=== PATIENT | female | born 1965 | race Caucasian/White ===

== ENCOUNTER 2023-03-20 15:45 | Outpatient (OUT) | payer OTHER, SELFPAY ==
[2023-03-20 16:21] LABS: Basophils Absolute Auto 0.1 10^3/uL (0.0-0.1); Basophils Percent Auto 0.7 % (0.2-2.0); Eosinophils Absolute Auto 0.4 10^3/uL (0.0-0.7); Eosinophils Percent Auto 5.3 % (0.9-7.0); Hematocrit 43.5 % (36.0-48.0); Hemoglobin 14.1 g/dL (12.0-16.0); Immature Granulocytes Abs Auto 0.01 10^3/uL (0.00-0.03); Immature Granulocytes Pct Auto 0.1 % (0.0-0.5); Lymphocytes Absolute Auto 1.9 10^3/uL (1.2-3.8); Lymphocytes Percent Auto 25.5 % (20.5-60.0); Mean Corpuscular HGB Conc 32.4 g/dL (29.9-35.2); Mean Corpuscular Hemoglobin 30.1 pg (26.7-34.0); Mean Corpuscular Volume 92.9 fL (81.0-99.0); Monocytes Absolute Auto 0.8 10^3/uL (0.3-0.8); Monocytes Percent Auto 10.6 % (1.7-12.0); Neutrophils Absolute Auto 4.4 10^3/uL (1.4-6.5); Neutrophils Percent Auto 57.8 % (43.0-75.0); Platelet Count 207 10^3/uL (150-450); Red Blood Count 4.68 10^6/uL (4.20-5.40); Red Cell Distribution Width 13.3 % (11.0-15.0); White Blood Count 7.5 10^3/uL (4.0-11.0)
[2023-03-20 16:36] LABS: Bilirubin Urine NEGATIVE (NEGATIVE); Blood Urine NEGATIVE (NEGATIVE); Clarity Urine CLEAR (CLEAR); Color Urine LT. YELLOW (YELLOW); Glucose Urine UA NEGATIVE (NEGATIVE); Ketones Urine NEGATIVE (NEGATIVE); Leukocyte Esterase Urine SMALL (NEGATIVE); Nitrite Urine NEGATIVE (NEGATIVE); Protein Urine NEGATIVE (NEG/TRACE); Specific Gravity Urine >=1.030 (1.005-1.025); Urobilinogen Urine 0.2 EU/dL (0.2-1.0); pH Urine 5.5 (5.0-9.0)
[2023-03-20 16:42] LABS: Bacteria Urine SMALL #/HPF (NONE SEEN); Mucus Urine NONE SEEN (NONE SEEN); RBC Urine NONE SEEN #/HPF (0-2)
[2023-03-20 16:43] LABS: Cast Seen? NONE SEEN #/LPF (NONE SEEN); Crystals Seen? None Seen #/HPF (None Seen); Squamous Epithelial Cell Urine FEW #/LPF (NONE/RARE)
[2023-03-20 16:51] LABS: Free T4 0.93 ng/dL (0.76-1.46)
[2023-03-20 16:52] LABS: Alanine Aminotransferase 28 U/L (14-59); Albumin Globulin Ratio 0.9; Albumin Level 3.7 g/dL (3.4-5.0); Alkaline Phosphatase 86 U/L (46-116); Anion Gap 13.3; Aspartate Amino Transferase 19 U/L (15-37); BUN Creatinine Ratio 24.5; Bilirubin Total 0.3 mg/dL (0.2-1.0); Calcium 9.1 mg/dL (8.5-10.1); Carbon Dioxide 24.5 mmol/L (21.0-32.0); Chloride 106 mmol/L (98-107); Chol HDL Ratio 2.4; Cholesterol 138 mg/dL (<=200); Estimated GFR (African America >60 (>=60); Estimated GFR (Non-African Ame 58 (>=60); Glucose 111 mg/dL (74-106); HDL Cholesterol 57 mg/dL (40-60); LDL Cholesterol Calculated 58.4 mg/dL; Potassium 3.8 mmol/L (3.5-5.1); Sodium 140 mmol/L (136-145); Thyroid Stimulating Hormone 2.571 uIU/mL (0.358-3.740); Total Protein 7.7 g/dL (6.4-8.2); Triglycerides 113 mg/dL (<=150); VLDL CHOLESTEROL 22.6 mg/dL
== END 2023-03-20 15:46 | disposition home or self-care (01) ==
LOC: LAB 15:48
PROVIDERS: PCP Nurse Practitioner; Visit Provider Nurse Practitioner
DX: R94.6 Abnormal results of thyroid function studies (principal); E78.5 Hyperlipidemia, unspecified; I10 Essential (primary) hypertension; Z72.0 Tobacco use
CPT/HCPCS: 36415; 80053; 80061; 81001; 84439; 84443; 85025

== ENCOUNTER 2023-05-16 07:52 | Outpatient (OUT) | payer OTHER, SELFPAY ==
--- NOTE | 2023-05-16 08:25 | MM_ITS ---
Patient: DIANE NGUYEN Exam Date: 05/16/2023 : 1965 Gender:F Ordering : EDUIN Nica Krishnamurthy [employer] Admission #: [id number] Family : Order #: [id number] CLICK HERE TO VIEW EXAM RADIOLOGY REPORT PROCEDURE: MM TOMOSYNTHESIS SCREENING BI COMPARISON: MG MAMM SCREEN 3D PARISA CAD, 05/28/2021. MG MAMM RT DIAG FU, 03/24/2020. MG MAMM SCREEN PARISA W CAD, 03/17/2020. MG MAMM PARISA SCRN W CAD DIG, 07/11/2013. INDICATIONS: Screening Calculator Name NCI Breast Cancer Risk Assessment Tool 5 Year Breast Cancer Risk 0.90% Lifetime Breast Cancer Risk 5.70% Personal Breast Cancer No Personal Ovarian Cancer No Treatments None Family Cancers Grandmother-maternal with stomach cancer at age ~78. LOCATION: [facility] BREAST COMPOSITION: Scattered areas fibroglandular density. FINDINGS: DIAGNOSTIC CATEGORY 1--NEGATIVE. RIGHT BREAST: No significant suspicious finding. No significant change has occurred. LEFT BREAST: No significant suspicious finding. No significant change has occurred. RECOMMENDATIONS: ROUTINE MAMMOGRAM AND CLINICAL EVALUATION IN 12 MONTHS. PLEASE NOTE: A NORMAL MAMMOGRAM DOES NOT EXCLUDE THE POSSIBILITY OF BREAST CANCER. A CLINICALLY SUSPICIOUS PALPABLE LUMP SHOULD BE BIOPSIED. Dictated by: Sukumar Crespo M.D. on 05/17/2023 at 13:31 Approved by: Sukumar Crespo M.D. on 05/17/2023 at 13:36
== END 2023-05-16 07:53 | disposition home or self-care (01) ==
LOC: MAMMO 07:52
PROVIDERS: PCP Nurse Practitioner; Visit Provider Nurse Practitioner
DX: Z12.31 Encounter for screening mammogram for malignant neoplasm of breast (principal); Z80.0 Family history of malignant neoplasm of digestive organs
CPT/HCPCS: 77063; 77067

== ENCOUNTER 2024-07-29 06:08 | Emergency (ER) | payer OTHER, SELFPAY ==
[2024-07-29] VITALS (10 sets, daily range): BP systolic 142–172; BP diastolic 58–101; PULSE 76; TEMP 37.5; O2SAT 92–95; BMI 27.4
--- NOTE | 2024-07-29 06:28 | ED_ITS ---
HPI HPI - General Adult General Chief complaint: Nausea/Vomiting/Diarrhea Stated complaint: VOMITING Time Seen by Provider: 07/29/24 06:25 History of Present Illness HPI narrative: 59-year-old female presents for nausea and vomiting and bodyaches. She has been sick for 4 days and started with a headache. No family member has been ill. She does not complain of diarrhea or abdominal pain or fever. Related Data Home Medications ?Medication ?Instructions ?Recorded ?Confirmed atorvastatin 40 mg tablet mg 07/29/24 lisinopril 20 mg tablet mg 07/29/24 montelukast 10 mg tablet mg 07/29/24 Allergies Allergy/AdvReac Type Severity Reaction Status Date / Time No Known Drug Allergies Allergy Verified 07/29/24 06:13 Opioid HPI Opioid Management Most Recent Opioid Data: No Data to Display Review of Systems ROS Narrative A ten point review of systems is negative except as noted above. PFSH PFSH Social History Little interest or pleasure in doing things: not at all Feeling down, depressed, or hopeless: not at all Exam Narrative Exam Narrative: Nurses note and vital signs reviewed and patient is not hypoxic. General: The patient appears well and in no apparent distress. Patient is resting comfortably on cart. Skin: Warm, dry, no pallor noted. There is no rash noted. Head: Normocephalic, atraumatic Eye: Normal conjunctiva, no drainage Ears, Nose, Mouth, and Throat: oral mucosa is moist. Nares patent. Cardiovascular: Regular Rate and Rhythm Respiratory: Patient is in no distress, no accessory muscle use, lungs are clear to auscultation, no wheezing, rales or rhonchi Back: non-tender GI: Soft and nontender Musculoskeletal: The patient has no evidence of calf tenderness, no pitting edema, symmetrical pulses noted bilaterally Neurological: A&O, normal speech Psychiatric: Cooperative Constitutional Vital Signs, click to edit/add: Last Vital Signs Temp 99.5 F 07/29/24 06:15 Pulse 76 07/29/24 06:15 Resp 18 07/29/24 06:15 BP 154/90 H 07/29/24 06:15 Pulse Ox 95 07/29/24 06:15 Course Vital Signs Vital signs: Vital Signs Temperature 99.5 F 07/29/24 06:15 Pulse Rate 76 07/29/24 06:15 Respiratory Rate 18 07/29/24 06:15 Blood Pressure 154/90 H 07/29/24 06:15 Pulse Oximetry 95 07/29/24 06:15 Temperature 99.5 F 07/29/24 06:15 Pulse Rate 76 07/29/24 06:15 Respiratory Rate 18 07/29/24 06:15 Blood Pressure 154/90 H 07/29/24 06:15 Pulse Oximetry 95 07/29/24 06:15 Medical Decision Making MDM Narrative Medical decision making narrative: The patient was ordered IV fluids and IV Zofran. Tests are pending and the patient is signed out to Dr. Green at change of shift. Differential Diagnosis Differential Diagnosis: Gastroenteritis, COVID, influenza, viral illness Discharge Plan Discharge Chief Complaint: Nausea/Vomiting/Diarrhea Clinical Impression: Nausea & vomiting Patient Disposition: Still a Patient Prescriptions / Home Meds: No Action atorvastatin 40 mg tablet lisinopril 20 mg tablet montelukast 10 mg tablet Print Language: Citizen [place] Referrals: Nica Krishnamurthy NP [Primary Care Provider] - 1 week
[2024-07-29 06:34] LABS: Basophils Percent Auto 0.2 % (0.2-2.0); Eosinophils Percent Auto 0.6 % (0.9-7.0); Hematocrit 43.2 % (36.0-48.0); Hemoglobin 14.5 g/dL (12.0-16.0); Immature Granulocytes Abs Auto 0.02 10^3/uL (0.00-0.03); Immature Granulocytes Pct Auto 0.4 % (0.0-0.5); Lymphocytes Absolute Auto 0.8 10^3/uL (1.2-3.8); Lymphocytes Percent Auto 16.2 % (20.5-60.0); Mean Corpuscular HGB Conc 33.6 g/dL (29.9-35.2); Mean Corpuscular Hemoglobin 31.6 pg (26.7-34.0); Mean Corpuscular Volume 94.1 fL (81.0-99.0); Mean Platelet Volume 11.9 fL (9.5-13.5); Monocytes Absolute Auto 0.6 10^3/uL (0.3-0.8); Monocytes Percent Auto 12.3 % (1.7-12.0); Neutrophils Absolute Auto 3.4 10^3/uL (1.4-6.5); Neutrophils Percent Auto 70.3 % (43.0-75.0); Platelet Count 131 10^3/uL (150-450); Red Blood Count 4.59 10^6/uL (4.20-5.40); Red Cell Distribution Width 11.6 % (11.0-15.0); White Blood Count 4.9 10^3/uL (4.0-11.0)
[2024-07-29 06:46] LABS: Influenza Virus A Antigen Negative; Influenza Virus B Antigen Negative; Internal Control Within Normal Limits; SARS-CoV-2 Ag NEGATIVE (NEGATIVE)
[2024-07-29] MEDS: 0.9 % SODIUM CHLORIDE 1,000 ML 1000 ML IV (06:46)
[2024-07-29] MEDS: ONDANSETRON PF 4 MG/2 ML VIAL IV (06:46)
[2024-07-29 06:47] LABS: Anion Gap 16.7; BUN Creatinine Ratio 15.9; Calcium 8.6 mg/dL (8.5-10.1); Carbon Dioxide 24.6 mmol/L (21.0-32.0); Chloride 103 mmol/L (98-107); Estimated GFR (African America >60 (>=60 mL/min/1.73m^2); Estimated GFR (Non-African Ame >60 (>=60 mL/min/1.73m^2); Glucose 102 mg/dL (74-106); Potassium 3.3 mmol/L (3.5-5.1); Sodium 141 mmol/L (136-145)
[2024-07-29] MEDS: POTASSIUM BICARBONATE/CIT 25 MEQ TABLET EFF 50 MEQ PO (07:43)
== END 2024-07-29 08:00 | disposition home or self-care (01) ==
PROVIDERS: Emergency Provider Emergency Medicine; PCP Nurse Practitioner
DX: E87.6 Hypokalemia (principal); R11.2 Nausea with vomiting, unspecified; D69.6 Thrombocytopenia, unspecified
CPT/HCPCS: 36415; 80048; 85025; 87804; 87811; 96361; 96374; 99284; J2405

== ENCOUNTER 2024-09-18 11:34 | Emergency (ER) | payer OTHER, SELFPAY ==
[2024-09-18 11:46] VITALS: BP 162/98; PULSE 68; TEMP 36.6; O2SAT 97; BMI 29.0
--- OUTSIDE RECORDS SUMMARY | 2024-09-18 12:04 | XMS_ITS | CCD ---
Author Organization [facility] Care Team Providers Care Validation Intern Name Role Phone SHAIKH KELLY Referring Unavailable MICK MONTERO Surgeon Unavailable PAULINA, ALAN Admitting Unavailable AICHHOLZ, NICA Primary Care Unavailable ME Procedure Practitioner Unavailab ASHLEY Yancey Attending Unavailable AICHHOLZ, HAND SPLITTER NICA Primary Care Unavailable AICHHOLZ, HAND SPLITTER NICA Consulting Unavailable AICHHOLZ, HAND SPLITTER NICA Attending Unavailable AICHHOLZ, HAND SPLITTER NICA Admitting Unavailable AICHHOLZ, HAND SPLITTER NICA Primary Care Unavailable AICHHOLZ, HAND SPLITTER NICA Consulting Unavailable AICHHOLZ, HAND SPLITTER NICA Attending Unavailable AICHHOLZ, HAND SPLITTER NICA Admitting Unavailable DR AGUSTÍN CRESPO Consulting Unavailable AICHHOLZ, HAND SPLITTER NICA Primary Care Unavailable AICHHOLZ, HAND SPLITTER NICA Attending Unavailable AICHHOLZ, HAND SPLITTER NICA Admitting Unavailable AICHHOLZ, HAND SPLITTER NICA Consulting Unavailable ASHLIE GARCIA Consulting Unavailable AICHHOLZ, HAND SPLITTER NICA Primary Care Unavailable AICHHOLZ, HAND SPLITTER NICA Attending Unavailable AICHHOLZ, HAND SPLITTER NICA Admitting Unavailable AICHHOLZ, HAND SPLITTER NICA Primary Care Unavailable VANESSA BARGER Attending Unavailable CHARBEL, VANESSA Admitting Unavailable CHARBEL, VANESSA Consulting Unavailable AICHHOLZ, HAND SPLITTER NICA Primary Care Unavailable BOY [place] Attending Unavailable RANULFO, BOY Admitting Unavailable RANULFO, BOY Consulting Unavailable CHARBEL, VANESSA Attending Unavailable CHARBEL, VANESSA Admitting Unavailable CHARBEL, VANESSA Consulting Unavailable AICHHOLZ, HAND SPLITTER NICA Primary Care Unavailable AICHHOLZ, HAND SPLITTER NICA Primary Care Unavailable PAY, DR BARNES Admitting Unavailable PAY, DR BARNES Attending Unavailable KRISTIE SKY Consulting Unavailable SYEDA ELKINS Consulting Unavailable AICHHOLZ, HAND SPLITTER NICA Primary Care Unavailable SHAIKH Juaquin KELLY Attending Unavailable SHAIKH Juaquin KELLY Admitting Unavailable DR BOB PRICE Consulting Unavailable VANESSA BARGER Consulting Unavailable ARSENIO HOWARD Consulting Unavailable SHAIKH Juaquin KELLY Consulting Unavailable Yessy ENVIRONMENTAL LEAD, Nica Unavailable Ja Pabon MD Primary Care Provider Unallocated , Noms Provider Primary Care Provi bertha Ja Pabon MD Primary Care Provider Yessy ENVIRONMENTAL LEAD, Nica Unavailable NICA KRISHNAMURTHY Attending Unavailable NICA KRISHNAMURTHY Attending Unavailable NICA KRISHNAMURTHY Attending Unavailable Medications Current Medications Medication Drug Class(es) Dates Sig (Normalized) Sig (Original) atorvastatin 40 mg oral tablet (7 sources) HMG-CoA Reductase Inhibitor Start: 02-22-2024 End: 08-25-2024 take 1 tablet by mouth in the evening atorvastatin (Lipitor) 40 MG tablet Indications: Mixed hyperlipidemia (CMS/HCC) Take 1 tablet (40 mg) by mouth in the evening 90 tablet 05/27/2024 Active lisinopril 20 mg oral tablet (7 sources) Angiotensin Converting Enzyme Inhibitor Start: 02-22-2024 End: 08-25-2024 take 1 tablet by mouth once daily lisinopril 20 MG tablet Indications: Primary hypertension (CMS/HCC) Take 1 tablet (20 mg) by mouth Daily 90 tablet 05/27/2024 Active ofloxacin 3 mg/ml otic solution (2 sources) Quinolone Antimicrobial Start: 05-27-2024 End: 06-03-2024 ofloxacin (Floxin) 0.3 % otic solution Indications: Acute otitis externa of right ear, unspecified type Administer 10 drops into affected ear(s) Daily for [address] 10 drops daily in right ear 5 mL 05/27/2024 06/03/2024 Active tiZANidine 4 mg oral tablet (7 sources) Central alpha-2 Adrenergic Agonist Start: 02-22-2024 End: 08-25-2024 tiZANidine (Zanaflex) 4 MG tablet Indications: Muscle spasms of neck Take 1 tablet (4 mg) by mouth as needed at bedtime for muscle spasms 90 tablet 05/27/2024 Active topiramate 25 mg oral tablet (7 sources) Start: 02-22-2024 End: 08-25-2024 take 2 tablets by mouth at bedtime topiramate (Topamax) 25 MG tablet Indications: Other migraine without status migrainosus, not intractable (CMS/HCC) Take 2 tablets (50 mg) by mouth at bedtime 180 tablet 05/27/2024 Active traZODone hydrochloride 50 mg oral tablet (7 sources) Serotonin Reuptake Inhibitor Start: 02-22-2024 End: 08-25-2024 take 2 tablets by mouth at bedtime traZODone (Desyrel) 50 MG tablet Indications: Anxiety and depression (CMS/HCC) Take 2 tablets (100 mg) by mouth at bedtime 180 tablet 05/27/2024 Active 24 hr venlafaxine 75 mg extended release oral capsule (7 sources) Serotonin and Norepinephrine Reuptake Inhibitor Start: 02-22-2024 End: 08-25-2024 take 1 capsule by mouth once daily venlafaxine XR (Effexor XR) 75 MG 24 hr capsule Indications: Anxiety Take 1 capsule (75 mg) by mouth Daily 90 capsule 05/27/2024 Active Completed/Discontinued Medications Medication Drug Class(es) Dates Sig (Normalized) Sig (Original) montelukast 10 mg oral tablet (8 sources) Leukotriene Receptor Antagonist Start: 02-22-2024 End: 11-23-2024 take 1 tablet by mouth at bedtime montelukast (Singulair) 10 MG tablet Indications: Environmental and seasonal allergies Take 1 tablet (10 mg) by mouth at bedtime 90 tablet 05/27/2024 08/25/2024 Discontinued Problems Active Problems Problem Classification Problem Date Documented Da te Episodic/Chronic Acute myocardial infarction (3 sources) Non-ST elevation (NSTEMI) myocardial infarction; Translations: [NON-ST ELEVATION MYOCARDIAL INFARCT] Onset: 1 Chronic Anxiety disorders (17 sources) Anxiety disorder, unspecified; Translations: [Mixed anxiety and depressive disorder] Onset: 2 Resolved: 4 10-04-2023 Chronic Cardiac dysrhythmias (10 sources) Bradycardia; Translations: [Bradycardia, unspecified] Onset: 4 05-27-2024 Episodic Chronic obstructive pulmonary disease and bronchiectasis (9 sources) Chronic obstructive lung disease; Translations: [Chronic obstructive pulmonary disease, unspecified] Onset: 4 05-27-2024 Chronic Coronary atherosclerosis and other heart disease (7 sources) History of myocardial infarction; Translations: [Old myocardial infarction] Onset: 4 11-29-2023 Chronic Disorders of lipid metabolism (10 sources) Hyperlipidemia, unspecified; Translations: [Hyperlipidemia] Onset: 1 10-04-2023 Chronic Esophageal disorders (9 sources) Gastroesophageal reflux disease; Translations: [Gastro-esophageal reflux disease without esophagitis] Onset: 4 10-04-2023 Chronic Essential hypertension (12 sources) Essential (primary) hypertension; Translations: [Hypertensive disorder] Onset: 2 10-04-2023 Chronic Fluid and electrolyte disorders (1 source) Hypokalemia; Translations: [HYPOKALEMIA] Onset: 2 Episodic Genitourinary symptoms and ill-defined conditions (7 sources) Female stress incontinence; Translations: [Stress incontinence (female) (male)] Onset: 4 10-04-2023 Chronic Headache; including migraine (7 sources) Migraine; Translations: [Migraine, unspecified, not intractable, without status migrainosus] Onset: 4 09-26-2023 Chronic Miscellaneous mental health disorders (2 sources) Primary insomnia; Translations: [Primary insomnia] 05-27-2024 Chronic Mood disorders (1 source) Major depressive disorder, single episode, unspecified; Translations: [EVELIO DEPRESS D/O SINGLE EPIS UNS] Onset: 1 Chronic Noninfectious gastroenteritis (1 source) Noninfective gastroenteritis and colitis, unspecified; Translations: [NONINFECTIVE GE AND COLITIS UNS] Onset: 2 Episodic Other aftercare (1 source) Other retirement (current) drug therapy; 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] Onset: 2 Episodic Other connective tissue disease (4 sources) Myalgia, unspecified site; Translations: [MYALGIA UNSPECIFIED SITE] Onset: 2 Episodic Other ear and sense organ disorders (7 sources) Mixed conductive and sensorineural hearing loss of right ear; Translations: [Mixed conductive and sensorineural hearing loss, unilateral, right ear, with unrestricted hearing on the contralateral side] Onset: 4 10-04-2023 Chronic Other ear and sense organ disorders (8 sources) Acute otitis externa of right ear; Translations: [Unspecified acute noninfective otitis externa, right ear] Onset: 4 05-27-2024 Episodic Other gastrointestinal disorders (3 sources) Diarrhea, unspecified; Translations: [DIARRHEA UNSPECIFIED] Onset: 2 Episodic Other nutritional; endocrine; and metabolic disorders (11 sources) Obesity caused by energy imbalance; Translations: [Morbid (severe) obesity due to excess calories] Onset: 4 05-27-2024 Chronic Other nutritional; endocrine; and metabolic disorders (11 sources) Body mass index 30+ - obesity; Translations: [Body mass index (BMI) 35.0-35.9, adult] Onset: 4 05-27-2024 Chronic Other screening for suspected conditions (not mental disorders or infectious disease) (20 sources) Encounter for screening mammogram for malignant neoplasm of breast; Translations: [Mammography abnormal] Onset: 1 Resolved: 4 Episodic Other upper respiratory disease (1 source) Allergic disposition; Translations: [Other allergic rhinitis] 08-25-2024 Chronic Other upper respiratory infections (1 source) Acute upper respiratory infection, unspecified; Translations: [ACUTE UP RESPIRATORY INFECTION UNS] Onset: 2 Episodic Prolapse of female genital organs (7 sources) Incomplete uterovaginal prolapse; Translations: [Incomplete uterovaginal prolapse] Onset: 4 10-04-2023 Chronic Residual codes; unclassified (11 sources) Obstructive sleep apnea of adult; Translations: [Obstructive sleep apnea (adult) (pediatric)] Onset: 4 10-04-2023 Chronic Residual codes; unclassified (1 source) Acquired absence of both cervix and uterus; Translations: [ACQUIRED ABSENCE BOTH CERVIX AND UTERUS] Onset: 2 Episodic Residual codes; unclassified (1 source) Acquired absence of other specified parts of digestive tract; Translations: [ACQ ABSENCE OTH PART DIGESTV TRACT] Onset: 2 Episodic Spondylosis; intervertebral disc disorders; other back problems (14 sources) Degeneration of lumbar intervertebral disc; Translations: [DDD (degenerative disc disease), lumbar] Onset: 10-04-2023 Chronic Substance-related disorders (1 source) Nicotine dependence, cigarettes, uncomplicated; Translations: [NICOTINE DEPEND CIGARETTES UNCOMP] Onset: 2 Chronic Unclassified (1 source) CONTACT W/AND (SUSP) EXPOS COVID-19; Translations: [CONTACT W/AND (SUSP) EXPOS COVID-19] Onset: 2 Viral infection (1 source) COVID-19; Translations: [COVID-19] Onset: 2 Past or Other Problems Problem Classification Problem Date Documented Date Episodic/Chronic E Codes: Natural/environment (1 source) Other and unspecified overexertion or strenuous movements or postures, initial encounter; Translations: [OTH AND UNS OVREXRT/STRN MVMT/POS INT] Onset: 12-22-2021 Episodic Nonspecific chest pain (1 source) Chest pain, unspecified; Translations: [CHEST PAIN UNSPECIFIED] Onset: 2021 Episodic Other connective tissue disease (3 sources) Pain in right leg; Translations: [PAIN IN RIGHT LEG] Onset: 12-10-2021 Episodic Other connective tissue disease (7 sources) Muscle spasm of cervical muscle of neck; Translations: [Other muscle spasm] Onset: 09-26-2023 09-26-2023 Episodic Other connective tissue disease (7 sources) Muscle pain; Translations: [Myalgia, unspecified site] Onset: 10-04-2023 10-04-2023 Episodic Other ear and sense organ disorders (7 sources) Cholesteatoma of attic; Translations: [Cholesteatoma of attic, right ear] Onset: 10-04-2023 10-04-2023 Episodic Other lower respiratory disease (7 sources) Snoring; Translations: [Snoring] Onset: 10-04-2023 10-04-2023 Episodic Other lower respiratory disease (7 sources) Chronic cough; Translations: [Chronic cough] Onset: 10-04-2023 10-04-2023 Episodic Other nervous system disorders (7 sources) Paresthesia; Translations: [Paresthesia of skin] Onset: 10-04-2023 Resolved: 10-04-2023 10-04-2023 Episodic Other non-traumatic joint disorders (3 sources) Pain in right hip; Translations: [PAIN IN RIGHT HIP] Onset: 12-20-2021 Episodic Other nutritional; endocrine; and metabolic disorders (4 sources) Abnormal weight loss; Translations: [ABNORMAL WEIGHT LOSS] Onset: 01-07-2022 Episodic Other nutritional; endocrine; and metabolic disorders (7 sources) Weight loss; Translations: [Abnormal weight loss] Onset: 10-04-2023 Resolved: 10-04-2023 10-04-2023 Episodic Otitis media and related conditions (14 sources) Dysfunction of right eustachian tube; Translations: [Unspecified Eustachian tube disorder, right ear] Onset: 10-04-2023 Resolved: 10-04-2023 10-04-2023 Episodic Pneumonia (except that caused by tuberculosis or sexually transmitted disease) (7 sources) Pneumonia; Translations: [Pneumonia, unspecified organism] Onset: 10-04-2023 Resolved: 10-04-2023 10-04-2023 Episodic Residual codes; unclassified (7 sources) Parasomnia; Translations: [Parasomnia, unspecified] Onset: 10-04-2023 Resolved: 10-04-2023 10-04-2023 Chronic Residual codes; unclassified (1 source) Family history of malignant neoplasm of digestive organs; Translations: [FAM HX MALIG NEOPLASM DIGESTIV ORGN] Onset: 06-04-2021 Episodic Residual codes; unclassified (7 sources) Insomnia; Translations: [Insomnia, unspecified] Onset: 10-04-2023 10-04-2023 Episodic Residual codes; unclassified (11 sources) Tobacco user; Translations: [Tobacco use] Onset: 10-04-2023 10-04-2023 Episodic Spondylosis; intervertebral disc disorders; other back problems (5 sources) Radiculopathy, lumbar region; Translations: [Sciatica, right side] Onset: 12-22-2021 Episodic Sprains and strains (2 sources) Strain of other specified muscles, fascia and tendons at thigh level, right thigh, initial encounter; Translations: [STRAIN OTH MUSC FASC THIGH RT INIT] Onset: 12-13-2021 Episodic Syncope (11 sources) Syncope and collapse; Translations: [Near syncope] Onset: 05-12-2021 Resolved: 10-04-2023 Episodic Viral infection (7 sources) Disease caused by 2019-nCoV; Translations: [COVID-19] Onset: 10-04-2023 Resolved: 10-04-2023 10-04-2023 Episodic Results Test Name Value Interpretation Reference Range Facility Covid-19 PCR (CVD[facility])on 04-08 SARS-CoV-2 (COVID-19) RNA VISH+probe Ql (Unsp spec) Not detected Normal NOT DETECTED [facility] Comment on above: Result Comment: When diagnostic testing is negative, the possibility of a false negative should be considered in the context of a patient's recent exposures and the presence of clinical signs and symptoms consistent with SARS-CoV-2. This test is not yet approved or cleared by the [place] FDA. When there are no FDA-approved or cleared tests available, and other criteria are met, FDA can make tests available under an emergency access mechanism called an Emergency Use Authorization (EUA). The EUA for this test is supported by the [place] of Health and Human Service's declaration that circumstances exist to justify the emergency use of in vitro diagnostics for the detection and/or diagnosis of the virus that causes COVID-19. This EUA will remain in effect for the duration of the COVID-19 declaration justifying emergency of IVDs, unless it is terminated or revoked by the FDA (after which the test may no longer be used). Performed By: #### C VDTB #### [facility] [address] [place] [address] Dr. Stacey Melendez CBC AUTO DIFFon 03-26-2022 BASO # 0.0 103/ul Normal 0.0-0.1 [facility] Comment on above: Performed By: #### C BC #### [facility] [address] [address] [address] Stacey Melendez Basophils/100 WBC (Bld) 0.3 % Normal 0.2-2.0 [facility] Comment on above: Performed By: #### C BC #### [facility] [address] [address] [address] Stacey Melendez EO # 0.0 103/ul Normal 0.0-0.7 [facility] Comment on above: Performed By: #### C BC #### [facility] [address] [place] [address] Dr. Stacey Melendez Eosinophils/100 WBC (Bld) 0.0 % Critically low 0.9-7.0 [facility] Comment on above: Performed By: #### C BC #### [facility] [address] [place] [address] Dr. Stacey Melendez Erythrocyte distribution width (RBC) [Ratio] 12.4 % Normal 11.0-15.0 [facility] Comment on above: Performed By: #### C BC #### [facility] [address] [place] [address] Dr. Stacey Melendez Hematocrit (Bld) [Volume fraction] 43.4 % Normal 36.0-48.0 [facility] Comment on above: Performed By: #### C BC #### [facility] [address] [place] [address] Dr. Stacey Melendez Hemoglobin (Bld) [Mass/Vol] 14.3 g/dL Normal 12.0-16.0 [facility] Comment on above: Performed By: #### C BC #### [facility] [address] [place] [address] Dr. Stacey Melendez IG # 0.04 10e3/ul Critically high 0.00-0.03 [facility] Comment on above: Performed By: #### C BC #### [facility] [address] [place] [address] Dr. Stacey Melendez IG % 0.4 % Normal 0.0-0.5 [facility] Comment on above: Performed By: #### C BC #### [facility] [address] [place] [address] Dr. Stacey Melendez LYMPH # 1.2 103/ul Normal 1.2-3.8 [facility] Comment on above: Performed By: #### C BC #### [facility] [address] [place] [address] Dr. Stacey Melendez Lymphocytes/100 WBC (Bld) 12.6 % Critically low 20.5-60.0 [facility] Comment on above: Performed By: #### C BC #### [facility] [address] [place] [address] Dr. Stacey Melendez MANUAL DIFF REQ NO Normal [facility] Comment on above: Performed By: #### C BC #### [facility] [address] [place] [address] Dr. Stacey Melendez MCH (RBC) [Entitic mass] 31.3 pg Normal 26.7-34.0 [facility] Comment on above: Performed By: #### C BC #### [facility] [address] [place] [address] Dr. Stacey Melendez MCHC (RBC) [Mass/Vol] 32.9 g/dL Normal 29.9-35.2 [facility] Comment on above: Performed By: #### C BC #### [facility] [address] [place] [address] Dr. Stacey Melendez MCV (RBC) [Entitic vol] 95.0 fL Normal 81.0-99.0 [facility] Comment on above: Performed By: #### C BC #### [facility] [address] [place] [address] Dr. Stacey Melendez MONO # 1.0 103/ul Critically high 0.3-0.8 [facility] Comment on above: Performed By: #### C BC #### [facility] [address] [place] [address] Dr. Stacey Melendez Monocytes/100 WBC (Bld) 10.8 % Normal 1.7-12.0 [facility] Comment on above: Performed By: #### C BC #### [facility] [address] [place] [address] Dr. Stacey Melendez NEUT # 7.3 103/ul Critically high 1.4-6.5 [facility] Comment on above: Performed By: #### C BC #### [facility] [address] [place] [address] Dr. Stacey Melendez Neutrophils/100 WBC (Bld) 75.9 % Critically high 43.0-75.0 [facility] Comment on above: Performed By: #### C BC #### [facility] [address] [address] [address] Stacey Melendez Platelet mean volume (Bld) [Entitic vol] 12.2 fL Normal 9.5-13.5 [facility] Comment on above: Performed By: #### C BC #### [facility] [address] [address] [address] Stacey Melendez PLT 153 103/ul Normal 150-450 [facility] Comment on above: Performed By: #### C BC #### [facility] [address] [place] [address] Dr. Stacey Melendez RBC 4.57 106/ul Normal 4.20-5.40 [facility] Comment on above: Performed By: #### C BC #### [facility] [address] [place] [address] Dr. Stacey Melendez WBC 9.6 103/ul Normal 4.0-11.0 [facility] Comment on above: Performed By: #### C BC #### [facility] [address] [place] [address] Dr. Stacey Melendez [facility] SARS-CoV-2 (COVID-19) RNA VISH+probe Ql (Unsp spec) Detected Critically abnormal NOT DETECTED [facility] Comment on above: Result Comment: This test is not yet approved or cleared by the [place] FDA. When there are no FDA-approved or cleared tests available, and other criteria are met, FDA can make tests available under an emergency access mechanism called an Emergency Use Authorization (EUA). The EUA for this test is supported by the [place] of Health and Human Service's declaration that circumstances exist to justify the emergency use of in vitro diagnostics for the detection and/or diagnosis of the virus that causes COVID-19. This EUA will remain in effect for the duration of the COVID-19 declaration justifying emergency of IVDs, unless it is terminated or revoked by the FDA (after which the test may no longer be used). Performed By: #### P TT, PT #### [facility] [address] [place] [address] Dr. Stacey Melendez INFLUENZA A AND B AGon 03-26 INFLUENZA A AG Negative Normal NEGATIVE SEE COMMENT [facility] Comment on above: Performed By: #### C VDTBH #### [facility] [address] [place] [address] Dr. Stacey Melendez INFLUENZA B AG Negative Normal NEGATIVE SEE COMMENT [facility] Comment on above: Performed By: #### C VDTBH #### [facility] [address] [place] [address] Dr. Stacey Melendez INTERNAL CONTROLS Within Normal Limits Normal Wi thin Normal Limits [facility] Comment on above: Performed By: #### C VDTBH #### [facility] [address] [place] [address] Dr. Stacey Melendez LACTATE/LACTIC ACIDon 2021 Lactate [Moles/Vol] 1.0 mmol/L Normal 0.4-1.9 [facility] Comment on above: Performed By: #### P TT, PT #### [facility] [address] [place] [address] Dr. Stacey Melendez PROF CHEM 8 (BAS METB)on Anion gap [Moles/Vol] 14.6 mmol/L Normal [facility] Comment on above: Performed By: #### C BC #### [facility] [address] [place] [address] Dr. Stacey Melendez Calcium [Mass/Vol] 8.7 mg/dL Normal 8.5-10.1 [facility] Comment on above: Performed By: #### C BC #### [facility] [address] [place] [address] Dr. Stacey Melendez Chloride [Moles/Vol] 104 mmol/L Normal 98-107 [facility] Comment on above: Performed By: #### C BC #### [facility] [address] [place] [address] Dr. Stacey Melendez CO2 [Moles/Vol] 21.0 mmol/L Normal 21.0-32.0 [facility] Comment on above: Performed By: #### C BC #### [facility] [address] [address] [address] Stacey Melendez Creatinine [Mass/Vol] 1.39 mg/dL Critically high 0.55-1.02 [facility] Comment on above: Performed By: #### C BC #### [facility] [address] [address] [address] Stacey Melendez EGFR-AF KITT[place]IAN 48 mL/min/1.73m2 Critically low >=60 [facility] Comment on above: Performed By: #### C BC #### [facility] [address] [address] [address] Stacey Melendez EGFR-NON AF [place]IAN 39 mL/min/1.73m2 Critically low >=60 [facility] Comment on above: Performed By: #### C BC #### [facility] [address] [address] [address] Stacey Melendez Glucose [Mass/Vol] 126 mg/dL Critically high 74-106 T [facility] Comment on above: Performed By: #### C BC #### [facility] [address] [address] [address] Stacey Melendez Potassium [Moles/Vol] 2.6 mmol/L Critically low 3.5-5.1 [facility] Comment on above: Performed By: #### C BC #### [facility] [address] [address] [address] Stacey Melendez Sodium [Moles/Vol] 137 mmol/L Normal 136-145 [facility] Comment on above: Performed By: #### C BC #### [facility] [address] [address] [address] Stacey Melendez Urea nitrogen [Mass/Vol] 18.0 mg/dL Normal 7.0-18.0 [facility] Comment on above: Performed By: #### C BC #### [facility] [address] [address] [address] Stacey Melendez Urea nitrogen/Creatinine [Mass ratio] 12.9 mg/mg Normal [facility] Comment on above: Performed By: #### C BC #### [facility] [address] [address] [address] Stacey Melendez Ambulatory Visit Summaryon 0 02-01-2022 Ambulatory Visit Summary DIANE NGUYEN :1965 Visit Date:02/01/2022 Ambulatory Visit Instructions Your Care Team Attending Physician - MARCO GREENOWOD, Matti Hernandez Primary Care Physician - NICA KRISHNAMURTHY CNP This Is Your Medications List albuterol (albuterol HFA 90 mcg/inh MDI) atorvastatin (atorvastatin 40 mg Tab) lisinopril (lisinopril 20 mg Tab) montelukast (Singulair 10 mg Tab) omeprazole (omeprazole 20 mg Cap-DR) topiramate (topiramate 25 mg Tab) trazodone (traZODONE 50 mg Tab) venlafaxine (Effexor XR 150 mg Cap-ER) Procedures Performed Cardiac catheterization (06/2021), Colonoscopy (12/20/2017), Cholecystectomy, Cystoscopy, Grafting to skin, History of ureteral stent placement, Removal of ureteral stent, Vaginal hysterectomy. Discharge Vitals Heart Rate (Peripheral) 78 Respiratory Rate 16 Blood Pressure 148/88 Height 170.18 cm Height 170.2 cm Weight 83 kg Weight 83.0 kg BMI 28.66 Medications What How Much When Instructions Unchanged albuterol (albuterol HFA 90 mcg/ inh MDI) 2 Puffs Inhalation Every 6 hours as needed for Shortness of breath or wheezing Unchanged atorvastatin (atorvastatin 40 mg Tab) 1 Tablets By Mouth Every day Unchanged lisinopril (lisinopril 20 mg Tab) 1 Tablets By Mouth Every day Unchanged montelukast (Singulair 10 mg Tab) 1 Tablets By Mouth Once a day (in the evening) Unchanged omeprazole (omeprazole 20 mg Cap-DR) 1 Capsules By Mouth Every day Unchanged topiramate (topiramate 25 mg Tab) 2 Capsules By Mouth At bedtime Unchanged trazodone (traZODONE 50 mg Tab) 2 Tablets By Mouth Once a day (at bedtime) Unchanged venlafaxine (Effexor XR 150 mg Cap-ER) 1 Capsules By Mouth Every day Allergies No Known Allergies No Known Medication Allergies Problems Ongoing - Any problem that you are currently receiving treatment for. Anxiety and depression BMI 28.0-28.9,adult Chronic obstructive pulmonary disease DDD (degenerative disc disease), cervical DDD (degenerative disc disease), lumbar GERD (gastroesophageal reflux disease) History of AL (myocardial infarction) HTN (hypertension) Hypercholesteremia Hyperlipidemia Insomnia Obesity MISAEL (obstructive sleep apnea) Parasomnia Stress incontinence Tobacco user Weight loss Normal [facility] Physician Referralon 022 Physician Referral [phone] [id number] [facility] CBC AUTO DIFFon 01-07-2022 BASO # 0.0 103/ul Normal 0.0-0.1 [facility] Comment on above: Performed By: #### C VDTBH #### [facility] [address] [place] [address] Dr. Stacey Melendez Basophils/100 WBC (Bld) 0.1 % Critically low 0.2-2.0 [facility] Comment on above: Performed By: #### C VDTBH #### [facility] [address] [place] [address] Dr. Stacey Melendez EO # 0.1 103/ul Normal 0.0-0.7 [facility] Comment on above: Performed By: #### C VDTBH #### [facility] [address] [place] [address] Dr. Stacey Melendez Eosinophils/100 WBC (Bld) 1.0 % Normal 0.9-7.0 [facility] Comment on above: Performed By: #### C VDTBH #### [facility] [address] [place] [address] Dr. Stacey Melendez Erythrocyte distribution width (RBC) [Ratio] 12.6 % Normal 11.0-15.0 [facility] Comment on above: Performed By: #### C VDTBH #### [facility] [address] [place] [address] Dr. Stacey Melendez Hematocrit (Bld) [Volume fraction] 41.6 % Normal 36.0-48.0 [facility] Comment on above: Performed By: #### C VDTBH #### [facility] [address] [place] [address] Dr. Stacey Melendez Hemoglobin (Bld) [Mass/Vol] 13.6 g/dL Normal 12.0-16.0 [facility] Comment on above: Performed By: #### C VDTBH #### [facility] [address] [place] [address] Dr. Stacey Melendez IG # 0.02 10e3/ul Normal 0.00-0.03 [facility] Comment on above: Performed By: #### C VDTBH #### [facility] [address] [place] [address] Dr. Stacey Melendez IG % 0.3 % Normal 0.0-0.5 [facility] Comment on above: Performed By: #### C VDTBH #### [facility] [address] [place] [address] Dr. Stacey Melendez LYMPH # 1.9 103/ul Normal 1.2-3.8 [facility] Comment on above: Performed By: #### C VDTBH #### [facility] [address] [place] [address] Dr. Stacey Melendez Lymphocytes/100 WBC (Bld) 24.4 % Normal 20.5-60.0 [facility] Comment on above: Performed By: #### C VDTBH #### [facility] [address] [place] [address] Dr. Stacey Melendez MANUAL DIFF REQ NO Normal [facility] Comment on above: Performed By: #### C VDTBH #### [facility] [address] [place] [address] Dr. Stacey Melendez MCH (RBC) [Entitic mass] 31.3 pg Normal 26.7-34.0 [facility] Comment on above: Performed By: #### C VDTBH #### [facility] [address] [place] [address] Dr. Stacey Melendez MCHC (RBC) [Mass/Vol] 32.7 g/dL Normal 29.9-35.2 [facility] Comment on above: Performed By: #### C VDTBH #### [facility] [address] [place] [address] Dr. Stacey Melendez MCV (RBC) [Entitic vol] 95.9 fL Normal 81.0-99.0 [facility] Comment on above: Performed By: #### C VDTBH #### [facility] [address] [place] [address] Dr. Stacey Melendez MONO # 0.5 103/ul Normal 0.3-0.8 [facility] Comment on above: Performed By: #### C VDTBH #### [facility] [address] [place] [address] Dr. Stacey Melendez Monocytes/100 WBC (Bld) 6.6 % Normal 1.7-12.0 [facility] Comment on above: Performed By: #### C VDTBH #### [facility] [address] [place] [address] Dr. Stacey Melendez NEUT # 5.2 103/ul Normal 1.4-6.5 [facility] Comment on above: Performed By: #### C VDTB #### [facility] [address] [place] [address] Dr. Stacey Melendez Neutrophils/100 WBC (Bld) 67.6 % Normal 43.0-75.0 [facility] Comment on above: Performed By: #### C VDTB #### [facility] [address] [place] [address] Dr. Stacey Melendez Platelet mean volume (Bld) [Entitic vol] 11.7 fL Normal 9.5-13.5 [facility] Comment on above: Performed By: #### C VDTBH #### [facility] [address] [place] [address] Dr. Stacey Melendez PLT 178 103/ul Normal 150-450 [facility] Comment on above: Performed By: #### C VDTBH #### [facility] [address] [place] [address] Dr. Stacey Melendez RBC 4.34 106/ul Normal 4.20-5.40 [facility] Comment on above: Performed By: #### C VDTBH #### [facility] [address] [place] [address] Dr. Stacey Melendez WBC 7.6 103/ul Normal 4.0-11.0 [facility] Comment on above: Performed By: #### C VDTBH #### [facility] [address] [place] [address] Dr. Stacey Melendez CRPon 01-07-2022 CRP [Mass/Vol] mg/L Normal <=1.0 [facility] Comment on above: Performed By: #### P TT, PT #### [facility] [address] [place] [address] Dr. Stacey Melendez FREE T3on 01-07-2022 FREE T3 2.39 pg/mlL Normal 2.18-3.98 [facility] Comment on above: Performed By: #### P TT, PT #### [facility] [address] [place] [address] Dr. Stacey Melendez FREE T4on 01-07-2022 Free T4 [Mass/Vol] 1.04 ng/dL Normal 0.76-1.46 [facility] Comment on above: Performed By: #### P TT, PT #### [facility] [address] [place] [address] Dr. Stacey Melendez PROF 14(COMP METB)on 022 Albumin [Mass/Vol] 3.7 g/dL Normal 3.4-5.0 [facility] Comment on above: Performed By: #### C VDTBH #### [facility] [address] [place] [address] Dr. Stacey Melendez Albumin/Globulin [Mass ratio] 1.0 {ratio} Normal [facility] Comment on above: Performed By: #### C VDTBH #### [facility] [address] [place] [address] Dr. Stacey Melendez ALP [Catalytic activity/Vol] 57 U/L Normal 46-116 [facility] Comment on above: Performed By: #### C VDTBH #### [facility] [address] [place] [address] Dr. Stacey Melendez ALT [Catalytic activity/Vol] 25 U/L Normal 14-59 [facility] Comment on above: Performed By: #### C VDTBH #### [facility] [address] [address] [address] Stacey Melendez Anion gap [Moles/Vol] 14.4 mmol/L Normal [facility] Comment on above: Performed By: #### C VDTBH #### [facility] [address] [address] [address] Stacey Melendez AST [Catalytic activity/Vol] 11 U/L Critically low 15-37 [facility] Comment on above: Performed By: #### C VDTBH #### [facility] [address] [address] [address] Stacey Melendez Bilirubin [Mass/Vol] 0.3 mg/dL Normal 0.2-1.0 [facility] Comment on above: Performed By: #### C VDTBH #### [facility] [address] [address] [address] Stacey Melendez Calcium [Mass/Vol] 9.1 mg/dL Normal 8.5-10.1 [facility] Comment on above: Performed By: #### C VDTBH #### [facility] [address] [address] [address] Stacey Melendez Chloride [Moles/Vol] 108 mmol/L Critically high 98-107 [facility] Comment on above: Performed By: #### C VDTBH #### [facility] [address] [address] [address] Stacey Melendez CO2 [Moles/Vol] 23.2 mmol/L Normal 21.0-32.0 [facility] Comment on above: Performed By: #### C VDTBH #### [facility] [address] [address] [address] Stacey Melendez Creatinine [Mass/Vol] 0.83 mg/dL Normal 0.55-1.02 [facility] Comment on above: Performed By: #### C VDTBH #### [facility] [address] [address] [address] Stacey Melendez EGFR-AF KITTITIAN >60 Normal >=60 [facility] Comment on above: Performed By: #### C VDTBH #### [facility] [address] [address] [address] Stacey Melendez EGFR-NON AF KITTITIAN >60 Normal >=60 [facility] Comment on above: Performed By: #### C VDTBH #### [facility] [address] [address] [address] Stacey Melendez Globulin (S) [Mass/Vol] 3.6 g/dL Normal [facility] Comment on above: Performed By: #### C VDTBH #### [facility] [address] [address] [address] Stacey Melendez Glucose [Mass/Vol] 112 mg/dL Critically high 74-106 [facility] Comment on above: Performed By: #### C VDTBH #### [facility] [address] [place] [address] Dr. Stacey Melendez Potassium [Moles/Vol] 3.6 mmol/L Normal 3.5-5.1 [facility] Comment on above: Performed By: #### C VDTBH #### [facility] [address] [place] [address] Dr. Stacey Melendez Protein [Mass/Vol] 7.3 g/dL Normal 6.4-8.2 [facility] Comment on above: Performed By: #### C VDTBH #### [facility] [address] [place] [address] Dr. Stacey Melendez Sodium [Moles/Vol] 142 mmol/L Normal 136-145 [facility] Comment on above: Performed By: #### C VDTBH #### [facility] [address] [place] [address] Dr. Stacey Melendez Urea nitrogen [Mass/Vol] 22.0 mg/dL Critically high 7.0-18.0 [facility] Comment on above: Performed By: #### C VDTBH #### [facility] [address] [place] [address] Dr. Stacey Melendez Urea nitrogen/Creatinine [Mass ratio] 26.5 mg/mg Normal [facility] Comment on above: Performed By: #### C VDTBH #### [facility] [address] [address] [address] Stacey Melendez SED RATE WESTERGRENon 2021 SED RATE 7 mm/hr Normal <=30 [facility] Comment on above: Performed By: #### C VDTBH #### [facility] [address] [address] [address] Stacey Melendez TSHon 01-07-2022 TSH 1.464 uIU/mL Normal 0.358-3.740 [facility] Comment on above: Performed By: #### C VDTBH #### [facility] [address] [address] [address] Stacey Melendez TSH RANGE SEE BELOW Normal [facility] Comment on above: Result Comment: <0.3 4 UIU/ml HYPERTHYROID 0.34-5.60 UIU/ml EUTHYROID >5.60 UIU/ml HYPOTHYROID Performed By: #### C VDTBH #### [facility] [address] [place] [address] Dr. Stacey Melendez XR CHEST 2 Von 01-07-2022 XR CHEST 2 V EXAM: XR CHEST 2 V HISTORY: Abnormal weight loss EXAM: XR CHEST 2 V INDICATION: 56 years old Female Abnormal weight loss COMPARISON: June 13, 2021 FINDINGS: The cardiac silhouette is normal. There is no pulmonary edema. The lungs are clear. There is no pneumonia. There is no pneumothorax. There is no abnormal foreign body. IMPRESSION: There is no acute abnormality. Electronically authenticated by: ASHLIE GARCIA Date: 2022-01-07 14:24 Normal [facility] XR FEMUR RTon 12-20-2021 XR FEMUR RT EXAM: XR FEMUR RT HISTORY: Pain in right leg COMPARISON: None. TECHNIQUE: 4 views FINDINGS: No fracture, dislocation, subluxation or osseous lesions. The right hip joint is normal. Age-related changes of the right sacroiliac joint. Small enthesophytes off the tendinous insertions. No gross irregularity of the knee. IMPRESSION: Normal x-rays Electronically authenticated by: SYEDA ELKINS Date: 2021-12-20 19:11 Normal [facility] CREATININE BLOODon Creatinine [Mass/Vol] 0.76 mg/dL Normal 0.60-1.20 [facility] Comment on above: Order Comment: No: D o not add to previous draw Performed By: #### 2 5656 #### [facility] [address] [place] [address], [facility] GFR/1.73 sq M.predicted among blacks MDRD (S/P/Bld) [Vol rate/Area] mL/min/{1.73_m2} Normal >60 [facility] Comment on above: Order Comment: No: D o not add to previous draw Performed By: #### 2 5656 #### [facility] [address] [place] [address], [facility] GFR/1.73 sq M.predicted among non-blacks MDRD (S/P/Bld) [Vol rate/Area] mL/min/{1.73_m2} Normal >60 [facility] Comment on above: Order Comment: No: D o not add to previous draw Performed By: #### 2 5656 #### [facility] [address] Cardiovascular Lab Reporton 06-19-[address] [facility] MR #: [id number] Department of Physician: Flaco Leigh M.D. Division of Service Date: 06/18/2021 Cardiology Birthdate: 1965 Adult Cardiovascular Room #: [id number] Services [facility] [address] [place] [place] [address] Cardiovascular Laboratory Report CLINICAL PRESENTATION: The patient is a 55-year-old female with past medical history significant for hypertension, active smoking, family history of CAD, and COPD. She is admitted with chest pain. She initially presented to [facility] with chest pain and diaphoresis. Her high sensitivity troponin was positive at 55. She was transferred to [facility] for further evaluation. At [facility], she had a cardiac stress test, which was abnormal. She is now referred for coronary angiogram. FINAL IMPRESSION: Coronary angiogram shows mild CAD. The LAD has 20% stenosis in its proximal to mid segment. The remainder of coronary arteries are patent. PLAN: 1. Medical therapy for coronary artery disease including aspirin and statin as tolerated. 2. Smoking cessation therapy is mandatory and I explained to the patient that her risk of future AL is high if she continues to smoke. 3. Outpatient followup with primary care for monitoring of medication adherence to smoking cessation. LDL goal less than 70 mg/dL. PROCEDURES: Coronary angiogram, conscious sedation 20 minutes. INDICATION: Chest pain, unstable angina, abnormal cardiac stress test. PROCEDURE DESCRIPTION: The patient was brought to the cardiac catheterization lab in a fasting state. Informed written consent was obtained. She was prepped and draped in the usual sterile fashion over the right wrist. Time-out was performed. She was given Versed and fentanyl for sedation. A 1% lidocaine was infiltrated in the right radial artery. Using ultrasound guidance, a 6-Rwandan sheath was placed in the right radial artery. Radial antivasospasm cocktail of nitroglycerin 100 mcg and verapamil 1.25 mg was administered through the sheath. All catheter exchanges were made over the Magic Torque guidewire. A 5-Rwandan JL5 was used to engage the right coronary artery. A 5-Rwandan JL3.5 was used to engage left main artery. Coronary angiogram was performed in multiple orthogonal views using hand injection of contrast. At this time, the procedure was completed. All catheters and wires removed from the body. The right radial sheath was removed and TR band was applied to obtain hemostasis. There were no apparent complications. TOTAL CONTRAST: 30 mL. TOTAL CONSCIOUS SEDATION TIME: 20 minutes. TOTAL FLUOROSCOPY TIME: 2 minutes and 46 seconds, 0.5 Gy. CORONARY ANGIOGRAM: Left main coronary artery: Patent. The left main is short and bifurcates into the LAD and left circumflex coronary arteries. Left anterior descending coronary artery: The LAD is a large vessel. The proximal to mid LAD has diffuse 20% stenosis. The first diagonal branch is small, but has ostial 30% stenosis. The remainder of the LAD is widely patent. Left circumflex coronary artery: The circumflex is a large artery and gives rise to 2 major obtuse marginal branches. The circumflex obtuse marginal branches are patent. Right coronary artery: The RCA is a large vessel and is dominant. The RCA is patent. The PDA and JEREMY are both patent. Electronically Signed by: Mick Montero M.D. 06/28/2021 11:14 A Mick Montero M.D. Date Dict: 06/18/2021/01:47 P/Mick Montero M.D. Date Trans: 06/19/2021 06:33 A/mmo [id number] cc: Nica Krishnamurthy N.P. Occupational [facility], [address] [place] [address] Normal [facility] UFH HEPARIN ASSAYon 06-19-20 21 UNFRACTIONATED HEPARIN <0.10 Critically low 0.30-0.70 [facility] Comment on above: Result Comment: RESU LTS CHECKED AND CALLED. ACCURATELY READ BACK BY EDER OLSON RN @ 2736 Rivaroxaban and Apixaban will interfere with the anti Xa assay used to monitor UFH and LMWH. Performed By: #### 3 5200, 04550, 04092, 89395, 31198 #### [facility] [address] BASIC METABOLIC PANELon 11- Calcium [Mass/Vol] 9.2 mg/dL Normal 8.6-10.3 [facility] Comment on above: Order Comment: No: D o not add to previous draw Performed By: #### 3 5200, 08686, 59345, 06415, 22884 #### [facility] [address] [place] [address], [facility] Chloride [Moles/Vol] 103 mmol/L Normal 98-107 [facility] Comment on above: Order Comment: No: D o not add to previous draw Performed By: #### 3 5200, 06375, 14750, 38353, 45081 #### [facility] [address] [place] [address], [facility] CO2 [Moles/Vol] 24 mmol/L Normal 21-31 [facility] Comment on above: Order Comment: No: D o not add to previous draw Performed By: #### 3 5200, 52734, 94983, 39098, 75078 #### [facility] [address] [place] [address], [place] Creatinine [Mass/Vol] 0.78 mg/dL Normal 0.60-1.20 [facility] Comment on above: Order Comment: No: D o not add to previous draw Performed By: #### 3 5200, 48193, 56501, 00546, 58273 #### [facility] [address] [place] [address], [facility] GFR/1.73 sq M.predicted among blacks MDRD (S/P/Bld) [Vol rate/Area] mL/min/{1.73_m2} Normal >60 [facility] Comment on above: Order Comment: No: D o not add to previous draw Performed By: #### 3 5200, 05523, 06471, 28598, 14581 #### [facility] [address] [place] [address], [facility] GFR/1.73 sq M.predicted among non-blacks MDRD (S/P/Bld) [Vol rate/Area] mL/min/{1.73_m2} Normal >60 [facility] Comment on above: Order Comment: No: D o not add to previous draw Performed By: #### 3 5200, 61609, 11161, 91335, 18551 #### [facility] [address] [place] [address], [place] Glucose [Mass/Vol] 105 mg/dL High 70-100 [facility] Comment on above: Order Comment: No: D o not add to previous draw Performed By: #### 3 5200, 08391, 02386, 70845, 59351 #### [facility] [address] [place] [address], [facility] Potassium [Moles/Vol] 3.7 mmol/L Normal 3.5-5.1 [facility] Comment on above: Order Comment: No: D o not add to previous draw Performed By: #### 3 5200, 94693, 75444, 96358, 38301 #### [facility] [address] [place] [address], [place] Sodium [Moles/Vol] 136 mmol/L Normal 136-145 [facility] Comment on above: Order Comment: No: D o not add to previous draw Performed By: #### 3 5200, 39723, 21783, 39825, 55974 #### [facility] [address] [place] [address], [facility] Urea nitrogen [Mass/Vol] 23 mg/dL Normal 7-25 [facility] Comment on above: Order Comment: No: D o not add to previous draw Performed By: #### 3 5200, 38637, 72031, 41795, 92741 #### [facility] [address] [place] [address], [facility] CBC COMPLETE BLOOD COUNTon 08-18-2020 Erythrocyte distribution width (RBC) [Ratio] 12.9 % Normal 11.5-15.0 [facility] Comment on above: Order Comment: No: D o not add to previous draw Performed By: #### 3 5200, 82891, 18106, 81637, 25153 #### [facility] [address] [place] [address], [place] Hematocrit (Bld) [Volume fraction] 40.4 % Normal 36.0-45.0 [facility] Comment on above: Order Comment: No: D o not add to previous draw Performed By: #### 3 5200, 89745, 24196, 89935, 95830 #### [facility] [address] [place] [address], [place] Hemoglobin (Bld) [Mass/Vol] 13.4 g/dL Normal 12.0-15.0 [facility] Comment on above: Order Comment: No: D o not add to previous draw Performed By: #### 3 5200, 00154, 02545, 15021, 34756 #### [facility] [address] [place] [id number], [facility] MCH (RBC) [Entitic mass] 32.0 pg Normal 27.0-33.0 [facility] Comment on above: Order Comment: No: D o not add to previous draw Performed By: #### 3 5200, 42174, 05011, 33980, 00567 #### [facility] [address] [place] [address], [facility] MCHC (RBC) [Mass/Vol] 33.2 g/dL Normal 32.0-35.0 [facility] Comment on above: Order Comment: No: D o not add to previous draw Performed By: #### 3 5200, 86782, 46500, 13692, 47167 #### [facility] [address] [place] [address], [facility] MCV (RBC) [Entitic vol] 96.4 fL Normal 82.0-98.0 [facility] Comment on above: Order Comment: No: D o not add to previous draw Performed By: #### 3 5200, 42304, 19821, 55152, 67821 #### [facility] [address] [facility] [place] [address], [facility] Nucleated RBC/100 WBC (Bld) [Ratio] 0 % Normal 0-0 [facility] Comment on above: Order Comment: No: D o not add to previous draw Performed By: #### 3 5200, 18092, 82785, 55489, 95766 #### [facility] [address] [place] [id number], [facility] PLAT CNT 169 10*3/uL Normal 150-400 [facility] Comment on above: Order Comment: No: D o not add to previous draw Performed By: #### 3 5200, 57317, 61506, 61220, 68455 #### [facility] [address] [place] [address], [facility] RBC (Bld) [#/Vol] 4.19 10*6/uL Normal 3.80-5.00 [facility] Comment on above: Order Comment: No: D o not add to previous draw Performed By: #### 3 5200, 00806, 86555, 11047, 90872 #### [facility] [address] [place] [address], [facility] WBC (Bld) [#/Vol] 5.67 10*3/uL Normal 4.00-10.60 [facility] Comment on above: Order Comment: No: D o not add to previous draw Performed By: #### 3 5200, 61770, 72508, 27693, 54656 #### [facility] [address] [facility]. [address] UFH HEPARIN ASSAYon 06-18-20 21 UNFRACTIONATED HEPARIN 0.48 IU/mL Normal 0.30-0.70 [facility] Comment on above: Result Comment: [place] roxaban and Apixaban will interfere with the anti Xa assay used to monitor UFH and LMWH. Performed By: #### 3 5200, 66002, 66756, 64372, 65309 #### [facility] [address] [facility]. [address] BASIC METABOLIC PANELon 06-07 Calcium [Mass/Vol] 9.2 mg/dL Normal 8.6-10.3 [facility] Comment on above: Order Comment: No: D o not add to previous draw Performed By: #### 0 0071 #### [facility] Chloride [Moles/Vol] 106 mmol/L Normal 98-107 [facility] Comment on above: Order Comment: No: D o not add to previous draw Performed By: #### 0 0071 #### [facility] [address] [place] [address], [place] CO2 [Moles/Vol] 24 mmol/L Normal 21-31 [facility] Comment on above: Order Comment: No: D o not add to previous draw Performed By: #### 0 0071 #### [facility] [address] [place] [address], [place] Creatinine [Mass/Vol] 0.81 mg/dL Normal 0.60-1.20 [facility] Comment on above: Order Comment: No: D o not add to previous draw Performed By: #### 0 0071 #### [facility] [address] [place] [address], [place] GFR/1.73 sq M.predicted among blacks MDRD (S/P/Bld) [Vol rate/Area] mL/min/{1.73_m2} Normal >60 [facility] Comment on above: Order Comment: No: D o not add to previous draw Performed By: #### 0 0071 #### [facility] [address] [place] [address], [place] GFR/1.73 sq M.predicted among non-blacks MDRD (S/P/Bld) [Vol rate/Area] mL/min/{1.73_m2} Normal >60 [facility] Comment on above: Order Comment: No: D o not add to previous draw Performed By: #### 0 0071 #### [facility] [address] [place] [address], [place] Glucose [Mass/Vol] 97 mg/dL Normal 70-100 [facility] Comment on above: Order Comment: No: D o not add to previous draw Performed By: #### 0 0071 #### [facility] [address] [place] [address], [place] Potassium [Moles/Vol] 3.7 mmol/L Normal 3.5-5.1 [facility] Comment on above: Order Comment: No: D o not add to previous draw Performed By: #### 0 0071 #### [facility] [address] Sodium [Moles/Vol] 137 mmol/L Normal 136-145 [facility] Comment on above: Order Comment: No: D o not add to previous draw Performed By: #### 0 0071 #### [facility] [address] [facility]. [address] Urea nitrogen [Mass/Vol] 14 mg/dL Normal 7-25 [facility] Comment on above: Order Comment: No: D o not add to previous draw Performed By: #### 0 0071 #### [facility] [address] CBC W/DIFFon 06-17-2021 ABS IMM GRANS 0.0 10*3/uL Normal 0.0-0.2 [facility] Comment on above: Order Comment: No: D o not add to previous draw Performed By: #### 3 5200, 14315, 83960, 02634, 65915 #### [facility] [address] ABS NEUTROPHILS 3.2 10*3/uL Normal 1.6-7.6 [facility] Comment on above: Order Comment: No: D o not add to previous draw Performed By: #### 3 5200, 06957, 46667, 06083, 09691 #### [facility] [address] [facility] [place] [address], [facility] Basophils (Bld) [#/Vol] 0.0 10*3/uL Normal 0.0-0.2 [facility] Comment on above: Order Comment: No: D o not add to previous draw Performed By: #### 3 5200, 01178, 28364, 45881, 51413 #### [facility] [address] Basophils/100 WBC (Bld) 0.4 % Normal 0.0-1.0 [facility] Comment on above: Order Comment: No: D o not add to previous draw Performed By: #### 3 5200, 56795, 59559, 65641, 95474 #### [facility] [address] [place] [address], [facility] Eosinophils (Bld) [#/Vol] 0.2 10*3/uL Normal 0.0-0.5 [facility] Comment on above: Order Comment: No: D o not add to previous draw Performed By: #### 3 5200, 50077, 62282, 10354, 69897 #### [facility] [address] [place] [address], [facility] Eosinophils/100 WBC (Bld) 3.5 % Normal 0.0-6.0 [facility] Comment on above: Order Comment: No: D o not add to previous draw Performed By: #### 3 5200, 18033, 41704, 21746, 04767 #### [facility] [address] [place] [address], [facility] Erythrocyte distribution width (RBC) [Ratio] 13.0 % Normal 11.5-15.0 [facility] Comment on above: Order Comment: No: D o not add to previous draw Performed By: #### 3 5200, 52112, 57616, 17168, 18766 #### [facility] [address] [place] [address], [place] Hematocrit (Bld) [Volume fraction] 40.5 % Normal 36.0-45.0 [facility] Comment on above: Order Comment: No: D o not add to previous draw Performed By: #### 3 5200, 33200, 43022, 05959, 96254 #### [facility] [address] [place] [address], [facility] Hemoglobin (Bld) [Mass/Vol] 13.0 g/dL Normal 12.0-15.0 [facility] Comment on above: Order Comment: No: D o not add to previous draw Performed By: #### 3 5200, 21972, 62422, 72470, 42510 #### [facility] [address] [place] [address], [facility] IMMATURE GRANS 0.2 % Normal 0.0-1.0 [facility] Comment on above: Order Comment: No: D o not add to previous draw Performed By: #### 3 5200, 84048, 58029, 86829, 43862 #### [facility] [address] [place] [address], [facility] Lymphocytes (Bld) [#/Vol] 1.4 10*3/uL Normal 1.2-4.0 [facility] Comment on above: Order Comment: No: D o not add to previous draw Performed By: #### 3 5200, 43804, 26024, 40411, 19394 #### [facility] [address] [place] [address], [facility] Lymphocytes/100 WBC (Bld) 25.0 % Normal 20.0-45.0 [facility] Comment on above: Order Comment: No: D o not add to previous draw Performed By: #### 3 5200, 16325, 94474, 78648, 41574 #### [facility] [address] [place] [address], [facility] MCH (RBC) [Entitic mass] 31.5 pg Normal 27.0-33.0 [facility] Comment on above: Order Comment: No: D o not add to previous draw Performed By: #### 3 5200, 31365, 90476, 11894, 82653 #### [facility] [address] [place] [address], [facility] MCHC (RBC) [Mass/Vol] 32.1 g/dL Normal 32.0-35.0 [facility] Comment on above: Order Comment: No: D o not add to previous draw Performed By: #### 3 5200, 65071, 96789, 52960, 09572 #### [facility] [address] [place] [address], [facility] MCV (RBC) [Entitic vol] 98.1 fL High 82.0-98.0 [facility] Comment on above: Order Comment: No: D o not add to previous draw Performed By: #### 3 5200, 08566, 27895, 16346, 16622 #### [facility] [address] [place] [address], [facility] Monocytes (Bld) [#/Vol] 0.7 10*3/uL Normal 0.1-1.0 [facility] Comment on above: Order Comment: No: D o not add to previous draw Performed By: #### 3 5200, 21720, 75481, 76079, 90495 #### [facility] [address] MONOS 12.0 % Normal 5.0-12.0 [facility] Comment on above: Order Comment: No: D o not add to previous draw Performed By: #### 3 5200, 25481, 94856, 71879, 37429 #### [facility] [address] [place] [address], [facility] Neutrophils/100 WBC (Bld) 58.9 % Normal 40.0-72.0 [facility] Comment on above: Order Comment: No: D o not add to previous draw Performed By: #### 3 5200, 17164, 38467, 90247, 49199 #### [facility] [address] [place] [address], [facility] Nucleated RBC/100 WBC (Bld) [Ratio] 0 % Normal 0-0 [facility] Comment on above: Order Comment: No: D o not add to previous draw Performed By: #### 3 5200, 92888, 67335, 64851, 45122 #### [facility] [address] [facility] [place] [address], [facility] PLAT CNT 167 10*3/uL Normal 150-400 [facility] Comment on above: Order Comment: No: D o not add to previous draw Performed By: #### 3 5200, 49666, 59700, 34180, 48971 #### [facility] [address] [facility] [place] [address], [facility] RBC (Bld) [#/Vol] 4.13 10*6/uL Normal 3.80-5.00 [facility] Comment on above: Order Comment: No: D o not add to previous draw Performed By: #### 3 5200, 56306, 72820, 73712, 17982 #### [facility] [address] [facility] [address] WBC (Bld) [#/Vol] 5.43 10*3/uL Normal 4.00-10.60 [facility] Comment on above: Order Comment: No: D o not add to previous draw Performed By: #### 3 5200, 12148, 84169, 53656, 86769 #### [facility] [address] [facility]. [address] TROPONIN-Ion 06-17-2021 Troponin I.cardiac [Mass/Vol] 0.00 ng/mL Normal 0.00-0.04 [facility] Comment on above: Order Comment: Unkno wn Result Comment: REFE RENCE RANGES: 0.00 - 0.04 ng/ml NORMAL 0.05 - 0.50 ng/ml INDETERMINATE > 0.50 ng/ml CONSISTENT WITH AN M.I. Performed By: #### 3 5200 #### [facility] [address] UFH HEPARIN ASSAYon 06-17-20 21 UNFRACTIONATED HEPARIN 0.45 IU/mL Normal 0.30-0.70 [facility] Comment on above: Result Comment: [place] roxaban and Apixaban will interfere with the anti Xa assay used to monitor UFH and LMWH. Performed By: #### 3 5200, 02548, 02658, 11037, 65050 #### [facility] [address] [place] [address], [facility] UNFRACTIONATED HEPARIN 0.33 IU/mL Normal 0.30-0.70 [facility] Comment on above: Result Comment: [place] roxaban and Apixaban will interfere with the anti Xa assay used to monitor UFH and LMWH. Performed By: #### 3 5200, 75490, 38629, 72736, 30700 #### [facility] [address] [place] [address], [facility] BASIC METABOLIC PANELon 11-1 0-2020 Calcium [Mass/Vol] 9.1 mg/dL Normal 8.6-10.3 [facility] Comment on above: Order Comment: No: D o not add to previous draw Performed By: #### 3 5200, 45175, 68997, 30527, 90223 #### [facility] [address] [place] [address], [facility] Chloride [Moles/Vol] 106 mmol/L Normal 98-107 [facility] Comment on above: Order Comment: No: D o not add to previous draw Performed By: #### 3 5200, 54938, 04549, 79979, 75117 #### [facility] [address] [place] [address], [facility] CO2 [Moles/Vol] 24 mmol/L Normal 21-31 [facility] Comment on above: Order Comment: No: D o not add to previous draw Performed By: #### 3 5200, 93063, 40249, 90310, 04743 #### [facility] [address] [place] [address], [place] Creatinine [Mass/Vol] 0.55 mg/dL Low 0.60-1.20 [facility] Comment on above: Order Comment: No: D o not add to previous draw Performed By: #### 3 5200, 43855, 74444, 51167, 43025 #### [facility] [address] [place] [address], [place] GFR/1.73 sq M.predicted among blacks MDRD (S/P/Bld) [Vol rate/Area] mL/min/{1.73_m2} Normal >60 [facility] Comment on above: Order Comment: No: D o not add to previous draw Performed By: #### 3 5200, 37953, 35004, 20492, 46389 #### [facility] [address] [place] [address], [place] GFR/1.73 sq M.predicted among non-blacks MDRD (S/P/Bld) [Vol rate/Area] mL/min/{1.73_m2} Normal >60 [facility] Comment on above: Order Comment: No: D o not add to previous draw Performed By: #### 3 5200, 89760, 86386, 07584, 10977 #### [facility] [address] [place] [address], [place] Glucose [Mass/Vol] 98 mg/dL Normal 70-100 [facility] Comment on above: Order Comment: No: D o not add to previous draw Performed By: #### 3 5200, 11713, 36375, 23049, 13219 #### [facility] [address] [place] [address], [place] Potassium [Moles/Vol] 3.9 mmol/L Normal 3.5-5.1 [facility] Comment on above: Order Comment: No: D o not add to previous draw Performed By: #### 3 5200, 04501, 25672, 05300, 54229 #### [facility] [address] [place] [address], [place] Sodium [Moles/Vol] 138 mmol/L Normal 136-145 [facility] Comment on above: Order Comment: No: D o not add to previous draw Performed By: #### 3 5200, 88775, 40061, 51176, 09323 #### [facility] [address] Urea nitrogen [Mass/Vol] 17 mg/dL Normal 7-25 [facility] Comment on above: Order Comment: No: D o not add to previous draw Performed By: #### 3 5200, 71948, 03380, 78971, 24880 #### [facility] [address] [place], [place] [address] CBC COMPLETE BLOOD COUNTon 08-16-2020 Erythrocyte distribution width (RBC) [Ratio] 12.9 % Normal 11.5-15.0 [facility] Comment on above: Order Comment: No: D o not add to previous draw Performed By: #### 3 5200, 69451, 16113, 69408, 90517 #### [facility] [address] [facility] [place], [place] [id number] [place] [address] Hematocrit (Bld) [Volume fraction] 40.4 % Normal 36.0-45.0 [facility] Comment on above: Order Comment: No: D o not add to previous draw Performed By: #### 3 5200, 86511, 68361, 35284, 55467 #### [facility] [address] [facility] [place] [address], [facility] Hemoglobin (Bld) [Mass/Vol] 13.0 g/dL Normal 12.0-15.0 [facility] Comment on above: Order Comment: No: D o not add to previous draw Performed By: #### 3 5200, 60891, 75875, 92246, 87600 #### [facility] [address] [place] [address], [facility] MCH (RBC) [Entitic mass] 31.6 pg Normal 27.0-33.0 [facility] Comment on above: Order Comment: No: D o not add to previous draw Performed By: #### 3 5200, 78182, 39534, 69934, 81330 #### [facility] [address] [place] [address], [facility] MCHC (RBC) [Mass/Vol] 32.2 g/dL Normal 32.0-35.0 [facility] Comment on above: Order Comment: No: D o not add to previous draw Performed By: #### 3 5200, 66101, 50274, 46800, 14895 #### [facility] [address] [place] [address], [facility] MCV (RBC) [Entitic vol] 98.1 fL High 82.0-98.0 [facility] Comment on above: Order Comment: No: D o not add to previous draw Performed By: #### 3 5200, 41644, 97501, 81409, 46987 #### [facility] [address] [facility] [place] [address], [facility] Nucleated RBC/100 WBC (Bld) [Ratio] 0 % Normal 0-0 [facility] Comment on above: Order Comment: No: D o not add to previous draw Performed By: #### 3 5200, 19810, 48515, 81748, 29281 #### [facility] [address] [facility] [place] [address], [facility] PLAT CNT 185 10*3/uL Normal 150-400 [facility] Comment on above: Order Comment: No: D o not add to previous draw Performed By: #### 3 5200, 55953, 63132, 52840, 19753 #### [facility] [address] [facility] [place] [address], [facility] RBC (Bld) [#/Vol] 4.12 10*6/uL Normal 3.80-5.00 [facility] Comment on above: Order Comment: No: D o not add to previous draw Performed By: #### 3 5200, 30275, 77552, 21917, 07669 #### [facility] [address] [place] [address], [facility] WBC (Bld) [#/Vol] 5.74 10*3/uL Normal 4.00-10.60 [facility] Comment on above: Order Comment: No: D o not add to previous draw Performed By: #### 3 5200, 11933, 77958, 76607, 14632 #### [facility] [address] [place] [address], [facility] LIPID PROFILEon 06-16-2021 Cholesterol [Mass/Vol] 139 mg/dL Normal 120-200 [facility] Comment on above: Order Comment: No: D o not add to previous draw Result Comment: CHOL ESTEROL REFERENCE RANGE: 20 YEARS AND OLDER CARDIOVASCULAR RISK Less than 200 mg/dl Low Risk 200 to 239 mg/dl Borderline Risk 240 mg/dl and greater High Risk Performed By: #### 3 5200, 43566, 64134, 67519, 95915 #### [facility] [address] [place] [address], [facility] Cholesterol in HDL [Mass/Vol] 49 mg/dL Normal 23-92 [facility] Comment on above: Order Comment: No: D o not add to previous draw Result Comment: Slig ht variation in normal range could be due to gender and/or age. HDL CHOLESTEROL REFERENCE RANGE: 20 years and older Cardiovascular Risk > or =60 mg/dL Desirable 40 TO 59 mg/dL Low Risk <40 mg/dL High Risk Performed By: #### 3 5200, 49221, 70141, 20391, 00227 #### [facility] [address] [place] [address], [facility] Cholesterol in LDL [Mass/Vol] 48 mg/dL Normal 0-130 [facility] Comment on above: Order Comment: No: D o not add to previous draw Result Comment: LDL IS A CALCULATION LDL IS ONLY VALID IF THE TRIG IS LESS THAN 400. Performed By: #### 3 5200, 57586, 37980, 10460, 67559 #### [facility] [address] [place] [address], [facility] Cholesterol.total/Ch olesterol in HDL [Mass ratio] 2.8 {ratio} Normal .0-4.5 [facility] Comment on above: Order Comment: No: D o not add to previous draw Performed By: #### 3 5200, 01369, 70469, 96457, 23981 #### [facility] [address] [place] [address], [facility] NON-HDL CHOLESTEROL 90 mg/dL Normal [facility] Comment on above: Order Comment: No: D o not add to previous draw Performed By: #### 3 5200, 45648, 72180, 09493, 07452 #### [facility] [address] [place] [address], [facility] Triglyceride [Mass/Vol] 209 mg/dL High 40-149 [facility] Comment on above: Order Comment: No: D o not add to previous draw Result Comment: TRIG LYCERIDE REFERENCE RANGE: 20 YEARS AND OLDER CARDIOVASCULAR RISK LESS THAN 150 mg/dl LOW RISK 150 TO 199 mg/dl BORDERLINE RISK 200 mg/dl AND GREATER HIGH RISK Performed By: #### 3 5200, 23524, 23839, 19790, 55886 #### [facility] [address] [facility] [place] [address], [facility] VLDL CHOL 42 mg/dL High 0-40 [facility] Comment on above: Order Comment: No: D o not add to previous draw Performed By: #### 3 5200, 29695, 50696, 11871, 78722 #### [facility] [address] [place] [address], [facility] MAGNESIUM BLOODon 06-16-2021 Magnesium [Mass/Vol] 1.8 mg/dL Low 1.9-2.7 [facility] Comment on above: Order Comment: No: D o not add to previous draw Performed By: #### 3 5200, 63721, 47349, 37866, 26312 #### [facility] [address] [place] [address], [facility] PHOSPHORUS BLOODon Phosphate [Mass/Vol] 4.0 mg/dL Normal 2.5-5.0 [facility] Comment on above: Order Comment: No: D o not add to previous draw Performed By: #### 3 5200, 07119, 51147, 75280, 90666 #### [address] PORTABLE CHEST 1 VIEWon 06-07 PORTABLE CHEST 1 VIEW [facility] Department of Radiology [address] [place] [id number] Patient Name: DIANE NGUYEN : 1965 Sex: F Age: Race: White Pt. Location: [id number] Patient Status: I Ordered Date: 06/15/2021 9:50:00 PM Completed Date: 06/15/2021 10:20 PM Requesting Provider: CHRISTIANO BAÑUELOS Attending Provider: ALAN GALLARDO Report Copy To: Signs & Symptoms: Chest Pain History: See Comments Comments: evaluate for Atelectasis Exam: PORTABLE CHEST 1 VIEW PORTABLE CHEST 1 VIEW 06/15/2021 10:20 PM CLINICAL INDICATIONS: Chest Pain TECHNOLOGIST COMMENTS: chest pain QUESTION FOR THE RADIOLOGIST: evaluate for Atelectasis PROTOCOL: AP(PA) view was obtained. COMPARISON: None FINDINGS: Normal cardiomediastinal silhouette. No focal or lobar consolidation, pleural effusion, or pneumothorax. No asymmetric or focal air trapping. IMPRESSION: No acute pulmonary abnormality Approved by:Omaira Montana06/16/2021 12:02 AM. I, Alexis Kurtz,have reviewed the image(s) and agree with the findings in this report. Electronically signed: Alexis Kurtz. Transcribed by: [email or web address], User Resident: OMAIRA MANE Electronically Signed by: ALEXIS KURTZ @ 06/16/2021 12:44 AM I personally read this/these film(s) with this resident Normal [facility] Comment on above: Order Comment: No: D o not add to previous draw PROTHROMBIN TIMEon INR Coag (PPP) [Relative time] 0.91 {INR} Normal 0.91-1.16 [facility] Comment on above: Result Comment: ACCC P RECOMMENDED INR FOR WARFARIN THERAPY ------- ------- CONDITION INR PROPHYLAXIS OF VENOUS THROMBOSIS 2-3 (HIGH-RISK SURGERY) TREATMENT OF VENOUS THROMBOSIS 2-3 TREATMENT OF PULMONARY EMBOLISM 2-3 PREVENTION OF SYSTEMIC EMBOLISM: 2-3 ACUTE MYOCARDIAL INFARCTION TISSUE HEART VALVES VALVULAR HEART DISEASE ATRIAL FIBRILLATION RECURRENT SYSTEMIC EMBOLISM MECHANICAL HEART VALVE 2.5-3.5 FROM: ORAL ANTICOAGULANTS. MECHANISM OF ACTION, CLINICAL EFFECTIVENESS, AND OPTIMAL THERAPEUTIC RANGE. CHEST 1995;108:231S-246S. Performed By: #### 3 4610, 11472, 86876, 43311, 97822 #### [facility] [address] PT Coag (PPP) [Time] 12.3 s Normal 12.3-14.8 [facility] Comment on above: Result Comment: ALL RESULTS MUST BE INTERPRETED WITH RESPECT TO BLOOD DRAWING ARTIFACT OR DILUTION ERROR OF ANTICOAGULANT AT THE TIME OF SAMPLING. Performed By: #### 3 5200, 50939, 73195, 88789, 10425 #### [facility] [address] [facility]. [address] TROPONIN-Ion 06-16-2021 Troponin I.cardiac [Mass/Vol] 0.00 ng/mL Normal 0.00-0.04 [facility] Comment on above: Order Comment: No: D o not add to previous draw Result Comment: REFE RENCE RANGES: 0.00 - 0.04 ng/ml NORMAL 0.05 - 0.50 ng/ml INDETERMINATE > 0.50 ng/ml CONSISTENT WITH AN M.I. Performed By: #### 3 5200, 87873, 88222, 24968, 95025 #### [facility] [address] Troponin I.cardiac [Mass/Vol] 0.00 ng/mL Normal 0.00-0.04 [facility] Comment on above: Order Comment: No: D o not add to previous draw Result Comment: REFE RENCE RANGES: 0.00 - 0.04 ng/ml NORMAL 0.05 - 0.50 ng/ml INDETERMINATE > 0.50 ng/ml CONSISTENT WITH AN M.I. Performed By: #### 3 5200, 05777, 33238, 30247, 71568 #### [facility] [address] [place] [address], [facility] Troponin I.cardiac [Mass/Vol] 0.00 ng/mL Normal 0.00-0.04 [facility] Comment on above: Result Comment: REFE RENCE RANGES: 0.00 - 0.04 ng/ml NORMAL 0.05 - 0.50 ng/ml INDETERMINATE > 0.50 ng/ml CONSISTENT WITH AN M.I. Performed By: #### 3 5200, 36911, 30714, 35814, 04691 #### [facility] [address] [facility]. [address] UFH HEPARIN ASSAYon 11-10-20 21 UNFRACTIONATED HEPARIN 0.15 IU/mL Critically low 0.30-0.70 [facility] Comment on above: Order Comment: Off t he floor for testing Patient still off the floor Result Comment: Resu lt checked and called. Accurately read back by Olga Robertson RN at 0429 Rivaroxaban and Apixaban will interfere with the anti Xa assay used to monitor UFH and LMWH. Performed By: #### 3 0477 #### [facility] [address] UNFRACTIONATED HEPARIN 0.11 IU/mL Critically low 0.30-0.70 [facility] Comment on above: Result Comment: Resu lt checked and called. Accurately read back by Juan Nunez RN at 0645 Rivaroxaban and Apixaban will interfere with the anti Xa assay used to monitor UFH and LMWH. Performed By: #### 3 3370, 18647, 78417, 50175, 40603 #### [facility] [address] APTTon 06-15-2021 aPTT Coag (Bld) [Time] 38.7 s High 25.0-35.0 [facility] Comment on above: Order Comment: No: D o not add to previous draw Result Comment: ALL RESULTS MUST BE INTERPRETED WITH RESPECT TO BLOOD DRAWING ARTIFACT OR DILUTION ERROR OF ANTICOAGULANT AT THE TIME OF SAMPLING. THE APTT SHOULD NOT BE USED TO MONITOR UNFRACTIONATED HEPARIN THERAPY, THIS LABORATORY NO LONGER HAS AN ESTABLISHED THERAPEUTIC RANGE BASED ON THE APTT. IT IS RECOMMENDED THAT THE UFH - HEPARIN ASSAY (ANTI-XA ACTIVITY) BE USED FOR THIS PURPOSE. Performed By: #### 3 5200, 91034, 53531, 96305, 15738 #### [facility] [address] [facility] [address] BASIC METABOLIC PANELon 11- Calcium [Mass/Vol] 9.0 mg/dL Normal 8.6-10.3 [facility] Comment on above: Order Comment: No: D o not add to previous draw Performed By: #### 3 2220, 57292, 99759, 07521, 92552 #### [facility] [address] [place] [address], [place] Chloride [Moles/Vol] 107 mmol/L Normal 98-107 [facility] Comment on above: Order Comment: No: D o not add to previous draw Performed By: #### 3 5200, 61203, 29735, 14958, 63209 #### [facility] [address] [place] [address], [place] CO2 [Moles/Vol] 23 mmol/L Normal 21-31 [facility] Comment on above: Order Comment: No: D o not add to previous draw Performed By: #### 3 5200, 91783, 97838, 34960, 71966 #### [facility] [address] [place] [address], [place] Creatinine [Mass/Vol] 0.71 mg/dL Normal 0.60-1.20 [facility] Comment on above: Order Comment: No: D o not add to previous draw Performed By: #### 3 5200, 36308, 81270, 33398, 47985 #### [facility] [address] [place] [address], [place] GFR/1.73 sq M.predicted among blacks MDRD (S/P/Bld) [Vol rate/Area] mL/min/{1.73_m2} Normal >60 [facility] Comment on above: Order Comment: No: D o not add to previous draw Performed By: #### 3 5200, 79255, 12936, 88757, 01041 #### [facility] [address] [place] [address], [place] GFR/1.73 sq M.predicted among non-blacks MDRD (S/P/Bld) [Vol rate/Area] mL/min/{1.73_m2} Normal >60 [facility] Comment on above: Order Comment: No: D o not add to previous draw Performed By: #### 3 5200, 97740, 14215, 84292, 53533 #### [facility] [address] [place] [address], [facility] Glucose [Mass/Vol] 108 mg/dL High 70-100 [facility] Comment on above: Order Comment: No: D o not add to previous draw Performed By: #### 3 5200, 49766, 97376, 16933, 80424 #### [facility] [address] [place] [address], [facility] Potassium [Moles/Vol] 3.8 mmol/L Normal 3.5-5.1 [facility] Comment on above: Order Comment: No: D o not add to previous draw Performed By: #### 3 5200, 27640, 20014, 50241, 06378 #### [facility] [address] [place] [address], [facility] Sodium [Moles/Vol] 138 mmol/L Normal 136-145 [facility] Comment on above: Order Comment: No: D o not add to previous draw Performed By: #### 3 5200, 17255, 70306, 78226, 44082 #### [facility] [address] [place] [address], [facility] Urea nitrogen [Mass/Vol] 18 mg/dL Normal 7-25 [facility] Comment on above: Order Comment: No: D o not add to previous draw Performed By: #### 3 5200, 89245, 51578, 96910, 11546 #### [facility] [address] [place] [address], [place] BNP (B-TYPE NATRIURETIC PEPT FLOYD)on 06-15-2021 Natriuretic peptide B (Bld) [Mass/Vol] 36 pg/mL Normal 0-100 [facility] Comment on above: Order Comment: No: D o not add to previous draw Result Comment: Give n the appropriate clinical setting a BNP result of >100 pg/mL indicates congestive heart failure. Performed By: #### 8 5123 #### [facility] [address] [place] [address], [facility] CBC AUTO DIFFon 06-15-2021 BASO # 0.0 103/ul Normal 0.0-0.1 [facility] Comment on above: Performed By: #### C VDTBH #### [facility] [address] [place] [address] Dr. Stacey Melendez Basophils/100 WBC (Bld) 0.4 % Normal 0.2-2.0 [facility] Comment on above: Performed By: #### C VDTBH #### [facility] [address] [place] [address] Dr. Stacey Melendez EO # 0.3 103/ul Normal 0.0-0.7 [facility] Comment on above: Performed By: #### C VDTBH #### [facility] [address] [place] [address] Dr. Stacey Melendez Eosinophils/100 WBC (Bld) 4.5 % Normal 0.9-7.0 [facility] Comment on above: Performed By: #### C VDTBH #### [facility] [address] [place] [address] Dr. Stacey Melendez Erythrocyte distribution width (RBC) [Ratio] 12.8 % Normal 11.0-15.0 [facility] Comment on above: Performed By: #### C VDTBH #### [facility] [address] [place] [address] Dr. Stacey Melendez Hematocrit (Bld) [Volume fraction] 39.1 % Normal 36.0-48.0 [facility] Comment on above: Performed By: #### C VDTBH #### [facility] [address] [place] [address] Dr. Stacey Melendez Hemoglobin (Bld) [Mass/Vol] 12.4 g/dL Normal 12.0-16.0 [facility] Comment on above: Performed By: #### C VDTBH #### [facility] [address] [place] [address] Dr. Stacey Melendez IG # 0.02 10e3/ul Normal 0.00-0.03 [facility] Comment on above: Performed By: #### C VDTBH #### [facility] [address] [place] [address] Dr. Stacey Melendez IG % 0.3 % Normal 0.0-0.5 [facility] Comment on above: Performed By: #### C VDTBH #### [facility] [address] [place] [address] Dr. Stacey Melendez LYMPH # 2.0 103/ul Normal 1.2-3.8 [facility] Comment on above: Performed By: #### C VDTBH #### [facility] [address] [place] [address] Dr. Stacey Melendez Lymphocytes/100 WBC (Bld) 27.2 % Normal 20.5-60.0 [facility] Comment on above: Performed By: #### C VDTBH #### [facility] [address] [place] [address] Dr. Stacey Melendez MANUAL DIFF REQ NO Normal [facility] Comment on above: Performed By: #### C VDTBH #### [facility] [address] [place] [address] Dr. Stacey Melendez MCH (RBC) [Entitic mass] 31.1 pg Normal 26.7-34.0 [facility] Comment on above: Performed By: #### C VDTBH #### [facility] [address] [place] [address] Dr. Stacey Melendez MCHC (RBC) [Mass/Vol] 31.7 g/dL Normal 29.9-35.2 [facility] Comment on above: Performed By: #### C VDTBH #### [facility] [address] [place] [address] Dr. Stacey Melendez MCV (RBC) [Entitic vol] 98.0 fL Normal 81.0-99.0 [facility] Comment on above: Performed By: #### C VDTBH #### [facility] [address] [place] [address] Dr. Stacey Melendez MONO # 0.7 103/ul Normal 0.3-0.8 [facility] Comment on above: Performed By: #### C VDTBH #### [facility] [address] [place] [address] Dr. Stacey Melendez Monocytes/100 WBC (Bld) 9.0 % Normal 1.7-12.0 [facility] Comment on above: Performed By: #### C VDTBH #### [facility] [address] [place] [address] Dr. Stacey Melendez NEUT # 4.3 103/ul Normal 1.4-6.5 [facility] Comment on above: Performed By: #### C VDTBH #### [facility] [address] [place] [address] Dr. Stacey Melendez Neutrophils/100 WBC (Bld) 58.6 % Normal 43.0-75.0 [facility] Comment on above: Performed By: #### C VDTBH #### [facility] [address] [place] [address] Dr. Stacey Melendez Platelet mean volume (Bld) [Entitic vol] 12.2 fL Normal 9.5-13.5 [facility] Comment on above: Performed By: #### C VDTBH #### [facility] [address] [place] [address] Dr. Stacey Melendez PLT 171 103/ul Normal 150-450 [facility] Comment on above: Performed By: #### C VDTBH #### [facility] [address] [place] [address] Dr. Stacey Melendez RBC 3.99 106/ul Critically low 4.20-5.40 [facility] Comment on above: Performed By: #### C VDTBH #### [facility] [address] [place] [address] Dr. Stacey Melendez WBC 7.4 103/ul Normal 4.0-11.0 [facility] Comment on above: Performed By: #### C VDTBH #### [facility] [address] [place] [address] Dr. Stacey Melendez CBC W/DIFFon 06-15-2021 ABS IMM GRANS 0.0 10*3/uL Normal 0.0-0.2 [facility] Comment on above: Performed By: #### 3 5200, 23111, 64513, 05903, 71149 #### [facility] [address] [facility] [place] [address], [facility] ABS NEUTROPHILS 3.5 10*3/uL Normal 1.6-7.6 [facility] Comment on above: Performed By: #### 3 5200, 87383, 10995, 41624, 82838 #### [facility] [address] [facility] [place] [address], [facility] Basophils (Bld) [#/Vol] 0.0 10*3/uL Normal 0.0-0.2 [facility] Comment on above: Performed By: #### 3 5200, 28277, 23330, 21320, 69652 #### [facility] [address] [facility] [place] [address], [facility] Basophils/100 WBC (Bld) 0.5 % Normal 0.0-1.0 [facility] Comment on above: Performed By: #### 3 5200, 45689, 33954, 63014, 49350 #### [facility] [address] [facility] [place] [address], [facility] Eosinophils (Bld) [#/Vol] 0.3 10*3/uL Normal 0.0-0.5 [facility] Comment on above: Performed By: #### 3 5200, 82518, 84971, 24108, 49803 #### [facility] [address] [facility] [place] [address], [facility] Eosinophils/100 WBC (Bld) 4.5 % Normal 0.0-6.0 [facility] Comment on above: Performed By: #### 3 5200, 70616, 14654, 54436, 83551 #### [facility] [address] [facility] [place] [address], [facility] Erythrocyte distribution width (RBC) [Ratio] 12.9 % Normal 11.5-15.0 [facility] Comment on above: Performed By: #### 3 5200, 60883, 81877, 82008, 23738 #### [facility] [address] Hematocrit (Bld) [Volume fraction] 38.2 % Normal 36.0-45.0 [facility] Comment on above: Performed By: #### 3 5200, 18050, 26852, 03201, 63339 #### [facility] [address] Hemoglobin (Bld) [Mass/Vol] 12.7 g/dL Normal 12.0-15.0 [facility] Comment on above: Performed By: #### 3 5200, 44257, 38399, 32896, 57426 #### [facility] [address] IMMATURE GRANS 0.2 % Normal 0.0-1.0 [facility] Comment on above: Performed By: #### 3 5200, 08681, 53601, 59724, 53332 #### [facility] [address] [place] [address], [facility] Lymphocytes (Bld) [#/Vol] 1.7 10*3/uL Normal 1.2-4.0 [facility] Comment on above: Performed By: #### 3 5200, 35264, 83180, 26451, 43843 #### [facility] [address] [place] [address], [facility] Lymphocytes/100 WBC (Bld) 27.8 % Normal 20.0-45.0 [facility] Comment on above: Performed By: #### 3 5200, 48371, 07288, 68622, 91465 #### [facility] [address] [place] [address], [facility] MCH (RBC) [Entitic mass] 31.7 pg Normal 27.0-33.0 [facility] Comment on above: Performed By: #### 3 5200, 47543, 36315, 07466, 87810 #### [facility] [address] [place] [id number], [facility] MCHC (RBC) [Mass/Vol] 33.2 g/dL Normal 32.0-35.0 [facility] Comment on above: Performed By: #### 3 5200, 37787, 45820, 77315, 27294 #### [facility] [address] [place] [id number], [facility] MCV (RBC) [Entitic vol] 95.3 fL Normal 82.0-98.0 [facility] Comment on above: Performed By: #### 3 5200, 18094, 37356, 84796, 95386 #### [facility] [address] [place] [address], [facility] Monocytes (Bld) [#/Vol] 0.7 10*3/uL Normal 0.1-1.0 [facility] Comment on above: Performed By: #### 3 5200, 20265, 22089, 19529, 11307 #### [facility] [address] [place] [address], [facility] MONOS 10.9 % Normal 5.0-12.0 [facility] Comment on above: Performed By: #### 3 5200, 87312, 31310, 29861, 97079 #### [facility] [address] [place] [address], [facility] Neutrophils/100 WBC (Bld) 56.1 % Normal 40.0-72.0 [facility] Comment on above: Performed By: #### 3 5200, 61195, 04301, 48692, 21347 #### [facility] [address] [place] [id number] Nucleated RBC/100 WBC (Bld) [Ratio] 0 % Normal 0-0 [facility] Comment on above: Performed By: #### 3 5200, 43813, 48645, 36565, 11988 #### [facility] [address] [place] [address], [facility] PLAT CNT 172 10*3/uL Normal 150-400 [facility] Comment on above: Performed By: #### 3 5200, 55662, 33925, 85920, 26113 #### [facility] [address] [facility] [place] [address], [facility] RBC (Bld) [#/Vol] 4.01 10*6/uL Normal 3.80-5.00 [facility] Comment on above: Performed By: #### 3 5200, 43711, 54118, 92296, 94618 #### [facility] [address] [facility] [place] [address], [facility] WBC (Bld) [#/Vol] 6.25 10*3/uL Normal 4.00-10.60 [facility] Comment on above: Performed By: #### 3 5200, 38652, 52979, 73146, 57966 #### [facility] [address] [facility] [place] [address], [facility] MAGNESIUM BLOODon 06-15-2021 Magnesium [Mass/Vol] 1.7 mg/dL Low 1.9-2.7 [facility] Comment on above: Order Comment: No: D o not add to previous draw Performed By: #### 3 5200, 37380, 88890, 16067, 74130 #### [facility] [address] [facility] [place] [address], [facility] PHOSPHORUS BLOODon Phosphate [Mass/Vol] 4.0 mg/dL Normal 2.5-5.0 [facility] Comment on above: Order Comment: No: D o not add to previous draw Performed By: #### 3 5200, 22091, 69828, 98682, 05105 #### [facility] [address] [place] [address], [facility] PROF CHEM 8 (BAS METB)on Anion gap [Moles/Vol] 13.7 mmol/L Normal [facility] Comment on above: Performed By: #### C VDTBH #### [facility] [address] [place] [address] Dr. Stacey Melendez Calcium [Mass/Vol] 8.9 mg/dL Normal 8.4-10.2 [facility] Comment on above: Performed By: #### C VDTBH #### [facility] [address] [place] [address] Dr. Stacey Melendez Chloride [Moles/Vol] 107 mmol/L Normal 98-107 [facility] Comment on above: Performed By: #### C VDTBH #### [facility] [address] [place] [address] Dr. Stacey Melendez CO2 [Moles/Vol] 25.1 mmol/L Normal 22.0-30.0 [facility] Comment on above: Performed By: #### C VDTBH #### [facility] [address] [place] [address] Dr. Stacey Melendez Creatinine [Mass/Vol] 0.74 mg/dL Normal 0.52-1.04 [facility] Comment on above: Performed By: #### C VDTBH #### [facility] [address] [place] [address] Dr. Stacey Melendez EGFR-AF KITTITIAN >60 Normal >=60 [facility] Comment on above: Performed By: #### C VDTBH #### [facility] [address] [place] [address] Dr. Stacey Melendez EGFR-NON AF KITTITIAN >60 Normal >=60 [facility] Comment on above: Performed By: #### C VDTBH #### [facility] [address] [place] [address] Dr. Stacey Melendez Glucose [Mass/Vol] 113 mg/dL Critically high 74-106 [facility] Comment on above: Performed By: #### C VDTBH #### [facility] [address] [address] [address] Stacey Melendez Potassium [Moles/Vol] 3.8 mmol/L Normal 3.4-5.0 [facility] Comment on above: Performed By: #### C VDTBH #### [facility] [address] [place] [address] [address] Stacey Melendez Sodium [Moles/Vol] 142 mmol/L Normal 137-145 [facility] Comment on above: Performed By: #### C VDTBH #### [facility] [address] [place] [address] [address] Stacey Melendez Urea nitrogen [Mass/Vol] 15.0 mg/dL Normal 7.0-17.0 [facility] Comment on above: Performed By: #### C VDTBH #### [facility] [address] [place] [address] [address] Stacey Melendez Urea nitrogen/Creatinine [Mass ratio] 20.3 mg/mg Normal [facility] Comment on above: Performed By: #### C VDTBH #### [facility] [address] [place] [address] [address] Stacey Melendez PROTHROMBIN TIMEon 1 INR Coag (PPP) [Relative time] 0.91 {INR} Normal 0.91-1.16 [facility] Comment on above: Order Comment: No: D o not add to previous draw Result Comment: ACCC P RECOMMENDED INR FOR WARFARIN THERAPY ------- ------- CONDITION INR PROPHYLAXIS OF VENOUS THROMBOSIS 2-3 (HIGH-RISK SURGERY) TREATMENT OF VENOUS THROMBOSIS 2-3 TREATMENT OF PULMONARY EMBOLISM 2-3 PREVENTION OF SYSTEMIC EMBOLISM: 2-3 ACUTE MYOCARDIAL INFARCTION TISSUE HEART VALVES VALVULAR HEART DISEASE ATRIAL FIBRILLATION RECURRENT SYSTEMIC EMBOLISM MECHANICAL HEART VALVE 2.5-3.5 FROM: ORAL ANTICOAGULANTS. MECHANISM OF ACTION, CLINICAL EFFECTIVENESS, AND OPTIMAL THERAPEUTIC RANGE. CHEST 1995;108:231S-246S. Performed By: #### 3 5200, 69405, 28724, 67780, 09753 #### [facility] [address] [facility] [address] PT Coag (PPP) [Time] 12.3 s Normal 12.3-14.8 [facility] Comment on above: Order Comment: No: D o not add to previous draw Result Comment: ALL RESULTS MUST BE INTERPRETED WITH RESPECT TO BLOOD DRAWING ARTIFACT OR DILUTION ERROR OF ANTICOAGULANT AT THE TIME OF SAMPLING. Performed By: #### 3 5200, 57313, 78724, 13506, 32872 #### [facility] [address] PTT HEPARIN MONITORon 2020 aPTT Coag (Bld) [Time] 46.7 s Normal 39.5-54.2 [facility] Comment on above: Performed By: #### C BC #### [facility] [address] [place] [address] Dr. Stacey Melendez aPTT Coag (Bld) [Time] 45.3 s Normal 39.5-54.2 [facility] Comment on above: Performed By: #### C VDTB #### [facility] [address] [place] [address] Dr. Stacey Melendez aPTT Coag (Bld) [Time] 47.5 s Normal 39.5-54.2 [facility] Comment on above: Performed By: #### C BC #### [facility] [address] [place] [address] Dr. Stacey Melendez TROPONIN-Ion 06-15-2021 Troponin I.cardiac [Mass/Vol] 0.01 ng/mL Normal 0.00-0.04 [facility] Comment on above: Order Comment: No: D o not add to previous draw Result Comment: REFE RENCE RANGES: 0.00 - 0.04 ng/ml NORMAL 0.05 - 0.50 ng/ml INDETERMINATE > 0.50 ng/ml CONSISTENT WITH AN M.I. Performed By: #### 3 [id number], [id number], [id number], [id number], [id number] #### [facility] [address] UFH HEPARIN ASSAYon 06-15-20 21 UNFRACTIONATED HEPARIN 0.15 IU/mL Critically low 0.30-0.70 [facility] Comment on above: Result Comment: Resu lt checked and called. Accurately read back by Eli Crawford RN @[id number] 06/15/21 Rivaroxaban and Apixaban will interfere with the anti Xa assay used to monitor UFH and LMWH. Performed By: #### 3 [id number], [id number], [id number], [id number], [id number] #### [facility] [address] CARDIAC DAYANARA 3-6on 1 CK [Catalytic activity/Vol] 102 U/L Normal 30-135 [facility] Comment on above: Performed By: #### P TT, PT #### [facility] [address] [address] [address] Stacey Melendez CK.MB [Mass/Vol] 1.46 ng/mL Normal <=2.37 [facility] Comment on above: Performed By: #### P TT, PT #### [facility] [address] [address] [address] Stacey Melendez HSTROP 50.7 pg/mL Critically high 4.0-35.5 [facility] Comment on above: Result Comment: CUT- OFF POINTS HAVE BEEN ESTABLISHED BASED ON THE FOURTH UNIVERSAL DEFINITIONS OF MYOCARDIAL INFARCTION. THE UPPER REFERENCE LIMIT (URL) OF TROPONIN, DEFINED THE 99TH PERCENTILE OF cTnI DISTRIBUTION IN A REFERENCE POPULATION, HAS BEEN CONFIRMED THE DECISION THRESHOLD FOR AL DIAGNOSIS. Performed By: #### P TT, PT #### [facility] [address] [address] [address] Stacey Melendez CK [Catalytic activity/Vol] 114 U/L Normal 30-135 [facility] Comment on above: Performed By: #### C MREP #### [facility] [address] [place] [address] Dr. Stacey Melendez CK.MB [Mass/Vol] 1.60 ng/mL Normal <=2.37 [facility] Comment on above: Performed By: #### C MREP #### [facility] [address] [place] [address] Dr. Stacey Melendez HSTROP 50.9 pg/mL Critically high 4.0-35.5 [facility] Comment on above: Result Comment: CUT- OFF POINTS HAVE BEEN ESTABLISHED BASED ON THE FOURTH UNIVERSAL DEFINITIONS OF MYOCARDIAL INFARCTION. THE UPPER REFERENCE LIMIT (URL) OF TROPONIN, DEFINED THE 99TH PERCENTILE OF cTnI DISTRIBUTION IN A REFERENCE POPULATION, HAS BEEN CONFIRMED THE DECISION THRESHOLD FOR AL DIAGNOSIS. Performed By: #### C MREP #### [facility] [address] [place] [address] Dr. Stacey Melendez CBC AUTO DIFFon 06-14-2021 BASO # 0.0 103/ul Normal 0.0-0.1 [facility] Comment on above: Performed By: #### C VDTBH #### [facility] [address] [place] [address] Dr. Stacey Melendez Basophils/100 WBC (Bld) 0.4 % Normal 0.2-2.0 [facility] Comment on above: Performed By: #### C VDTBH #### [facility] [address] [place] [address] Dr. Stacey Melendez EO # 0.4 103/ul Normal 0.0-0.7 [facility] Comment on above: Performed By: #### C VDTBH #### [facility] [address] [place] [address] Dr. Stacey Melendez Eosinophils/100 WBC (Bld) 5.7 % Normal 0.9-7.0 [facility] Comment on above: Performed By: #### C VDTBH #### [facility] [address] [place] [address] Dr. Stacey Melendez Erythrocyte distribution width (RBC) [Ratio] 12.9 % Normal 11.0-15.0 [facility] Comment on above: Performed By: #### C VDTBH #### [facility] [address] [place] [address] Dr. Stacey Melendez Hematocrit (Bld) [Volume fraction] 36.4 % Normal 36.0-48.0 [facility] Comment on above: Performed By: #### C VDTBH #### [facility] [address] [place] [address] Dr. Stacey Melendez Hemoglobin (Bld) [Mass/Vol] 11.8 g/dL Critically low 12.0-16.0 [facility] Comment on above: Performed By: #### C VDTBH #### [facility] [address] [place] [address] Dr. Stacey Melendez IG # 0.02 10e3/ul Normal 0.00-0.03 [facility] Comment on above: Performed By: #### C VDTBH #### [facility] [address] [place] [address] Dr. Stacey Melendez IG % 0.3 % Normal 0.0-0.5 [facility] Comment on above: Performed By: #### C VDTBH #### [facility] [address] [place] [address] Dr. Stacey Melendez LYMPH # 3.0 103/ul Normal 1.2-3.8 [facility] Comment on above: Performed By: #### C VDTBH #### [facility] [address] [place] [address] Dr. Stacey Melendez Lymphocytes/100 WBC (Bld) 38.5 % Normal 20.5-60.0 [facility] Comment on above: Performed By: #### C VDTBH #### [facility] [address] [place] [address] Dr. Stacey Melendez MANUAL DIFF REQ NO Normal [facility] Comment on above: Performed By: #### C VDTBH #### [facility] [address] [place] [address] Dr. Stacey Melendez MCH (RBC) [Entitic mass] 31.6 pg Normal 26.7-34.0 [facility] Comment on above: Performed By: #### C VDTBH #### [facility] [address] [place] [address] Dr. Stacey Melendez MCHC (RBC) [Mass/Vol] 32.4 g/dL Normal 29.9-35.2 [facility] Comment on above: Performed By: #### C VDTBH #### [facility] [address] [place] [address] Dr. Stacey Melendez MCV (RBC) [Entitic vol] 97.3 fL Normal 81.0-99.0 [facility] Comment on above: Performed By: #### C VDTBH #### [facility] [address] [place] [address] Dr. Stacey Melendez MONO # 0.6 103/ul Normal 0.3-0.8 [facility] Comment on above: Performed By: #### C VDTBH #### [facility] [address] [place] [address] Dr. Stacey Melendez Monocytes/100 WBC (Bld) 7.6 % Normal 1.7-12.0 [facility] Comment on above: Performed By: #### C VDTBH #### [facility] [address] [place] [address] Dr. Stacey Melendez NEUT # 3.7 103/ul Normal 1.4-6.5 [facility] Comment on above: Performed By: #### C VDTBH #### [facility] [address] [place] [address] Dr. Stacey Melendez Neutrophils/100 WBC (Bld) 47.5 % Normal 43.0-75.0 [facility] Comment on above: Performed By: #### C VDTBH #### [facility] [address] [place] [address] Dr. Stacey Melendez Platelet mean volume (Bld) [Entitic vol] 11.8 fL Normal 9.5-13.5 [facility] Comment on above: Performed By: #### C VDTBH #### [facility] [address] [address] [address] Stacey Melnedez PLT 181 103/ul Normal 150-450 [facility] Comment on above: Performed By: #### C VDTBH #### [facility] [address] [address] [address] Stacey Melendez RBC 3.74 106/ul Critically low 4.20-5.40 [facility] Comment on above: Performed By: #### C VDTBH #### [facility] [address] [address] [address] Stacey Melendez WBC 7.7 103/ul Normal 4.0-11.0 [facility] Comment on above: Performed By: #### C VDTBH #### [facility] [address] [place] [address] Dr. Stacey Melendez Covid-19 PCR ([facility])on SARS-CoV-2 (COVID-19) RNA VISH+probe Ql (Unsp spec) Not detected Normal NOT DETECTED [facility] Comment on above: Result Comment: When diagnostic testing is negative, the possibility of a false negative should be considered in the context of a patient's recent exposures and the presence of clinical signs and symptoms consistent with SARS-CoV-2. Performed By: #### C VDTBH #### [facility] [address] [place] [address] Dr. Stacey Melendez GLYCOHEMOGLOBIN A1Con 2020 ADA RECOMMENDATION ADA THERAPEUTIC TARGET 6.0 - 7.0 ACTION SUGGESTED > 7.0 Normal [facility] Comment on above: Performed By: #### C BC #### [facility] [address] [address] [address] Stacey Melendez Glucose [Mass/Vol] 120 mg/dL Normal [facility] Comment on above: Performed By: #### C BC #### [facility] [address] [place] [address] Dr. Stacey Melendez HbA1c (Bld) [Mass fraction] 5.8 % Normal <=6.0 [facility] Comment on above: Performed By: #### C BC #### [facility] [address] [address] [address] Stacey Melendez LIPID PROFILEon 06-14-2021 CHOL-HDL RATIO NORM SEE BELOW Normal [facility] Comment on above: Result Comment: 3.3 - 4.4 LOW RISK 4.4 - 7.1 AVERAGE RISK 7.1 - 11.0 MODERATE RISK >11.0 HIGH RISK Performed By: #### P TT, PT #### [facility] [address] [address] [address] Stacey Melendez Cholesterol [Mass/Vol] 113 mg/dL Normal <=200 [facility] Comment on above: Performed By: #### P TT, PT #### [facility] [address] [address] [address] Stacey Melendez Cholesterol in HDL [Mass/Vol] 50 mg/dL Normal [facility] Comment on above: Performed By: #### P TT, PT #### [facility] [address] [address] [address] Stacey Melendez Cholesterol in LDL [Mass/Vol] 43.0 mg/dL Normal [facility] Comment on above: Performed By: #### P TT, PT #### [facility] [address] [address] [address] Stacey Melendez Cholesterol.total/Ch olesterol in HDL [Mass ratio] 2.3 {ratio} Normal [facility] Comment on above: Performed By: #### P TT, PT #### [facility] [address] [address] [address] Stacey Melendez HDL NORMAL > or = 60 mg/dl - LO W CARDIOVASCULAR RISK <40 mg/dl - HIGH CARDIOVASCULAR RISK Normal [facility] Comment on above: Performed By: #### P TT, PT #### [facility] [address] [address] [address] Stacey Melendez LDL CALC NORMAL SEE BELOW Normal [facility] Comment on above: Result Comment: <100 mg/dl OPTIMAL 100 - 129 mg/dl NEAR OR ABOVE OPTIMAL 130 - 159 mg/dl BORDERLINE HIGH 160 - 189 mg/dl HIGH >190 mg/dl VERY HIGH Performed By: #### P TT, PT #### [facility] [address] [address] [address] Stacey Melendez Triglyceride [Mass/Vol] 100 mg/dL Normal <=150 [facility] Comment on above: Performed By: #### P TT, PT #### [facility] [address] [address] [address] Stacey Melendez VLDL CALC 20.0 mg/dL Normal [facility] Comment on above: Performed By: #### P TT, PT #### [facility] [address] [address] [address] Stacey Melendez PROF CHEM 8 (BAS METB)on Anion gap [Moles/Vol] 10.9 mmol/L Normal [facility] Comment on above: Performed By: #### P TT, PT #### [facility] [address] [place] [address] Dr. Stacey Melendez Calcium [Mass/Vol] 9.0 mg/dL Normal 8.4-10.2 [facility] Comment on above: Performed By: #### P TT, PT #### [facility] [address] [address] [address] Stacey Melendez Chloride [Moles/Vol] 109 mmol/L Critically high 98-107 [facility] Comment on above: Performed By: #### P TT, PT #### [facility] [address] [place] [address] Dr. Stacey Melendez CO2 [Moles/Vol] 25.8 mmol/L Normal 22.0-30.0 [facility] Comment on above: Performed By: #### P TT, PT #### [facility] [address] [address] [address] Staecy Melendez Creatinine [Mass/Vol] 0.79 mg/dL Normal 0.52-1.04 [facility] Comment on above: Performed By: #### P TT, PT #### [facility] [address] [address] [address] Stacey Melendez EGFR-AF KITTITIAN >60 Normal >=60 [facility] Comment on above: Performed By: #### P TT, PT #### [facility] [address] [place] [address] Dr. Stacey Melendez EGFR-NON AF KITTITIAN >60 Normal >=60 [facility] Comment on above: Performed By: #### P TT, PT #### [facility] [address] [address] [address] Stacey Melendez Glucose [Mass/Vol] 100 mg/dL Normal 74-106 [facility] Comment on above: Performed By: #### P TT, PT #### [facility] [address] [place] [address] Dr. Stacey Melendez Potassium [Moles/Vol] 3.7 mmol/L Normal 3.4-5.0 [facility] Comment on above: Performed By: #### P TT, PT #### [facility] [address] [place] [address] Dr. Stacey Melendez Sodium [Moles/Vol] 142 mmol/L Normal 137-145 [facility] Comment on above: Performed By: #### P TT, PT #### [facility] [address] [place] [address] Dr. Stacey Melendez Urea nitrogen [Mass/Vol] 14.0 mg/dL Normal 7.0-17.0 [facility] Comment on above: Performed By: #### P TT, PT #### [facility] [address] [place] [address] Dr. Stacey Melendez Urea nitrogen/Creatinine [Mass ratio] 17.7 mg/mg Normal [facility] Comment on above: Performed By: #### P TT, PT #### [facility] [address] [place] [address] Dr. Stacey Melendez PTT HEPARIN MONITORon 2020 aPTT Coag (Bld) [Time] 38.3 s Critically low 39.5-54.2 [facility] Comment on above: Result Comment: TEST REPEATED; CRITICAL VALUE VERIFIED Performed By: #### P TT, PT #### [facility] [address] [place] [address] Dr. Stacey Melendez aPTT Coag (Bld) [Time] 57.6 s Critically high 39.5-54.2 [facility] Comment on above: Result Comment: test repeated critical value verified Performed By: #### P TTHEP #### [facility] [address] [address] [address] Stacey Melendez aPTT Coag (Bld) [Time] 29.9 s Critically low 39.5-54.2 [facility] Comment on above: Result Comment: TEST REPEATED CRITICAL VALUE VERIFIED Performed By: #### P TTHEP #### [facility] [address] [address] [address] Stacey Melendez aPTT Coag (Bld) [Time] 37.3 s Critically low 39.5-54.2 [facility] Comment on above: Result Comment: TEST REPEATED; CRITICAL VALUE VERIFIED Performed By: #### P TTHEP #### [facility] [address] [place] [address] Dr. Stacey Melendez TROPONIN, HIGH SENSITIVITYon 06-14-2021 HSTROP 49.8 pg/mL Critically high 4.0-35.5 [facility] Comment on above: Result Comment: CUT- OFF POINTS HAVE BEEN ESTABLISHED BASED ON THE FOURTH UNIVERSAL DEFINITIONS OF MYOCARDIAL INFARCTION. THE UPPER REFERENCE LIMIT (URL) OF TROPONIN, DEFINED THE 99TH PERCENTILE OF cTnI DISTRIBUTION IN A REFERENCE POPULATION, HAS BEEN CONFIRMED THE DECISION THRESHOLD FOR AL DIAGNOSIS. Performed By: #### P TT, PT #### [facility] [address] [place] [address] Dr. Stacey Melendez CARDIAC DAYANARA ADMITon 021 CK [Catalytic activity/Vol] 143 U/L Critically high 30-135 [facility] Comment on above: Performed By: #### C BC #### [facility] [address] [place] [address] Dr. Stacey Melendez CK.MB [Mass/Vol] 2.09 ng/mL Normal <=2.37 [facility] Comment on above: Performed By: #### C BC #### [facility] [address] [place] [address] Dr. Stacey Melendez HSTROP 55.6 pg/mL Critically high 4.0-35.5 [facility] Comment on above: Result Comment: CUT- OFF POINTS HAVE BEEN ESTABLISHED BASED ON THE FOURTH UNIVERSAL DEFINITIONS OF MYOCARDIAL INFARCTION. THE UPPER REFERENCE LIMIT (URL) OF TROPONIN, DEFINED THE 99TH PERCENTILE OF cTnI DISTRIBUTION IN A REFERENCE POPULATION, HAS BEEN CONFIRMED THE DECISION THRESHOLD FOR AL DIAGNOSIS. TEST REPEATED; CRITICAL VALUE VERIFIED Performed By: #### C BC #### [facility] [address] [place] [address] Dr. Stacey Melendez PREET 43.0 ng/mL Normal <=61.5 [facility] Comment on above: Performed By: #### C BC #### [facility] [address] [place] [address] Dr. Stacey Melendez CBC AUTO DIFFon 06-13-2021 BASO # 0.0 103/ul Normal 0.0-0.1 [facility] Comment on above: Performed By: #### C BC #### [facility] [address] [place] [address] Dr. Stacey Melendez Basophils/100 WBC (Bld) 0.5 % Normal 0.2-2.0 [facility] Comment on above: Performed By: #### C BC #### [facility] [address] [place] [address] Dr. Stacye Melendez EO # 0.4 103/ul Normal 0.0-0.7 [facility] Comment on above: Performed By: #### C BC #### [facility] [address] [place] [address] Dr. Stacey Melendez Eosinophils/100 WBC (Bld) 5.1 % Normal 0.9-7.0 [facility] Comment on above: Performed By: #### C BC #### [facility] [address] [place] [address] Dr. Stacey Melendez Erythrocyte distribution width (RBC) [Ratio] 12.8 % Normal 11.0-15.0 [facility] Comment on above: Performed By: #### C BC #### [facility] [address] [place] [address] Dr. Stacey Melendez Hematocrit (Bld) [Volume fraction] 39.4 % Normal 36.0-48.0 [facility] Comment on above: Performed By: #### C BC #### [facility] [address] [place] [address] Dr. Stacey Melendez Hemoglobin (Bld) [Mass/Vol] 12.8 g/dL Normal 12.0-16.0 [facility] Comment on above: Performed By: #### C BC #### [facility] [address] [place] [address] Dr. Stacey Melendez IG # 0.02 10e3/ul Normal 0.00-0.03 [facility] Comment on above: Performed By: #### C BC #### [facility] [address] [place] [address] Dr. Stacey Melendez IG % 0.2 % Normal 0.0-0.5 [facility] Comment on above: Performed By: #### C BC #### [facility] [address] [place] [address] Dr. Stacey Melendez LYMPH # 2.9 103/ul Normal 1.2-3.8 [facility] Comment on above: Performed By: #### C BC #### [facility] [address] [place] [address] Dr. Stacey Melendez Lymphocytes/100 WBC (Bld) 34.9 % Normal 20.5-60.0 [facility] Comment on above: Performed By: #### C BC #### [facility] [address] [place] [address] Dr. Stacey Melendez MANUAL DIFF REQ NO Normal [facility] Comment on above: Performed By: #### C BC #### [facility] [address] [place] [address] Dr. Stacey Melendez MCH (RBC) [Entitic mass] 31.6 pg Normal 26.7-34.0 [facility] Comment on above: Performed By: #### C BC #### [facility] [address] [place] [address] Dr. Stacey Melendez MCHC (RBC) [Mass/Vol] 32.5 g/dL Normal 29.9-35.2 [facility] Comment on above: Performed By: #### C BC #### [facility] [address] [address] [address] Stacey Melendez MCV (RBC) [Entitic vol] 97.3 fL Normal 81.0-99.0 [facility] Comment on above: Performed By: #### C BC #### [facility] [address] [address] [address] Stacey Melendez MONO # 0.6 103/ul Normal 0.3-0.8 [facility] Comment on above: Performed By: #### C BC #### [facility] [address] [address] [address] Stacey Melendez Monocytes/100 WBC (Bld) 7.8 % Normal 1.7-12.0 [facility] Comment on above: Performed By: #### C BC #### [facility] [address] [address] [address] Stacey Melendez NEUT # 4.2 103/ul Normal 1.4-6.5 [facility] Comment on above: Performed By: #### C BC #### [facility] [address] [address] [address] Stacey Melendez Neutrophils/100 WBC (Bld) 51.5 % Normal 43.0-75.0 [facility] Comment on above: Performed By: #### C BC #### [facility] [address] [address] [address] Stacey Melendez Platelet mean volume (Bld) [Entitic vol] 12.1 fL Normal 9.5-13.5 [facility] Comment on above: Performed By: #### C BC #### [facility] [address] [address] [address] Stacey Melendez PLT 214 103/ul Normal 150-450 [facility] Comment on above: Performed By: #### C BC #### [facility] [address] [address] [address] Stacey Melendez RBC 4.05 106/ul Critically low 4.20-5.40 [facility] Comment on above: Performed By: #### C BC #### [facility] [address] [place] [address] Dr. Stacey Melendez WBC 8.2 103/ul Normal 4.0-11.0 [facility] Comment on above: Performed By: #### C BC #### [facility] [address] [place] [address] Dr. Stacey Melendez D-DIMERon 06-13-2021 D-DIMER 0.36 mg/L FEU Normal 0.19-0.50 [facility] Comment on above: Performed By: #### C VDTBH #### [facility] [address] [place] [address] Dr. Stacey Melendez D-DIMER COMMENTS SEE BELOW Normal [facility] Comment on above: Result Comment: Incr eases in D-Dimer concentration observed with thromboembolic events can be variable due to localization, size, and age of the thrombus. Therefore, a thromboembolic event cannot be diagnosed with certainty on the basis of the reference range. D-Dimers may also be elevated for a variety of disorders including: advanced age, , coronary disease, cancer, liver disease, infection, inflammation, hematoma, DIC, trauma, post-surgery, diabetes, thrombolytic or anticoagulant therapy, stress, and generalized hospitalization. Performed By: #### C VDTBH #### [facility] [address] [place] [address] Dr. Stacey Melendez PROF CHEM 8 (BAS METB)on Anion gap [Moles/Vol] 15.9 mmol/L Normal [facility] Comment on above: Performed By: #### C BC #### [facility] [address] [place] [address] Dr. Stacey Melendez Calcium [Mass/Vol] 9.0 mg/dL Normal 8.4-10.2 [facility] Comment on above: Performed By: #### C BC #### [facility] [address] [place] [address] Dr. Stacey Melendez Chloride [Moles/Vol] 107 mmol/L Normal 98-107 [facility] Comment on above: Performed By: #### C BC #### [facility] [address] [address] [address] Stacey Melendez CO2 [Moles/Vol] 25.0 mmol/L Normal 22.0-30.0 [facility] Comment on above: Performed By: #### C BC #### [facility] [address] [place] [address] Dr. Stacey Melendez Creatinine [Mass/Vol] 1.05 mg/dL Critically high 0.52-1.04 [facility] Comment on above: Performed By: #### C BC #### [facility] [address] [place] [address] Dr. Stacey Melendez EGFR-AF KITTITIAN >60 Normal >=60 [facility] Comment on above: Performed By: #### C BC #### [facility] [address] [place] [address] Dr. Stacey Melendez EGFR-NON AF KITTITIAN 54 mL/min/1.73m2 Critically low >=60 [facility] Comment on above: Performed By: #### C BC #### [facility] [address] [place] [address] Dr. Stacey Melendez Glucose [Mass/Vol] 108 mg/dL Critically high 74-106 [facility] Comment on above: Performed By: #### C BC #### [facility] [address] [place] [address] Dr. Stacey Melendez Potassium [Moles/Vol] 3.9 mmol/L Normal 3.4-5.0 [facility] Comment on above: Performed By: #### C BC #### [facility] [address] [address] [address] Stacey Melendez Sodium [Moles/Vol] 144 mmol/L Normal 137-145 [facility] Comment on above: Performed By: #### C BC #### [facility] [address] [place] [address] Dr. Stacey Melendez Urea nitrogen [Mass/Vol] 18.0 mg/dL Critically high 7.0-17.0 [facility] Comment on above: Performed By: #### C BC #### [facility] [address] [place] [address] Dr. Stacey Melendez Urea nitrogen/Creatinine [Mass ratio] 17.1 mg/mg Normal [facility] Comment on above: Performed By: #### C BC #### [facility] [address] [place] [address] Dr. Stacey Melendez PROTIMEon 06-13-2021 INR Coag (PPP) [Relative time] 0.95 {INR} Normal [facility] Comment on above: Performed By: #### P TT, PT #### [facility] [address] [place] [address] Dr. Stacey Melendez INR GUIDELINES SEE BELOW Normal [facility] Comment on above: Result Comment: KIMBERLY RED INR: 2.0 - 3.0 CONDITIONS NOT LISTED BELOW 2.5 - 3.5 FOR PROSTHETIC HEART VALVE REPLACEMENT 2.5 - 3.5 RECURRENT THROMBOSIS Performed By: #### P TT, PT #### [facility] [address] [place] [address] Dr. Stacey Melendez PT Coag (PPP) [Time] 10.3 s Normal 9.0-11.6 [facility] Comment on above: Performed By: #### P TT, PT #### [facility] [address] [place] [address] Dr. Stacey Melendez PTTon 06-13-2021 aPTT Coag (Bld) [Time] 25.4 s Normal 22.3-36.2 [facility] Comment on above: Performed By: #### P TT, PT #### [facility] [address] [place] [address] Dr. Stacey Melendez XR CHEST 1 Von 06-13-2021 XR CHEST 1 V EXAM: XR CHEST 1 V HISTORY: CHEST PAIN, UNSPECIFIED COMPARISON: Chest, 11/30/2017. TECHNIQUE: AP upright portable chest. FINDINGS: The heart, mediastinum and pulmonary vascularity are within normal limits. The lungs and pleural spaces are clear. IMPRESSION: No acute cardiopulmonary disease. Electronically authenticated by: ARSENIO HOWARD Date: 2021-06-13 21:59 Normal [facility] MG MAMM SCREEN 3D PARISA CADon 05-28-2021 MG MAMM SCREEN 3D PARISA CAD Patient: WENDY DIANE L. Exam Date: 05/28/2021 : 1965 Gender:F Ordering : EDUIN KRISHNAMURTHY HAND SPLITTER Admission #: [id number] Family : Order #: [id number] CLICK HERE TO VIEW EXAM RADIOLOGY REPORT PROCEDURE: MAMMOGRAM SCREENING 3D BILATERAL CAD COMPARISON: MG MAMM RT DIAG FU, 03/24/2020. MG MAMM SCREEN PARISA W CAD, 03/17/2020. INDICATIONS: Screening mammography Calculator Name NCI Breast Cancer Risk Assessment Tool 5 Year Breast Cancer Risk 0.80% Lifetime Breast Cancer Risk 6.00% Personal Breast Cancer No Personal Ovarian Cancer No Treatments None Family Cancers Grandmother-maternal with stomach cancer at age 78. LOCATION: [facility] BREAST COMPOSITION: Scattered areas fibroglandular density. FINDINGS: DIAGNOSTIC CATEGORY 1--NEGATIVE ASSESSMENT. RIGHT BREAST: No significant suspicious finding. No significant change has occurred. LEFT BREAST: No significant suspicious finding. No significant change has occurred. RECOMMENDATIONS: ROUTINE MAMMOGRAM AND CLINICAL EVALUATION IN 12 MONTHS. PLEASE NOTE: A NORMAL MAMMOGRAM DOES NOT EXCLUDE THE POSSIBILITY OF BREAST CANCER. A CLINICALLY SUSPICIOUS PALPABLE LUMP SHOULD BE BIOPSIED. Dictated by: Agustín Crespo M.D. on 05/28/2021 at 09:19 Approved by: Agustín Crespo M.D. on 05/28/2021 at 09:23 Normal [facility] CBC AUTO DIFFon 05-12-2021 BASO # 0.0 103/ul Normal 0.0-0.1 [facility] Comment on above: Performed By: #### P TT, PT #### [facility] [address] [address] [address] Stacey Melendez Basophils/100 WBC (Bld) 0.3 % Normal 0.2-2.0 [facility] Comment on above: Performed By: #### P TT, PT #### [facility] [address] [address] [address] Stacey Melendez EO # 0.3 103/ul Normal 0.0-0.7 [facility] Comment on above: Performed By: #### P TT, PT #### [facility] [address] [address] [address] Stacey Melendez Eosinophils/100 WBC (Bld) 3.8 % Normal 0.9-7.0 [facility] Comment on above: Performed By: #### P TT, PT #### [facility] [address] [place] [address] Dr. Stacey Melendez Erythrocyte distribution width (RBC) [Ratio] 12.4 % Normal 11.0-15.0 [facility] Comment on above: Performed By: #### P TT, PT #### [facility] [address] [place] [address] Dr. Stacey Melendez Hematocrit (Bld) [Volume fraction] 39.7 % Normal 36.0-48.0 [facility] Comment on above: Performed By: #### P TT, PT #### [facility] [address] [place] [address] Dr. Stacey Melendez Hemoglobin (Bld) [Mass/Vol] 12.8 g/dL Normal 12.0-16.0 [facility] Comment on above: Performed By: #### P TT, PT #### [facility] [address] [place] [address] Dr. Stacey Melendez IG # 0.03 10e3/ul Normal 0.00-0.03 [facility] Comment on above: Performed By: #### P TT, PT #### [facility] [address] [place] [address] Dr. Stacey Melendez IG % 0.3 % Normal 0.0-0.5 [facility] Comment on above: Performed By: #### P TT, PT #### [facility] [address] [place] [address] Dr. Stacey Melendez LYMPH # 1.9 103/ul Normal 1.2-3.8 [facility] Comment on above: Performed By: #### P TT, PT #### [facility] [address] [place] [address] Dr. tSacey Melendez Lymphocytes/100 WBC (Bld) 21.2 % Normal 20.5-60.0 [facility] Comment on above: Performed By: #### P TT, PT #### [facility] [address] [place] [address] Dr. Stcaey Melendez MANUAL DIFF REQ NO Normal [facility] Comment on above: Performed By: #### P TT, PT #### [facility] [address] [place] [address] Dr. Stacey Melendez MCH (RBC) [Entitic mass] 31.4 pg Normal 26.7-34.0 [facility] Comment on above: Performed By: #### P TT, PT #### [facility] [address] [place] [address] Dr. Stacey Melendez MCHC (RBC) [Mass/Vol] 32.2 g/dL Normal 29.9-35.2 [facility] Comment on above: Performed By: #### P TT, PT #### [facility] [address] [place] [address] Dr. Stacey Melendez MCV (RBC) [Entitic vol] 97.5 fL Normal 81.0-99.0 [facility] Comment on above: Performed By: #### P TT, PT #### [facility] [address] [place] [address] Dr. Stacey Melendez MONO # 0.6 103/ul Normal 0.3-0.8 [facility] Comment on above: Performed By: #### P TT, PT #### [facility] [address] [place] [address] Dr. Stacey Melendez Monocytes/100 WBC (Bld) 6.3 % Normal 1.7-12.0 [facility] Comment on above: Performed By: #### P TT, PT #### [facility] [address] [place] [address] Dr. Stacey Melendez NEUT # 6.1 103/ul Normal 1.4-6.5 [facility] Comment on above: Performed By: #### P TT, PT #### [facility] [address] [place] [address] Dr. Stacey Melendez Neutrophils/100 WBC (Bld) 68.1 % Normal 43.0-75.0 [facility] Comment on above: Performed By: #### P TT, PT #### [facility] [address] [place], [place] [address] Dr. Stacey Melendez Platelet mean volume (Bld) [Entitic vol] 12.5 fL Normal 9.5-13.5 [facility] Comment on above: Performed By: #### P TT, PT #### [facility] [address] [place] [address] Dr. Stacey Melendez PLT 181 103/ul Normal 150-450 [facility] Comment on above: Performed By: #### P TT, PT #### [facility] [address] [address] [address] Stacey Melendez RBC 4.07 106/ul Critically low 4.20-5.40 [facility] Comment on above: Performed By: #### P TT, PT #### [facility] [address] [place] [address] Dr. Stacey Melendez WBC 9.0 103/ul Normal 4.0-11.0 [facility] Comment on above: Performed By: #### P TT, PT #### [facility] [address] [place] [address] Dr. Stacey Melendez FREE T3on 05-12-2021 FREE T3 2.24 pg/mlL Critically low 2.77-5.27 [facility] Comment on above: Performed By: #### P TT, PT #### [facility] [address] [place] [address] Dr. Stacey Melendez FREE T4on 05-12-2021 Free T4 [Mass/Vol] 0.99 ng/dL Normal 0.78-2.19 [facility] Comment on above: Performed By: #### P TT, PT #### [facility] [address] [place] [address] Dr. Stacey Melendez MAGNESIUMon 05-12-2021 Magnesium [Mass/Vol] 1.7 mg/dL Normal 1.6-2.3 [facility] Comment on above: Performed By: #### P TT, PT #### [facility] [address] [place] [address] Dr. Stacey Melendez PROF 14(COMP METB)on 021 Albumin [Mass/Vol] 3.6 g/dL Normal 3.5-5.0 [facility] Comment on above: Performed By: #### P TT, PT #### [facility] [address] [place] [address] Dr. Stacey Melendez Albumin/Globulin [Mass ratio] 1.0 {ratio} Normal [facility] Comment on above: Performed By: #### P TT, PT #### [facility] [address] [address] [address] Stacey Melendez ALP [Catalytic activity/Vol] 77 U/L Normal 38-126 [facility] Comment on above: Performed By: #### P TT, PT #### [facility] [address] [place] [address] Dr. Stacey Melendez ALT [Catalytic activity/Vol] 29 U/L Normal 9-52 [facility] Comment on above: Performed By: #### P TT, PT #### [facility] [address] [place] [address] Dr. Stacey Melendez Anion gap [Moles/Vol] 13.1 mmol/L Normal [facility] Comment on above: Performed By: #### P TT, PT #### [facility] [address] [place] [address] Dr. Stacey Melendez AST [Catalytic activity/Vol] 19 U/L Normal 14-36 [facility] Comment on above: Performed By: #### P TT, PT #### [facility] [address] [place] [address] Dr. Stacey Melendez Bilirubin [Mass/Vol] 0.3 mg/dL Normal 0.2-1.3 [facility] Comment on above: Performed By: #### P TT, PT #### [facility] [address] [place] [address] Dr. Stacey Melendez Calcium [Mass/Vol] 8.9 mg/dL Normal 8.4-10.2 [facility] Comment on above: Performed By: #### P TT, PT #### [facility] [address] [place] [address] Dr. Stacey Melendez Chloride [Moles/Vol] 108 mmol/L Critically high 98-107 [facility] Comment on above: Performed By: #### P TT, PT #### [facility] [address] [address] [address] Stacey Melendez CO2 [Moles/Vol] 24.0 mmol/L Normal 22.0-30.0 [facility] Comment on above: Performed By: #### P TT, PT #### [facility] [address] [address] [address] Stacey Melendez Creatinine [Mass/Vol] 0.91 mg/dL Normal 0.52-1.04 [facility] Comment on above: Performed By: #### P TT, PT #### [facility] [address] [place] [address] Dr. Stacey Melendez EGFR-AF KITTITIAN >60 Normal >=60 [facility] Comment on above: Performed By: #### P TT, PT #### [facility] [address] [place] [address] Dr. Stacey Melendez EGFR-NON AF KITTITIAN >60 Normal >=60 [facility] Comment on above: Performed By: #### P TT, PT #### [facility] [address] [place] [address] Dr. Stacey Melendez Globulin (S) [Mass/Vol] 3.6 g/dL Normal [facility] Comment on above: Performed By: #### P TT, PT #### [facility] [address] [place] [address] Dr. Stacey Melendez Glucose [Mass/Vol] 101 mg/dL Normal 74-106 [facility] Comment on above: Performed By: #### P TT, PT #### [facility] [address] [place] [address] Dr. Stacey Melendez Potassium [Moles/Vol] 4.1 mmol/L Normal 3.4-5.0 [facility] Comment on above: Performed By: #### P TT, PT #### [facility] [address] [place] [address] Dr. Stacey Melendez Protein [Mass/Vol] 7.2 g/dL Normal 6.1-8.2 [facility] Comment on above: Performed By: #### P TT, PT #### [facility] [address] [place] [address] Dr. Stacey Melendez Sodium [Moles/Vol] 141 mmol/L Normal 137-145 [facility] Comment on above: Performed By: #### P TT, PT #### [facility] [address] [place] [address] Dr. Stacey Melendez Urea nitrogen [Mass/Vol] 16.0 mg/dL Normal 7.0-17.0 [facility] Comment on above: Performed By: #### P TT, PT #### [facility] [address] [place] [address] Dr. Stacey Melendez Urea nitrogen/Creatinine [Mass ratio] 17.6 mg/mg Normal [facility] Comment on above: Performed By: #### P TT, PT #### [facility] [address] [place] [address] Dr. Stacey Melendez TSHon 05-12-2021 TSH 1.872 uIU/mL Normal 0.470-4.680 [facility] Comment on above: Performed By: #### P TT, PT #### [facility] [address] [place] [address] Dr. Stacey Melendez TSH RANGE SEE BELOW Normal [facility] Comment on above: Result Comment: <0.3 4 UIU/ml HYPERTHYROID 0.34-5.60 UIU/ml EUTHYROID >5.60 UIU/ml HYPOTHYROID Performed By: #### P TT, PT #### [facility] [address] [place] [address] Dr. Stacey Melendez VITAMIN B12on 05-12-2021 Cobalamin (Vitamin B12) [Mass/Vol] 425.0 pg/mL Normal 239.0-931.0 [facility] Comment on above: Performed By: #### P TT, PT #### [facility] [address] [place] [address] Dr. Stacey Melendez Echocardiogramon 03-02-[address], [address], [place] [address] TRANSTHORACIC ECHOCARDIOGRAM REPORT Patient Name: DIANE NGUYEN Reading Physician: [id number] Arsenio Flores MD Study Date: 03/02/2021 Referring Physician: [id number] FLORES MRN/PID: [id number] PCP: Ja Pabon Accession/Order#: [id number] Department Location: [facility] Alexey Date of : 1965 Fellow: Gender: F Nurse: Admit Date: Dray Driver: Tash Murray RDCS, RVT Height: 170.18 cm CC Report to: Weight: 98.88 kg Study Type: Echocardiogram BSA: 2.10 m2 Blood Pressure: 110 /70 mmHg Diagnosis/ICD: [id number] Indication: HTN, Hyperlipidemia, COPD, Tobacco Abuse, Obesity Procedure/CPT: Echo Complete w Full [id number] Study Detail: The following Echo studies were performed: 2D, M-Mode, Doppler and color flow. PHYSICIAN INTERPRETATION: Left Ventricle: The left ventricular systolic function is normal, with an estimated ejection fraction of 65-70%. There are no regional wall motion abnormalities. The left ventricular cavity size is normal. Spectral Doppler shows a normal pattern of left ventricular diastolic filling. Left Atrium: The left atrium is mildly dilated. Right Ventricle: The right ventricle is normal in size. There is normal right ventricular global systolic function. Right Atrium: The right atrium is normal in size. Aortic Valve: The aortic valve is trileaflet. There is evidence of mildly elevated transaortic gradients consistent with sclerosis of the aortic valve. There is no evidence of aortic valve regurgitation. The peak instantaneous gradient of the aortic valve is 10.8 mmHg. The mean gradient of the aortic valve is 5.0 mmHg. Mitral Valve: The mitral valve is normal in structure. There is trace mitral valve regurgitation. Tricuspid Valve: The tricuspid valve is structurally normal. There is trace tricuspid regurgitation. Pulmonic Valve: The pulmonic valve is not well visualized. There is no indication of pulmonic valve regurgitation. Pericardium: There is no pericardial effusion noted. Aorta: The aortic root is normal. CONCLUSIONS: 1. The left ventricular systolic function is normal with a 65-70% estimated ejection fraction. 2. Aortic valve sclerosis. QUANTITATIVE DATA SUMMARY: 2D MEASUREMENTS: Normal Ranges: Ao Root d: 3.10 cm (2.0-3.7cm) LAs: 3.80 cm (2.7-4.0cm) RVIDd: 2.90 cm (0.9-3.6cm) IVSd: 1.10 cm (0.6-1.1cm) LVPWd: 0.80 cm (0.6-1.1cm) LVIDd: 5.00 cm (3.9-5.9cm) LVIDs: 3.30 cm LV Mass Index: 81.0 g/m2 LV % FS 34.0 % LV SYSTOLIC FUNCTION BY 2D PLANIMETRY (MOD): Normal Ranges: EF-A4C View: 70.0 % (>55%) LV DIASTOLIC FUNCTION: Normal Ranges: MV Peak E: 0.77 m/s (0.7-1.2 m/s) MV Peak A: 0.90 m/s (0.42-0.7 m/s) E/A Ratio: 0.86 (1.0-2.2) MV lateral e' 0.11 m/s MV medial e' 0.08 m/s E/e' Ratio: 7.20 (<8.0) MITRAL VALVE: Normal Ranges: MV Vmax: 0.96 m/s (<1.3m/s) MV peak P.7 mmHg (<5mmHg) MV mean P.0 mmHg (<48mmHg) MITRAL INSUFFICIENCY: Normal Ranges: MR Vmax: 243.00 cm/s AORTIC VALVE: Normal Ranges: AoV Vmax: 1.64 m/s (<1.7m/s) AoV Peak P.8 mmHg (<20mmHg) AoV Mean P.0 mmHg (1.7-11.5mmHg) LVOT Max Jonathan: 0.81 m/s (<1.1m/s) AoV VTI: 37.20 cm (18-25cm) LVOT VTI: 19.00 cm LVOT Diameter: 2.10 cm (1.8-2.4cm) AoV Area, VTI: 1.77 cm2 (2.5-5.5cm2) AoV Area,Vmax: 1.71 cm2 (2.5-4.5cm2) AoV Dimensionless Index: 0.51 TRICUSPID VALVE/RVSP: Normal Ranges: Peak TR Velocity: 2.26 m/s RV Syst Pressure: 23.4 mmHg (< 30mmHg) PULMONIC VALVE: Normal Ranges: PV Max Jonathan: 0.7 m/s (0.6-0.9m/s) PV Max P.0 mmHg [id number] Arsenio Flores MD Electronically signed on 03/07/2021 at 2:58:[address] [facility] Vital Signs Date Time Vital Sign Value Performing Clinician Rajinderi luz marina 07-08-2024 08:44-0500 Diastolic blood pressure 92 mm[Hg] Nica Johnsnav ENVIRONMENTAL LEAD Work Phone: [facility] 07-08-2024 08:44-0500 Systolic blood pressure 152 mm[Hg] Nica Natholz ENVIRONMENTAL LEAD Work Phone: [facility] 07-08-2024 08:36-0500 Body height 170.2 cm Nica Johnscarlos albertoz ENVIRONMENTAL LEAD Work Phone: [facility] 07-08-2024 08:36-0500 Body mass index (BMI) [Ratio] 35.21 kg/m2 Nicasahil Francoz ENVIRONMENTAL LEAD Work Phone: [facility] 07-08-2024 08:36-0500 Body temperature 98.49 [degF] Nica Johnscarlos albertoz ENVIRONMENTAL LEAD Work Phone: [facility] 07-08-2024 08:36-0500 Body weight 101.97 kg Nicasahil Francoz ENVIRONMENTAL LEAD Work Phone: [facility] 07-08-2024 08:36-0500 Heart rate 62 /min Nica Natholz ENVIRONMENTAL LEAD Work Phone: [facility] 07-08-2024 08:36-0500 Respiratory rate 21 /min Nica Arvindhholz ENVIRONMENTAL LEAD Work Phone: [facility] 07-08-2024 08:36-0500 SaO2% (BldA) [Mass fraction] 96 % Nica Natcarlos albertoz ENVIRONMENTAL LEAD Work Phone: [facility] 05-27-2024 08:53-0400 Body height 170.2 cm Nica Krishnamurthy ENVIRONMENTAL LEAD Work Phone: [facility] 05-27-2024 08:53-0400 Body mass index (BMI) [Ratio] 35.99 kg/m2 Nica Krishnamurthy ENVIRONMENTAL LEAD Work Phone: [facility] 05-27-2024 08:53-0400 Body temperature 98.8 [degF] Nica Krishnamurthy ENVIRONMENTAL LEAD Work Phone: [facility] 05-27-2024 08:53-0400 Body weight 104.24 kg Nica Krishnamurthy ENVIRONMENTAL LEAD Work Phone: [facility] 05-27-2024 08:53-0400 Diastolic blood pressure 80 mm[Hg] Nica Francoz ENVIRONMENTAL LEAD Work Phone: [facility] 05-27-2024 08:53-0400 Heart rate 48 /min Nica Francoz ENVIRONMENTAL LEAD Work Phone: [facility] 05-27-2024 08:53-0400 Respiratory rate 20 /min Nicasahil Francoz ENVIRONMENTAL LEAD Work Phone: [facility] 05-27-2024 08:53-0400 SaO2% (BldA) [Mass fraction] 96 % Nica Krishnamurthy ENVIRONMENTAL LEAD Work Phone: [facility] 05-27-2024 08:53-0400 Systolic blood pressure 140 mm[Hg] Nica Krishnamurthy ENVIRONMENTAL LEAD Work Phone: [facility] Healthcare Encounters Encounter Date Encounter Type Care Provider Facility Start: 08-25-2024 End: 08-25-2024 Refill Nica Krishnamurthy ENVIRONMENTAL LEAD Work Phone: [facility] Comment on above: Environmental and se asonal allergies Start: 07-08-2024 End: 07-08-2024 Bamboo flowsheet Nica Yessy ENVIRONMENTAL LEAD Work Phone: [facility] Start: 07-08-2024 End: 07-08-2024 Bamboo flowsheet Nica Krishnamurthy ENVIRONMENTAL LEAD Work Phone: [facility] Start: 07-08-2024 End: 07-08-2024 Office outpatient visit 25 minutes Nica Krishnamurthy ENVIRONMENTAL LEAD Work Phone: [facility] Comment on above: Primary hypertension (CMS/HCC) (Primary Dx); Obstructive sleep apnea, adult; Bradycardia; Morbid (severe) obesity due to excess calories (CMS/HCC); Body mass index (BMI) 35.0-35.9, adult; Tobacco user Start: 07-08-2024 End: 07-08-2024 ambulatory NICA AICHHOLZ Not Available Start: 05-27-2024 End: 05-27-2024 Bamboo flowsheet Nica Krishnamurthy ENVIRONMENTAL LEAD Work Phone: [facility] Start: 05-27-2024 End: 05-27-2024 Bamboo flowsheet Nica Samuelsjuaquinnav ENVIRONMENTAL LEAD Work Phone: [facility] Start: 05-27-2024 End: 05-27-2024 Office outpatient visit 25 minutes Nica Yessy ENVIRONMENTAL LEAD Work Phone: [facility] Comment on above: Primary hypertension (CMS/HCC) (Primary Dx); Morbid (severe) obesity due to excess calories (CMS/HCC); Mixed hyperlipidemia (CMS/HCC); Body mass index (BMI) 35.0-35.9, adult; Chronic obstructive pulmonary disease, unspecified (CMS/HCC); Gastroesophageal reflux disease without esophagitis; Tobacco user; Anxiety and depression (CMS/HCC); Encounter for screening mammogram for malignant neoplasm of breast; Obstructive sleep apnea, adult; Primary insomnia; Acute otitis externa of right ear, unspecified type; Bradycardia Start: 05-27-2024 End: 05-27-2024 ambulatory NICA AICHHOLZ Not Available Start: 11-29-2023 End: 11-29-2023 ambulatory NICA AICHHOLZ Not Available Start: 04-29-2022 End: 04-29-2022 ambulatory HAND SPLITTER NICA AICHHOLZ Facility: Start: 03-26-2022 End: 03-26-2022 ambulatory HAND SPLITTER NICA AICHHOLZ Facility:[facility] Start: 01-18-2022 End: 01-27-2022 ambulatory EDUIN KRISHNAMURTHY Facility:[facility] Start: 01-07-2022 End: 01-08-2022 ambulatory EDUIN KRISHNAMURTHY Facility:[facility] Start: 12-20-2021 End: 12-20-2021 ambulatory EDUIN KRISHNAMURTHY Facility:[facility] Start: 12-10-2021 End: 12-10-2021 ambulatory VANESSA BARGER Facility:[facility] Start: 06-15-2021 End: 06-19-2021 Evaluation and management of inpatient SHAIKH ROBIN Facility:[facility] Start: 06-14-2021 End: 06-15-2021 Evaluation and management of inpatient EDUIN KRISHNAMURTHY Facility:[facility] Start: 05-28-2021 End: 05-29-2021 ambulatory EDUIN KRISHNAMURTHY Facility:[facility] Start: 05-12-2021 End: 05-13-2021 ambulatory EDUIN KRISHNAMURTHY Facility: Procedures Date Procedure Procedure Detail Performing Clinician Start: 05-17-2023 Mammography Nica rooney ENVIRONMENTAL LEAD Work Phone: Start: 06-18-2021 FLUOROSCOPY OF MULTI PLE CORONARY ARTERIES USING OTH CONTRAST MICK MONTERO Start: 12-20-2017 Colonoscopy Nica rooney ENVIRONMENTAL LEAD Work Phone: Plan of Treatment Date Care Activity Detail Author Start: 12-21-2027 Screening for malign ant neoplasm of colon [facility] Start: 10-07-2024 End: 10-07-2024 Patient encounter procedure 10/07/2024 6:00 PM EST Office Visit [facility] [address] [place] [address] Nica Krishnamurthy NP [address] [place] [id number] [facility] Start: 07-22-2024 Influenza vaccination Influenza Vacc ine (#1) [facility] Comment on above: Postponed from 04/07 (Patient Refused) Start: 07-08-2024 End: 07-08-2024 Patient encounter procedure [facility] Comment on above: Obstructive sleep ap mary, adult (Primary Dx); Primary hypertension (CMS/HCC); Bradycardia; Morbid (severe) obesity due to excess calories (CMS/HCC); Body mass index (BMI) 35.0-35.9, adult; Tobacco user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 Mood and Affect: Mood normal. Behavior: Behavior normal. Thought Content: Thought content normal. Judgment: Judgment normal. ASSESSMENT AND PLAN: Follow up in about 6 weeks (around 07/08/2024). Problem List Items Addressed This Visit Obstructive sleep apnea, adult Non compliant with use Insomnia Cont trazodone Chronic obstructive pulmonary disease, unspecified ([facility]) Recommend quitting smoking Relevant Orders CBC and differential Urinalysis with reflex microscopic (clean catch) HTN (hypertension) ([facility]) - Primary Not at goal, did not take her meds this morning Relevant Orders Comprehensive metabolic panel GERD (gastroesophageal reflux disease) Stable Tobacco user The patient has been advised of the risks of continued smoking: stroke, AL, all forms of cancer, lung disease, and . Options for quitting smoking include: cold turkey, hypnosis, acupuncture, nicotine replacement meds (gum, lozenges, and patches), Buproprion, and Varenicline. At this time pt is encouraged to evaluate their goals for wanting to quit smoking, and reach out to provider when ready to start this process Relevant Orders CBC and differential Urinalysis with reflex microscopic (clean catch) HLD (hyperlipidemia) ([facility]) Relevant Orders Comprehensive metabolic panel Lipid panel Anxiety and depression ([facility]) No changes in meds/doses Relevant Orders TSH T4, free Morbid (severe) obesity due to excess calories ([facility]) Body mass index (BMI) 35.0-35.9, adult Encounter for screening mammogram for malignant neoplasm of breast Relevant Orders Bilateral screening mammogram Acute otitis externa of right ear Relevant Medications ofloxacin (Floxin) 0.3 % otic solution Bradycardia No acute symptoms at this time Fu in 6 weeks if continued consider holter documented in this encounter [facility] Clinical Note 02-13-2022 Note Date & Type Note Facility 02-13-2022 Note Chief Complaint consultation for weight loss HPI Staff 56 year old female presents on consultation from Nica Krishnamurthy [employer] for weight loss. PCP reports #40 weight loss over the past one year, patient states it is greater than this. She contributes weight loss to decrease in calories and working more. Denies abdominal or rectal pain. No rectal bleeding or change in bowel habits. Denies nausea or vomiting. Last colonoscopy completed 12/2017. History of Present Illness 56 yo female with h/o htn, COPD, hyperlipidemia, MISAEL referred for 40 lb wt loss over past year; patient reports that this can be explained by a change to healthier diet and increase work hours; denies change in appetite, no abdominal complaints; no N/V or abd pain, no early satiety; no bowel changes or blood in stools; abdominal surgery significant for vaginal hysterectomy and cholecystectomy; denies asa or NSAID use; last colonoscopy 12/2017, wnl; no fmhx of GI malignancy or IBD; smokes daily. Review of Systems PHQ Score Initial Depression Screen Score: 0 ROS - Provider Constitutional: no fever, no sweats, yes weight loss. Eyes: no glasses, no blurred vision, no visual loss. ENMT: no dentures, no hoarseness, no swallowing difficulties, no hearing loss, no ear infection(s), no nose bleeds. Cardiovascular: normal blood pressure, no chest pain, regular heartbeat, no heart murmur. Respiratory: no shortness of breath, no cough, no asthma, no wheezing. Gastrointestinal: no nausea, no vomiting, no diarrhea, no constipation, no blood in stool, no change in bowel habits, no abdominal pain, no hepatitis. Genitourinary: no kidney stones, no urine infection, no dysuria. Musculoskeletal: no pain, no weakness. Skin: no changing moles, no rash, no skin lumps. Neurologic: no seizures, no epilepsy, no headache. Psychiatric: no emotional or psychiatric problem. Heme/Lymph: no bleeding problems, no anemia, no blood clots, no transfusions. Allergy/Immunologic: no swollen lymph nodes/glands, no IV drug abuse. Other: Additional ROS info: Except as noted in the above Review of Systems and in the History of Present Illness, all other systems have been reviewed and are negative or noncontributory. Physical Exam Vitals & Measurements HR: 78(Peripheral) RR: 16 BP: 148/88 HT: 170.18 cm HT: 170.2 cm WT: 83 kg WT: 83.0 kg BMI: 28.66 HEENT: normal conjunctiva, sclera clear, no scleral icterus, EOM intact, PERRLA, oral mucosa moist without lesions. Neck: trachea midline, no mass, symmetric, no thyromegaly or nodules, no adenopathy Respiratory: lungs CTA, respirations non labored. Cardiovascular: regular rate and rhythm, no murmur, no pedal edema or varicosities. Gastrointestinal: obese, soft, non distended, no tenderness, no masses, no palpable hernias, diastasis recti no, no hepatosplenomegaly; normal bs Lymphatic: no cervical adenopathy, Musculoskeletal: normal gait, digits and nails without infection, nodes, cyanosis, clubbing. Skin: no rashes, no lesions, no ulcers, no subcutaneous nodules, induration. Psychiatric/Neuro: oriented to time, place, person, judgement normal, affect appropriate for age, insight intact, no focal deficits. Tests: review of old records completed, Assessment/Plan 1. Weight loss (R63.4: Abnormal weight loss) explained by healthier diet and increased work; no GI complaints; recent colonoscopy; no indication for endoscopy at this time; call with problems/questions. Follow-up No qualifying data available Problem List/Past Medical History Ongoing Anxiety and depression BMI 28.0-28.9,adult Chronic obstructive pulmonary disease DDD (degenerative disc disease), cervical DDD (degenerative disc disease), lumbar GERD (gastroesophageal reflux disease) History of AL (myocardial infarction) HTN (hypertension) Hypercholesteremia Hyperlipidemia Insomnia Obesity MISAEL (obstructive sleep apnea) Parasomnia Stress incontinence Tobacco user Weight loss Historical No qualifying data Procedure/Surgical History Cardiac catheterization (06/2021), Colonoscopy (12/20/2017), Cholecystectomy, Cystoscopy, Grafting to skin, History of ureteral stent placement, Removal of ureteral stent, Vaginal hysterectomy. Medications albuterol HFA 90 mcg/inh MDI, 2 puff(s), Inhalation, q6hr, PRN atorvastatin 40 mg Tab, 40 mg= 1 tab(s), Oral, Daily Effexor XR 150 mg Cap-ER, 150 mg= 1 cap(s), Oral, Daily lisinopril 20 mg Tab, 20 mg= 1 tab(s), Oral, Daily omeprazole 20 mg Cap-DR, 20 mg= 1 cap(s), Oral, Daily Singulair 10 mg Tab, 10 mg= 1 tab(s), Oral, qPM topiramate 25 mg Tab, 50 mg= 2 cap(s), Oral, Bedtime traZODONE 50 mg Tab, 100 mg= 2 tab(s), Oral, Once a day (at bedtime) Allergies No Known Allergies No Known Medication Allergies Social History Alcohol - Denies Alcohol Use, 02/01/2022 Substance Abuse - Denies Substance Abuse, 02/01/2022 Tobacco 5-9 cigarettes (between 1/4 to 1/2 pack)/day in last 30 days Tobacco Use:. Never Smokel (more content not included)... [facility] Comment on above: Result Comment: Elec tronically Signed By: MARCO GREENWOOD, Matti Martínez\Date and Time Signed: 02/13/22 20:16 EDT Discharge summary note 06-20-2021 Note Date & Type Note Facility 06-20-2021 Note MR#: [id number] I [facility] Pt. Name: Diane Nguyen Admitted: 06/15/2021 Discharged: 06/19/2021 Date of : 1965 Physician: Ashley Jimenez MD DISCHARGE SUMMARY FINAL DIAGNOSES: 1. Hjh-GM-evxeaajsi myocardial infarction. 2. Hypertension. 3. Dyslipidemia. 4. Tobacco use. 5. Depression. 6. Gastroesophageal reflux disease. 7. Electrolyte imbalances. HISTORY OF PRESENT ILLNESS AND HOSPITALIZATION COURSE: The patient is a 55-year-old female with past medical history significant for hypertension, COPD, depression, and GERD, who presented to the emergency department due to sudden-onset chest pain that started on the day prior to her visit to [facility]. In [place], she was found to have elevated troponins and she was sent to our facility as a direct admit. The patient was put on heparin drip. Her initial troponins were negative. She had a treadmill cardiac stress test, which was positive for ischemia. She had an angiogram done with our Cardiology team, which showed mild disease involving the LAD. The patient was continued on aspirin and statin. She was advised to start tobacco use and she agrees to that. 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 She was instructed that she will need to return to the emergency department if she does have any recurrence of her symptoms. During the admission, the blood pressure was found to be borderline hypotensive. Apparently, the patient is on lisinopril/captopril/hydrochlorothiaz floyd. The patient was only continued on lisinopril and she was instructed monitor her blood pressure and to refer to her PCP for further evaluation and management of her blood pressure. MEDICATIONS ON DISCHARGE: As per the medication reconciliation list. PHYSICAL EXAMINATION: On day of discharge is as follows: GENERAL: She is middle-aged female, nontoxic appearing. HEENT: Pupils equal, round, reactive to light. Extraocular movements intact. Mucous membranes moist. NECK: Supple. No JVD. No LAD. HEART: Normal S1, S2. Regular rate and rhythm. No murmurs. ABDOMEN: Soft, nontender, nondistended. Positive bowel sounds. TIME OF DISCHARGE: 40 minutes. Electronically Signed by: Ashley Jimenez MD 2021 08:46 P Ashley Jimenez MD Date Dict: 06/19/2021/01:50 P/Ashley Jimenez MD Date Trans: 06/20/2021 04:25 A/mmo [id number] [facility] Evaluation note Note Date & Type Note Facility Evaluation note Diagnosis Primary hypertension (CMS/HCC)- Primary Unspecified essential hypertension Mixed hyperlipidemia (CMS/HCC) Mixed hyperlipidemia Environmental and seasonal allergies Muscle spasms of neck Other migraine without status migrainosus, not intractable (CMS/HCC) Anxiety Anxiety state, unspecified Anxiety and depression (CMS/HCC) Tobacco user Tobacco use disorder Primary hypertension (CMS/HCC)- Primary Unspecified essential hypertension Morbid (severe) obesity due to excess calories (CMS/HCC) Mixed hyperlipidemia (CMS/HCC) Mixed hyperlipidemia Body mass index (BMI) 35.0-35.9, adult Chronic obstructive pulmonary disease, unspecified ([facility]) Gastroesophageal reflux disease without esophagitis Esophageal reflux Tobacco user Tobacco use disorder Anxiety and depression ([facility]) Encounter for screening mammogram for malignant neoplasm of breast Obstructive sleep apnea, adult Primary insomnia Persistent disorder of initiating or maintaining sleep Acute otitis externa of right ear, unspecified type Bradycardia Other specified cardiac dysrhythmias documented in this encounter [facility] Evaluation note Note Date & Type Note Facility Evaluation note Diagnosis Primary hypertension ([facility])- Primary Unspecified essential hypertension Mixed hyperlipidemia ([facility]) Mixed hyperlipidemia Environmental and seasonal allergies Muscle spasms of neck Other migraine without status migrainosus, not intractable ([facility]) Anxiety Anxiety state, unspecified Anxiety and depression ([facility]) Tobacco user Tobacco use disorder Primary hypertension ([facility])- Primary Unspecified essential hypertension Morbid (severe) obesity due to excess calories ([facility]) Mixed hyperlipidemia ([facility]) Mixed hyperlipidemia Body mass index (BMI) 35.0-35.9, adult Chronic obstructive pulmonary disease, unspecified ([facility]) Gastroesophageal reflux disease without esophagitis Esophageal reflux Tobacco user Tobacco use disorder Anxiety and depression ([facility]) Encounter for screening mammogram for malignant neoplasm of breast Obstructive sleep apnea, adult Primary insomnia Persistent disorder of initiating or maintaining sleep Acute otitis externa of right ear, unspecified type Bradycardia Other specified cardiac dysrhythmias Environmental and seasonal allergies Muscle spasms of neck Other migraine without status migrainosus, not intractable ([facility]) Anxiety Anxiety state, unspecified Primary hypertension ([facility])- Primary Unspecified essential hypertension Obstructive sleep apnea, adult Bradycardia Other specified cardiac dysrhythmias Morbid (severe) obesity due to excess calories ([facility]) Body mass index (BMI) 35.0-35.9, adult Tobacco user Tobacco use disorder documented in this encounter [facility] Evaluation note Note Date & Type Note Facility Evaluation note Diagnosis Primary hypertension ([facility])- Primary Unspecified essential hypertension Mixed hyperlipidemia ([facility]) Mixed hyperlipidemia Environmental and seasonal allergies Muscle spasms of neck Other migraine without status migrainosus, not intractable ([facility]) Anxiety Anxiety state, unspecified Anxiety and depression ([facility]) Tobacco user Tobacco use disorder Primary hypertension ([facility])- Primary Unspecified essential hypertension Morbid (severe) obesity due to excess calories ([facility]) Mixed hyperlipidemia ([facility]) Mixed hyperlipidemia Body mass index (BMI) 35.0-35.9, adult Chronic obstructive pulmonary disease, unspecified ([facility]) Gastroesophageal reflux disease without esophagitis Esophageal reflux Tobacco user Tobacco use disorder Anxiety and depression ([facility]) Encounter for screening mammogram for malignant neoplasm of breast Obstructive sleep apnea, adult Primary insomnia Persistent disorder of initiating or maintaining sleep Acute otitis externa of right ear, unspecified type Bradycardia Other specified cardiac dysrhythmias Environmental and seasonal allergies Muscle spasms of neck Other migraine without status migrainosus, not intractable ([facility]) Anxiety Anxiety state, unspecified Primary hypertension ([facility])- Primary Unspecified essential hypertension Obstructive sleep apnea, adult Bradycardia Other specified cardiac dysrhythmias Morbid (severe) obesity due to excess calories ([facility]) Body mass index (BMI) 35.0-35.9, adult Tobacco user Tobacco use disorder Environmental and seasonal allergies documented in this encounter [facility] Summary Purpose Family History No Family History Records FoundNo Family History Records FoundNo Family History Records FoundNo Family History Records FoundNo Family History Records Found Advance Directives No Advanced Directives Records FoundNo Advanced Directives Records FoundNo Advanced Directives Records FoundNo Advanced Directives Records FoundNo Advanced Directives Records Found Additional Source Comments INFORMATION SOURCE (unrecogn ized section and content) DATE CREATED AUTHOR 03/07/2021 [facility] DATE CREATED AUTHOR AUTHOR'S ORGANIZ ATION 06/28/2021 [facility] DATE CREATED AUTHOR AUTHOR'S ORGANIZ ATION 02/13/2022 [facility] DATE CREATED AUTHOR AUTHOR'S ORGANIZ ATION 05/09/2022 [facility] DATE CREATED AUTHOR AUTHOR'S ORGANIZ ATION 07/08/2024 [facility] [employer] Care Teams (unrecognized sec tion and content) Validation Intern Relationship Specialty Start Date End Date Ja Pabon MD [address] [place] [phone] PCP - General Family Medicine 09/29/23 Nica Krishnamurthy NP [address] [place] [phone] Nurse Practitioner Family Medicine 08/07/22 Validation Intern Relationship Specialty Start Date End Date Unallocated, Noms MD Valentina [address] [place] [address] PCP - General [facility] 05/27/24 Nica Krishnamurthy NP [address] [place] [phone] Nurse Practitioner Family Medicine 08/07/22 Validation Intern Relationship Specialty Start Date End Date Ja Pabon MD [address] [place] [phone] PCP - General [facility] 06/06/24 Nica Krishnamurthy NP [address] [place] [phone] PCP - [facility] 05/07/24 Nica Krishnamurthy NP [address] [place] [phone] Nurse Practitioner Family [place] 08/07/22 Validation Intern Relationship Specialty Start Date End Date Ja Pabon MD [address] [place] [phone] PCP - General [facility] 06/06/24 Nica Krishnamurthy NP [address] [place] [phone] PCP [facility] 05/07/24 Nica Krishnamurthy NP [address] [place] [phone] Nurse Practitioner Family Medicine 08/07/22 Validation Intern Relationship Specialty Start Date End Date Ja Pabon MD [address] [place] [phone] PCP - General Family [place] 06/06/24 Nica Krishnamurthy NP [address] [place] [phone] PCP - [facility] 05/07/24 Nica Krishnamurthy NP [address] [place] [phone] Nurse Practitioner Family Medicine 08/07/22 Reason for Visit (unrecogniz ed section and content) Reason Comments Hypertension Reason Comments Med Refill FOR RECORDS PERTAINING TO PATIENTS WHO ARE OR HAVE BEEN ENROLLED IN A CHEMICAL DEPENDENCY/SUBSTANCEABUSE PROGRAM, SOME INFORMATION MAY BE OMITTED. This clinical summary was aggregated from multiple sources. Caution should be exercised in using it in the provision of clinical care. This summary normalizes information from multiple sources, and as a consequence, information in this document may materially change the coding, format and clinical context of patient data. In addition, data may be omitted in some cases. CLINICAL DECISIONS SHOULD BE BASED ON THE PRIMARY CLINICAL RECORDS. [employer] provides no warranty or guarantee of the accuracy or completeness of information in this document.
--- NOTE | 2024-09-18 12:16 | XR_ITS ---
The [address] [address] Patient Name: DIANE NGUYEN MRN: [id number] date: 1965 Sex: F Assigned Patient Location: ER Current Patient Location: ED.MAIN Accession/Order Number: [id number] Exam Date: 09/18/2024 12:10 Report Date: 09/18/2024 12:34 At the request of: ANIRUDH VOGEL Procedure: XR wrist RT min 3V PROCEDURE: XR wrist RT min 3V COMPARISON: None. HISTORY: fall FINDINGS: BONES:No fracture, acute abnormality, or significant arthropathy. SOFT TISSUES:Negative. No visible soft tissue swelling. EFFUSION:None visible. OTHER: Negative. XR/XR wrist RT min 3V IMPRESSION: No acute abnormality Electronically authenticated by: SYEDA VARGAS Date: 09/18/2024 12:34
[2024-09-18] MEDS: IBUPROFEN 600 MG TABLET PO (12:26)
--- NOTE | 2024-09-18 12:29 | PC.NURSE ---
brus to inside right wrist and bruise to outer rigt elbow. ROM in both wnl. strong radial pulse to right wrist
--- NOTE | 2024-09-18 13:07 | ED.FALL1 ---
HPI HPI - Fall General Chief Complaint: Fall Stated Complaint: FALL, BACK AND HEAD PAIN Time Seen by Provider: 09/18/24 11:37 Source: patient Mode of arrival: walk-in History of Present Illness HPI Narrative: Patient presents to ED after a fall. She said she fell yesterday at work. She said she slipped on ice when she was walking out to her car. She said she fell onto the right elbow and did hit her head but it did not hurt too bad. She also tried to catch herself with her right arm and jammed her wrist. She said she had a mild headache yesterday but today there is really no head pain. No loss of consciousness no nausea or vomiting. Patient complains only of right wrist pain. She does have mild hypertension but she said that is normal for her and she denies any chest pain or vision changes. She does also have low back pain but she said that is chronic for her. She said she did not need anything else imaged just her right wrist. Related Data Home Medications ?Medication ?Instructions ?Recorded ?Confirmed atorvastatin 40 mg tablet 40 mg PO DAILY 07/29/24 09/18/24 lisinopril 20 mg tablet 20 mg PO DAILY 07/29/24 09/18/24 montelukast 10 mg tablet 10 mg PO PRN 07/29/24 09/18/24 Allergies Allergy/AdvReac Type Severity Reaction Status Date / Time No Known Drug Allergies Allergy Verified 09/18/24 11:43 Opioid HPI Opioid Management Most Recent Pain and Opioid Data: No Data to Display Review of Systems ROS Status of ROS 10 or more systems reviewed and unremarkable except as noted in history and below PFSH PFSH Social History Little interest or pleasure in doing things: not at all Feeling down, depressed, or hopeless: not at all Exam Narrative Exam Narrative: Time Seen: [] Vital Signs: [Per nurse's notes.] General: [Alert] Skin: [Warm, dry, no rash.] Head: [Normocephalic, atraumatic.] Neck: [Supple, trachea midline.] Eye: [Pupils are equal, round and reactive to light, extraocular movements are intact, normal conjunctiva.] Ears, nose, mouth and throat: oral mucosa moist. Cardiovascular: [Regular rate and rhythm, no murmur.] Respiratory: [Lungs are clear to auscultation, respirations are non-labored, breath sounds are equal.] Chest wall: [No tenderness, no deformity.] Gastrointestinal: [Soft, nontender, non distended, normal bowel sounds.] MSK: 5 out of 5 muscle strength x 4 extremities no calf pain or edema. Patient has tenderness to palpation in the right wrist and tenderness with supination pronation. 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 Lymphatics: [No lymphadenopathy.] Psychiatric: [Cooperative, appropriate mood & affect.] Neurological: [Alert and oriented to person, place, time, and situation, no focal neurological deficit observed.] Constitutional Vital Signs, click to edit/add: Last Vital Signs Temp 98 F 09/18/24 11:46 Pulse 68 09/18/24 11:46 Resp 16 09/18/24 11:46 BP 162/98 H 09/18/24 11:46 Pulse Ox 97 09/18/24 11:46 O2 Del Method Room Air 09/18/24 11:46 Course Vital Signs Vital signs: Vital Signs Temperature 98 F 09/18/24 11:46 Pulse Rate 68 09/18/24 11:46 Respiratory Rate 16 09/18/24 11:46 Blood Pressure 162/98 H 09/18/24 11:46 Pulse Oximetry 97 09/18/24 11:46 Oxygen Delivery Method Room Air 09/18/24 11:46 Temperature 98 F 09/18/24 11:46 Pulse Rate 68 09/18/24 11:46 Respiratory Rate 16 09/18/24 11:46 Blood Pressure 162/98 H 09/18/24 11:46 Pulse Oximetry 97 09/18/24 11:46 Oxygen Delivery Method Room Air 09/18/24 11:46 MDM - Fall MDM Narrative Medical decision making narrative: X-ray negative for any acute findings. No wrist fracture. Velcro wrist splint was given for home. Return to ED if worsening symptoms otherwise follow-up with Ortho. Dr. Bardales information was given for follow-up as needed. Patient is comfortable with care plan for home. Differential Diagnosis Differential diagnosis: Likely fracture of wrist, compression fracture and concussion without loss of consciousness Imaging Data Chest x-ray: Radiologist's impression: ITS Impressions Wrist X-Ray 09/18/24 12:16 IMPRESSION: No acute abnormality Electronically authenticated by: SYEDA VARGAS Date: 09/18/2024 12:34 Discharge Plan Discharge Chief Complaint: Fall Clinical Impression: Fall, Strain of right wrist Patient Disposition: Home, Self-Care Time of Disposition Decision: 12:41 Condition: Good Mode of Transportation: Private Vehicle Prescriptions / Home Meds: No Action atorvastatin 40 mg tablet 40 mg PO DAILY lisinopril 20 mg tablet 20 mg PO DAILY montelukast 10 mg tablet 10 mg PO PRN Print Language: Andorran Instructions: Wrist Injury (ED), Fall Prevention (ED) Referrals: Nica Krishnamurthy NP [Primary Care Provider] - 1 week Sukumar Bardales MD [Physician] - 1 week Discharge Date/Time: 09/18/24 12:55
== END 2024-09-18 12:55 | disposition home or self-care (01) ==
PROVIDERS: Emergency Provider Emergency Medicine; PCP Nurse Practitioner
DX: S66.811A Strain of other specified muscles, fascia and tendons at wrist and hand level, right hand, initial encounter (principal); I10 Essential (primary) hypertension; J44.9 Chronic obstructive pulmonary disease, unspecified; Z72.0 Tobacco use; E78.2 Mixed hyperlipidemia; F41.9 Anxiety disorder, unspecified; F32.A Depression, unspecified; W00.0XXA Fall on same level due to ice and snow, initial encounter
CPT/HCPCS: 36415; 73110; 80053; 80061; 81001; 84439; 84443; 85025; 99283

== ENCOUNTER 2024-09-18 13:06 | Outpatient (OUT) | payer OTHER, SELFPAY ==
[2024-09-18 13:29] LABS: Basophils Absolute Auto 0.1 10^3/uL (0.0-0.1); Basophils Percent Auto 0.6 % (0.2-2.0); Eosinophils Absolute Auto 0.4 10^3/uL (0.0-0.7); Eosinophils Percent Auto 4.4 % (0.9-7.0); Hematocrit 43.2 % (36.0-48.0); Hemoglobin 14.2 g/dL (12.0-16.0); Immature Granulocytes Abs Auto 0.02 10^3/uL (0.00-0.03); Immature Granulocytes Pct Auto 0.2 % (0.0-0.5); Lymphocytes Absolute Auto 1.9 10^3/uL (1.2-3.8); Mean Corpuscular HGB Conc 32.9 g/dL (29.9-35.2); Mean Corpuscular Hemoglobin 31.3 pg (26.7-34.0); Mean Corpuscular Volume 95.4 fL (81.0-99.0); Mean Platelet Volume 11.6 fL (9.5-13.5); Monocytes Absolute Auto 0.8 10^3/uL (0.3-0.8); Monocytes Percent Auto 9.7 % (1.7-12.0); Neutrophils Absolute Auto 5.5 10^3/uL (1.4-6.5); Neutrophils Percent Auto 63.1 % (43.0-75.0); Platelet Count 201 10^3/uL (150-450); Red Blood Count 4.53 10^6/uL (4.20-5.40); White Blood Count 8.7 10^3/uL (4.0-11.0)
[2024-09-18 14:02] LABS: Chloride 106 mmol/L (98-107); Potassium 3.5 mmol/L (3.5-5.1); Sodium 141 mmol/L (136-145)
[2024-09-18 14:03] LABS: Alanine Aminotransferase 26 U/L (14-59); Albumin Globulin Ratio 0.9; Albumin Level 3.6 g/dL (3.4-5.0); Alkaline Phosphatase 86 U/L (46-116); Anion Gap 11.9; Aspartate Amino Transferase 20 U/L (15-37); BUN Creatinine Ratio 19.4; Bilirubin Total 0.4 mg/dL (0.2-1.0); Calcium 8.9 mg/dL (8.5-10.1); Carbon Dioxide 26.6 mmol/L (21.0-32.0); Estimated GFR (African America >60 (>=60 mL/min/1.73m^2); Estimated GFR (Non-African Ame 52 (>=60 mL/min/1.73m^2); Glucose 94 mg/dL (74-106); Total Protein 7.6 g/dL (6.4-8.2)
[2024-09-18 14:04] LABS: Chol HDL Ratio 2.5; Cholesterol 161 mg/dL (<=200); HDL Cholesterol 65 mg/dL (40-60); Thyroid Stimulating Hormone 2.242 uIU/mL (0.358-3.740); Triglycerides 172 mg/dL (<=150); VLDL CHOLESTEROL 34.4 mg/dL
[2024-09-18 14:15] LABS: Bilirubin Urine NEGATIVE (NEGATIVE); Blood Urine TRACE-L (NEGATIVE); Clarity Urine CLEAR (CLEAR); Color Urine LT. YELLOW (YELLOW); Glucose Urine UA NEGATIVE (NEGATIVE); Ketones Urine NEGATIVE (NEGATIVE); Leukocyte Esterase Urine TRACE (NEGATIVE); Nitrite Urine NEGATIVE (NEGATIVE); Protein Urine TRACE mg/dL (NEG/TRACE); Specific Gravity Urine 1.025 (1.005-1.025); pH Urine 6.5 (5.0-9.0)
[2024-09-18 14:40] LABS: Urine Microscopic Indicated YES
[2024-09-18 14:46] LABS: WBC Urine 0-2 #/HPF (NONE SEEN)
[2024-09-18 14:47] LABS: Bacteria Urine SMALL #/HPF (NONE SEEN); Mucus Urine NONE SEEN (NONE SEEN); RBC Urine 0-2 #/HPF (0-2); Squamous Epithelial Cell Urine MANY #/LPF (NONE/RARE)
== END 2024-09-18 13:07 | disposition home or self-care (01) ==
LOC: LAB 13:07
PROVIDERS: PCP Nurse Practitioner; Visit Provider Nurse Practitioner
DX: E78.2 Mixed hyperlipidemia (principal); I10 Essential (primary) hypertension; J44.9 Chronic obstructive pulmonary disease, unspecified; Z72.0 Tobacco use; F41.9 Anxiety disorder, unspecified; F32.A Depression, unspecified
CPT/HCPCS: 36415; 80053; 80061; 81001; 84439; 84443; 85025

== ENCOUNTER 2024-11-20 18:46 | Emergency (ER) | payer OTHER, SELFPAY ==
[2024-11-20 18:50] VITALS: BP 183/107; PULSE 68; TEMP 36.8; O2SAT 97; BMI 28.7
--- OUTSIDE RECORDS SUMMARY | 2024-11-20 19:08 | XMS_ITS | CCD ---
Author Organization [facility] Care Team Providers Care Expert Medical Writer Name Role Phone SHAIKH KELLY Referring Unavailable MICK MONTERO Surgeon Unavailable PAULINA, ALAN Admitting Unavailable AICHHOLZ, NICA Primary Care Unavailable PA Procedure Practitioner Unavailab ASHLEY Yancey Attending Unavailable AICHHOLZ, DIRECTIONAL SURVEY DRAFTER NICA Primary Care Unavailable AICHHOLZ, DIRECTIONAL SURVEY DRAFTER NICA Consulting Unavailable AICHHOLZ, DIRECTIONAL SURVEY DRAFTER NICA Attending Unavailable AICHHOLZ, DIRECTIONAL SURVEY DRAFTER NICA Admitting Unavailable AICHHOLZ, DIRECTIONAL SURVEY DRAFTER NICA Primary Care Unavailable AICHHOLZ, DIRECTIONAL SURVEY DRAFTER NICA Consulting Unavailable AICHHOLZ, DIRECTIONAL SURVEY DRAFTER NICA Attending Unavailable AICHHOLZ, DIRECTIONAL SURVEY DRAFTER NICA Admitting Unavailable DR AGUSTÍN CRESPO Consulting Unavailable AICHHOLZ, DIRECTIONAL SURVEY DRAFTER NICA Primary Care Unavailable AICHHOLZ, DIRECTIONAL SURVEY DRAFTER NICA Attending Unavailable AICHHOLZ, DIRECTIONAL SURVEY DRAFTER NICA Admitting Unavailable AICHHOLZ, DIRECTIONAL SURVEY DRAFTER NICA Consulting Unavailable ASHLIE GARCIA Consulting Unavailable AICHHOLZ, DIRECTIONAL SURVEY DRAFTER NICA Primary Care Unavailable AICHHOLZ, DIRECTIONAL SURVEY DRAFTER NICA Attending Unavailable AICHHOLZ, DIRECTIONAL SURVEY DRAFTER NICA Admitting Unavailable AICHHOLZ, DIRECTIONAL SURVEY DRAFTER NICA Primary Care Unavailable VANESSA BARGER Attending Unavailable CHARBEL, VANESSA Admitting Unavailable CHARBEL, VANESSA Consulting Unavailable AICHHOLZ, DIRECTIONAL SURVEY DRAFTER NICA Primary Care Unavailable BOY WINCHESTER Attending Unavailable RANULFO, BOY Admitting Unavailable RANULFO, BOY Consulting Unavailable CHARBEL, VANESSA Attending Unavailable CHARBEL, VANESSA Admitting Unavailable CHARBEL, VANESSA Consulting Unavailable AICHHOLZ, DIRECTIONAL SURVEY DRAFTER NICA Primary Care Unavailable AICHHOLZ, DIRECTIONAL SURVEY DRAFTER NICA Primary Care Unavailable PAY, DR BARNES Admitting Unavailable PAY, DR BARNES Attending Unavailable KRISTIE SKY Consulting Unavailable SYEDA ELKINS Consulting Unavailable AICHHOLZ, DIRECTIONAL SURVEY DRAFTER NICA Primary Care Unavailable SHAIKH Juaquin KELLY Attending Unavailable SHAIKH Juaquin KELLY Admitting Unavailable DR BOB PRIEC Consulting Unavailable VANESSA BARGER Consulting Unavailable ARSENIO HOWARD Consulting Unavailable SHAIKH Juaquin KELLY Consulting Unavailable Yessy STEAMTABLE WORKER, Nica Unavailable Ja Pabon MD Primary Care Provider Unallocated MD, Noms Provider Primary Care Provi bertha Ja Pabon MD Primary Care Provider Yessy STEAMTABLE WORKER, Nica Unavailable NICA KRISHNAMURTHY Attending Unavailable NICA KRISHNAMURTHY Attending Unavailable NICA KRISHNAMURTHY Attending Unavailable NICA KRISHNAMURTHY Attending Unavailable Medications Current Medications Medication Drug Class(es) Dates Sig (Normalized) Sig (Original) atorvastatin 40 mg oral tablet (13 sources) HMG-CoA Reductase Inhibitor Start: 02-22-2024 End: 12-24-2024 take 1 tablet by mouth in the evening atorvastatin (Lipitor) 40 MG tablet Indications: Mixed hyperlipidemia (CMS/HCC) Take 1 tablet (40 mg) by mouth in the evening 90 tablet 05/27/2024 Active lisinopril 20 mg oral tablet (13 sources) Angiotensin Converting Enzyme Inhibitor Start: 02-22-2024 End: 12-24-2024 take 1 tablet by mouth once daily lisinopril 20 MG tablet Indications: Primary hypertension (CMS/HCC) Take 1 tablet (20 mg) by mouth Daily 90 tablet 05/27/2024 Active montelukast 10 mg oral tablet (14 sources) Leukotriene Receptor Antagonist Start: 02-22-2024 End: 12-24-2024 take 1 tablet by mouth at bedtime montelukast (Singulair) 10 MG tablet Indications: Environmental and seasonal allergies Take 1 tablet (10 mg) by mouth at bedtime 90 tablet 1 08/25/2024 11/23/2024 Active ofloxacin 3 mg/ml otic solution (2 sources) Quinolone Antimicrobial Start: 05-27-2024 End: 06-03-2024 ofloxacin (Floxin) 0.3 % otic solution Indications: Acute otitis externa of right ear, unspecified type Administer 10 drops into affected ear(s) Daily for [address] 10 drops daily in right ear 5 mL 05/27/2024 06/03/2024 Active tiZANidine 4 mg oral tablet (13 sources) Central alpha-2 Adrenergic Agonist Start: 02-22-2024 End: 12-24-2024 tiZANidine (Zanaflex) 4 MG tablet Indications: Muscle spasms of neck Take 1 tablet (4 mg) by mouth as needed at bedtime for muscle spasms 90 tablet 05/27/2024 Active topiramate 25 mg oral tablet (13 sources) Start: 02-22-2024 End: 12-24-2024 take 2 tablets by mouth at bedtime topiramate (Topamax) 25 MG tablet Indications: Other migraine without status migrainosus, not intractable (CMS/HCC) Take 2 tablets (50 mg) by mouth at bedtime 180 tablet 05/27/2024 Active traZODone hydrochloride 50 mg oral tablet (13 sources) Serotonin Reuptake Inhibitor Start: 02-22-2024 End: 12-24-2024 take 2 tablets by mouth at bedtime traZODone (Desyrel) 50 MG tablet Indications: Anxiety and depression (CMS/HCC) Take 2 tablets (100 mg) by mouth at bedtime 180 tablet 05/27/2024 Active 24 hr venlafaxine 150 mg extended release oral capsule (15 sources) Serotonin and Norepinephrine Reuptake Inhibitor Start: 09-25-2024 End: 12-24-2024 take 1 capsule by mouth once daily at mealtime venlafaxine XR (Effexor XR) 150 MG 24 hr capsule Indications: Anxiety and depression (CMS/HCC) , Anxiety Take 1 capsule (150 mg) by mouth Daily Take with food. 90 capsule 09/25/2024 12/24/2024 Active Start: 02-22-2024 End: 09-25-2024 take 1 capsule by mouth once daily venlafaxine XR (Effexor XR) 75 MG 24 hr capsule Indications: Anxiety Take 1 capsule (75 mg) by mouth Daily 90 capsule 05/27/2024 Active Problems Active Problems Problem Classification Problem Date Documented Da te Episodic/Chronic Acute myocardial infarction (3 sources) Non-ST elevation (NSTEMI) myocardial infarction; Translations: [NON-ST ELEVATION MYOCARDIAL INFARCT] Onset: Chronic Anxiety disorders (20 sources) Anxiety disorder, unspecified; Translations: [Mixed anxiety and depressive disorder] Onset: 2 Resolved: 4 10-04-2023 Chronic Chronic obstructive pulmonary disease and bronchiectasis (13 sources) Chronic obstructive lung disease; Translations: [Chronic obstructive pulmonary disease, unspecified] Onset: 4 05-27-2024 Chronic Coronary atherosclerosis and other heart disease (11 sources) History of myocardial infarction; Translations: [Old myocardial infarction] Onset: 4 11-29-2023 Chronic Disorders of lipid metabolism (16 sources) Hyperlipidemia, unspecified; Translations: [Hyperlipidemia] Onset: 1 10-04-2023 Chronic Esophageal disorders (13 sources) Gastroesophageal reflux disease; Translations: [Gastro-esophageal reflux disease without esophagitis] Onset: 4 10-04-2023 Chronic Essential hypertension (20 sources) Essential (primary) hypertension; Translations: [Hypertensive disorder] Onset: 2 10-04-2023 Chronic Fluid and electrolyte disorders (1 source) Hypokalemia; Translations: [HYPOKALEMIA] Onset: 2 Episodic Genitourinary symptoms and ill-defined conditions (11 sources) Female stress incontinence; Translations: [Stress incontinence (female) (male)] Onset: 4 10-04-2023 Chronic Headache; including migraine (13 sources) Migraine; Translations: [Migraine, unspecified, not intractable, [...] 2 Episodic Other aftercare (1 source) Other mcfp (current) drug therapy; Translations: [OTH LONGTERM CURRENT DRUG THERAPY] Onset: 2 Episodic Other connective tissue disease (4 sources) Myalgia, unspecified site; Translations: [MYALGIA UNSPECIFIED SITE] Onset: 2 Episodic Other connective tissue disease (13 sources) Muscle spasm of cervical muscle of neck; Translations: [Other muscle spasm] Onset: 4 09-26-2023 Episodic Other ear and sense organ disorders (11 sources) Mixed conductive and sensorineural hearing loss of right ear; Translations: [Mixed conductive and sensorineural hearing loss, unilateral, right ear, with unrestricted hearing on the contralateral side] Onset: 4 10-04-2023 Chronic Other gastrointestinal disorders (3 sources) Diarrhea, unspecified; Translations: [DIARRHEA UNSPECIFIED] Onset: 2 Episodic Other nutritional; endocrine; and metabolic disorders (17 sources) Obesity caused by energy imbalance; Translations: [Morbid (severe) obesity due to excess calories] Onset: 4 05-27-2024 Chronic Other nutritional; endocrine; and metabolic disorders (17 sources) Body mass index 30+ - obesity; Translations: [Body mass index (BMI) 35.0-35.9, adult] Onset: 4 05-27-2024 Chronic Other upper respiratory disease (3 sources) Allergic disposition; Translations: [Other allergic rhinitis] 08-25-2024 Chronic Other upper respiratory infections (1 source) Acute upper respiratory infection, unspecified; Translations: [ACUTE UP RESPIRATORY INFECTION UNS] Onset: 2 Episodic Prolapse of female genital organs (11 sources) Incomplete uterovaginal prolapse; Translations: [Incomplete uterovaginal prolapse] Onset: 4 10-04-2023 Chronic Residual codes; unclassified (15 sources) Obstructive sleep apnea of adult; Translations: [Obstructive sleep apnea (adult) (pediatric)] Onset: 4 10-04-2023 Chronic Residual codes; unclassified (1 source) Acquired absence of both cervix and uterus; Translations: [ACQUIRED ABSENCE BOTH CERVIX AND UTERUS] Onset: 2 Episodic Residual codes; unclassified (1 source) Acquired absence of other specified parts of digestive tract; Translations: [ACQ ABSENCE OTH PART DIGESTV TRACT] Onset: 2 Episodic Residual codes; unclassified (17 sources) Tobacco user; Translations: [Tobacco use] Onset: 4 10-04-2023 Episodic Spondylosis; intervertebral disc disorders; other back problems (20 sources) Degeneration of lumbar intervertebral disc; Translations: [DDD (degenerative disc disease), lumbar] Onset: 4 10-04-2023 Chronic Sprains and strains (6 sources) Strain of other specified muscles, fascia and tendons at thigh level, right thigh, initial encounter; Translations: [Sprain of right wrist] Onset: 2 09-25-2024 Episodic Substance-related disorders (1 source) Nicotine dependence, cigarettes, uncomplicated; Translations: [NICOTINE DEPEND CIGARETTES UNCOMP] Onset: 2 Chronic Unclassified (1 source) CONTACT W/AND (SUSP) EXPOS COVID-19; Translations: [CONTACT W/AND (SUSP) EXPOS COVID-19] Onset: 2 Viral infection (1 source) COVID-19; Translations: [COVID-19] Onset: 2 Past or Other Problems Problem Classification Problem Date Documented Date Episodic/Chronic Cardiac dysrhythmias (14 sources) Bradycardia; Translations: [Bradycardia, unspecified] Onset: 05-27-2024 05-27-2024 Episodic E Codes: Natural/environment (1 source) Other and unspecified overexertion or strenuous movements or postures, initial encounter; Translations: [OTH AND UNS OVREXRT/STRN MVMT/POS INT] Onset: 12-22-2021 Episodic Nonspecific chest pain (1 source) Chest pain, unspecified; Translations: [CHEST PAIN UNSPECIFIED] Onset: 2021 Episodic Other connective tissue disease (3 sources) Pain in right leg; Translations: [PAIN IN RIGHT LEG] Onset: 12-10-2021 Episodic Other connective tissue disease (11 sources) Muscle pain; Translations: [Myalgia, unspecified site] Onset: 10-04-2023 10-04-2023 Episodic Other ear and sense organ disorders (11 sources) Cholesteatoma of attic; Translations: [Cholesteatoma of attic, right ear] Onset: 10-04-2023 10-04-2023 Episodic Other ear and sense organ disorders (12 sources) Acute otitis externa of right ear; Translations: [Unspecified acute noninfective otitis externa, right ear] Onset: 05-27-2024 05-27-2024 Episodic Other lower respiratory disease (11 sources) Snoring; Translations: [Snoring] Onset: 10-04-2023 10-04-2023 Episodic Other lower respiratory disease (11 sources) Chronic cough; Translations: [Chronic cough] Onset: 10-04-2023 10-04-2023 Episodic Other nervous system disorders (11 sources) Paresthesia; Translations: [Paresthesia of skin] Onset: 10-04-2023 Resolved: 10-04-2023 10-04-2023 Episodic Other non-traumatic joint disorders (3 sources) Pain in right hip; Translations: [PAIN IN RIGHT HIP] Onset: 12-20-2021 Episodic Other nutritional; endocrine; and metabolic disorders (4 sources) Abnormal weight loss; Translations: [ABNORMAL WEIGHT LOSS] Onset: 01-07-2022 Episodic Other nutritional; endocrine; and metabolic disorders (11 sources) Weight loss; Translations: [Abnormal weight loss] Onset: 10-04-2023 Resolved: 10-04-2023 10-04-2023 Episodic Other screening for suspected conditions (not mental disorders or infectious disease) (20 sources) Encounter for screening mammogram for malignant neoplasm of breast; Translations: [Mammography abnormal] Onset: 05-28-2021 Resolved: 10-04-2023 Episodic Otitis media and related conditions (20 sources) Dysfunction of right eustachian tube; Translations: [Unspecified Eustachian tube disorder, right ear] Onset: 10-04-2023 Resolved: 10-04-2023 10-04-2023 Episodic Pneumonia (except that caused by tuberculosis or sexually transmitted disease) (11 sources) Pneumonia; Translations: [Pneumonia, unspecified organism] Onset: 10-04-2023 Resolved: 10-04-2023 10-04-2023 Episodic Residual codes; unclassified (11 sources) Parasomnia; Translations: [Parasomnia, unspecified] Onset: 10-04-2023 Resolved: 10-04-2023 10-04-2023 Chronic Residual codes; unclassified (1 source) Family history of malignant neoplasm of digestive organs; Translations: [FAM HX MALIG NEOPLASM DIGESTIV ORGN] Onset: 06-04-2021 Episodic Residual codes; unclassified (11 sources) Insomnia; Translations: [Insomnia, unspecified] Onset: 10-04-2023 10-04-2023 Episodic Spondylosis; intervertebral disc disorders; other back problems (5 sources) Radiculopathy, lumbar region; Translations: [Sciatica, right side] Onset: 12-22-2021 Episodic Syncope (15 sources) Syncope and collapse; Translations: [Near syncope] Onset: 05-12-2021 Resolved: 10-04-2023 Episodic Viral infection (11 sources) Disease caused by 2019-nCoV; Translations: [COVID-19] Onset: 10-04-2023 Resolved: 10-04-2023 10-04-2023 Episodic Results Test Name Value Interpretation Reference Range Facility ALL CBC WITH AUTO DIFFon BASOPHILS ABSOLUTE AUTO 0.1 [facility] Basophils/100 WBC (Bld) 0.6 % 0.2 - 2.0 % [facility] Eosinophils/100 WBC (Bld) 4.4 % 0.9 - 7.0 % [facility] Erythrocyte distribution width (RBC) [Ratio] 12 % 11.0 - 15.0 % [facility] Hematocrit (Bld) [Volume fraction] 43.2 % 36.0 - 48.0 % [facility] Hemoglobin (Bld) [Mass/Vol] 14.2 g/dL 12.0 - 16.0 g/dL [facility] IMMATURE GRANULOCYTES ABS AUTO 0.02 [facility] Immature granulocytes/100 WBC (Bld) 0.2 % 0.0 - 0.5 % [facility] LYMPHOCYTES ABSOLUTE AUTO 1.9 [facility] Lymphocytes/100 WBC (Bld) 22 % 20.5 - 60.0 % [facility] MCH (RBC) [Entitic mass] 31.3 pg 26.7 - 34.[address] [facility] MCHC (RBC) [Mass/Vol] 32.9 g/dL 29.9 - 35.2 g/dL [facility] MCV (RBC) [Entitic vol] 95.4 fL 81.0 - 99.[address] [facility] MONOCYTES ABSOLUTE AUTO 0.8 [facility] Monocytes/100 WBC (Bld) 9.7 % 1.7 - 12.0 % [facility] NEUTROPHILS ABSOLUTE AUTO 5.5 [facility] Neutrophils/100 WBC (Bld) 63.1 % 43.0 - 75.0 % [facility] Platelet mean volume (Bld) [Entitic vol] 11.6 fL 9.5 - 13.5 fL [facility] EO # 0.4 [facility] PLT 201 [facility] RBC 4.53 [facility] WBC 8.7 [facility] Covid-19 PCR ([facility])on 04-08 SARS-CoV-2 (COVID-19) RNA VISH+probe Ql (Unsp spec) Not detected Normal NOT DETECTED [facility] Comment on above: Result Comment: When [...] for this test is supported by the Vocational Teacher of Health and Human Service's declaration that [...] used). Performed By: #### C VDTB #### [facility] [address] [place] [address] Dr. Stacey Melendez CBC AUTO DIFFon 03-26-2022 BASO # 0.0 103/ul Normal 0.0-0.1 [facility] Comment on above: Performed By: #### C BC #### [facility] [address] [place] [address] Dr. Stacey Melendez Basophils/100 WBC (Bld) 0.3 % Normal 0.2-2.0 [facility] Comment on above: Performed By: #### C BC #### [facility] [address] [place] [address] Dr. Stacey Melendez EO # 0.0 103/ul Normal 0.0-0.7 [facility] Comment on above: Performed By: #### C BC #### [facility] [address] [place] [address] Dr. Stacey Melendez Eosinophils/100 WBC (Bld) 0.0 % Critically low 0.9-7.0 [facility] Comment on above: Performed By: #### C BC #### [facility] [address] [place] [address] Dr. Stacey Melendez Erythrocyte distribution width (RBC) [Ratio] 12.4 % Normal 11.0-15.0 [facility] Comment on above: Performed By: #### C BC #### [facility] [address] [place] [address] Dr. Stacey Melendez Hematocrit (Bld) [Volume fraction] 43.4 % Normal 36.0-48.0 [facility] Comment on above: Performed By: #### C BC #### [facility] [address] [place] [address] Dr. Stacey Melendez Hemoglobin (Bld) [Mass/Vol] 14.3 g/dL Normal 12.0-16.0 [facility] Comment on above: Performed By: #### C BC #### [facility] [address] [place] [address] Dr. Stacey Melendez IG # 0.04 10e3/ul Critically high 0.00-0.03 [facility] Comment on above: Performed By: #### C BC #### [facility] [address] [place] [address] Dr. Stacey Melendez IG % 0.4 % Normal 0.0-0.5 [facility] Comment on above: Performed By: #### C BC #### [facility] [address] [place] [address] Dr. Stacey Melendez LYMPH # 1.2 103/ul Normal 1.2-3.8 [facility] Comment on above: Performed By: #### C BC #### [facility] [address] [place] [address] Dr. Stacey Melendez Lymphocytes/100 WBC (Bld) 12.6 % Critically low 20.5-60.0 [facility] Comment on above: Performed By: #### C BC #### [facility] [address] [place] [address] Dr. Stacey Melendez MANUAL DIFF REQ NO Normal [facility] Comment on above: Performed By: #### C BC #### [facility] [address] [place] [address] Dr. Stacey Melendez MCH (RBC) [Entitic mass] 31.3 pg Normal 26.7-34.0 [facility] Comment on above: Performed By: #### C BC #### [facility] [address] [place] [address] Dr. Stacey Melendez MCHC (RBC) [Mass/Vol] 32.9 g/dL Normal 29.9-35.2 [facility] Comment on above: Performed By: #### C BC #### [facility] [address] [place] [address] Dr. Stacey Melendez MCV (RBC) [Entitic vol] 95.0 fL Normal 81.0-99.0 [facility] Comment on above: Performed By: #### C BC #### [facility] [address] [place] [address] Dr. Stacey Melendez MONO # 1.0 103/ul Critically high 0.3-0.8 [facility] Comment on above: Performed By: #### C BC #### [facility] [address] [place] [address] Dr. Stacey Melendez Monocytes/100 WBC (Bld) 10.8 % Normal 1.7-12.0 [facility] Comment on above: Performed By: #### C BC #### [facility] [address] [place] [address] Dr. Stacey Melendez NEUT # 7.3 103/ul Critically high 1.4-6.5 [facility] Comment on above: Performed By: #### C BC #### [facility] [address] [place] [address] Dr. Stacey Melendez Neutrophils/100 WBC (Bld) 75.9 % Critically high 43.0-75.0 [facility] Comment on above: Performed By: #### C BC #### [facility] [address] [place] [address] Dr. Stacey Melendez Platelet mean volume (Bld) [Entitic vol] 12.2 fL Normal 9.5-13.5 [facility] Comment on above: Performed By: #### C BC #### [facility] [address] [place] [address] Dr. Stacey Melendez PLT 153 103/ul Normal 150-450 [facility] Comment on above: Performed By: #### C BC #### [facility] [address] [place] [address] Dr. Stacey Melendez RBC 4.57 106/ul Normal 4.20-5.40 [facility] Comment on above: Performed By: #### C BC #### [facility] [address] [place] [address] Dr. Stacey Melendez WBC 9.6 103/ul Normal 4.0-11.0 [facility] Comment on above: Performed By: #### C BC #### [facility] [address] [place] [address] Dr. Stacey Melendez Covid-19 PCR ([facility])on 03-08 SARS-CoV-2 (COVID-19) RNA VISH+probe Ql (Unsp spec) Detected Critically abnormal NOT DETECTED [facility] Comment on above: Result Comment: This test is not yet approved or cleared by the [place] FDA. When there are no FDA-approved or cleared tests available, and other criteria are met, FDA can make tests available under an emergency access mechanism called an Emergency Use Authorization (EUA). The EUA for this test is supported by the Vocational Teacher of Health and Human Service's declaration that [...] Performed By: #### P TT, PT #### [facility] [address] [place] [address] Dr. Stacey Melendez INFLUENZA A AND B AGon 03-26 INFLUENZA A AG Negative Normal NEGATIVE SEE COMMENT [facility] Comment on above: Performed By: #### C VDTBH #### [facility] [address] [place] [address] Dr. Stacey Melendez INFLUENZA B AG Negative Normal NEGATIVE SEE COMMENT [facility] Comment on above: Performed By: #### C VDTBH #### [facility] [address] [place] [address] Dr. Stacey Melendez INTERNAL CONTROLS Within Normal Limits Normal Wi thin Normal Limits [facility] Comment on above: Performed By: #### C VDTBH #### [facility] [address] [place] [address] Dr. Stacey Melendez LACTATE/LACTIC ACIDon 2021 Lactate [Moles/Vol] 1.0 mmol/L Normal 0.4-1.9 [facility] Comment on above: Performed By: #### P TT, PT #### [facility] [address] [place] [address] Dr. Stacey Melendez PROF CHEM 8 (BAS METB)on Anion gap [Moles/Vol] 14.6 mmol/L Normal [facility] Comment on above: Performed By: #### C BC #### [facility] [address] [place] [address] Dr. Stacey Melendez Calcium [Mass/Vol] 8.7 mg/dL Normal 8.5-10.1 [facility] Comment on above: Performed By: #### C BC #### [facility] [facility] [address] [place] [address] Dr. Stacey Melendez Chloride [Moles/Vol] 104 mmol/L Normal 98-107 [facility] Comment on above: Performed By: #### C BC #### [facility] [address] [place] [address] Dr. Stacey Melendez CO2 [Moles/Vol] 21.0 mmol/L Normal 21.0-32.0 [facility] [place] Comment on above: Performed By: #### C BC #### [facility] [address] [address] [address] Stacey Melendez Creatinine [Mass/Vol] 1.39 mg/dL Critically high 0.55-1.02 [facility] Comment on above: Performed By: #### C BC #### [facility] [address] [address] [address] Stacey Melendez EGFR-AF NORWEGIAN 48 mL/min/1.73m2 Critically low >=60 [facility] [place] Comment on above: Performed By: #### C BC #### [facility] [address] [address] [address] Stacey Melendez EGFR-NON AF NORWEGIAN 39 mL/min/1.73m2 Critically low >=60 [facility] [place] Comment on above: Performed By: #### C BC #### [facility] [address] [place] [address] Dr. Stacey Melendez Glucose [Mass/Vol] 126 mg/dL Critically high 74-106 [facility] Comment on above: Performed By: #### C BC #### [facility] [address] [place] [address] Dr. Stacey Melendez Potassium [Moles/Vol] 2.6 mmol/L Critically low 3.5-5.1 [facility] Comment on above: Performed By: #### C BC #### [facility] [address] [place] [address] Dr. Stacey Melendez Sodium [Moles/Vol] 137 mmol/L Normal 136-145 [facility] Comment on above: Performed By: #### C BC #### [facility] [address] [place] [address] Dr. Stacey Melendez Urea nitrogen [Mass/Vol] 18.0 mg/dL Normal 7.0-18.0 [facility] Comment on above: Performed By: #### C BC #### [facility] [address] [place] [address] Dr. Stacey Melendez Urea nitrogen/Creatinine [Mass ratio] 12.9 mg/mg Normal [facility] Comment on above: Performed By: #### C BC #### [facility] [address] [address] [address] Stacey Melendez Ambulatory Visit Summaryon 0 02-01-2022 Ambulatory Visit Summary DIANE NGUYEN :1965 Visit Date:02/01/2022 Ambulatory Visit Instructions Your Care Team Attending Physician - MARCO GREENWOOD, Matti Hernandez Primary Care Physician - NICA [...] lumbar GERD (gastroesophageal reflux disease) History of ME (myocardial infarction) HTN (hypertension) Hypercholesteremia Hyperlipidemia Insomnia Obesity MISAEL (obstructive sleep apnea) Parasomnia Stress incontinence Tobacco user Weight loss Normal [facility] Physician Referralon 022 Physician Referral [phone] [id number] Normal [facility] CBC AUTO DIFFon 01-07-2022 BASO # 0.0 103/ul Normal 0.0-0.1 [facility] Comment on above: Performed By: #### C VDTBH #### [facility] [address] [place] [address] Dr. Stacey Melendez Basophils/100 WBC (Bld) 0.1 % Critically low 0.2-2.0 [facility] Comment on above: Performed By: #### C VDTBH #### [facility] [address] [address] [address] Stacey Melendez EO # 0.1 103/ul Normal 0.0-0.7 [facility] [place] Comment on above: Performed By: #### C VDTBH #### [facility] [address] [address] [address] Stacey Melendez Eosinophils/100 WBC (Bld) 1.0 % Normal 0.9-7.0 [facility] Comment on above: Performed By: #### C VDTBH #### [facility] [address] [address] [address] Stacey Melendez Erythrocyte distribution width (RBC) [Ratio] 12.6 % Normal 11.0-15.0 [facility] Comment on above: Performed By: #### C VDTBH #### [facility] [address] [place] [address] Dr. Stacey Melendez Hematocrit (Bld) [Volume fraction] 41.6 % Normal 36.0-48.0 [facility] Comment on above: Performed By: #### C VDTBH #### [facility] [address] [place] [address] Dr. Stacey Melendez Hemoglobin (Bld) [Mass/Vol] 13.6 g/dL Normal 12.0-16.0 [facility] Comment on above: Performed By: #### C VDTBH #### [facility] [address] [place] [address] Dr. Stacey Melendez IG # 0.02 10e3/ul Normal 0.00-0.03 [facility] Comment on above: Performed By: #### C VDTBH #### [facility] [address] [place] [address] Dr. Stacey Melendez IG % 0.3 % Normal 0.0-0.5 [facility] Comment on above: Performed By: #### C VDTBH #### [facility] [address] [place] [address] Dr. Stacey Melendez LYMPH # 1.9 103/ul Normal 1.2-3.8 [facility] Comment on above: Performed By: #### C VDTBH #### [facility] [address] [place] [address] Dr. Stacey Melendez Lymphocytes/100 WBC (Bld) 24.4 % Normal 20.5-60.0 [facility] Comment on above: Performed By: #### C VDTBH #### [facility] [address] [place] [address] Dr. Stacey Melendez MANUAL DIFF REQ NO Normal [facility] Comment on above: Performed By: #### C VDTBH #### [facility] [address] [place] [address] Dr. Stacey Melendez MCH (RBC) [Entitic mass] 31.3 pg Normal 26.7-34.0 [facility] Comment on above: Performed By: #### C VDTBH #### [facility] [address] [place] [address] Dr. Stacey Melendez MCHC (RBC) [Mass/Vol] 32.7 g/dL Normal 29.9-35.2 [facility] Comment on above: Performed By: #### C VDTBH #### [facility] [address] [place] [address] Dr. Stacey Melendez MCV (RBC) [Entitic vol] 95.9 fL Normal 81.0-99.0 [facility] Comment on above: Performed By: #### C VDTBH #### [facility] [address] [place] [address] Dr. Stacey Melendez MONO # 0.5 103/ul Normal 0.3-0.8 [facility] Comment on above: Performed By: #### C VDTBH #### [facility] [address] [place] [address] Dr. Stacey Melendez Monocytes/100 WBC (Bld) 6.6 % Normal 1.7-12.0 [facility] Comment on above: Performed By: #### C VDTBH #### [facility] [address] [place] [address] Dr. Stacey Melendez NEUT # 5.2 103/ul Normal 1.4-6.5 [facility] Comment on above: Performed By: #### C VDTBH #### [facility] [address] [place] [address] Dr. Stacey Melendez Neutrophils/100 WBC (Bld) 67.6 % Normal 43.0-75.0 [facility] Comment on above: Performed By: #### C VDTB #### [facility] [address] [place] [address] Dr. Stacey Melendez Platelet mean volume (Bld) [Entitic vol] 11.7 fL Normal 9.5-13.5 [facility] Comment on above: Performed By: #### C VDTBH #### [facility] [address] [place] [address] Dr. Stacey Melendez PLT 178 103/ul Normal 150-450 [facility] Comment on above: Performed By: #### C VDTBH #### [facility] [address] [place] [address] Dr. Stacey Melendez RBC 4.34 106/ul Normal 4.20-5.40 [facility] Comment on above: Performed By: #### C VDTBH #### [facility] [address] [place] [address] Dr. Stacey Melendez WBC 7.6 103/ul Normal 4.0-11.0 [facility] Comment on above: Performed By: #### C VDTBH #### [facility] [address] [place] [address] Dr. Stacey Melendez CRPon 01-07-2022 CRP [Mass/Vol] mg/L Normal <=1.0 [facility] Comment on above: Performed By: #### P TT, PT #### [facility] [address] [place] [address] Dr. Stacey Melendez FREE T3on 01-07-2022 FREE T3 2.39 pg/mlL Normal 2.18-3.98 [facility] Comment on above: Performed By: #### P TT, PT #### [facility] [address] [place] [address] Dr. Stacey Melendez FREE T4on 01-07-2022 Free T4 [Mass/Vol] 1.04 ng/dL Normal 0.76-1.46 [facility] Comment on above: Performed By: #### P TT, PT #### [facility] [address] [place] [address] Dr. Stacey Melendez PROF 14(COMP METB)on 022 Albumin [Mass/Vol] 3.7 g/dL Normal 3.4-5.0 [facility] Comment on above: Performed By: #### C VDTBH #### [facility] [address] [place] [address] Dr. Stacey Melendez Albumin/Globulin [Mass ratio] 1.0 {ratio} Normal [facility] Comment on above: Performed By: #### C VDTBH #### [facility] [address] [place] [address] Dr. Stacey Melendez ALP [Catalytic activity/Vol] 57 U/L Normal 46-116 [facility] Comment on above: Performed By: #### C VDTBH #### [facility] [address] [place] [address] Dr. Stacey Melendez ALT [Catalytic activity/Vol] 25 U/L Normal 14-59 [facility] Comment on above: Performed By: #### C VDTBH #### [facility] [address] [address] [address] Stacey Melendez Anion gap [Moles/Vol] 14.4 mmol/L Normal [facility] Comment on above: Performed By: #### C VDTBH #### [facility] [address] [address] [address] Stacey Melendez AST [Catalytic activity/Vol] 11 U/L Critically low 15-37 [facility] Comment on above: Performed By: #### C VDTBH #### [facility] [address] [place] [address] Dr. Stacey Melendez Bilirubin [Mass/Vol] 0.3 mg/dL Normal 0.2-1.0 [facility] Comment on above: Performed By: #### C VDTBH #### [facility] [address] [place] [address] Dr. Stacey Melendez Calcium [Mass/Vol] 9.1 mg/dL Normal 8.5-10.1 [facility] Comment on above: Performed By: #### C VDTBH #### [facility] [address] [place] [address] Dr. Stacey Melendez Chloride [Moles/Vol] 108 mmol/L Critically high 98-107 [facility] Comment on above: Performed By: #### C VDTBH #### [facility] [address] [place] [address] Dr. Stacey Melendez CO2 [Moles/Vol] 23.2 mmol/L Normal 21.0-32.0 [facility] Comment on above: Performed By: #### C VDTBH #### [facility] [address] [place] [address] Dr. Stacey Melendez Creatinine [Mass/Vol] 0.83 mg/dL Normal 0.55-1.02 [facility] Comment on above: Performed By: #### C VDTBH #### [facility] [address] [place] [address] Dr. Stacey Melendez EGFR-AF NORWEGIAN >60 Normal >=60 [facility] Comment on above: Performed By: #### C VDTBH #### [facility] [address] [address] [address] Stacey Melendez EGFR-NON AF NORWEGIAN >60 Normal >=60 [facility] Comment on above: Performed By: #### C VDTBH #### [facility] [address] [address] [address] Stacey Melendez Globulin (S) [Mass/Vol] 3.6 g/dL Normal [facility] Comment on above: Performed By: #### C VDTBH #### [facility] [address] [address] [address] Stacey Melendez Glucose [Mass/Vol] 112 mg/dL Critically high 74-106 [facility] Comment on above: Performed By: #### C VDTBH #### [facility] [address] [place] [address] Dr. Stacey Melendez Potassium [Moles/Vol] 3.6 mmol/L Normal 3.5-5.1 [facility] Comment on above: Performed By: #### C VDTBH #### [facility] [address] [place] [address] Dr. Stacey Melendez Protein [Mass/Vol] 7.3 g/dL Normal 6.4-8.2 [facility] Comment on above: Performed By: #### C VDTBH #### [facility] [address] [place] [address] Dr. Stacey Melendez Sodium [Moles/Vol] 142 mmol/L Normal 136-145 [facility] Comment on above: Performed By: #### C VDTBH #### [facility] [address] [address] [address] Stacey Melendez Urea nitrogen [Mass/Vol] 22.0 mg/dL Critically high 7.0-18.0 [facility] Comment on above: Performed By: #### C VDTBH #### [facility] [address] [address] [address] Stacey Melendez Urea nitrogen/Creatinine [Mass ratio] 26.5 mg/mg Normal [facility] Comment on above: Performed By: #### C VDTBH #### [facility] [address] [address] [address] Stacey Melendez SED RATE WESTERGRENon 2021 SED RATE 7 mm/hr Normal <=30 [facility] Comment on above: Performed By: #### C VDTBH #### [facility] [address] [address] [address] Stacey Melendez TSHon 01-07-2022 TSH 1.464 uIU/mL Normal 0.358-3.740 [facility] Comment on above: Performed By: #### C VDTBH #### [facility] [address] [address] [address] Stacey Melendez TSH RANGE SEE BELOW Normal [facility] Comment on above: Result Comment: <0.3 4 UIU/ml HYPERTHYROID 0.34-5.60 UIU/ml EUTHYROID >5.60 UIU/ml HYPOTHYROID Performed By: #### C VDTBH #### [facility] [address] [place] [address] Dr. Stacey Melendez XR CHEST 2 Von [...] by: ASHLIE GARCIA Date: 2022-01-07 14:24 Normal [facility] XR FEMUR RTon 12-20-2021 XR FEMUR RT [...] by: SYEDA ELKINS Date: 2021-12-20 19:11 Normal [facility] CREATININE BLOODon 1 Creatinine [Mass/Vol] 0.76 mg/dL Normal 0.60-1.20 [facility] Comment on above: Order Comment: No: D o not add to previous draw Performed By: #### 2 5656 #### [facility] [address] [place] [address], [facility] GFR/1.73 sq M.predicted among blacks MDRD (S/P/Bld) [Vol rate/Area] mL/min/{1.73_m2} Normal >60 [facility] Comment on above: Order Comment: No: D o not add to previous draw Performed By: #### 2 5656 #### [facility] [address] [place] [address], [facility] GFR/1.73 sq M.predicted among non-blacks MDRD (S/P/Bld) [Vol rate/Area] mL/min/{1.73_m2} Normal >60 [facility] Comment on above: Order Comment: No: D o not add to previous draw Performed By: #### 2 5656 #### [facility] [address] Cardiovascular Lab Reporton 06-19-2021 Cardiovascular Lab Report [facility] MR #: [id number] Department of Physician: Flaco Leigh M.D. Division of Service Date: 06/18/2021 Cardiology Birthdate: 1965 Adult Cardiovascular Room #: [id number] Services [facility] [address] [place] [address] Cardiovascular Laboratory Report CLINICAL PRESENTATION: The patient is a 55-year-old female with past medical history significant for hypertension, active smoking, family history of CAD, and COPD. She is admitted with chest pain. She initially presented to [facility] with chest pain and diaphoresis. Her high sensitivity troponin was positive at 55. She was transferred to [facility] for further evaluation. At [facility], she had a cardiac stress test, [...] the patient that her risk of future ME is high if she continues to smoke. [...] right radial artery. Using ultrasound guidance, a 6-Tunisian sheath was placed in the right radial artery. Radial antivasospasm cocktail of nitroglycerin 100 mcg and verapamil 1.25 mg was administered through the sheath. All catheter exchanges were made over the One Month guidewire. A 5-Tunisian JL5 was used to engage the right coronary artery. A 5-Tunisian JL3.5 was used to engage left main [...] P/Mick Montero M.D. Date Trans: 06/19/2021 06:33 A/amy [id number] cc: Nica Krishnamurthy N.P. [facility], [address] [place] [id number] Normal [facility] UFH HEPARIN ASSAYon 06-19-20 21 UNFRACTIONATED HEPARIN <0.10 Critically low 0.30-0.70 [facility] Comment on above: Result Comment: RESU LTS CHECKED AND CALLED. ACCURATELY READ BACK BY EDER OLSON RN @ 0536 Rivaroxaban and Apixaban will interfere with the anti Xa assay used to monitor UFH and LMWH. Performed By: #### 3 5200, 72685, 67485, 08998, 76279 #### [facility] [address] [place] [address], [facility] BASIC METABOLIC PANELon 06-07 Calcium [Mass/Vol] 9.2 mg/dL Normal 8.6-10.3 [facility] Comment on above: Order Comment: No: D o not add to previous draw Performed By: #### 3 5200, 83333, 23359, 43060, 45705 #### [facility] [address] [place] [address], [place] Chloride [Moles/Vol] 103 mmol/L Normal 98-107 [facility] Comment on above: Order Comment: No: D o not add to previous draw Performed By: #### 3 5200, 05373, 84546, 70264, 52110 #### [facility] [address] [place] [address], [place] CO2 [Moles/Vol] 24 mmol/L Normal 21-31 [facility] Comment on above: Order Comment: No: D o not add to previous draw Performed By: #### 3 5200, 44150, 89721, 31720, 20354 #### [facility] [address] [place] [address], [place] Creatinine [Mass/Vol] 0.78 mg/dL Normal 0.60-1.20 [facility] Comment on above: Order Comment: No: D o not add to previous draw Performed By: #### 3 5200, 45556, 57286, 41754, 64307 #### [facility] [address] [place] [address], [place] GFR/1.73 sq M.predicted among blacks MDRD (S/P/Bld) [Vol rate/Area] mL/min/{1.73_m2} Normal >60 [facility] Comment on above: Order Comment: No: D o not add to previous draw Performed By: #### 3 5200, 45392, 92183, 09293, 09946 #### [facility] [address] [place] [address], [place] GFR/1.73 sq M.predicted among non-blacks MDRD (S/P/Bld) [Vol rate/Area] mL/min/{1.73_m2} Normal >60 [facility] Comment on above: Order Comment: No: D o not add to previous draw Performed By: #### 3 5200, 96879, 57272, 03063, 83665 #### [facility] [address] [place] [address], [place] Glucose [Mass/Vol] 105 mg/dL High 70-100 [facility] Comment on above: Order Comment: No: D o not add to previous draw Performed By: #### 3 5200, 41565, 96149, 79298, 37943 #### [facility] [address] [place] [address], [place] Potassium [Moles/Vol] 3.7 mmol/L Normal 3.5-5.1 [facility] Comment on above: Order Comment: No: D o not add to previous draw Performed By: #### 3 5200, 15407, 23661, 87323, 17867 #### [facility] [address] [place] [address], [place] Sodium [Moles/Vol] 136 mmol/L Normal 136-145 [facility] Comment on above: Order Comment: No: D o not add to previous draw Performed By: #### 3 5200, 43820, 50799, 85987, 01520 #### [facility] [address] [place] [address], [facility] Urea nitrogen [Mass/Vol] 23 mg/dL Normal 7-25 [facility] Comment on above: Order Comment: No: D o not add to previous draw Performed By: #### 3 5200, 46318, 58670, 58031, 66236 #### [facility] [address] [place] [address], [facility] CBC COMPLETE BLOOD COUNTon 08-18-2020 Erythrocyte distribution width (RBC) [Ratio] 12.9 % Normal 11.5-15.0 [facility] Comment on above: Order Comment: No: D o not add to previous draw Performed By: #### 3 5200, 91255, 12206, 66303, 13870 #### [facility] [address] [place] [address], [place] Hematocrit (Bld) [Volume fraction] 40.4 % Normal 36.0-45.0 [facility] Comment on above: Order Comment: No: D o not add to previous draw Performed By: #### 3 5200, 11549, 66257, 84423, 01247 #### [facility] [address] [place] [address], [place] Hemoglobin (Bld) [Mass/Vol] 13.4 g/dL Normal 12.0-15.0 [facility] Comment on above: Order Comment: No: D o not add to previous draw Performed By: #### 3 5200, 50807, 18698, 67062, 71253 #### [facility] [address] [place] [address], [facility] MCH (RBC) [Entitic mass] 32.0 pg Normal 27.0-33.0 [facility] Comment on above: Order Comment: No: D o not add to previous draw Performed By: #### 3 5200, 28116, 20811, 74339, 47132 #### [facility] [address] [facility] [place] [address], [facility] MCHC (RBC) [Mass/Vol] 33.2 g/dL Normal 32.0-35.0 [facility] Comment on above: Order Comment: No: D o not add to previous draw Performed By: #### 3 5200, 77801, 03358, 88247, 14040 #### [facility] [address] [facility] [place] [address], [facility] MCV (RBC) [Entitic vol] 96.4 fL Normal 82.0-98.0 [facility] Comment on above: Order Comment: No: D o not add to previous draw Performed By: #### 3 5200, 90417, 43758, 32965, 19075 #### [facility] [address] [facility] [place] [address], [facility] Nucleated RBC/100 WBC (Bld) [Ratio] 0 % Normal 0-0 [facility] Comment on above: Order Comment: No: D o not add to previous draw Performed By: #### 3 5200, 82206, 76123, 47438, 37506 #### [facility] [address] [place] [address], [facility] PLAT CNT 169 10*3/uL Normal 150-400 [facility] Comment on above: Order Comment: No: D o not add to previous draw Performed By: #### 3 5200, 24329, 33990, 33301, 12107 #### [facility] [address] [place] [address], [facility] RBC (Bld) [#/Vol] 4.19 10*6/uL Normal 3.80-5.00 [facility] Comment on above: Order Comment: No: D o not add to previous draw Performed By: #### 3 5200, 69356, 42660, 21325, 53784 #### [facility] [address] [place] [address], [facility] WBC (Bld) [#/Vol] 5.67 10*3/uL Normal 4.00-10.60 [facility] Comment on above: Order Comment: No: D o not add to previous draw Performed By: #### 3 5200, 39024, 55092, 31858, 43638 #### [facility] [address] [facility] [address] UFH HEPARIN ASSAYon 06-18-20 21 UNFRACTIONATED HEPARIN 0.48 IU/mL Normal 0.30-0.70 [facility] Comment on above: Result Comment: Jeanna roxaban and Apixaban will interfere with the anti Xa assay used to monitor UFH and LMWH. Performed By: #### 3 5200, 69923, 57564, 28986, 55956 #### [facility] [address] [facility] [address] BASIC METABOLIC PANELon 11- Calcium [Mass/Vol] 9.2 mg/dL Normal 8.6-10.3 [facility] Comment on above: Order Comment: No: D o not add to previous draw Performed By: #### 0 0071 #### [facility] [address] [facility] [address] Chloride [Moles/Vol] 106 mmol/L Normal 98-107 [facility] Comment on above: Order Comment: No: D o not add to previous draw Performed By: #### 0 0071 #### [facility] [address] [place] [address], [place] CO2 [Moles/Vol] 24 mmol/L Normal 21-31 [facility] Comment on above: Order Comment: No: D o not add to previous draw Performed By: #### 0 0071 #### [facility] [address] [place] [address], [place] Creatinine [Mass/Vol] 0.81 mg/dL Normal 0.60-1.20 [facility] Comment on above: Order Comment: No: D o not add to previous draw Performed By: #### 0 0071 #### [facility] [address] [place] [address], [place] GFR/1.73 sq M.predicted among blacks MDRD (S/P/Bld) [Vol rate/Area] mL/min/{1.73_m2} Normal >60 [facility] Comment on above: Order Comment: No: D o not add to previous draw Performed By: #### 0 0071 #### [facility] [address] [place] [address], [place] GFR/1.73 sq M.predicted among non-blacks MDRD (S/P/Bld) [Vol rate/Area] mL/min/{1.73_m2} Normal >60 [facility] Comment on above: Order Comment: No: D o not add to previous draw Performed By: #### 0 0071 #### [facility] [address] [place] [address], [place] Glucose [Mass/Vol] 97 mg/dL Normal 70-100 [facility] Comment on above: Order Comment: No: D o not add to previous draw Performed By: #### 0 0071 #### [facility] [address] [place] [address], [place] Potassium [Moles/Vol] 3.7 mmol/L Normal 3.5-5.1 [facility] Comment on above: Order Comment: No: D o not add to previous draw Performed By: #### 0 0071 #### [facility] [address] [facility] [place] [address], [facility] Sodium [Moles/Vol] 137 mmol/L Normal 136-145 [facility] Comment on above: Order Comment: No: D o not add to previous draw Performed By: #### 0 0071 #### [facility] [address] [facility] [place] [address], [facility] Urea nitrogen [Mass/Vol] 14 mg/dL Normal 7-25 [facility] Comment on above: Order Comment: No: D o not add to previous draw Performed By: #### 0 0071 #### [facility] [address] [place] [address], [facility] CBC W/DIFFon 06-17-2021 ABS IMM GRANS 0.0 10*3/uL Normal 0.0-0.2 [facility] Comment on above: Order Comment: No: D o not add to previous draw Performed By: #### 3 5200, 53664, 31943, 01681, 63673 #### [facility] [address] [place] [address], [facility] ABS NEUTROPHILS 3.2 10*3/uL Normal 1.6-7.6 [facility] Comment on above: Order Comment: No: D o not add to previous draw Performed By: #### 3 5200, 44048, 97658, 63413, 94259 #### [facility] [address] [place] [address], [facility] Basophils (Bld) [#/Vol] 0.0 10*3/uL Normal 0.0-0.2 [facility] Comment on above: Order Comment: No: D o not add to previous draw Performed By: #### 3 5200, 41966, 67025, 09394, 40526 #### [facility] [address] [place] [address], [place] Basophils/100 WBC (Bld) 0.4 % Normal 0.0-1.0 [facility] Comment on above: Order Comment: No: D o not add to previous draw Performed By: #### 3 5200, 49234, 14457, 84559, 40675 #### [facility] [address] [place] [address], [facility] Eosinophils (Bld) [#/Vol] 0.2 10*3/uL Normal 0.0-0.5 [facility] Comment on above: Order Comment: No: D o not add to previous draw Performed By: #### 3 5200, 04639, 97022, 22427, 08374 #### [facility] [address] [place] [address], [facility] Eosinophils/100 WBC (Bld) 3.5 % Normal 0.0-6.0 [facility] Comment on above: Order Comment: No: D o not add to previous draw Performed By: #### 3 5200, 01183, 48437, 43359, 66150 #### [facility] [address] [place] [address], [facility] Erythrocyte distribution width (RBC) [Ratio] 13.0 % Normal 11.5-15.0 [facility] Comment on above: Order Comment: No: D o not add to previous draw Performed By: #### 3 5200, 73305, 99422, 09139, 70112 #### [facility] [address] [place] [address], [facility] Hematocrit (Bld) [Volume fraction] 40.5 % Normal 36.0-45.0 [facility] Comment on above: Order Comment: No: D o not add to previous draw Performed By: #### 3 5200, 01922, 69310, 50605, 83628 #### [facility] [address] [place] [address], [facility] Hemoglobin (Bld) [Mass/Vol] 13.0 g/dL Normal 12.0-15.0 [facility] Comment on above: Order Comment: No: D o not add to previous draw Performed By: #### 3 5200, 92843, 52956, 10865, 00574 #### [facility] [address] [facility] [place] [address], [facility] IMMATURE GRANS 0.2 % Normal 0.0-1.0 [facility] Comment on above: Order Comment: No: D o not add to previous draw Performed By: #### 3 5200, 95712, 06832, 74259, 30735 #### [facility] [address] [place] [address], [facility] Lymphocytes (Bld) [#/Vol] 1.4 10*3/uL Normal 1.2-4.0 [facility] Comment on above: Order Comment: No: D o not add to previous draw Performed By: #### 3 5200, 66059, 56907, 57068, 01374 #### [facility] [address] Lymphocytes/100 WBC (Bld) 25.0 % Normal 20.0-45.0 [facility] Comment on above: Order Comment: No: D o not add to previous draw Performed By: #### 3 5200, 66807, 09954, 38451, 56563 #### [facility] [address] [place] [address], [facility] MCH (RBC) [Entitic mass] 31.5 pg Normal 27.0-33.0 [facility] Comment on above: Order Comment: No: D o not add to previous draw Performed By: #### 3 5200, 34251, 29792, 15028, 85008 #### [facility] [address] [place] [address], [facility] MCHC (RBC) [Mass/Vol] 32.1 g/dL Normal 32.0-35.0 [facility] Comment on above: Order Comment: No: D o not add to previous draw Performed By: #### 3 5200, 85877, 60953, 54289, 22333 #### [facility] [address] [place] [address], [facility] MCV (RBC) [Entitic vol] 98.1 fL High 82.0-98.0 [facility] Comment on above: Order Comment: No: D o not add to previous draw Performed By: #### 3 5200, 16948, 20181, 76050, 81809 #### [facility] [address] [place] [address], [facility] Monocytes (Bld) [#/Vol] 0.7 10*3/uL Normal 0.1-1.0 [facility] Comment on above: Order Comment: No: D o not add to previous draw Performed By: #### 3 5200, 47810, 47110, 83314, 43087 #### [facility] [address] [facility] [place] [address], [facility] MONOS 12.0 % Normal 5.0-12.0 [facility] Comment on above: Order Comment: No: D o not add to previous draw Performed By: #### 3 5200, 12354, 50922, 66248, 27678 #### [facility] [address] [place] [address], [facility] Neutrophils/100 WBC (Bld) 58.9 % Normal 40.0-72.0 [facility] Comment on above: Order Comment: No: D o not add to previous draw Performed By: #### 3 5200, 39012, 34837, 22743, 73032 #### [facility] [address] [place] [address], [facility] Nucleated RBC/100 WBC (Bld) [Ratio] 0 % Normal 0-0 [facility] Comment on above: Order Comment: No: D o not add to previous draw Performed By: #### 3 5200, 63471, 33692, 29972, 85687 #### [facility] [address] PLAT CNT 167 10*3/uL Normal 150-400 [facility] Comment on above: Order Comment: No: D o not add to previous draw Performed By: #### 3 5200, 42308, 15235, 16906, 07110 #### [facility] [address] [place] [address], [facility] RBC (Bld) [#/Vol] 4.13 10*6/uL Normal 3.80-5.00 [facility] Comment on above: Order Comment: No: D o not add to previous draw Performed By: #### 3 5200, 21386, 88671, 02975, 00903 #### [facility] [address] WBC (Bld) [#/Vol] 5.43 10*3/uL Normal 4.00-10.60 [facility] Comment on above: Order Comment: No: D o not add to previous draw Performed By: #### 3 5200, 60515, 44022, 75012, 86634 #### [facility] [address] TROPONIN-Ion 06-17-2021 Troponin I.cardiac [Mass/Vol] 0.00 ng/mL Normal 0.00-0.04 [facility] Comment on above: Order Comment: Unkno wn Result Comment: REFE RENCE RANGES: 0.00 - 0.04 ng/ml NORMAL 0.05 - 0.50 ng/ml INDETERMINATE > 0.50 ng/ml CONSISTENT WITH AN M.I. Performed By: #### 3 5200 #### [facility] [address] UFH HEPARIN ASSAYon 06-17-20 21 UNFRACTIONATED HEPARIN 0.45 IU/mL Normal 0.30-0.70 [facility] Comment on above: Result Comment: Jeanna roxaban and Apixaban will interfere with the anti Xa assay used to monitor UFH and LMWH. Performed By: #### 3 5200, 89681, 18129, 90852, 93482 #### [facility] [address] [place] [address], [facility] UNFRACTIONATED HEPARIN 0.33 IU/mL Normal 0.30-0.70 [facility] Comment on above: Result Comment: Union roxaban and Apixaban will interfere with the anti Xa assay used to monitor UFH and LMWH. Performed By: #### 3 5200, 65728, 05546, 37324, 53814 #### [facility] [address] [place] [address], [facility] BASIC METABOLIC PANELon 11-1 0-2020 Calcium [Mass/Vol] 9.1 mg/dL Normal 8.6-10.3 [facility] Comment on above: Order Comment: No: D o not add to previous draw Performed By: #### 3 5200, 31230, 17758, 13094, 98314 #### [facility] [address] [place] [address], [facility] Chloride [Moles/Vol] 106 mmol/L Normal 98-107 [facility] Comment on above: Order Comment: No: D o not add to previous draw Performed By: #### 3 5200, 17093, 82841, 46292, 36459 #### [facility] [address] [place] [address], [place] CO2 [Moles/Vol] 24 mmol/L Normal 21-31 [facility] Comment on above: Order Comment: No: D o not add to previous draw Performed By: #### 3 5200, 71356, 45066, 93042, 27503 #### [facility] [address] [place] [address], [place] Creatinine [Mass/Vol] 0.55 mg/dL Low 0.60-1.20 [facility] Comment on above: Order Comment: No: D o not add to previous draw Performed By: #### 3 5200, 08203, 65139, 63847, 81372 #### [facility] [address] [place] [address], [place] GFR/1.73 sq M.predicted among blacks MDRD (S/P/Bld) [Vol rate/Area] mL/min/{1.73_m2} Normal >60 [facility] Comment on above: Order Comment: No: D o not add to previous draw Performed By: #### 3 5200, 05214, 50547, 70329, 88026 #### [facility] [address] [place] [address], [place] GFR/1.73 sq M.predicted among non-blacks MDRD (S/P/Bld) [Vol rate/Area] mL/min/{1.73_m2} Normal >60 [facility] Comment on above: Order Comment: No: D o not add to previous draw Performed By: #### 3 5200, 06316, 38521, 71749, 24175 #### [facility] [address] [place] [address], [place] Glucose [Mass/Vol] 98 mg/dL Normal 70-100 [facility] Comment on above: Order Comment: No: D o not add to previous draw Performed By: #### 3 5200, 88523, 66181, 66509, 25995 #### [facility] [address] [place] [address], [place] Potassium [Moles/Vol] 3.9 mmol/L Normal 3.5-5.1 [facility] Comment on above: Order Comment: No: D o not add to previous draw Performed By: #### 3 5200, 65642, 43984, 14863, 93837 #### [facility] [address] [place] [address], [place] Sodium [Moles/Vol] 138 mmol/L Normal 136-145 [facility] Comment on above: Order Comment: No: D o not add to previous draw Performed By: #### 3 5200, 40903, 77586, 00487, 69342 #### [facility] [address] [place] [address], [facility] Urea nitrogen [Mass/Vol] 17 mg/dL Normal 7-25 [facility] Comment on above: Order Comment: No: D o not add to previous draw Performed By: #### 3 5200, 69121, 43626, 13742, 08140 #### [facility] [address] [place], [place] [address] CBC COMPLETE BLOOD COUNTon 08-16-2020 Erythrocyte distribution width (RBC) [Ratio] 12.9 % Normal 11.5-15.0 [facility] Comment on above: Order Comment: No: D o not add to previous draw Performed By: #### 3 5200, 97331, 94734, 54419, 40175 #### [facility] [address] [place], [place] [address] Hematocrit (Bld) [Volume fraction] 40.4 % Normal 36.0-45.0 [facility] Comment on above: Order Comment: No: D o not add to previous draw Performed By: #### 3 5200, 48848, 44601, 77954, 26104 #### [facility] [address] [place] [address], [facility] Hemoglobin (Bld) [Mass/Vol] 13.0 g/dL Normal 12.0-15.0 [facility] Comment on above: Order Comment: No: D o not add to previous draw Performed By: #### 3 5200, 62791, 77780, 37055, 63575 #### [facility] [address] [place] [address], [facility] MCH (RBC) [Entitic mass] 31.6 pg Normal 27.0-33.0 [facility] Comment on above: Order Comment: No: D o not add to previous draw Performed By: #### 3 5200, 02077, 44962, 24603, 41024 #### [facility] [address] [place] [address], [facility] MCHC (RBC) [Mass/Vol] 32.2 g/dL Normal 32.0-35.0 [facility] Comment on above: Order Comment: No: D o not add to previous draw Performed By: #### 3 5200, 54368, 78278, 40922, 83971 #### [facility] [address] [place] [address], [facility] MCV (RBC) [Entitic vol] 98.1 fL High 82.0-98.0 [facility] Comment on above: Order Comment: No: D o not add to previous draw Performed By: #### 3 5200, 10332, 42120, 23811, 47891 #### [facility] [address] [facility] [place] [address], [facility] Nucleated RBC/100 WBC (Bld) [Ratio] 0 % Normal 0-0 [facility] Comment on above: Order Comment: No: D o not add to previous draw Performed By: #### 3 5200, 08111, 41174, 24750, 67632 #### [facility] [address] [facility] [place] [address], [facility] PLAT CNT 185 10*3/uL Normal 150-400 [facility] Comment on above: Order Comment: No: D o not add to previous draw Performed By: #### 3 5200, 02488, 22225, 58613, 66166 #### [facility] [address] [place] [address], [facility] RBC (Bld) [#/Vol] 4.12 10*6/uL Normal 3.80-5.00 [facility] Comment on above: Order Comment: No: D o not add to previous draw Performed By: #### 3 5200, 78295, 31513, 11534, 23713 #### [facility] [address] [place] [address], [facility] WBC (Bld) [#/Vol] 5.74 10*3/uL Normal 4.00-10.60 [facility] Comment on above: Order Comment: No: D o not add to previous draw Performed By: #### 3 5200, 33746, 14442, 03439, 00276 #### [facility] [address] [place] [address], [facility] LIPID PROFILEon 06-16-2021 Cholesterol [Mass/Vol] 139 mg/dL Normal 120-200 [facility] Comment on above: Order Comment: No: D o not add to previous draw Result Comment: CHOL ESTEROL REFERENCE RANGE: 20 YEARS AND OLDER CARDIOVASCULAR RISK Less than 200 mg/dl Low Risk 200 to 239 mg/dl Borderline Risk 240 mg/dl and greater High Risk Performed By: #### 3 5200, 16699, 39770, 28703, 42847 #### [facility] [address] [place] [address], [facility] Cholesterol in HDL [Mass/Vol] 49 mg/dL Normal 23-92 [facility] Comment on above: Order Comment: No: D o not add to previous draw Result Comment: Slig ht variation in normal range could be due to gender and/or age. HDL CHOLESTEROL REFERENCE RANGE: 20 years and older Cardiovascular Risk > or =60 mg/dL Desirable 40 TO 59 mg/dL Low Risk <40 mg/dL High Risk Performed By: #### 3 5200, 98489, 55259, 13543, 80024 #### [facility] [address] [place] [address], [place] Cholesterol in LDL [Mass/Vol] 48 mg/dL Normal 0-130 [facility] Comment on above: Order Comment: No: D o not add to previous draw Result Comment: LDL IS A CALCULATION LDL IS ONLY VALID IF THE TRIG IS LESS THAN 400. Performed By: #### 3 5200, 02664, 00438, 29675, 28575 #### [facility] [address] [place] [address], [place] Cholesterol.total/Ch olesterol in HDL [Mass ratio] 2.8 {ratio} Normal .0-4.5 [facility] Comment on above: Order Comment: No: D o not add to previous draw Performed By: #### 3 5200, 77378, 15912, 76383, 29294 #### [facility] [address] NON-HDL CHOLESTEROL 90 mg/dL Normal [facility] Comment on above: Order Comment: No: D o not add to previous draw Performed By: #### 3 5200, 30490, 71641, 87190, 32475 #### [facility] [address] Triglyceride [Mass/Vol] 209 mg/dL High 40-149 [facility] Comment on above: Order Comment: No: D o not add to previous draw Result Comment: TRIG LYCERIDE REFERENCE RANGE: 20 YEARS AND OLDER CARDIOVASCULAR RISK LESS THAN 150 mg/dl LOW RISK 150 TO 199 mg/dl BORDERLINE RISK 200 mg/dl AND GREATER HIGH RISK Performed By: #### 3 5200, 96372, 65620, 88155, 78076 #### [facility] [address] [place] [address], [facility] VLDL CHOL 42 mg/dL High 0-40 [facility] Comment on above: Order Comment: No: D o not add to previous draw Performed By: #### 3 5200, 94584, 62060, 72699, 93796 #### [facility] [address] [place] [address], [facility] MAGNESIUM BLOODon 06-16-2021 Magnesium [Mass/Vol] 1.8 mg/dL Low 1.9-2.7 [facility] Comment on above: Order Comment: No: D o not add to previous draw Performed By: #### 3 5200, 57472, 28621, 21051, 34366 #### [facility] [address] [place] [address], [facility] PHOSPHORUS BLOODon Phosphate [Mass/Vol] 4.0 mg/dL Normal 2.5-5.0 [facility] Comment on above: Order Comment: No: D o not add to previous draw Performed By: #### 3 5200, 97679, 68971, 17514, 75060 #### [address] PORTABLE CHEST 1 VIEWon 06-07 PORTABLE CHEST 1 VIEW [facility] Department of Radiology [address] [place] [id number] Patient Name: DIANE NGUYEN : 1965 Sex: F Age: Race: White Pt. Location: [id number] Patient Status: I Ordered Date: 06/15/2021 9:50:00 [...] IMPRESSION: No acute pulmonary abnormality Approved by:Omaira Mckinneyon06/16/2021 12:02 AM. I, Alexis Kurtz,have reviewed the image(s) and agree with the findings in this report. Electronically signed: Alexis Kurtz. Transcribed by: [email or web address], User Resident: OMAIRA MCKINNEY Electronically Signed by: ALEXIS KURTZ @ 06/16/2021 12:44 AM I personally read this/these film(s) with this resident Normal [facility] Comment on above: Order Comment: No: D o not add to previous draw PROTHROMBIN TIMEon INR Coag (PPP) [Relative time] 0.91 {INR} Normal 0.91-1.16 [facility] Comment on above: Result Comment: ACCC P [...] RANGE. CHEST 1995;[id number]. Performed By: #### 3 7040, 01469, 21194, 56005, 37606 #### [facility] [address] PT Coag (PPP) [Time] 12.3 s Normal 12.3-14.8 [facility] Comment on above: Result Comment: ALL RESULTS MUST BE INTERPRETED WITH RESPECT TO BLOOD DRAWING ARTIFACT OR DILUTION ERROR OF ANTICOAGULANT AT THE TIME OF SAMPLING. Performed By: #### 3 5200, 31100, 39612, 32911, 74272 #### [facility] [address] [place] [address], [facility] TROPONIN-Ion 06-16-2021 Troponin I.cardiac [Mass/Vol] 0.00 ng/mL Normal 0.00-0.04 [facility] Comment on above: Order Comment: No: D o not add to previous draw Result Comment: REFE RENCE RANGES: 0.00 - 0.04 ng/ml NORMAL 0.05 - 0.50 ng/ml INDETERMINATE > 0.50 ng/ml CONSISTENT WITH AN M.I. Performed By: #### 3 [id number], [id number], [id number], [id number], [id number] #### [facility] [address] Troponin I.cardiac [Mass/Vol] 0.00 ng/mL Normal 0.00-0.04 [facility] Comment on above: Order Comment: No: D o not add to previous draw Result Comment: REFE RENCE RANGES: 0.00 - 0.04 ng/ml NORMAL 0.05 - 0.50 ng/ml INDETERMINATE > 0.50 ng/ml CONSISTENT WITH AN M.I. Performed By: #### 3 5200, [id number], [id number], [id number], [id number] #### [facility] [address] [place] [address], [facility] Troponin I.cardiac [Mass/Vol] 0.00 ng/mL Normal 0.00-0.04 [facility] Comment on above: Result Comment: REFE RENCE RANGES: 0.00 - 0.04 ng/ml NORMAL 0.05 - 0.50 ng/ml INDETERMINATE > 0.50 ng/ml CONSISTENT WITH AN M.I. Performed By: #### 3 5200, 33550, 55221, 09654, [id number] #### [facility] [address] [place] [address], [facility] HEPARIN ASSAYon 06-16-20 21 UNFRACTIONATED HEPARIN 0.15 IU/mL Critically low 0.30-0.70 [facility] Comment on above: Order Comment: Off t he floor for testing Patient still off the floor Result Comment: Resu lt checked and called. Accurately read back by Olga Robertson RN at 0429 Rivaroxaban and Apixaban will interfere with the anti Xa assay used to monitor UFH and LMWH. Performed By: #### 3 0477 #### [facility] [address] UNFRACTIONATED HEPARIN 0.11 IU/mL Critically low 0.30-0.70 [facility] Comment on above: Result Comment: Resu lt checked and called. Accurately read back by Juan Nunez RN at 0645 Rivaroxaban and Apixaban will interfere with the anti Xa assay used to monitor UFH and LMWH. Performed By: #### 3 5200, 41000, 09864, 75241, 27401 #### [facility] [address] [facility] [address] APTTon 06-15-2021 aPTT Coag (Bld) [Time] 38.7 s High 25.0-35.0 [facility] Comment on above: Order Comment: No: D [...] THIS PURPOSE. Performed By: #### 3 5200, 16390, 15134, 30558, 63978 #### [facility] [address] BASIC METABOLIC PANELon 11-0 Calcium [Mass/Vol] 9.0 mg/dL Normal 8.6-10.3 [facility] Comment on above: Order Comment: No: D o not add to previous draw Performed By: #### 3 5200, 33423, 31850, 79650, 39052 #### [facility] [address] [place] [address], [place] Chloride [Moles/Vol] 107 mmol/L Normal 98-107 [facility] Comment on above: Order Comment: No: D o not add to previous draw Performed By: #### 3 5200, 80145, 91313, 91900, 79612 #### [facility] [address] [place] [address], [place] CO2 [Moles/Vol] 23 mmol/L Normal 21-31 [facility] Comment on above: Order Comment: No: D o not add to previous draw Performed By: #### 3 5200, 51072, 98609, 22756, 38395 #### [facility] [address] [place] [address], [place] Creatinine [Mass/Vol] 0.71 mg/dL Normal 0.60-1.20 [facility] Comment on above: Order Comment: No: D o not add to previous draw Performed By: #### 3 5200, 51855, 61350, 36455, 13834 #### [facility] [address] [place] [address], [place] GFR/1.73 sq M.predicted among blacks MDRD (S/P/Bld) [Vol rate/Area] mL/min/{1.73_m2} Normal >60 [facility] Comment on above: Order Comment: No: D o not add to previous draw Performed By: #### 3 5200, 09080, 69573, 37034, 35079 #### [facility] [address] [place] [address], [place] GFR/1.73 sq M.predicted among non-blacks MDRD (S/P/Bld) [Vol rate/Area] mL/min/{1.73_m2} Normal >60 [facility] Comment on above: Order Comment: No: D o not add to previous draw Performed By: #### 3 5200, 40496, 82076, 50503, 68917 #### [facility] [address] [place] [address], [facility] Glucose [Mass/Vol] 108 mg/dL High 70-100 [facility] Comment on above: Order Comment: No: D o not add to previous draw Performed By: #### 3 5200, 77211, 83645, 84702, 38028 #### [facility] [address] [place] [address], [facility] Potassium [Moles/Vol] 3.8 mmol/L Normal 3.5-5.1 [facility] Comment on above: Order Comment: No: D o not add to previous draw Performed By: #### 3 5200, 82999, 80079, 09640, 34188 #### [facility] [address] [place] [address], [facility] Sodium [Moles/Vol] 138 mmol/L Normal 136-145 [facility] Comment on above: Order Comment: No: D o not add to previous draw Performed By: #### 3 5200, 06588, 64719, 77011, 37790 #### [facility] [address] [place] [address], [facility] Urea nitrogen [Mass/Vol] 18 mg/dL Normal 7-25 [facility] Comment on above: Order Comment: No: D o not add to previous draw Performed By: #### 3 5200, 37997, 56487, 91955, 27645 #### [facility] [address] [place] [address], [facility] BNP (B-TYPE NATRIURETIC PEPT JAMISON)on 06-15-2021 Natriuretic peptide B (Bld) [Mass/Vol] 36 pg/mL Normal 0-100 [facility] Comment on above: Order Comment: No: D o not add to previous draw Result Comment: Give n the appropriate clinical setting a BNP result of >100 pg/mL indicates congestive heart failure. Performed By: #### 8 5123 #### [address] CBC AUTO DIFFon 06-15-2021 BASO # 0.0 103/ul Normal 0.0-0.1 [facility] Comment on above: Performed By: #### C VDTBH #### [facility] [address] [place] [address] Dr. Stacey Melendez Basophils/100 WBC (Bld) 0.4 % Normal 0.2-2.0 [facility] Comment on above: Performed By: #### C VDTBH #### [facility] [address] [place] [address] Dr. Stacey Melendez EO # 0.3 103/ul Normal 0.0-0.7 [facility] Comment on above: Performed By: #### C VDTBH #### [facility] [address] [place] [address] Dr. Stacey Melendez Eosinophils/100 WBC (Bld) 4.5 % Normal 0.9-7.0 [facility] Comment on above: Performed By: #### C VDTBH #### [facility] [address] [place] [address] Dr. Stacey Melendez Erythrocyte distribution width (RBC) [Ratio] 12.8 % Normal 11.0-15.0 [facility] Comment on above: Performed By: #### C VDTBH #### [facility] [address] [place] [address] Dr. Stacey Melendez Hematocrit (Bld) [Volume fraction] 39.1 % Normal 36.0-48.0 [facility] Comment on above: Performed By: #### C VDTBH #### [facility] [address] [place] [address] Dr. Stacey Melendez Hemoglobin (Bld) [Mass/Vol] 12.4 g/dL Normal 12.0-16.0 [facility] Comment on above: Performed By: #### C VDTBH #### [facility] [address] [place] [address] Dr. Stacey Melendez IG # 0.02 10e3/ul Normal 0.00-0.03 [facility] Comment on above: Performed By: #### C VDTBH #### [facility] [address] [address] [address] Stacey Melendez IG % 0.3 % Normal 0.0-0.5 [facility] Comment on above: Performed By: #### C VDTBH #### [facility] [address] [address] [address] Stacey Melendez LYMPH # 2.0 103/ul Normal 1.2-3.8 [facility] Comment on above: Performed By: #### C VDTBH #### [facility] [address] [place] [address] Dr. Stacey Melendez Lymphocytes/100 WBC (Bld) 27.2 % Normal 20.5-60.0 [facility] Comment on above: Performed By: #### C VDTBH #### [facility] [address] [place] [address] Dr. Stacey Melendez MANUAL DIFF REQ NO Normal [facility] Comment on above: Performed By: #### C VDTBH #### [facility] [address] [address] [address] Stacey Melendez MCH (RBC) [Entitic mass] 31.1 pg Normal 26.7-34.0 [facility] Comment on above: Performed By: #### C VDTBH #### [facility] [address] [place] [address] Dr. Stacey Melendez MCHC (RBC) [Mass/Vol] 31.7 g/dL Normal 29.9-35.2 [facility] Comment on above: Performed By: #### C VDTBH #### [facility] [address] [address] [address] Stacey Melendez MCV (RBC) [Entitic vol] 98.0 fL Normal 81.0-99.0 [facility] Comment on above: Performed By: #### C VDTBH #### [facility] [address] [address] [address] Stacey Melendez MONO # 0.7 103/ul Normal 0.3-0.8 [facility] Comment on above: Performed By: #### C VDTBH #### [facility] [address] [place] [address] Dr. Stacey Melendez Monocytes/100 WBC (Bld) 9.0 % Normal 1.7-12.0 [facility] Comment on above: Performed By: #### C VDTBH #### [facility] [address] [place] [address] Dr. Stacey Melendez NEUT # 4.3 103/ul Normal 1.4-6.5 [facility] Comment on above: Performed By: #### C VDTBH #### [facility] [address] [place] [address] Dr. Stacey Melendez Neutrophils/100 WBC (Bld) 58.6 % Normal 43.0-75.0 [facility] Comment on above: Performed By: #### C VDTBH #### [facility] [address] [place] [address] Dr. Stacey Melendez Platelet mean volume (Bld) [Entitic vol] 12.2 fL Normal 9.5-13.5 [facility] Comment on above: Performed By: #### C VDTBH #### [facility] [address] [place] [address] Dr. Stacey Melendez PLT 171 103/ul Normal 150-450 [facility] Comment on above: Performed By: #### C VDTBH #### [facility] [address] [place] [address] Dr. Stacey Melendze RBC 3.99 106/ul Critically low 4.20-5.40 [facility] Comment on above: Performed By: #### C VDTBH #### [facility] [address] [place] [address] Dr. Stacey Melendez WBC 7.4 103/ul Normal 4.0-11.0 [facility] Comment on above: Performed By: #### C VDTBH #### [facility] [address] [place] [address] Dr. Stacey Melendez CBC W/DIFFon 06-15-2021 ABS IMM GRANS 0.0 10*3/uL Normal 0.0-0.2 [facility] Comment on above: Performed By: #### 3 5200, 96968, 71526, 70325, 97376 #### [facility] [address] [facility] [place] [address], [facility] ABS NEUTROPHILS 3.5 10*3/uL Normal 1.6-7.6 [facility] Comment on above: Performed By: #### 3 5200, 11203, 22112, 75355, 41847 #### [facility] [address] [facility] [place] [place] [address], [facility] Basophils (Bld) [#/Vol] 0.0 10*3/uL Normal 0.0-0.2 [facility] Comment on above: Performed By: #### 3 5200, 17711, 25847, 05784, 58813 #### [facility] [address] [facility] [place] [address], [facility] Basophils/100 WBC (Bld) 0.5 % Normal 0.0-1.0 [facility] Comment on above: Performed By: #### 3 5200, 01946, 47981, 33364, 49653 #### [facility] [address] [facility] [place] [place] [address], [facility] Eosinophils (Bld) [#/Vol] 0.3 10*3/uL Normal 0.0-0.5 [facility] Comment on above: Performed By: #### 3 5200, 43903, 44381, 67183, 91007 #### [facility] [address] [facility] [place] [place] [address], [place] Eosinophils/100 WBC (Bld) 4.5 % Normal 0.0-6.0 [facility] Comment on above: Performed By: #### 3 5200, 41644, 32266, 30703, 79618 #### [facility] [address] [facility] [place] [address], [place] Erythrocyte distribution width (RBC) [Ratio] 12.9 % Normal 11.5-15.0 [facility] Comment on above: Performed By: #### 3 5200, 14145, 10812, 18423, 49198 #### [facility] [address] [place] [address], [facility] Hematocrit (Bld) [Volume fraction] 38.2 % Normal 36.0-45.0 [facility] Comment on above: Performed By: #### 3 5200, 72588, 05152, 55807, 25642 #### [facility] [address] [facility] [address] Hemoglobin (Bld) [Mass/Vol] 12.7 g/dL Normal 12.0-15.0 [facility] Comment on above: Performed By: #### 3 5200, 40655, 34221, 19432, 98836 #### [facility] [address] [facility] [place] [address], [facility] IMMATURE GRANS 0.2 % Normal 0.0-1.0 [facility] Comment on above: Performed By: #### 3 5200, 69581, 19432, 68371, 69971 #### [facility] [address] [facility] [place] [address], [facility] Lymphocytes (Bld) [#/Vol] 1.7 10*3/uL Normal 1.2-4.0 [facility] Comment on above: Performed By: #### 3 5200, 60612, 41975, 98400, 93968 #### [facility] [address] [facility] [place] [address], [facility] Lymphocytes/100 WBC (Bld) 27.8 % Normal 20.0-45.0 [facility] Comment on above: Performed By: #### 3 5200, 22536, 68413, 55378, 70666 #### [facility] [address] [place] [address], [facility] MCH (RBC) [Entitic mass] 31.7 pg Normal 27.0-33.0 [facility] Comment on above: Performed By: #### 3 5200, 26356, 29528, 37515, 59234 #### [facility] [address] [place] [address], [facility] MCHC (RBC) [Mass/Vol] 33.2 g/dL Normal 32.0-35.0 [facility] Comment on above: Performed By: #### 3 5200, 11589, 04582, 73770, 22340 #### [facility] [address] [place] [id number], [facility] MCV (RBC) [Entitic vol] 95.3 fL Normal 82.0-98.0 [facility] Comment on above: Performed By: #### 3 5200, 41568, 64010, 83504, 60505 #### [facility] [address] [place] [address], [facility] Monocytes (Bld) [#/Vol] 0.7 10*3/uL Normal 0.1-1.0 [facility] Comment on above: Performed By: #### 3 5200, 80651, 23519, 36208, 06770 #### [facility] [address] [place] [address], [facility] MONOS 10.9 % Normal 5.0-12.0 [facility] Comment on above: Performed By: #### 3 5200, 14124, 10485, 09426, 07396 #### [facility] [address] [place] [id number], [facility] Neutrophils/100 WBC (Bld) 56.1 % Normal 40.0-72.0 [facility] Comment on above: Performed By: #### 3 5200, 68569, 43052, 24630, 88845 #### [facility] [address] [place] [address], [facility] Nucleated RBC/100 WBC (Bld) [Ratio] 0 % Normal 0-0 [facility] Comment on above: Performed By: #### 3 5200, 75054, 11408, 43737, 69373 #### [facility] [address] [place] [address], [facility] PLAT CNT 172 10*3/uL Normal 150-400 [facility] Comment on above: Performed By: #### 3 5200, 39539, 69688, 56702, 12250 #### [facility] [address] [place] [address], [facility] RBC (Bld) [#/Vol] 4.01 10*6/uL Normal 3.80-5.00 [facility] Comment on above: Performed By: #### 3 5200, 55861, 20159, 66041, 00440 #### [facility] [address] [place] [address], [facility] WBC (Bld) [#/Vol] 6.25 10*3/uL Normal 4.00-10.60 [facility] Comment on above: Performed By: #### 3 5200, 52866, 79273, 10009, 78435 #### [facility] [address] [place] [address], [facility] MAGNESIUM BLOODon 06-15-2021 Magnesium [Mass/Vol] 1.7 mg/dL Low 1.9-2.7 [facility] Comment on above: Order Comment: No: D o not add to previous draw Performed By: #### 3 5200, 41667, 39817, 14702, 20196 #### [facility] [address] [place] [address], [facility] PHOSPHORUS BLOODon Phosphate [Mass/Vol] 4.0 mg/dL Normal 2.5-5.0 [facility] Comment on above: Order Comment: No: D o not add to previous draw Performed By: #### 3 5200, 76557, 75687, 20169, 79241 #### [facility] [address] [place] [address], [facility] PROF CHEM 8 (BAS METB)on Anion gap [Moles/Vol] 13.7 mmol/L Normal [facility] Comment on above: Performed By: #### C VDTBH #### [facility] [address] [place] [address] Dr. Stacey Melendez Calcium [Mass/Vol] 8.9 mg/dL Normal 8.4-10.2 [facility] Comment on above: Performed By: #### C VDTBH #### [facility] [address] [address] [address] Stacey Melendez Chloride [Moles/Vol] 107 mmol/L Normal 98-107 [facility] Comment on above: Performed By: #### C VDTBH #### [facility] [address] [place] [address] Dr. Stacey Mleendez CO2 [Moles/Vol] 25.1 mmol/L Normal 22.0-30.0 [facility] [place] Comment on above: Performed By: #### C VDTBH #### [facility] [address] [place] [address] Dr. Stacey Melendez Creatinine [Mass/Vol] 0.74 mg/dL Normal 0.52-1.04 [facility] Comment on above: Performed By: #### C VDTBH #### [facility] [address] [place] [address] Dr. Stacey Melendez EGFR-AF NORWEGIAN >60 Normal >=60 [facility] [place] Comment on above: Performed By: #### C VDTBH #### [facility] [address] [address] [address] Stacey Melendez EGFR-NON AF NORWEGIAN >60 Normal >=60 [facility] Comment on above: Performed By: #### C VDTBH #### [facility] [address] [place] [address] Dr. Stacey Melendez Glucose [Mass/Vol] 113 mg/dL Critically high 74-106 [facility] Comment on above: Performed By: #### C VDTBH #### [facility] [address] [address] [address] Stacey Melendez Potassium [Moles/Vol] 3.8 mmol/L Normal 3.4-5.0 [facility] Comment on above: Performed By: #### C VDTBH #### [facility] [address] [address] [address] Stacey Melendez Sodium [Moles/Vol] 142 mmol/L Normal 137-145 [facility] Comment on above: Performed By: #### C VDTBH #### [facility] [address] [place] [address] Dr. Stacey Melendez Urea nitrogen [Mass/Vol] 15.0 mg/dL Normal 7.0-17.0 [facility] Comment on above: Performed By: #### C VDTBH #### [facility] [address] [place] [address] Dr. Stacey Melendez Urea nitrogen/Creatinine [Mass ratio] 20.3 mg/mg Normal [facility] Comment on above: Performed By: #### C VDTBH #### [facility] [address] [place] [address] Dr. Stacey Melendez PROTHROMBIN TIMEon 1 INR Coag (PPP) [Relative time] 0.91 {INR} Normal 0.91-1.16 [facility] Comment on above: Order Comment: No: D [...] CHEST 1995;[id number]. Performed By: #### 3 5200, 93088, 83348, 56092, 63294 #### [facility] [address] [place] [address], [facility] PT Coag (PPP) [Time] 12.3 s Normal 12.3-14.8 [facility] Comment on above: Order Comment: No: D o not add to previous draw Result Comment: ALL RESULTS MUST BE INTERPRETED WITH RESPECT TO BLOOD DRAWING ARTIFACT OR DILUTION ERROR OF ANTICOAGULANT AT THE TIME OF SAMPLING. Performed By: #### 3 5200, 85183, 28429, 04729, 12458 #### [facility] [address] [place] [address], [facility] PTT HEPARIN MONITORon 2020 aPTT Coag (Bld) [Time] 46.7 s Normal 39.5-54.2 [facility] Comment on above: Performed By: #### C BC #### [facility] [address] [place] [address] Dr. Stacey Melendez aPTT Coag (Bld) [Time] 45.3 s Normal 39.5-54.2 [facility] Comment on above: Performed By: #### C VDTB #### [facility] [address] [place] [address] Dr. Stacey Melendez aPTT Coag (Bld) [Time] 47.5 s Normal 39.5-54.2 [facility] Comment on above: Performed By: #### C BC #### [facility] [address] [place] [address] Dr. Stacey Melendez TROPONIN-Ion 06-15-2021 Troponin I.cardiac [Mass/Vol] 0.01 ng/mL Normal 0.00-0.04 [facility] Comment on above: Order Comment: No: D o not add to previous draw Result Comment: REFE RENCE RANGES: 0.00 - 0.04 ng/ml NORMAL 0.05 - 0.50 ng/ml INDETERMINATE > 0.50 ng/ml CONSISTENT WITH AN M.I. Performed By: #### 3 5200, 29685, 03075, 04536, 83171 #### [facility] [address] [facility] [place] [address], [facility] UFH HEPARIN ASSAYon 06-15-20 21 UNFRACTIONATED HEPARIN 0.15 IU/mL Critically low 0.30-0.70 [facility] Comment on above: Result Comment: Resu lt checked and called. Accurately read back by Eli Crawford RN @[id number] 06/15/21 Rivaroxaban and Apixaban will interfere with the anti Xa assay used to monitor UFH and LMWH. Performed By: #### 3 5200, 56727, 23920, 72808, 02283 #### [facility] [address] [facility] [place] [address], [facility] CARDIAC DAYANARA 3-6on 1 CK [Catalytic activity/Vol] 102 U/L Normal 30-135 [facility] Comment on above: Performed By: #### P TT, PT #### [facility] [address] [address] [address] Stacey Melendez CK.MB [Mass/Vol] 1.46 ng/mL Normal <=2.37 [facility] Comment on above: Performed By: #### P TT, PT #### [facility] [address] [address] [address] Stacey Melendez HSTROP 50.7 pg/mL Critically high 4.0-35.5 [facility] Comment on above: Result Comment: CUT- OFF POINTS HAVE BEEN ESTABLISHED BASED ON THE FOURTH UNIVERSAL DEFINITIONS OF MYOCARDIAL INFARCTION. THE UPPER REFERENCE LIMIT (URL) OF TROPONIN, DEFINED THE 99TH PERCENTILE OF cTnI DISTRIBUTION IN A REFERENCE POPULATION, HAS BEEN CONFIRMED THE DECISION THRESHOLD FOR ME DIAGNOSIS. Performed By: #### P TT, PT #### [facility] [address] [address] [address] Stacey Melendez CK [Catalytic activity/Vol] 114 U/L Normal 30-135 [facility] Comment on above: Performed By: #### C MREP #### [facility] [address] [place] [address] Dr. Stacey Melendez CK.MB [Mass/Vol] 1.60 ng/mL Normal <=2.37 [facility] [place] Comment on above: Performed By: #### C MREP #### [facility] [address] [place] [address] Dr. Stacey Melendez HSTROP 50.9 pg/mL Critically high 4.0-35.5 [facility] Comment on above: Result Comment: CUT- OFF POINTS HAVE BEEN ESTABLISHED BASED ON THE FOURTH UNIVERSAL DEFINITIONS OF MYOCARDIAL INFARCTION. THE UPPER REFERENCE LIMIT (URL) OF TROPONIN, DEFINED THE 99TH PERCENTILE OF cTnI DISTRIBUTION IN A REFERENCE POPULATION, HAS BEEN CONFIRMED THE DECISION THRESHOLD FOR ME DIAGNOSIS. Performed By: #### C MREP #### [facility] [address] [place] [address] Dr. Stacey Melendez CBC AUTO DIFFon 06-14-2021 BASO # 0.0 103/ul Normal 0.0-0.1 [facility] Comment on above: Performed By: #### C VDTBH #### [facility] [address] [place] [address] Dr. Stacey Melendez Basophils/100 WBC (Bld) 0.4 % Normal 0.2-2.0 [facility] [place] Comment on above: Performed By: #### C VDTBH #### [facility] [address] [place] [address] Dr. Stacey Melendez EO # 0.4 103/ul Normal 0.0-0.7 [facility] [place] Comment on above: Performed By: #### C VDTBH #### [facility] [address] [place] [address] Dr. Stacey Melendez Eosinophils/100 WBC (Bld) 5.7 % Normal 0.9-7.0 [facility] [place] Comment on above: Performed By: #### C VDTBH #### [facility] [address] [place] [address] Dr. Stacey Melendez Erythrocyte distribution width (RBC) [Ratio] 12.9 % Normal 11.0-15.0 [facility] [place] Comment on above: Performed By: #### C VDTBH #### [facility] [address] [place] [address] Dr. Stacey Melendez Hematocrit (Bld) [Volume fraction] 36.4 % Normal 36.0-48.0 [facility] [place] Comment on above: Performed By: #### C VDTBH #### [facility] [address] [place] [address] Dr. Stacey Melendez Hemoglobin (Bld) [Mass/Vol] 11.8 g/dL Critically low 12.0-16.0 [facility] [place] Comment on above: Performed By: #### C VDTBH #### [facility] [address] [place] [address] Dr. Stacey Melendez IG # 0.02 10e3/ul Normal 0.00-0.03 [facility] [place] Comment on above: Performed By: #### C VDTBH #### [facility] [address] [place] [address] Dr. Stacey Melendez IG % 0.3 % Normal 0.0-0.5 [facility] [place] Comment on above: Performed By: #### C VDTBH #### [facility] [address] [place] [address] Dr. Stacey Melendez LYMPH # 3.0 103/ul Normal 1.2-3.8 [facility] [place] Comment on above: Performed By: #### C VDTBH #### [facility] [address] [place] [address] Dr. Stacey Melendez Lymphocytes/100 WBC (Bld) 38.5 % Normal 20.5-60.0 [facility] Comment on above: Performed By: #### C VDTBH #### [facility] [address] [place] [address] Dr. Stacey Melendez MANUAL DIFF REQ NO Normal [facility] Comment on above: Performed By: #### C VDTBH #### [facility] [address] [place] [address] Dr. Stacey Melendez MCH (RBC) [Entitic mass] 31.6 pg Normal 26.7-34.0 [facility] Comment on above: Performed By: #### C VDTBH #### [facility] [address] [place] [address] Dr. Stacey Melendez MCHC (RBC) [Mass/Vol] 32.4 g/dL Normal 29.9-35.2 [facility] Comment on above: Performed By: #### C VDTBH #### [facility] [address] [place] [address] Dr. Stacey Melendez MCV (RBC) [Entitic vol] 97.3 fL Normal 81.0-99.0 [facility] Comment on above: Performed By: #### C VDTBH #### [facility] [address] [place] [address] Dr. Stacey Melendez MONO # 0.6 103/ul Normal 0.3-0.8 [facility] Comment on above: Performed By: #### C VDTBH #### [facility] [address] [place] [address] Dr. Stacey Melendez Monocytes/100 WBC (Bld) 7.6 % Normal 1.7-12.0 [facility] Comment on above: Performed By: #### C VDTBH #### [facility] [address] [place] [address] Dr. Stacey Melendez NEUT # 3.7 103/ul Normal 1.4-6.5 [facility] Comment on above: Performed By: #### C VDTBH #### [facility] [address] [place] [address] Dr. Stacey Melendez Neutrophils/100 WBC (Bld) 47.5 % Normal 43.0-75.0 [facility] Comment on above: Performed By: #### C VDTBH #### [facility] [address] [place] [address] Dr. Stacey Melendez Platelet mean volume (Bld) [Entitic vol] 11.8 fL Normal 9.5-13.5 [facility] Comment on above: Performed By: #### C VDTBH #### [facility] [address] [address] [address] Stacey Melendez PLT 181 103/ul Normal 150-450 [facility] Comment on above: Performed By: #### C VDTBH #### [facility] [address] [place] [address] Dr. Stacey Melendez RBC 3.74 106/ul Critically low 4.20-5.40 [facility] Comment on above: Performed By: #### C VDTBH #### [facility] [address] [place] [address] Dr. Stacey Melendez WBC 7.7 103/ul Normal 4.0-11.0 [facility] [place] Comment on above: Performed By: #### C VDTBH #### [facility] [address] [place] [address] Dr. Stacey Melendez Covid-19 PCR ([facility])on SARS-CoV-2 (COVID-19) RNA VISH+probe Ql (Unsp spec) Not detected Normal NOT DETECTED [facility] Comment on above: Result Comment: When diagnostic testing is negative, the possibility of a false negative should be considered in the context of a patient's recent exposures and the presence of clinical signs and symptoms consistent with SARS-CoV-2. Performed By: #### C VDTBH #### [facility] [address] [place] [address] Dr. Stacey Melendez GLYCOHEMOGLOBIN A1Con 2020 ADA RECOMMENDATION ADA THERAPEUTIC TARGET 6.0 - 7.0 ACTION SUGGESTED > 7.0 Normal [facility] [place] Comment on above: Performed By: #### C BC #### [facility] [address] [place] [address] Dr. Stacey Melendez Glucose [Mass/Vol] 120 mg/dL Normal [facility] Comment on above: Performed By: #### C BC #### [facility] [address] [place] [address] Dr. Stacey Melendez HbA1c (Bld) [Mass fraction] 5.8 % Normal <=6.0 [facility] [place] Comment on above: Performed By: #### C BC #### [facility] [address] [place], [place] [address] Dr. Stacey Melendez LIPID PROFILEon 06-14-2021 CHOL-HDL RATIO NORM SEE BELOW Normal [facility] Comment on above: Result Comment: 3.3 - 4.4 LOW RISK 4.4 - 7.1 AVERAGE RISK 7.1 - 11.0 MODERATE RISK >11.0 HIGH RISK Performed By: #### P TT, PT #### [facility] [address] [address] [address] Stacey Melendez Cholesterol [Mass/Vol] 113 mg/dL Normal <=200 [facility] [place] Comment on above: Performed By: #### P TT, PT #### [facility] [address] [address] [address] Stacey Melendez Cholesterol in HDL [Mass/Vol] 50 mg/dL Normal [facility] [place] Comment on above: Performed By: #### P TT, PT #### [facility] [address] [address] [address] Stacey Melendez Cholesterol in LDL [Mass/Vol] 43.0 mg/dL Normal [facility] [place] Comment on above: Performed By: #### P TT, PT #### [facility] [address] [address] [address] Stacey Melendez Cholesterol.total/Ch olesterol in HDL [Mass ratio] 2.3 {ratio} Normal [facility] [place] Comment on above: Performed By: #### P TT, PT #### [facility] [address] [address] [address] Stacey Melendez HDL NORMAL > or = 60 mg/dl - LO W CARDIOVASCULAR RISK <40 mg/dl - HIGH CARDIOVASCULAR RISK Normal [facility] [place] Comment on above: Performed By: #### P TT, PT #### [facility] [address] [address] [address] Stacey Melendez LDL CALC NORMAL SEE BELOW Normal [facility] Comment on above: Result Comment: <100 mg/dl OPTIMAL 100 - 129 mg/dl NEAR OR ABOVE OPTIMAL 130 - 159 mg/dl BORDERLINE HIGH 160 - 189 mg/dl HIGH >190 mg/dl VERY HIGH Performed By: #### P TT, PT #### [facility] [address] [place] [address] Dr. Stacey Melendez Triglyceride [Mass/Vol] 100 mg/dL Normal <=150 [facility] [place] Comment on above: Performed By: #### P TT, PT #### [facility] [address] [address] [address] Stacey Melendez VLDL CALC 20.0 mg/dL Normal [facility] Comment on above: Performed By: #### P TT, PT #### [facility] [address] [place] [address] Dr. Stacey Melendez PROF CHEM 8 (BAS METB)on Anion gap [Moles/Vol] 10.9 mmol/L Normal [facility] Comment on above: Performed By: #### P TT, PT #### [facility] [address] [place] [address] Dr. Stacey Melendez Calcium [Mass/Vol] 9.0 mg/dL Normal 8.4-10.2 [facility] Comment on above: Performed By: #### P TT, PT #### [facility] [address] [place] [address] Dr. Stacey Melendez Chloride [Moles/Vol] 109 mmol/L Critically high 98-107 [facility] [place] Comment on above: Performed By: #### P TT, PT #### [facility] [address] [place] [address] Dr. Stacey Melendez CO2 [Moles/Vol] 25.8 mmol/L Normal 22.0-30.0 [facility] [place] Comment on above: Performed By: #### P TT, PT #### [facility] [address] [place] [address] Dr. Stacey Melendez Creatinine [Mass/Vol] 0.79 mg/dL Normal 0.52-1.04 [facility] Comment on above: Performed By: #### P TT, PT #### [facility] [address] [place] [address] Dr. Stacey Melendez EGFR-AF NORWEGIAN >60 Normal >=60 [facility] [place] [facility] Comment on above: Performed By: #### P TT, PT #### [facility] [address] [place] [address] Dr. Stacey Melendez EGFR-NON AF NORWEGIAN >60 Normal >=60 [facility] Comment on above: Performed By: #### P TT, PT #### [facility] [address] [address] [address] Stacey Melendez Glucose [Mass/Vol] 100 mg/dL Normal 74-106 [facility] Comment on above: Performed By: #### P TT, PT #### [facility] [address] [address] [address] Stacey Melendez Potassium [Moles/Vol] 3.7 mmol/L Normal 3.4-5.0 [facility] Comment on above: Performed By: #### P TT, PT #### [facility] [address] [place] [address] Dr. Stacey Melendez Sodium [Moles/Vol] 142 mmol/L Normal 137-145 [facility] Comment on above: Performed By: #### P TT, PT #### [facility] [address] [place] [address] Dr. Stacey Melendez Urea nitrogen [Mass/Vol] 14.0 mg/dL Normal 7.0-17.0 [facility] Comment on above: Performed By: #### P TT, PT #### [facility] [address] [place] [address] Dr. Stacey Melendez Urea nitrogen/Creatinine [Mass ratio] 17.7 mg/mg Normal [facility] Comment on above: Performed By: #### P TT, PT #### [facility] [address] [place] [address] Dr. Stacey Melendez PTT HEPARIN MONITORon 2020 aPTT Coag (Bld) [Time] 38.3 s Critically low 39.5-54.2 [facility] [place] Comment on above: Result Comment: TEST REPEATED; CRITICAL VALUE VERIFIED Performed By: #### P TT, PT #### [facility] [address] [place] [address] Dr. Stacey Melendez aPTT Coag (Bld) [Time] 57.6 s Critically high 39.5-54.2 [facility] [place] Comment on above: Result Comment: test repeated critical value verified Performed By: #### P TTHEP #### [facility] [address] [place] [address] Dr. Stacey Melendez aPTT Coag (Bld) [Time] 29.9 s Critically low 39.5-54.2 [facility] [place] Comment on above: Result Comment: TEST REPEATED CRITICAL VALUE VERIFIED Performed By: #### P TTHEP #### [facility] [address] [address] [address] Stacey Melendez aPTT Coag (Bld) [Time] 37.3 s Critically low 39.5-54.2 [facility] Comment on above: Result Comment: TEST REPEATED; CRITICAL VALUE VERIFIED Performed By: #### P TTHEP #### [facility] [address] [place] [address] Dr. Stacey Melendez TROPONIN, HIGH SENSITIVITYon 06-14-2021 HSTROP 49.8 pg/mL Critically high 4.0-35.5 [facility] Comment on above: Result Comment: CUT- OFF POINTS HAVE BEEN ESTABLISHED BASED ON THE FOURTH UNIVERSAL DEFINITIONS OF MYOCARDIAL INFARCTION. THE UPPER REFERENCE LIMIT (URL) OF TROPONIN, DEFINED THE 99TH PERCENTILE OF cTnI DISTRIBUTION IN A REFERENCE POPULATION, HAS BEEN CONFIRMED THE DECISION THRESHOLD FOR ME DIAGNOSIS. Performed By: #### P TT, PT #### [facility] [address] [place] [address] Dr. Stacey Melendez CARDIAC DAYANARA ADMITon 021 CK [Catalytic activity/Vol] 143 U/L Critically high 30-135 [facility] Comment on above: Performed By: #### C BC #### [facility] [address] [place] [address] Dr. Stacey Melendez CK.MB [Mass/Vol] 2.09 ng/mL Normal <=2.37 [facility] [place] Comment on above: Performed By: #### C BC #### [facility] [address] [place] [address] Dr. Stacey Melendez HSTROP 55.6 pg/mL Critically high 4.0-35.5 [facility] Comment on above: Result Comment: CUT- OFF POINTS HAVE BEEN ESTABLISHED BASED ON THE FOURTH UNIVERSAL DEFINITIONS OF MYOCARDIAL INFARCTION. THE UPPER REFERENCE LIMIT (URL) OF TROPONIN, DEFINED THE 99TH PERCENTILE OF cTnI DISTRIBUTION IN A REFERENCE POPULATION, HAS BEEN CONFIRMED THE DECISION THRESHOLD FOR ME DIAGNOSIS. TEST REPEATED; CRITICAL VALUE VERIFIED Performed By: #### C BC #### [facility] [address] [place] [address] Dr. Stacey Melendez PREET 43.0 ng/mL Normal <=61.5 [facility] Comment on above: Performed By: #### C BC #### [facility] [address] [place] [address] Dr. Stacey Melendez CBC AUTO DIFFon 06-13-2021 BASO # 0.0 103/ul Normal 0.0-0.1 [facility] [place] Comment on above: Performed By: #### C BC #### [facility] [address] [place] [address] Dr. Stacey Melendez Basophils/100 WBC (Bld) 0.5 % Normal 0.2-2.0 [facility] [place] Comment on above: Performed By: #### C BC #### [facility] [address] [place] [address] Dr. Stacey Melendez EO # 0.4 103/ul Normal 0.0-0.7 [facility] Comment on above: Performed By: #### C BC #### [facility] [address] [place] [address] Dr. Stacey Melendez Eosinophils/100 WBC (Bld) 5.1 % Normal 0.9-7.0 [facility] Comment on above: Performed By: #### C BC #### [facility] [address] [place] [address] Dr. Stacey Melendez Erythrocyte distribution width (RBC) [Ratio] 12.8 % Normal 11.0-15.0 [facility] [place] Comment on above: Performed By: #### C BC #### [facility] [address] [place] [address] Dr. Stacey Melendez Hematocrit (Bld) [Volume fraction] 39.4 % Normal 36.0-48.0 [facility] Comment on above: Performed By: #### C BC #### [facility] [address] [address] [address] Stacey Melendez Hemoglobin (Bld) [Mass/Vol] 12.8 g/dL Normal 12.0-16.0 [facility] Comment on above: Performed By: #### C BC #### [facility] [address] [address] [address] Stacey Melendez IG # 0.02 10e3/ul Normal 0.00-0.03 [facility] [place] Comment on above: Performed By: #### C BC #### [facility] [address] [place] [address] Dr. Stacey Melendez IG % 0.2 % Normal 0.0-0.5 [facility] Comment on above: Performed By: #### C BC #### [facility] [address] [place] [address] Dr. Stacey Melendez LYMPH # 2.9 103/ul Normal 1.2-3.8 [facility] [place] Comment on above: Performed By: #### C BC #### [facility] [address] [place] [address] Dr. Stacey Melendez Lymphocytes/100 WBC (Bld) 34.9 % Normal 20.5-60.0 [facility] Comment on above: Performed By: #### C BC #### [facility] [address] [place] [address] Dr. Stacey Melendez MANUAL DIFF REQ NO Normal [facility] Comment on above: Performed By: #### C BC #### [facility] [address] [place] [address] Dr. Stacey Melendez MCH (RBC) [Entitic mass] 31.6 pg Normal 26.7-34.0 [facility] Comment on above: Performed By: #### C BC #### [facility] [address] [place] [address] Dr. Stacey Melendez MCHC (RBC) [Mass/Vol] 32.5 g/dL Normal 29.9-35.2 [facility] Comment on above: Performed By: #### C BC #### [facility] [address] [address] [address] Stacey Melendez MCV (RBC) [Entitic vol] 97.3 fL Normal 81.0-99.0 [facility] Comment on above: Performed By: #### C BC #### [facility] [address] [address] [address] Stacey Melendez MONO # 0.6 103/ul Normal 0.3-0.8 [facility] Comment on above: Performed By: #### C BC #### [facility] [address] [address] [address] Stacey Melendez Monocytes/100 WBC (Bld) 7.8 % Normal 1.7-12.0 [facility] Comment on above: Performed By: #### C BC #### [facility] [address] [place] [address] Dr. Stacey Melendez NEUT # 4.2 103/ul Normal 1.4-6.5 [facility] Comment on above: Performed By: #### C BC #### [facility] [address] [address] [address] Stacey Melendez Neutrophils/100 WBC (Bld) 51.5 % Normal 43.0-75.0 [facility] Comment on above: Performed By: #### C BC #### [facility] [address] [place] [address] Dr. Stacey Melendez Platelet mean volume (Bld) [Entitic vol] 12.1 fL Normal 9.5-13.5 [facility] Comment on above: Performed By: #### C BC #### [facility] [address] [place] [address] Dr. Stacey Melendez PLT 214 103/ul Normal 150-450 [facility] Comment on above: Performed By: #### C BC #### [facility] [address] [address] [address] Stacey Melendez RBC 4.05 106/ul Critically low 4.20-5.40 [facility] Comment on above: Performed By: #### C BC #### [facility] [address] [place] [address] Dr. Stacey Melendez WBC 8.2 103/ul Normal 4.0-11.0 [facility] Comment on above: Performed By: #### C BC #### [facility] [address] [place] [address] Dr. Stacey Melendez D-DIMERon 06-13-2021 D-DIMER 0.36 mg/L FEU Normal 0.19-0.50 [facility] Comment on above: Performed By: #### C VDTBH #### [facility] [address] [place] [address] Dr. Stacey Melendez D-DIMER COMMENTS SEE BELOW Normal [facility] [place] [facility] Comment on above: Result Comment: Incr [...] hospitalization. Performed By: #### C VDTBH #### [facility] [address] [place] [address] Dr. Stacey Melendez PROF CHEM 8 (BAS METB)on Anion gap [Moles/Vol] 15.9 mmol/L Normal [facility] Comment on above: Performed By: #### C BC #### [facility] [address] [place] [address] Dr. Stacey Melendez Calcium [Mass/Vol] 9.0 mg/dL Normal 8.4-10.2 [facility] Comment on above: Performed By: #### C BC #### [facility] [address] [place] [address] Dr. Stacey Melendez Chloride [Moles/Vol] 107 mmol/L Normal 98-107 [facility] Comment on above: Performed By: #### C BC #### [facility] [address] [place] [address] Dr. Stacey Melendez CO2 [Moles/Vol] 25.0 mmol/L Normal 22.0-30.0 [facility] [place] Comment on above: Performed By: #### C BC #### [facility] [address] [address] [address] Stacey Melendez Creatinine [Mass/Vol] 1.05 mg/dL Critically high 0.52-1.04 [facility] Comment on above: Performed By: #### C BC #### [facility] [address] [address] [address] Stacey Melendez EGFR-AF NORWEGIAN >60 Normal >=60 [facility] [place] Comment on above: Performed By: #### C BC #### [facility] [address] [place] [address] Dr. Stacey Melendez EGFR-NON AF [place]AN 54 mL/min/1.73m2 Critically low >=60 [facility] Comment on above: Performed By: #### C BC #### [facility] [address] [place] [address] Dr. Stacey Melendez Glucose [Mass/Vol] 108 mg/dL Critically high 74-106 [facility] Comment on above: Performed By: #### C BC #### [facility] [address] [place] [address] Dr. Stacey Melendez Potassium [Moles/Vol] 3.9 mmol/L Normal 3.4-5.0 [facility] [facility] [place] Comment on above: Performed By: #### C BC #### [facility] [address] [address] [address] Stacey Melendez Sodium [Moles/Vol] 144 mmol/L Normal 137-145 [facility] Comment on above: Performed By: #### C BC #### [facility] [address] [address] [address] Stacey Melendez Urea nitrogen [Mass/Vol] 18.0 mg/dL Critically high 7.0-17.0 [facility] [place] Comment on above: Performed By: #### C BC #### [facility] [address] [address] [address] Stacey Melendez Urea nitrogen/Creatinine [Mass ratio] 17.1 mg/mg Normal [facility] Comment on above: Performed By: #### C BC #### [facility] [address] [place] [address] Dr. Stacey Melendez PROTIMEon 06-13-2021 INR Coag (PPP) [Relative time] 0.95 {INR} Normal [facility] Comment on above: Performed By: #### P TT, PT #### [facility] [address] [place] [address] Dr. Stacey Melendez INR GUIDELINES SEE BELOW Normal The [facility] [place] Comment on above: Result Comment: KIMBERLY RED INR: 2.0 - 3.0 CONDITIONS NOT LISTED BELOW 2.5 - 3.5 FOR PROSTHETIC HEART VALVE REPLACEMENT 2.5 - 3.5 RECURRENT THROMBOSIS Performed By: #### P TT, PT #### [facility] [address] [place] [address] Dr. Stacey Melendez PT Coag (PPP) [Time] 10.3 s Normal 9.0-11.6 [facility] Comment on above: Performed By: #### P TT, PT #### [facility] [address] [place] [address] Dr. Stacey Melendez PTTon 06-13-2021 aPTT Coag (Bld) [Time] 25.4 s Normal 22.3-36.2 [facility] Comment on above: Performed By: #### P TT, PT #### [facility] [address] [place] [address] Dr. Stacey Melendez XR CHEST 1 Von 06-13-2021 XR CHEST 1 V EXAM: XR CHEST 1 V HISTORY: CHEST PAIN, UNSPECIFIED COMPARISON: Chest, 11/30/2017. TECHNIQUE: AP upright portable chest. FINDINGS: The heart, mediastinum and pulmonary vascularity are within normal limits. The lungs and pleural spaces are clear. IMPRESSION: No acute cardiopulmonary disease. 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 LOCATION: [facility] BREAST COMPOSITION: Scattered areas fibroglandular density. [...] M.D. on 05/28/2021 at 09:23 Normal [facility] CBC AUTO DIFFon 05-12-2021 BASO # 0.0 103/ul Normal 0.0-0.1 [facility] [place] Comment on above: Performed By: #### P TT, PT #### [facility] [address] [address] [address] Stacey Melendez Basophils/100 WBC (Bld) 0.3 % Normal 0.2-2.0 [facility] [place] Comment on above: Performed By: #### P TT, PT #### [facility] [address] [address] [address] Stacey Meelndez EO # 0.3 103/ul Normal 0.0-0.7 [facility] [place] Comment on above: Performed By: #### P TT, PT #### [facility] [address] [address] [address] Stacey Melendez Eosinophils/100 WBC (Bld) 3.8 % Normal 0.9-7.0 [facility] [place] Comment on above: Performed By: #### P TT, PT #### [facility] [address] [place] [address] Dr. Stacey Melendez Erythrocyte distribution width (RBC) [Ratio] 12.4 % Normal 11.0-15.0 [facility] [place] Comment on above: Performed By: #### P TT, PT #### [facility] [address] [place] [address] Dr. Stacey Melendez Hematocrit (Bld) [Volume fraction] 39.7 % Normal 36.0-48.0 [facility] [place] Comment on above: Performed By: #### P TT, PT #### [facility] [address] [place] [address] Dr. Stacey Melnedez Hemoglobin (Bld) [Mass/Vol] 12.8 g/dL Normal 12.0-16.0 [facility] [place] Comment on above: Performed By: #### P TT, PT #### [facility] [address] [place] [address] Dr. Stacey Melendez IG # 0.03 10e3/ul Normal 0.00-0.03 [facility] [place] Comment on above: Performed By: #### P TT, PT #### [facility] [address] [place] [address] Dr. Stacey Melendez IG % 0.3 % Normal 0.0-0.5 [facility] [place] Comment on above: Performed By: #### P TT, PT #### [facility] [address] [place] [address] Dr. Stacey Melendez LYMPH # 1.9 103/ul Normal 1.2-3.8 [facility] Comment on above: Performed By: #### P TT, PT #### [facility] [address] [place] [address] Dr. Stacey Melendez Lymphocytes/100 WBC (Bld) 21.2 % Normal 20.5-60.0 [facility] [place] Comment on above: Performed By: #### P TT, PT #### [facility] [address] [place] [address] Dr. Stacey Melendez MANUAL DIFF REQ NO Normal The [facility] Comment on above: Performed By: #### P TT, PT #### [facility] [address] [place] [address] Dr. Stacey Melendez MCH (RBC) [Entitic mass] 31.4 pg Normal 26.7-34.0 [facility] [place] Comment on above: Performed By: #### P TT, PT #### [facility] [address] [place] [address] Dr. Stacey Melendez MCHC (RBC) [Mass/Vol] 32.2 g/dL Normal 29.9-35.2 [facility] [place] Comment on above: Performed By: #### P TT, PT #### [facility] [address] [place] [address] Dr. Stacey Melendez MCV (RBC) [Entitic vol] 97.5 fL Normal 81.0-99.0 [facility] [place] Comment on above: Performed By: #### P TT, PT #### [facility] [address] [place] [address] Dr. Stacey Melendez MONO # 0.6 103/ul Normal 0.3-0.8 [facility] [place] Comment on above: Performed By: #### P TT, PT #### [facility] [address] [place] [address] Dr. Stacey Melendez Monocytes/100 WBC (Bld) 6.3 % Normal 1.7-12.0 [facility] [place] Comment on above: Performed By: #### P TT, PT #### [facility] [address] [place] [address] Dr. Stacey Melendez NEUT # 6.1 103/ul Normal 1.4-6.5 [facility] Comment on above: Performed By: #### P TT, PT #### [facility] [address] [place] [address] Dr. Stacey Melendez Neutrophils/100 WBC (Bld) 68.1 % Normal 43.0-75.0 [facility] Comment on above: Performed By: #### P TT, PT #### [facility] [address] [place] [address] Dr. Stacey Melendez Platelet mean volume (Bld) [Entitic vol] 12.5 fL Normal 9.5-13.5 [facility] Comment on above: Performed By: #### P TT, PT #### [facility] [address] [place] [address] Dr. Stacey Melendez PLT 181 103/ul Normal 150-450 [facility] Comment on above: Performed By: #### P TT, PT #### [facility] [address] [place] [address] Dr. Stacey Melendez RBC 4.07 106/ul Critically low 4.20-5.40 [facility] Comment on above: Performed By: #### P TT, PT #### [facility] [address] [place] [address] Dr. Stacey Melendez WBC 9.0 103/ul Normal 4.0-11.0 [facility] Comment on above: Performed By: #### P TT, PT #### [facility] [address] [place] [address] Dr. Stacey Melendez FREE T3on 05-12-2021 FREE T3 2.24 pg/mlL Critically low 2.77-5.27 [facility] Comment on above: Performed By: #### P TT, PT #### [facility] [address] [place] [address] Dr. Stacey Melendez FREE T4on 05-12-2021 Free T4 [Mass/Vol] 0.99 ng/dL Normal 0.78-2.19 [facility] Comment on above: Performed By: #### P TT, PT #### [facility] [address] [place] [address] Dr. Stacey Melendez MAGNESIUMon 05-12-2021 Magnesium [Mass/Vol] 1.7 mg/dL Normal 1.6-2.3 [facility] Comment on above: Performed By: #### P TT, PT #### [facility] [address] [place] [address] Dr. Stacey Melendez PROF 14(COMP METB)on 021 Albumin [Mass/Vol] 3.6 g/dL Normal 3.5-5.0 [facility] Comment on above: Performed By: #### P TT, PT #### [facility] [address] [address] [address] Stacey Melendez Albumin/Globulin [Mass ratio] 1.0 {ratio} Normal [facility] [place] Comment on above: Performed By: #### P TT, PT #### [facility] [address] [address] [address] Stacey Melendez ALP [Catalytic activity/Vol] 77 U/L Normal 38-126 [facility] [place] Comment on above: Performed By: #### P TT, PT #### [facility] [address] [address] [address] Stacey Melendez ALT [Catalytic activity/Vol] 29 U/L Normal 9-52 [facility] [place] Comment on above: Performed By: #### P TT, PT #### [facility] [address] [address] [address] Stacey Melendez Anion gap [Moles/Vol] 13.1 mmol/L Normal [facility] [place] Comment on above: Performed By: #### P TT, PT #### [facility] [address] [address] [address] Stacey Melendez AST [Catalytic activity/Vol] 19 U/L Normal 14-36 [facility] [place] Comment on above: Performed By: #### P TT, PT #### [facility] [address] [address] [address] Stacey Melendez Bilirubin [Mass/Vol] 0.3 mg/dL Normal 0.2-1.3 [facility] Comment on above: Performed By: #### P TT, PT #### [facility] [address] [address] [address] Stacey Melendez Calcium [Mass/Vol] 8.9 mg/dL Normal 8.4-10.2 [facility] Comment on above: Performed By: #### P TT, PT #### [facility] [address] [address] [address] Stacey Melendez Chloride [Moles/Vol] 108 mmol/L Critically high 98-107 [facility] [place] Comment on above: Performed By: #### P TT, PT #### [facility] [address] [address] [address] Stacey Melendez CO2 [Moles/Vol] 24.0 mmol/L Normal 22.0-30.0 [facility] [place] Comment on above: Performed By: #### P TT, PT #### [facility] [address] [address] [address] Stacey Melendez Creatinine [Mass/Vol] 0.91 mg/dL Normal 0.52-1.04 [facility] [place] Comment on above: Performed By: #### P TT, PT #### [facility] [address] [address] [address] Stacey Melendez EGFR-AF NORWEGIAN >60 Normal >=60 [facility] [place] Comment on above: Performed By: #### P TT, PT #### [facility] [address] [place] [address] Dr. Stacey Melendez EGFR-NON AF NORWEGIAN >60 Normal >=60 [facility] [place] Comment on above: Performed By: #### P TT, PT #### [facility] [address] [place] [address] Dr. Stacey Melendez Globulin (S) [Mass/Vol] 3.6 g/dL Normal [facility] [place] Comment on above: Performed By: #### P TT, PT #### [facility] [address] [place] [address] Dr. Stacey Melendez Glucose [Mass/Vol] 101 mg/dL Normal 74-106 [facility] Comment on above: Performed By: #### P TT, PT #### [facility] [address] [address] [address] Stacey Melendez Potassium [Moles/Vol] 4.1 mmol/L Normal 3.4-5.0 [facility] Comment on above: Performed By: #### P TT, PT #### [facility] [address] [address] [address] Stacey Melendez Protein [Mass/Vol] 7.2 g/dL Normal 6.1-8.2 [facility] Comment on above: Performed By: #### P TT, PT #### [facility] [address] [place] [address] Dr. Satcey Melendez Sodium [Moles/Vol] 141 mmol/L Normal 137-145 [facility] Comment on above: Performed By: #### P TT, PT #### [facility] [address] [place] [address] Dr. Stacey Melendez Urea nitrogen [Mass/Vol] 16.0 mg/dL Normal 7.0-17.0 [facility] [place] Comment on above: Performed By: #### P TT, PT #### [facility] [address] [place] [address] Dr. Stacey Melendez Urea nitrogen/Creatinine [Mass ratio] 17.6 mg/mg Normal [facility] [place] Comment on above: Performed By: #### P TT, PT #### [facility] [address] [place] [address] Dr. Stacey Melendez TSHon 05-12-2021 TSH 1.872 uIU/mL Normal 0.470-4.680 [facility] Comment on above: Performed By: #### P TT, PT #### [facility] [address] [place] [address] Dr. Stacey Melendez TSH RANGE SEE BELOW Normal [facility] [place] Comment on above: Result Comment: <0.3 4 UIU/ml HYPERTHYROID 0.34-5.60 UIU/ml EUTHYROID >5.60 UIU/ml HYPOTHYROID Performed By: #### P TT, PT #### [facility] [address] [place] [address] Dr. Stacey Melendez VITAMIN B12on 05-12-2021 Cobalamin (Vitamin B12) [Mass/Vol] 425.0 pg/mL Normal 239.0-931.0 [facility] [place] Comment on above: Performed By: #### P TT, PT #### [facility] [address] [place] [address] Dr. Stacey Melendez Echocardiogramon 03-02-[address], [address], [place] [address] TRANSTHORACIC ECHOCARDIOGRAM REPORT Patient Name: DIANE NGUYEN Reading Physician: [id number] Arsenio Flores MD Study Date: 03/02/2021 Referring Physician: [id number] ARSENIO FLORES MRN/PID: [id number] PCP: Ja Pabon Accession/Order#: [id number] Department Location: [facility] Date of : 1965 Fellow: Gender: F Nurse: Admit Date: Storage Facility Rental Clerk: Tash Murray RDCS, RVT Height: 170.18 cm CC Report to: Weight: 98.88 kg Study Type: Echocardiogram BSA: 2.10 m2 Blood Pressure: 110 /70 mmHg Diagnosis/ICD: [id number] Indication: HTN, Hyperlipidemia, COPD, Tobacco Abuse, Obesity Procedure/CPT: Echo Complete w Full Doppler-[id number] Study Detail: The following Echo studies were [...] 0.7 m/s (0.6-0.9m/s) PV Max P.0 mmHg [id number] Arsenio Flores MD Electronically signed on 03/07/2021 at 2:58:15 PM Final Normal [facility] Vital Signs Date Time Vital Sign Value Performing Clinician John raza 09-25-2024 18:15-0500 Body mass index (BMI) [Ratio] 35.77 kg/m2 Nicasahil Krishnamurthy STEAMTABLE WORKER Work Phone: [facility] 09-25-2024 18:15-0500 Body temperature 98.8 [degF] Nica Joanz STEAMTABLE WORKER Work Phone: [facility] 09-25-2024 18:15-0500 Body weight 103.6 kg Nica Joanz STEAMTABLE WORKER Work Phone: [facility] 09-25-2024 18:15-0500 Diastolic blood pressure 110 mm[Hg] Nica Joanz STEAMTABLE WORKER Work Phone: [facility] 09-25-2024 18:15-0500 Heart rate 63 /min Nica Joanz STEAMTABLE WORKER Work Phone: [facility] 09-25-2024 18:15-0500 Respiratory rate 20 /min Nica Natholz STEAMTABLE WORKER Work Phone: [facility] 09-25-2024 18:15-0500 SaO2% (BldA) [Mass fraction] 95 % Nica Joanz STEAMTABLE WORKER Work Phone: [facility] 09-25-2024 18:15-0500 Systolic blood pressure 160 mm[Hg] Nica Natholz STEAMTABLE WORKER Work Phone: [facility] 07-08-2024 08:44-0500 Diastolic blood pressure 92 mm[Hg] Nica Arvindhholz STEAMTABLE WORKER Work Phone: [facility] 07-08-2024 08:44-0500 Systolic blood pressure 152 mm[Hg] Nica Arvindhholz STEAMTABLE WORKER Work Phone: [facility] 07-08-2024 08:36-0500 Body height 170.2 cm Nicasahil Francoz STEAMTABLE WORKER Work Phone: [facility] 07-08-2024 08:36-0500 Body mass index (BMI) [Ratio] 35.21 kg/m2 Nicasahil Francoz STEAMTABLE WORKER Work Phone: [facility] 07-08-2024 08:36-0500 Body temperature 98.49 [degF] Nicasahil Francoz STEAMTABLE WORKER Work Phone: [facility] 07-08-2024 08:36-0500 Body weight 101.97 kg Nica Krishnamurthy STEAMTABLE WORKER Work Phone: [facility] 07-08-2024 08:36-0500 Heart rate 62 /min Nicasahil Francoz STEAMTABLE WORKER Work Phone: [facility] 07-08-2024 08:36-0500 Respiratory rate 21 /min Nicasahil Krishnamurthy STEAMTABLE WORKER Work Phone: [facility] 07-08-2024 08:36-0500 SaO2% (BldA) [Mass fraction] 96 % Ncia Krishnamurthy STEAMTABLE WORKER Work Phone: [facility] 05-27-2024 08:53-0400 Body height 170.2 cm Nicasahil Francoz STEAMTABLE WORKER Work Phone: [facility] 05-27-2024 08:53-0400 Body mass index (BMI) [Ratio] 35.99 kg/m2 Nicasahil Francoz STEAMTABLE WORKER Work Phone: [facility] 05-27-2024 08:53-0400 Body temperature 98.8 [degF] Nicasahil Francoz STEAMTABLE WORKER Work Phone: [facility] 05-27-2024 08:53-0400 Body weight 104.24 kg Nicashail Johnsholz STEAMTABLE WORKER Work Phone: [facility] 05-27-2024 08:53-0400 Diastolic blood pressure 80 mm[Hg] Nica Johnsnav STEAMTABLE WORKER Work Phone: [facility] 05-27-2024 08:53-0400 Heart rate 48 /min Nica Johnsnav STEAMTABLE WORKER Work Phone: [facility] 05-27-2024 08:53-0400 Respiratory rate 20 /min Nica Johnsnav STEAMTABLE WORKER Work Phone: [facility] 05-27-2024 08:53-0400 SaO2% (BldA) [Mass fraction] 96 % Nica Johnsnav STEAMTABLE WORKER Work Phone: [facility] 05-27-2024 08:53-0400 Systolic blood pressure 140 mm[Hg] Nica Francoz STEAMTABLE WORKER Work Phone: [facility] Healthcare Encounters Encounter Date Encounter Type Care Provider Facility Start: 09-25-2024 End: 09-25-2024 Office outpatient visit 25 minutes Nica Arvindjuaquinnav STEAMTABLE WORKER Work Phone: [facility] Comment on above: Primary hypertension (CMS/HCC) (Primary Dx); Morbid (severe) obesity due to excess calories (CMS/HCC); Essential (primary) hypertension (CMS/HCC); Body mass index (BMI) 35.0-35.9, adult; Mixed hyperlipidemia (CMS/HCC); Environmental and seasonal allergies; Muscle spasms of neck; Other migraine without status migrainosus, not intractable (CMS/HCC); Anxiety and depression (CMS/HCC); Anxiety; Tobacco user; Sprain of right wrist, subsequent encounter Start: 09-25-2024 End: 09-25-2024 ambulatory NICA YESSY Not Available Start: 09-25-2024 End: 09-25-2024 Bamboo flowsheet Nica Yessy STEAMTABLE WORKER Work Phone: [facility] Start: 09-25-2024 End: 09-25-2024 Bamboo flowsheet Nica Yessy STEAMTABLE WORKER Work Phone: [facility] Start: 09-18-2024 End: 09-18-2024 Clinisync Result Encounter Nica Krishnamurthy STEAMTABLE WORKER Work Phone: [facility] Unsolicited Start: 09-18-2024 End: 09-18-2024 Clinisync Result Encounter Nica Krishnamurthy STEAMTABLE WORKER Work Phone: [facility] Unsolicited Start: 08-25-2024 End: 08-25-2024 Refill Nica Krishnamurthy STEAMTABLE WORKER Work Phone: [facility] Comment on above: Environmental and se asonal allergies Start: 07-08-2024 End: 07-08-2024 Bamboo flowsheet Nica Johnsnav STEAMTABLE WORKER Work Phone: [facility] Start: 07-08-2024 End: 07-08-2024 Bamboo flowsheet Nica Johnsnav STEAMTABLE WORKER Work Phone: [facility] Start: 07-08-2024 End: 07-08-2024 Office outpatient visit 25 minutes Nica Johnsnav STEAMTABLE WORKER Work Phone: [facility] Comment on above: Primary hypertension (CMS/HCC) (Primary Dx); Obstructive sleep apnea, adult; Bradycardia; Morbid (severe) obesity due to excess calories (CMS/HCC); Body mass index (BMI) 35.0-35.9, adult; Tobacco user Start: 07-08-2024 End: 07-08-2024 ambulatory NICA YESSY Not Available Start: 05-27-2024 End: 05-27-2024 Bamboo flowsheet Nica Francoabbe STEAMTABLE WORKER Work Phone: [facility] Start: 05-27-2024 End: 05-27-2024 Bamboo flowsheet Nica Arvindjuaquinnav STEAMTABLE WORKER Work Phone: [facility] Start: 05-27-2024 End: 05-27-2024 Office outpatient visit 25 minutes Nica Yessy STEAMTABLE WORKER Work Phone: [facility] Comment on above: Primary hypertension (CMS/HCC) (Primary Dx); Morbid (severe) obesity due to excess calories (CMS/[facility]); Mixed hyperlipidemia (CMS/[facility]); Body mass index (BMI) 35.0-35.9, adult; Chronic obstructive pulmonary disease, unspecified (CMS/[facility]); Gastroesophageal reflux disease without esophagitis; Tobacco user; Anxiety and depression ([facility]); Encounter for screening mammogram for malignant neoplasm of breast; Obstructive sleep apnea, adult; Primary insomnia; Acute otitis externa of right ear, unspecified type; Bradycardia Start: 05-27-2024 End: 05-27-2024 ambulatory NICA AICHHOLZ Not Available Start: 11-29-2023 End: 11-29-2023 ambulatory NICA AICHHOLZ Not Available Start: 04-29-2022 End: 04-29-2022 ambulatory DI[employer]CTIONAL SUR[employer]Y DRAFTER NICA AICHHOLZ Facility:[facility] Start: 03-26-2022 End: 03-26-2022 ambulatory DIRECTIONAL SURVEY DRAFTER NICA AICHHOLZ Facility:[facility] Start: 01-18-2022 End: 01-27-2022 ambulatory DIRECTIONAL SURVEY DRAFTER NICA ARVINDHHOLZ Facility:[facility] Start: 01-07-2022 End: 01-08-2022 ambulatory DIRECTIONAL SURVEY DRAFTER NICA AICHHOLZ Facility:[facility] Start: 12-20-2021 End: 12-20-2021 ambulatory DIRECTIONAL SURVEY DRAFTER NICA ARVINDHHOLZ Facility:[facility] Start: 12-10-2021 End: 12-10-2021 ambulatory VANESSA BARGER Facility:[facility] Start: 06-15-2021 End: 06-19-2021 Evaluation and management of inpatient SHAIKH ROBIN Facility:[facility] Start: 06-14-2021 End: 06-15-2021 Evaluation and management of inpatient DIRECTIONAL SURVEY DRAFTER NICA ARVINDHHOLZ Facility:[facility] Start: 05-28-2021 End: 05-29-2021 ambulatory DIRECTIONAL SURVEY DRAFTER NICA AICHHOLZ Facility:[facility] Start: 05-12-2021 End: 05-13-2021 ambulatory DIRECTIONAL SURVEY DRAFTER NICA AICHHOLZ Facility:[facility] Procedures Date Procedure Procedure Detail Performing Clinician Start: 09-18-2024 ALL CBC WITH AUTO DIFF Nica Joanz [employer]AMTABLE WORK[employer] Work Phone: Start: 05-17-2023 Mammography Nica Lesia rooney [employer]AMTABLE WORK[employer] Work Phone: Start: 06-18-2021 FLUOROSCOPY OF MULTI PLE CORONARY ARTERIES USING OTH CONTRAST MICK MONTERO Start: 12-20-2017 Colonoscopy Nica rooney [employer] WORK[employer] Work Phone: Plan of Treatment Date Care Activity Detail Author Start: 12-21-2027 Screening for malign ant neoplasm of colon [facility] Start: 10-07-2024 End: 10-07-2024 Patient encounter procedure 10/07/2024 6:00 PM EST Office Visit [facility] [address] [place] [phone] Nica Krishnamurthy, STEAMTABLE WORKER [address] [place] [phone] [facility] Start: 09-25-2024 End: 09-25-2024 Patient encounter procedure 09/25/2024 6:00 PM EST Office Visit [facility] [address] [place] [phone] Nica Krishnamurthy, STEAMTABLE WORKER [address] [place] [phone] Morbid (severe) obesity due to excess calories (CMS/HCC); Essential (primary) hypertension (CMS/HCC); Body mass index (BMI) 35.0-35.9, adult [facility] Comment on above: Morbid (severe) obes ity due to excess calories (CMS/HCC); Essential (primary) hypertension (CMS/HCC); Body mass index (BMI) 35.0-35.9, adult Start: 07-22-2024 Influenza vaccination Influenza Vacc ine (#1) [facility] Comment on above: Postponed from 04/07 (Patient Refused) Start: 07-08-2024 End: 07-08-2024 Patient encounter procedure [facility] Comment on above: Obstructive sleep ap mary, adult (Primary Dx); Primary hypertension (CMS/HCC); Bradycardia; Morbid (severe) obesity due to excess calories (CMS/HCC); Body mass index (BMI) 35.0-35.9, adult; Tobacco user Start: 05-27-2024 End: 05-27-2025 CBC W Auto Differential panel - Blood CBC and differential Lab Routine Chronic obstructive pulmonary disease, unspecified (CMS/HCC) Tobacco user Expected: 05/27/2024 (Approximate), Expires: 05/27/2025 [facility] Work Phone: Comment on above: Expected: 05/27/2024 (Approximate), Expires: 05/27/2025 Start: 05-27-2024 End: 05-27-2025 Comprehensive metabolic 2000 panel - Serum or Plasma Comprehensive metabolic panel Lab Routine Mixed hyperlipidemia (CMS/HCC) Primary hypertension (CMS/HCC) Expected: 05/27/2024 (Approximate), Expires: 05/27/2025 [facility] Comment on above: Expected: 05/27/2024 (Approximate), Expires: 05/27/2025 Start: 05-27-2024 End: 05-27-2025 Lipid 1996 panel - Serum or Plasma Lipid panel Lab Routine Mixed hyperlipidemia (CMS/HCC) Expected: 05/27/2024 (Approximate), Expires: 05/27/2025 [facility] Comment on above: Expected: 05/27/2024 (Approximate), Expires: 05/27/2025 Start: 05-27-2024 End: 07-27-2025 MG Breast - bilateral Screening Bilateral screening mammogram Imaging Routine Encounter for screening mammogram for malignant neoplasm of breast Expected: 05/27/2024 (Approximate), Expires: 07/27/2025 [facility] Comment on above: Expected: 05/27/2024 (Approximate), Expires: 07/27/2025 Start: 05-27-2024 End: 05-27-2025 Thyrotropin [Units/volume] in Serum or Plasma TSH Lab Routine Anxiety and depression (CMS/HCC) Expected: 05/27/2024 (Approximate), Expires: 05/27/2025 [facility] Comment on above: Expected: 05/27/2024 (Approximate), Expires: 05/27/2025 Start: 05-27-2024 End: 05-27-2025 Thyroxine (T4) free [Mass/volume] in Serum or Plasma T4, free Lab Routine Anxiety and depression (CMS/HCC) Expected: 05/27/2024 (Approximate), Expires: 05/27/2025 [facility] Comment on above: Expected: 05/27/2024 (Approximate), Expires: 05/27/2025 Start: 05-27-2024 End: 05-27-2025 Urinalysis complete panel - Urine Urinalysis with reflex microscopic (clean catch) Lab Routine Chronic obstructive pulmonary disease, unspecified (CMS/HCC) Tobacco user Expected: 05/27/2024 (Approximate), Expires: 05/27/2025 [facility] Comment on above: Expected: 05/27/2024 (Approximate), Expires: 05/27/2025 Start: 05-27-2024 End: 05-27-2024 Patient encounter procedure 05/27/2024 9:00 AM EDT Office Visit [facility] [address] [place] [phone] Nica Krishnamurthy NP [address] [place] [address] Primary hypertension (CMS/HCC) (Primary Dx); Morbid (severe) obesity due to excess calories (CMS/HCC); Mixed hyperlipidemia (CMS/HCC); Body mass index (BMI) 35.0-35.9, adult; Chronic obstructive pulmonary disease, unspecified (CMS/HCC); Gastroesophageal reflux disease without esophagitis; Tobacco user; Anxiety and depression (CMS/HCC); Encounter for screening mammogram for malignant neoplasm of breast [facility] Comment on above: Primary hypertension (CMS/HCC) (Primary Dx); Morbid (severe) obesity due to excess calories (CMS/HCC); Mixed hyperlipidemia (CMS/HCC); Body mass index (BMI) 35.0-35.9, adult; Chronic obstructive pulmonary disease, unspecified (CMS/HCC); Gastroesophageal reflux disease without esophagitis; Tobacco user; Anxiety and depression (CMS/HCC); Encounter for screening mammogram for malignant neoplasm of breast Start: 05-17-2024 Screening for malign ant neoplasm of breast Mammogram [facility] Start: 04-07-2024 Influenza vaccination Influenza Vacc ine (#1) [facility] Start: 1995 Screening for malign ant neoplasm of cervix HPV/Cotest [facility] Start: 1986 Screening for malign ant neoplasm of cervix Pap Smear [facility] Start: 1965 Medicare Annual Well ness (AWV) Medicare Annual Wellness (AWV) [facility] Start: 1965 Screening for malign ant neoplasm of colon [facility] Immunizations Immunization Date Immunization Notes Care Provider Fa cili 06-07-2024 influenza virus vacc ine, unspecified formulation Nica Aichholz [employer]AMTABLE WORKER Work Phone: [facility] 03-31-2020 influenza, injectabl e, quadrivalent, preservative free Nica Aichholz STEAMTABLE WORKER Work Phone: [facility] 03-31-2020 influenza virus vacc ine, unspecified formulation Nica Aichholz STEAMTABLE WORKER Work Phone: [facility] 03-07-2020 influenza, seasonal, injectable Nica Aichholz STEAMTABLE WORKER Work Phone: [facility] 01-25-2020 zoster vaccine recombinant Nica Aichholz STEAMTABLE WORKER Work Phone: [facility] 11-25-2019 zoster vaccine recombinant Nica Aichholz STEAMTABLE WORKER Work Phone: [facility] 04-18-2019 influenza, injectabl e, quadrivalent, preservative free Nica Aichholz STEAMTABLE WORKER Work Phone: [facility] 11-27-2018 hepatitis A vaccine, adult dosage Nica Aichholz STEAMTABLE WORKER Work Phone: [facility] 03-29-2018 hepatitis A vaccine, adult dosage Nica Aichholz STEAMTABLE WORKER Work Phone: [facility] 03-29-2018 influenza, injectabl e, quadrivalent, preservative free Nica Aichholz STEAMTABLE WORKER Work Phone: [facility] 11-15-2017 pneumococcal conjuga te vaccine, 13 valent Nica Aichholz STEAMTABLE WORKER Work Phone: [facility] 05-18-2017 influenza, injectabl e, quadrivalent, preservative free Nica Aichholz STEAMTABLE WORKER Work Phone: [facility] 05-02-2016 influenza, injectabl e, quadrivalent, preservative free Nica Aichholz STEAMTABLE WORKER Work Phone: [facility] 05-06-2015 influenza, seasonal, injectable, preservative free Nica Aichholz STEAMTABLE WORKER Work Phone: [facility] 04-30-2009 influenza virus vacc ine, whole virus Nica Aichholz STEAMTABLE WORKER Work Phone: [facility] Payers Date Payer Category Payer Medicare (Managed Care) [facility] MEDICARE [id number] 2022 Private Health Insurance [facility] MEDICAID [id number] 2022 Medicaid [id number] 1965 Unknown [id number] 1965 Unknown [id number]. 593 1965 Unknown [id number] [id number]. 593 1965 Unknown [id number] [id number]. 593 1965 Unknown [id number] [id number]. 593 1965 Unknown [id number] [id number]. 593 1965 Unknown [id number] [id number]. 593 1965 Unknown [id number] 2.16.840.1.615951.3.579.2. 593 1965 Unknown [id number] 2.16.840.1.609005.3.579.2. 593 1965 Unknown [id number] 2.16.840.1.794381.3.579.2. 593 1965 Unknown [id number] 2.16.840.1.093921.3.579.2. 1259 1965 Unknown [id number] 2.16.840.1.420498.3.579.2. 1259 1965 Unknown [id number] [id number]. 1259 1965 Unknown [id number] [id number]. 1259 1959 Unknown [id number] Social History Date Type Detail Facility Start: 09-29-2023 Tobacco smoking status VAIS Smokes t obacco daily [facility] History of tobacco use [facility]igarette [facility]oker [facility] Start: 09-29-2023 End: 11-29-2023 Cigarettes smoked current (pack per day) - Reported 1 [facility] Start: 11-29-2023 End: 07-08-2024 Alcoholic beverage intake Ex-drinker (finding) [facility] Start: 11-29-2023 End: 07-08-2024 Tobacco use panel [facility] Start: 1965 Sex assigned at Not on file [facility] Clinical Notes 06-20-2021 to 09-25-2024 Nica Krishnamurthy NP - 09/25/2024 7:18 PM Simona Krishnamurthy NP - 09/25/2024 7:17 PM Simona Krishnamurthy, DEV -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 [address] [place] [phone] PCP [facility] 05/07/24 Nica Krishnamurthy NP [address] [place] [phone] Nurse Practitioner Family Medicine 08/07/22 Expert Medical Writer Relationship Specialty Start Date End Date Ja Pabon MD [address] [place] [phone] PCP - General [facility] 06/06/24 Nica Krishnamurthy NP [address] [place] [phone] PCP [facility] 05/07/24 Nica Krishnamurthy NP [address] [place] [phone] Nurse Practitioner [facility] 08/07/22 Expert Medical Writer Relationship Specialty Start Date End Date Ja Pabon MD [address] [place] [phone] PCP - General [facility] 06/06/24 Nica Krishnamurthy NP [address] [place] [phone] PCP [facility] 05/07/24 Nica Krishnamurthy NP [address] [place] [phone] Nurse Practitioner [facility] 08/07/22 Expert Medical Writer Relationship Specialty Start Date End Date Ja Pabon MD [address] [place] [phone] PCP - [facility] 06/06/24 Nica Krishnamurthy NP [address] [place] [phone] PCP [facility] 05/07/24 Nica Krishnamurthy NP [address] [place] [phone] Nurse Practitioner Family Medicine 08/07/22 Reason for [...] BE BASED ON THE PRIMARY CLINICAL RECORDS. [employer] [facility]. provides no warranty or guarantee of the accuracy or completeness of information in this document.
--- NOTE | 2024-11-20 19:16 | ED.WOUNDLAC1 ---
HPI - Wound/Laceration General Chief Complaint: Wound/Laceration Stated Complaint: EYE INJURY Time Seen by Provider: 11/20/24 18:57 Source: patient Mode of arrival: walk-in Limitations: no limitations History of Present Illness HPI narrative: Patient is a 59-year-old female presents to the ER with concerns of laceration to her left eyebrow and lid. Patient was wearing glasses she is unsure of her last tetanus states she walked into a tree branch and had immediate pain to her skin she denies any significant eye discomfort with the initial bleeding and being on Plavix and EMS squad was called they allowed her to transport herself to the ER after cleaning her up noting just a small abrasion to the left brow and no eye injury. Patient feels like there is debris around her eye but not in her eye. She admits that the glasses she was wearing likely protect her eyeball. She sees local optometry for eye care. She denies any loss of vision and pain is tolerable now that she has had some time to rest. She admits to history of hypertension but has not yet taken her evening medications. Onset (ago): minute(s) Place: Reports home Patient tetanus UTD: No Context: Reports accidental Associated symptoms: Reports none Related Data Home Medications ?Medication ?Instructions ?Recorded ?Confirmed atorvastatin 40 mg tablet 40 mg PO DAILY 07/29/24 09/18/24 lisinopril 20 mg tablet 20 mg PO DAILY 07/29/24 09/18/24 montelukast 10 mg tablet 10 mg PO PRN 07/29/24 09/18/24 Allergies Allergy/AdvReac Type Severity Reaction Status Date / Time No Known Drug Allergies Allergy Verified 09/18/24 11:43 Review of Systems ROS Constitutional Denies: fever or chills Eyes Reports: other (Discomfort left upper eyebrow); Denies: change in vision, blurry vision, blind spots, light sensitivity or eye discomfort Ears, nose, mouth, and throat Denies: throat pain, neck pain or change in hearing Cardiovascular Denies: chest pain Respiratory Denies: shortness of breath Gastrointestinal Denies: abdominal pain Genitourinary Denies: painful urination Musculoskeletal Denies: back pain or neck pain Integumentary/Breast Denies: rash Neurological Denies: headache Psychiatric Denies: anxiety Endocrine Denies: excessive urination PFSH PFSH Social History Little interest or pleasure in doing things: not at all Feeling down, depressed, or hopeless: not at all Exam Narrative Exam Narrative: Nurses notes and vital signs reviewed and patient is not hypoxic. General: The patient appears well and in no apparent distress. Patient is resting comfortably on cart. Skin: Warm, dry, no pallor noted. Patient has small superficial laceration to the left eyebrow less than 0.5 cm appears more like a skin tear than laceration no subcutaneous fat bleeding controlled abrasion noted to the forehead and left maxilla with tenderness to touch but no significant bony tenderness. Head: Normocephalic, atraumatic, facial abrasion Neck: Supple, trachea mid-line, no tenderness, no lymphadenopathy Eye: Pupils are equal, round and reactive to light, EOMI, eye without evidence of debris or hyphema she denies eye pain, abrasion is to the left eyebrow region and dried blood over her lid was easily removed without tenderness or pain. No visible foreign body. Ears, Nose, Mouth, and Throat: TM are clear, normal light reflex, hyphema oral mucosa is moist, no posterior oropharynx erythema or hypertrophy, uvula is mid-line Cardiovascular: Regular Rate and Rhythm Respiratory: Patient is in no distress, no accessory muscle use, lungs are clear to auscultation, no wheezing, rales or rhonchi. Chest Wall: no tenderness Back: non-tender, no CVA tenderness Musculoskeletal: normal ROM, no tenderness, no swelling Neurological: A&O x4 Psychiatric: Cooperative Constitutional Vital Signs, click to edit/add: Last Vital Signs Temp 98.2 F 11/20/24 18:50 Pulse 68 11/20/24 18:50 Resp 18 11/20/24 18:50 BP 183/107 H 11/20/24 18:50 Pulse Ox 97 11/20/24 18:50 O2 Del Method Room Air 11/20/24 18:50 Course Vital Signs Vital signs: Vital Signs Temperature 98.2 F 11/20/24 18:50 Pulse Rate 68 11/20/24 18:50 Respiratory Rate 18 11/20/24 18:50 Blood Pressure 183/107 H 11/20/24 18:50 Pulse Oximetry 97 11/20/24 18:50 Oxygen Delivery Method Room Air 11/20/24 18:50 Temperature 98.2 F 11/20/24 18:50 Pulse Rate 68 04/16/25 18:50 Respiratory Rate 18 11/20/24 18:50 Blood Pressure 183/107 H 11/20/24 18:50 Pulse Oximetry 97 11/20/24 18:50 Oxygen Delivery Method Room Air 11/20/24 18:50 MDM - Wound/Laceration MDM Narrative Medical decision making narrative: Tetanus was updated. Patient has abrasion to the left cheek and forehead we discussed potential for bruising given her Plavix use she adamantly denies any head injury or neck pain such as secondary fall. She had her wound cleansed with saline and Betadine was used along with saline irrigation. The skin was well-approximated and a very small amount of wound adhesive was used to approximate the skin tear of her eyebrow laceration. Patient tolerated this well and there was no bleeding. She has painless range of motion of her eyeball and facial sensation is equal and symmetric. Patient agreeable to discharge home and follow-up to her eye doctor for reevaluation given the location of her injury. Patient was thankful for expedient care and had no further concerns or questions Acuity obtained. The patient is to followup with service line coordinator in 1 to 2 days primary care physician in next 2-3 days or to return to the emergency department should any of the signs or symptoms worsen or new symptoms develop. Patient had questions answered. The patient agrees with the following Diagnosis and Treatment plan and the patient will be discharged home. Discharge Plan Discharge Chief Complaint: Wound/Laceration Clinical Impression: Abrasion of face Laceration of eyebrow Qualifiers: Encounter type: initial encounter Laterality: left Qualified Code(s): S01.112A - Laceration without foreign body of left eyelid and periocular area, initial encounter Patient Disposition: Home, Self-Care Time of Disposition Decision: 19:17 Condition: Good Prescriptions / Home Meds: No Action atorvastatin 40 mg tablet 40 mg PO DAILY lisinopril 20 mg tablet 20 mg PO DAILY montelukast 10 mg tablet 10 mg PO PRN Print Language: Sami Instructions: Laceration (ED) Additional Instructions: Your eye doctor in 1-2 days for recheck Let Glue come off on its own. Referrals: Nica Krishnamurthy NP [Primary Care Provider] - 1 week
[2024-11-20] MEDS: ADACEL DIPH,PERTUSS(ACELL),TET VAC/PF 0.5 ML ADULT SYRINGE IM (19:24)
[2024-11-20] MEDS: BACITRACIN 0.9 GM PACKET 1 PACKET TOPICAL (19:32)
[2024-11-20 19:52] VITALS: O2SAT 98
== END 2024-11-20 19:37 | disposition home or self-care (01) ==
PROVIDERS: Emergency Provider Emergency Medicine; PCP Nurse Practitioner
DX: S00.81XA Abrasion of other part of head, initial encounter (principal); Z79.02 Long term (current) use of antithrombotics/antiplatelets; I10 Essential (primary) hypertension; Z23 Encounter for immunization; W22.8XXA Striking against or struck by other objects, initial encounter
CPT/HCPCS: 90471; 90715; 99284

== ENCOUNTER 2025-02-26 20:19 | Emergency (ER) | payer OTHER, SELFPAY ==
--- OUTSIDE RECORDS SUMMARY | 2025-02-26 20:25 | XMS_ITS | CCD ---
Author Organization [facility] Care Team Providers Care 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 Name Role Phone SHAIKH KELLY Referring Unavailable MICK MONTERO Surgeon Unavailable PAULINA, ALAN Admitting Unavailable AICHHOLZ, NICA Primary Care Unavailable [place] Procedure Practitioner Unavailab ASHLEY Yancey Attending Unavailable AICHHOLZ, ASSOCIATE PROFESSOR OF MANAGEMENT NICA Primary Care Unavailable AICHHOLZ, ASSOCIATE PROFESSOR OF MANAGEMENT NICA Consulting Unavailable AICHHOLZ, ASSOCIATE PROFESSOR OF MANAGEMENT NICA Attending Unavailable AICHHOLZ, ASSOCIATE PROFESSOR OF MANAGEMENT NICA Admitting Unavailable AICHHOLZ, ASSOCIATE PROFESSOR OF MANAGEMENT NICA Primary Care Unavailable AICHHOLZ, ASSOCIATE PROFESSOR OF MANAGEMENT NICA Consulting Unavailable AICHHOLZ, ASSOCIATE PROFESSOR OF MANAGEMENT NICA Attending Unavailable AICHHOLZ, ASSOCIATE PROFESSOR OF MANAGEMENT NICA Admitting Unavailable DR AGUSTÍN CRESPO Consulting Unavailable AICHHOLZ, ASSOCIATE PROFESSOR OF MANAGEMENT NICA Primary Care Unavailable AICHHOLZ, ASSOCIATE PROFESSOR OF MANAGEMENT NICA Attending Unavailable AICHHOLZ, ASSOCIATE PROFESSOR OF MANAGEMENT NICA Admitting Unavailable AICHHOLZ, ASSOCIATE PROFESSOR OF MANAGEMENT NICA Consulting Unavailable ASHLIE GARCIA Consulting Unavailable AICHHOLZ, ASSOCIATE PROFESSOR OF MANAGEMENT NICA Primary Care Unavailable AICHHOLZ, ASSOCIATE PROFESSOR OF MANAGEMENT NICA Attending Unavailable AICHHOLZ, ASSOCIATE PROFESSOR OF MANAGEMENT NICA Admitting Unavailable AICHHOLZ, ASSOCIATE PROFESSOR OF MANAGEMENT NICA Primary Care Unavailable VANESSA BARGER Attending Unavailable CHARBEL, VANESSA Admitting Unavailable CHARBEL, VANESSA Consulting Unavailable AICHHOLZ, ASSOCIATE PROFESSOR OF MANAGEMENT NICA Primary Care Unavailable BOY WINCHESTER Attending Unavailable RANULFO, BOY Admitting Unavailable RANULFO, BOY Consulting Unavailable CHARBEL, VANESSA Attending Unavailable CHARBEL, VANESSA Admitting Unavailable CHARBEL, VANESSA Consulting Unavailable AICHHOLZ, ASSOCIATE PROFESSOR OF MANAGEMENT NICA Primary Care Unavailable AICHHOLZ, ASSOCIATE PROFESSOR OF MANAGEMENT NICA Primary Care Unavailable PAY, DR BARNES Admitting Unavailable PAY, DR BARNES Attending Unavailable KRISTIE SKY Consulting Unavailable SYEDA ELKINS Consulting Unavailable AICHHOLZ, ASSOCIATE PROFESSOR OF MANAGEMENT NICA Primary Care Unavailable SHAIKH Juaquin KELLY Attending Unavailable SHAIKH Juaquin KELLY Admitting Unavailable DR BOB PRICE Consulting Unavailable VANESSA BARGER Consulting Unavailable ARSENIO HOWARD Consulting Unavailable SHAIKH Juaquin KELLY Consulting Unavailable Yessy DOPER, Nica Unavailable Ja Pabon MD Primary Care Provider Unallocated MD, Noms Provider Primary Care Provi bertha Ja Pabon MD Primary Care Provider Yessy DOPER, Nica Unavailable NICA KRISHNAMURTHY Attending Unavailable ARVINDHHOLKayli, NICA Attending Unavailable NICA KRISHNAMURTHY Attending Unavailable NATHOLKayli, NICA Attending Unavailable NICA KRISHNAMURTHY Attending Unavailable Medications Current Medications Medication Drug Class(es) Dates Sig (Normalized) Sig (Original) amoxicillin 875 mg / clavulanate 125 mg oral tablet (2 sources) Penicillin-class Antibacterial Start: 02-03-2025 End: 02-13-2025 take 1 tablet by mouth in the morning amoxicillin-clavul anate (Augmentin) 875-125 MG tablet Indications: Acute non-recurrent maxillary sinusitis Take 1 tablet (875 mg) by mouth in the morning and 1 tablet (875 mg) before bedtime. Do all this for 10 days. Take with food. 20 tablet 02/03/2025 02/13/2025 Active lisinopril 40 mg oral tablet (20 sources) Angiotensin Converting Enzyme Inhibitor Start: 12-25-2024 End: 03-25-2025 take 1 tablet by mouth once daily lisinopril 40 MG tablet Indications: Primary hypertension Take 1 tablet (40 mg) by mouth Daily 90 tablet 12/25/2024 03/25/2025 Active Start: 02-22-2024 End: 03-24-2025 lisinopril 20 MG tablet Tika cations: Primary hypertension (CMS/HCC) Take 1 tablet (20 mg) by mouth at noon and 1 tablet (20 mg) in the evening. 180 tablet 12/24/2024 12/25/2024 Discontinued (Ineffective) montelukast 10 mg oral tablet (20 sources) Leukotriene Receptor Antagonist Start: 02-22-2024 End: 03-25-2025 take 1 tablet by mouth at bedtime montelukast (Singulair) 10 MG tablet Indications: Environmental and seasonal allergies Take 1 tablet (10 mg) by mouth at bedtime 90 tablet 1 12/25/2024 03/25/2025 Active ofloxacin 3 mg/ml otic solution (2 sources) Quinolone Antimicrobial Start: 05-27-2024 End: 06-03-2024 ofloxacin (Floxin) 0.3 % otic solution Indications: Acute otitis externa of right ear, unspecified type Administer 10 drops into affected ear(s) Daily for [address] 10 drops daily in right ear 5 mL 05/27/2024 06/03/2024 Active tiZANidine 4 mg oral tablet (20 sources) Central alpha-2 Adrenergic Agonist Start: 02-22-2024 End: 03-25-2025 tiZANidine (Zanaflex) 4 MG tablet Indications: Muscle spasms of neck Take 1 tablet (4 mg) by mouth as needed at bedtime for muscle spasms 90 tablet 12/25/2024 03/25/2025 Active topiramate 25 mg oral tablet (20 sources) Start: 02-22-2024 End: 03-25-2025 take 2 tablets by mouth at bedtime topiramate (Topamax) 25 MG tablet Indications: Other migraine without status migrainosus, not intractable Take 2 tablets (50 mg) by mouth at bedtime 180 tablet 12/25/2024 03/25/2025 Active traZODone hydrochloride 50 mg oral tablet (20 sources) Serotonin Reuptake Inhibitor Start: 02-22-2024 End: 03-25-2025 take 2 tablets by mouth at bedtime traZODone (Desyrel) 50 MG tablet Indications: Anxiety and depression Take 2 tablets (100 mg) by mouth at bedtime 180 tablet 12/25/2024 03/25/2025 Active 24 hr venlafaxine 150 mg extended release oral capsule (20 sources) Serotonin and Norepinephrine Reuptake Inhibitor Start: 09-25-2024 End: 03-25-2025 take 1 capsule by mouth once daily at mealtime venlafaxine XR (Effexor XR) 150 MG 24 hr capsule Indications: Anxiety and depression , Anxiety Take 1 capsule (150 mg) by mouth Daily Take with food. 90 capsule 12/25/2024 03/25/2025 Active Start: 02-22-2024 End: 09-25-2024 take 1 capsule by mouth once daily venlafaxine XR (Effexor XR) 75 MG 24 hr capsule Indications: Anxiety Take 1 capsule (75 mg) by mouth Daily 90 capsule 05/27/2024 Active Completed/Discontinued Medications Medication Drug Class(es) Dates Sig (Normalized) Sig (Original) atorvastatin 40 mg oral tablet (20 sources) HMG-CoA Reductase Inhibitor Start: 02-22-2024 End: 05-04-2025 take 1 tablet by mouth in the evening atorvastatin (Lipitor) 40 MG tablet Indications: Mixed hyperlipidemia Take 1 tablet (40 mg) by mouth in the evening 90 tablet 1 09/25/2024 02/03/2025 Discontinued (Reorder) Problems Active Problems Problem Classification Problem Date Documented Da te Episodic/Chronic Acute myocardial infarction (3 sources) Non-ST elevation (NSTEMI) myocardial infarction; Translations: [NON-ST ELEVATION MYOCARDIAL INFARCT] Onset: 1 Chronic Anxiety disorders (20 sources) Anxiety disorder, unspecified; Translations: [Mixed anxiety and depressive disorder] Onset: 2 Resolved: 4 10-04-2023 Chronic Chronic obstructive pulmonary disease and bronchiectasis (20 sources) Chronic obstructive lung disease; Translations: [Chronic obstructive pulmonary disease, unspecified] Onset: 4 05-27-2024 Chronic Coronary atherosclerosis and other heart disease (18 sources) History of myocardial infarction; Translations: [Old myocardial infarction] Onset: 4 11-29-2023 Chronic Disorders of lipid metabolism (20 sources) Hyperlipidemia, unspecified; Translations: [Hyperlipidemia] Onset: 1 10-04-2023 Chronic Esophageal disorders (20 sources) Gastroesophageal reflux disease; Translations: [Gastro-esophageal reflux disease without esophagitis] Onset: 4 10-04-2023 Chronic Essential hypertension (20 sources) Essential (primary) hypertension; Translations: [Hypertensive disorder] Onset: 2 10-04-2023 Chronic Fluid and electrolyte disorders (1 source) Hypokalemia; Translations: [HYPOKALEMIA] Onset: 2 Episodic Genitourinary symptoms and ill-defined conditions (18 sources) Female stress incontinence; Translations: [Stress incontinence (female) (male)] Onset: 4 10-04-2023 Chronic Headache; including migraine (20 sources) Migraine; Translations: [Migraine, unspecified, not intractable, [...] 2 Episodic Other aftercare (1 source) Other snf (current) drug therapy; Translations: [OTH VENDING MECHANIC CURRENT DRUG THERAPY] Onset: 2 Episodic Other connective tissue disease (4 sources) Myalgia, unspecified site; Translations: [MYALGIA UNSPECIFIED SITE] Onset: 2 Episodic Other ear and sense organ disorders (18 sources) Mixed conductive and sensorineural hearing loss of right ear; Translations: [Mixed conductive and sensorineural hearing loss, unilateral, right ear, with unrestricted hearing on the contralateral side] Onset: 4 10-04-2023 Chronic Other gastrointestinal disorders (3 sources) Diarrhea, unspecified; Translations: [DIARRHEA UNSPECIFIED] Onset: 2 Episodic Other nutritional; endocrine; and metabolic disorders (20 sources) Obesity caused by energy imbalance; Translations: [Morbid (severe) obesity due to excess calories] Onset: 4 05-27-2024 Chronic Other nutritional; endocrine; and metabolic disorders (20 sources) Body mass index 30+ - obesity; Translations: [Body mass index (BMI) 35.0-35.9, adult] Onset: 4 05-27-2024 Chronic Other upper respiratory disease (3 sources) Allergic disposition; Translations: [Other allergic rhinitis] 08-25-2024 Chronic Other upper respiratory infections (5 sources) Acute upper respiratory infection, unspecified; Translations: [Acute maxillary sinusitis] Onset: 2 02-03-2025 Episodic Prolapse of female genital organs (18 sources) Incomplete uterovaginal prolapse; Translations: [Incomplete uterovaginal prolapse] Onset: 4 10-04-2023 Chronic Residual codes; unclassified (20 sources) Obstructive sleep apnea of adult; Translations: [...] TRACT] Onset: 2 Episodic Residual codes; unclassified (4 sources) Lung cancer screening declined; Translations: [Procedure and treatment not carried out because of patient's decision for unspecified reasons] Onset: 5 02-03-2025 Episodic Spondylosis; intervertebral disc disorders; other back problems (20 sources) Degeneration of lumbar intervertebral disc; Translations: [DDD (degenerative disc disease), lumbar] Onset: 4 10-04-2023 Chronic Substance-related disorders (12 sources) Nicotine dependence, cigarettes, uncomplicated; Translations: [Tobacco dependence syndrome] Onset: 2 10-07-2024 Chronic Unclassified (1 source) CONTACT W/AND (SUSP) EXPOS COVID-19; Translations: [CONTACT W/AND (SUSP) EXPOS COVID-19] Onset: 2 Viral infection (1 source) COVID-19; Translations: [COVID-19] Onset: 2 Past or Other Problems Problem Classification Problem Date Documented Date Episodic/Chronic Cardiac dysrhythmias (20 sources) Bradycardia; Translations: [Bradycardia, unspecified] Onset: 05-27-2024 [...] Onset: 12-10-2021 Episodic Other connective tissue disease (20 sources) Muscle spasm of cervical muscle of neck; Translations: [Other muscle spasm] Onset: 09-26-2023 09-26-2023 Episodic Other connective tissue disease (18 sources) Muscle pain; Translations: [Myalgia, unspecified site] Onset: 10-04-2023 10-04-2023 Episodic Other ear and sense organ disorders (18 sources) Cholesteatoma of attic; Translations: [Cholesteatoma of attic, right ear] Onset: 10-04-2023 10-04-2023 Episodic Other ear and sense organ disorders (19 sources) Acute otitis externa of right ear; Translations: [Unspecified acute noninfective otitis externa, right ear] Onset: 05-27-2024 05-27-2024 Episodic Other lower respiratory disease (18 sources) Snoring; Translations: [Snoring] Onset: 10-04-2023 10-04-2023 Episodic Other lower respiratory disease (18 sources) Chronic cough; Translations: [Chronic cough] Onset: 10-04-2023 10-04-2023 Episodic Other nervous system disorders (18 sources) Paresthesia; Translations: [Paresthesia of skin] Onset: [...] Onset: 10-04-2023 Resolved: 10-04-2023 10-04-2023 Episodic Other nutritional; endocrine; and metabolic disorders (7 sources) Weight decreased; Translations: [Abnormal weight loss] Onset: 10-04-2023 Resolved: [...] caused by tuberculosis or sexually transmitted disease) (18 sources) Pneumonia; Translations: [Pneumonia, unspecified organism] Onset: 10-04-2023 Resolved: 10-04-2023 10-04-2023 Episodic Residual codes; unclassified (18 sources) Parasomnia; Translations: [Parasomnia, unspecified] Onset: 10-04-2023 Resolved: 10-04-2023 10-04-2023 Chronic Residual codes; unclassified (1 source) Family history of malignant neoplasm of digestive organs; Translations: [FAM HX MALIG NEOPLASM DIGESTIV ORGN] Onset: 06-04-2021 Episodic Residual codes; unclassified (18 sources) Insomnia; Translations: [Insomnia, unspecified] Onset: 10-04-2023 10-04-2023 Episodic Residual codes; unclassified (20 sources) Tobacco user; Translations: [Tobacco use] Onset: 10-04-2023 Resolved: 10-07-2024 10-04-2023 Episodic Spondylosis; intervertebral disc disorders; other back problems (5 sources) Radiculopathy, lumbar region; Translations: [Sciatica, right side] Onset: 12-22-2021 Episodic Sprains and strains (13 sources) Strain of other specified muscles, fascia and tendons at thigh level, right thigh, initial encounter; Translations: [Sprain of right wrist] Onset: 12-13-2021 09-25-2024 Episodic Syncope (20 sources) Syncope and collapse; Translations: [Near syncope] Onset: 05-12-2021 Resolved: 10-04-2023 Episodic Viral infection (18 sources) Disease caused by 2019-nCoV; Translations: [COVID-19] Onset: 10-04-2023 Resolved: 10-04-2023 10-04-2023 Episodic Results Test Name Value Interpretation Reference Range Facility ALL CBC WITH AUTO DIFFon BASOPHILS ABSOLUTE AUTO 0.1 [facility] Basophils/100 WBC (Bld) 0.6 % 0.2 - 2.0 % [facility] Eosinophils/100 WBC (Bld) 4.4 % 0.9 - 7.0 % [facility] Erythrocyte distribution width (RBC) [Ratio] 12 % 11.0 - 15.0 % [facility] Hematocrit (Bld) [Volume fraction] 43.2 % 36.0 - 48.0 % [facility] Hemoglobin (Bld) [Mass/Vol] 14.2 g/dL 12.0 - 16.0 g/dL [facility] IMMATURE GRANULOCYTES ABS AUTO 0.02 [facility] Immature granulocytes/100 WBC (Bld) 0.2 % 0.0 - 0.5 % [facility] LYMPHOCYTES ABSOLUTE AUTO 1.9 [facility] Lymphocytes/100 WBC (Bld) 22 % 20.5 - 60.0 % [facility] MCH (RBC) [Entitic mass] 31.3 pg 26.7 - 34.0 pg [facility] MCHC (RBC) [Mass/Vol] 32.9 g/dL 29.9 - 35.2 g/dL [facility] MCV (RBC) [Entitic vol] 95.4 fL 81.0 - 99.0 fL [facility] MONOCYTES ABSOLUTE AUTO 0.8 [facility] Monocytes/100 WBC (Bld) 9.7 % 1.7 - 12.0 % [facility] NEUTROPHILS ABSOLUTE AUTO 5.5 [facility] Neutrophils/100 WBC (Bld) 63.1 % 43.0 - 75.0 % [facility] Platelet mean volume (Bld) [Entitic vol] 11.6 fL 9.5 - 13.5 fL [facility] EO # 0.4 [facility] PLT 201 [facility] RBC 4.53 [facility] WBC 8.7 [facility] Cov[facility] ([facility]on 04-08 SARS-CoV-2 (COVID-19) RNA VISH+probe Ql (Unsp spec) Not detected Normal NOT DETECTED [facility] Comment on above: Result Comment: When diagnostic [...] for this test is supported by the [facility] of Health and Human Service's declaration that [...] used). Performed By: #### C VDTB #### [facility] [address] [place] [address] Dr. Stacey Melendez CBC AUTO DIFFon 03-26-2022 BASO # 0.0 103/ul Normal 0.0-0.1 [facility] Comment on above: Performed By: #### C BC #### [facility] [address] [place] [address] Dr. Stacey Melendez Basophils/100 WBC (Bld) 0.3 % Normal 0.2-2.0 [facility] Comment on above: Performed By: #### C BC #### [facility] [address] [place] [address] Dr. Stacey Melendez EO # 0.0 103/ul Normal 0.0-0.7 [facility] Comment on above: Performed By: #### C BC #### [facility] [address] [place] [address] Dr. Stacey Melendez Eosinophils/100 WBC (Bld) 0.0 % Critically low 0.9-7.0 [facility] Comment on above: Performed By: #### C BC #### [facility] [address] [place] [address] Dr. Stacey Melendez Erythrocyte distribution width (RBC) [Ratio] 12.4 % Normal 11.0-15.0 [facility] Comment on above: Performed By: #### C BC #### [facility] [address] [place] [address] Dr. Stacey Melendez Hematocrit (Bld) [Volume fraction] 43.4 % Normal 36.0-48.0 [facility] Comment on above: Performed By: #### C BC #### [facility] [address] [place] [address] Dr. Stacey Melendez Hemoglobin (Bld) [Mass/Vol] 14.3 g/dL Normal 12.0-16.0 [facility] Comment on above: Performed By: #### C BC #### [facility] [address] [place] [address] Dr. Stacey Melendez IG # 0.04 10e3/ul Critically high 0.00-0.03 [facility] Comment on above: Performed By: #### C BC #### [facility] [address] [place] [address] Dr. Stacey Melendez IG % 0.4 % Normal 0.0-0.5 [facility] Comment on above: Performed By: #### C BC #### [facility] [address] [place] [address] Dr. Stacey Melendez LYMPH # 1.2 103/ul Normal 1.2-3.8 [facility] Comment on above: Performed By: #### C BC #### [facility] [address] [place] [address] Dr. Stacey Melendez Lymphocytes/100 WBC (Bld) 12.6 % Critically low 20.5-60.0 [facility] Comment on above: Performed By: #### C BC #### [facility] [address] [place] [address] Dr. Stacey Melendez MANUAL DIFF REQ NO Normal [facility] Comment on above: Performed By: #### C BC #### [facility] [address] [place] [address] Dr. Stacey Melendez MCH (RBC) [Entitic mass] 31.3 pg Normal 26.7-34.0 [facility] Comment on above: Performed By: #### C BC #### [facility] [address] [place] [address] Dr. Stacey Melendez MCHC (RBC) [Mass/Vol] 32.9 g/dL Normal 29.9-35.2 [facility] Comment on above: Performed By: #### C BC #### [facility] [address] [place] [address] Dr. Stacey Melendez MCV (RBC) [Entitic vol] 95.0 fL Normal 81.0-99.0 [facility] Comment on above: Performed By: #### C BC #### [facility] [address] [address] [address] Stacey Melendez MONO # 1.0 103/ul Critically high 0.3-0.8 [facility] Comment on above: Performed By: #### C BC #### [facility] [address] [place] [address] Dr. Stacey Melendez Monocytes/100 WBC (Bld) 10.8 % Normal 1.7-12.0 [facility] Comment on above: Performed By: #### C BC #### [facility] [address] [place] [address] Dr. Stacey Melendez NEUT # 7.3 103/ul Critically high 1.4-6.5 [facility] Comment on above: Performed By: #### C BC #### [facility] [address] [place] [address] Dr. Stacey Melendez Neutrophils/100 WBC (Bld) 75.9 % Critically high 43.0-75.0 [facility] Comment on above: Performed By: #### C BC #### [facility] [address] [place] [address] Dr. Stacey Melendez Platelet mean volume (Bld) [Entitic vol] 12.2 fL Normal 9.5-13.5 [facility] Comment on above: Performed By: #### C BC #### [facility] [address] [place] [address] Dr. Stacey Melendez PLT 153 103/ul Normal 150-450 [facility] Comment on above: Performed By: #### C BC #### [facility] [address] [place] [address] Dr. Stacey Melendez RBC 4.57 106/ul Normal 4.20-5.40 [facility] Comment on above: Performed By: #### C BC #### [facility] [address] [address] [address] Stacey Melendez WBC 9.6 103/ul Normal 4.0-11.0 [facility] Comment on above: Performed By: #### C BC #### [facility] [address] [place] [address] Dr. Stacey Melendez [facility] SARS-CoV-2 (COVID-19) RNA VISH+probe Ql (Unsp spec) Detected Critically abnormal NOT DETECTED [facility] Comment on above: Result Comment: This test is not yet approved or cleared by the [place] FDA. When there are no FDA-approved or cleared tests available, and other criteria are met, FDA can make tests available under an emergency access mechanism called an Emergency Use Authorization (EUA). The EUA for this test is supported by the [facility] of Health and Human Service's declaration that [...] Performed By: #### P TT, PT #### [facility] [address] [place] [address] Dr. Stacey Melendez INFLUENZA A AND B AGon 03-26 INFLUENZA A AG Negative Normal NEGATIVE SEE COMMENT [facility] Comment on above: Performed By: #### C VDTBH #### [facility] [address] [place] [address] Dr. Stacey Melendez INFLUENZA B AG Negative Normal NEGATIVE SEE COMMENT [facility] Comment on above: Performed By: #### C VDTBH #### [facility] [address] [place] [address] Dr. Stacey Melendez INTERNAL CONTROLS Within Normal Limits Normal Wi thin Normal Limits [facility] Comment on above: Performed By: #### C VDTBH #### [facility] [address] [address] [address] Stacey Melendez LACTATE/LACTIC ACIDon 2021 Lactate [Moles/Vol] 1.0 mmol/L Normal 0.4-1.9 [facility] Comment on above: Performed By: #### P TT, PT #### [facility] [address] [place] [address] Dr. Stacey Melendez PROF CHEM 8 (BAS METB)on Anion gap [Moles/Vol] 14.6 mmol/L Normal [facility] Comment on above: Performed By: #### C BC #### [facility] [address] [place] [address] Dr. Stacey Melendez Calcium [Mass/Vol] 8.7 mg/dL Normal 8.5-10.1 [facility] Comment on above: Performed By: #### C BC #### [facility] [address] [place] [address] Dr. Stacey Melendez Chloride [Moles/Vol] 104 mmol/L Normal 98-107 [facility] Comment on above: Performed By: #### C BC #### [facility] [address] [place] [address] Dr. Stacey Melendez CO2 [Moles/Vol] 21.0 mmol/L Normal 21.0-32.0 [facility] Comment on above: Performed By: #### C BC #### [facility] [address] [place] [address] Dr. Stacey Melendez Creatinine [Mass/Vol] 1.39 mg/dL Critically high 0.55-1.02 [facility] Comment on above: Performed By: #### C BC #### [facility] [address] [address] [address] Stacey Melendez EGFR-AF MONGOLIAN 48 mL/min/1.73m2 Critically low >=60 [facility] Comment on above: Performed By: #### C BC #### [facility] [address] [place] [address] Dr. Stacey Melendez EGFR-NON AF MONGOLIAN 39 mL/min/1.73m2 Critically low >=60 [facility] Comment on above: Performed By: #### C BC #### [facility] [address] [address] [address] Stacey Melendez Glucose [Mass/Vol] 126 mg/dL Critically high 74-106 T [facility] Comment on above: Performed By: #### C BC #### [facility] [address] [address] [address] Stacey Melendez Potassium [Moles/Vol] 2.6 mmol/L Critically low 3.5-5.1 [facility] Comment on above: Performed By: #### C BC #### [facility] [address] [address] [address] Stacey Melendez Sodium [Moles/Vol] 137 mmol/L Normal 136-145 [facility] Comment on above: Performed By: #### C BC #### [facility] [address] [address] [address] Stacey Melendez Urea nitrogen [Mass/Vol] 18.0 mg/dL Normal 7.0-18.0 [facility] Comment on above: Performed By: #### C BC #### [facility] [address] [address] [address] Stacey Melendez Urea nitrogen/Creatinine [Mass ratio] 12.9 mg/mg Normal [facility] Comment on above: Performed By: #### C BC #### [facility] [address] [address] [address] Stacey Melendez Ambulatory Visit Summaryon 0 [...] lumbar GERD (gastroesophageal reflux disease) History of DC (myocardial infarction) HTN (hypertension) Hypercholesteremia Hyperlipidemia Insomnia Obesity MISAEL (obstructive sleep apnea) Parasomnia Stress incontinence Tobacco user Weight loss Normal [facility] Physician Referralon 022 Physician Referral [phone] [id number] Normal [facility] CBC AUTO DIFFon 01-07-2022 BASO # 0.0 103/ul Normal 0.0-0.1 [facility] Comment on above: Performed By: #### C [facility] #### [facility] [address] [place] [address] Dr. Stacey Melendez Basophils/100 WBC (Bld) 0.1 % Critically low 0.2-2.0 [facility] Comment on above: Performed By: #### C VDTBH #### [facility] [address] [place] [address] Dr. Stacey Melendez EO # 0.1 103/ul Normal 0.0-0.7 [facility] Comment on above: Performed By: #### C VDTBH #### [facility] [address] [place] [address] Dr. Stacey Melendez Eosinophils/100 WBC (Bld) 1.0 % Normal 0.9-7.0 [facility] Comment on above: Performed By: #### C VDTBH #### [facility] [address] [place] [address] Dr. Stacey Melendez Erythrocyte distribution width (RBC) [Ratio] 12.6 % Normal 11.0-15.0 [facility] Comment on above: Performed By: #### C VDTBH #### [facility] [address] [place] [address] Dr. Stacey Melendez Hematocrit (Bld) [Volume fraction] 41.6 % Normal 36.0-48.0 [facility] Comment on above: Performed By: #### C VDTBH #### [facility] [address] [place] [address] Dr. Stacey Melendez Hemoglobin (Bld) [Mass/Vol] 13.6 g/dL Normal 12.0-16.0 [facility] Comment on above: Performed By: #### C VDTBH #### [facility] [address] [place] [address] Dr. Stacey Melendez IG # 0.02 10e3/ul Normal 0.00-0.03 [facility] Comment on above: Performed By: #### C VDTBH #### [facility] [address] [place] [address] Dr. Stacey Melendez IG % 0.3 % Normal 0.0-0.5 [facility] Comment on above: Performed By: #### C VDTBH #### [facility] [address] [address] [address] Stacey Melendez LYMPH # 1.9 103/ul Normal 1.2-3.8 [facility] Comment on above: Performed By: #### C VDTBH #### [facility] [address] [place] [address] Dr. Stacey Melendez Lymphocytes/100 WBC (Bld) 24.4 % Normal 20.5-60.0 [facility] Comment on above: Performed By: #### C VDTBH #### [facility] [address] [place] [address] Dr. Stacey Melendez MANUAL DIFF REQ NO Normal [facility] Comment on above: Performed By: #### C VDTBH #### [facility] [address] [place] [address] Dr. Stacey Melendez MCH (RBC) [Entitic mass] 31.3 pg Normal 26.7-34.0 [facility] Comment on above: Performed By: #### C VDTBH #### [facility] [address] [place] [address] Dr. Stacey Melendez MCHC (RBC) [Mass/Vol] 32.7 g/dL Normal 29.9-35.2 [facility] Comment on above: Performed By: #### C VDTBH #### [facility] [address] [place] [address] Dr. Stacey Melendez MCV (RBC) [Entitic vol] 95.9 fL Normal 81.0-99.0 [facility] Comment on above: Performed By: #### C VDTBH #### [facility] [address] [place] [address] Dr. Stacey Melendez MONO # 0.5 103/ul Normal 0.3-0.8 [facility] Comment on above: Performed By: #### C VDTBH #### [facility] [address] [place] [address] Dr. Stacey Melendez Monocytes/100 WBC (Bld) 6.6 % Normal 1.7-12.0 [facility] Comment on above: Performed By: #### C VDTBH #### [facility] [address] [address] [address] Stacey Melendez NEUT # 5.2 103/ul Normal 1.4-6.5 [facility] Comment on above: Performed By: #### C VDTBH #### [facility] [address] [address] [address] Stacey Melendez Neutrophils/100 WBC (Bld) 67.6 % Normal 43.0-75.0 [facility] Comment on above: Performed By: #### C VDTBH #### [facility] [address] [place] [address] Dr. Stacey Melendez Platelet mean volume (Bld) [Entitic vol] 11.7 fL Normal 9.5-13.5 [facility] Comment on above: Performed By: #### C VDTBH #### [facility] [address] [place] [address] Dr. Stacey Melendez PLT 178 103/ul Normal 150-450 [facility] Comment on above: Performed By: #### C VDTBH #### [facility] [address] [place] [address] Dr. Stacey Melendez RBC 4.34 106/ul Normal 4.20-5.40 [facility] Comment on above: Performed By: #### C VDTBH #### [facility] [address] [place] [address] Dr. Stacey Melendez WBC 7.6 103/ul Normal 4.0-11.0 [facility] Comment on above: Performed By: #### C VDTBH #### [facility] [address] [place] [address] Dr. Stacey Melendez CRPon 01-07-2022 CRP [Mass/Vol] mg/L Normal <=1.0 [facility] Comment on above: Performed By: #### P TT, PT #### [facility] [address] [place] [address] Dr. Stacey Melendez FREE T3on 01-07-2022 FREE T3 2.39 pg/mlL Normal 2.18-3.98 [facility] Comment on above: Performed By: #### P TT, PT #### [facility] [address] [place] [address] Dr. Stacey Melendez FREE T4on 01-07-2022 Free T4 [Mass/Vol] 1.04 ng/dL Normal 0.76-1.46 [facility] Comment on above: Performed By: #### P TT, PT #### [facility] [address] [place] [address] Dr. Stacey Melendez PROF 14(COMP METB)on 022 Albumin [Mass/Vol] 3.7 g/dL Normal 3.4-5.0 [facility] Comment on above: Performed By: #### C VDTBH #### [facility] [address] [place] [address] Dr. Stacey Melendez Albumin/Globulin [Mass ratio] 1.0 {ratio} Normal [facility] Comment on above: Performed By: #### C VDTBH #### [facility] [address] [place] [address] Dr. Stacey Melendez ALP [Catalytic activity/Vol] 57 U/L Normal 46-116 [facility] Comment on above: Performed By: #### C VDTBH #### [facility] [address] [place] [address] Dr. Stacey Melendez ALT [Catalytic activity/Vol] 25 U/L Normal 14-59 [facility] Comment on above: Performed By: #### C VDTBH #### [facility] [address] [place] [address] Dr. Stacey Melendez Anion gap [Moles/Vol] 14.4 mmol/L Normal [facility] Comment on above: Performed By: #### C VDTBH #### [facility] [address] [place] [address] Dr. Stacey Melendez AST [Catalytic activity/Vol] 11 U/L Critically low 15-37 [facility] Comment on above: Performed By: #### C VDTBH #### [facility] [address] [place] [address] Dr. Stacey Melendez Bilirubin [Mass/Vol] 0.3 mg/dL Normal 0.2-1.0 [facility] Comment on above: Performed By: #### C VDTBH #### [facility] [address] [place] [address] Dr. Stacey Melendez Calcium [Mass/Vol] 9.1 mg/dL Normal 8.5-10.1 [facility] Comment on above: Performed By: #### C VDTBH #### [facility] [address] [address] [address] tSacey Melendez Chloride [Moles/Vol] 108 mmol/L Critically high 98-107 [facility] Comment on above: Performed By: #### C VDTBH #### [facility] [address] [place] [address] Dr. Stacey Melendez CO2 [Moles/Vol] 23.2 mmol/L Normal 21.0-32.0 [facility] Comment on above: Performed By: #### C VDTBH #### [facility] [address] [place] [address] Dr. Stacey Melendez Creatinine [Mass/Vol] 0.83 mg/dL Normal 0.55-1.02 [facility] Comment on above: Performed By: #### C VDTBH #### [facility] [address] [place] [address] Dr. Stacey Melendez EGFR-AF MONGOLIAN >60 Normal >=60 [facility] Comment on above: Performed By: #### C VDTBH #### [facility] [address] [place] [address] Dr. Stacey Melendez EGFR-NON AF MONGOLIAN >60 Normal >=60 [facility] Comment on above: Performed By: #### C VDTBH #### [facility] [address] [place] [address] Dr. Stacey Melendez Globulin (S) [Mass/Vol] 3.6 g/dL Normal [facility] Comment on above: Performed By: #### C VDTBH #### [facility] [address] [place] [address] Dr. Stacey Melendez Glucose [Mass/Vol] 112 mg/dL Critically high 74-106 T [facility] Comment on above: Performed By: #### C VDTBH #### [facility] [address] [place] [address] Dr. Stacey Melendez Potassium [Moles/Vol] 3.6 mmol/L Normal 3.5-5.1 [facility] Comment on above: Performed By: #### C VDTBH #### [facility] [address] [place] [address] Dr. Stacey Melendez Protein [Mass/Vol] 7.3 g/dL Normal 6.4-8.2 [facility] Comment on above: Performed By: #### C VDTBH #### [facility] [address] [place] [address] Dr. Stacey Melendez Sodium [Moles/Vol] 142 mmol/L Normal 136-145 [facility] Comment on above: Performed By: #### C VDTBH #### [facility] [address] [place] [address] Dr. Stacey Melendez Urea nitrogen [Mass/Vol] 22.0 mg/dL Critically high 7.0-18.0 [facility] Comment on above: Performed By: #### C VDTBH #### [facility] [address] [place] [address] Dr. Stacey Melendez Urea nitrogen/Creatinine [Mass ratio] 26.5 mg/mg Normal [facility] Comment on above: Performed By: #### C VDTBH #### [facility] [address] [place] [address] Dr. Stacey Melendez [facility] SED [facility]ATE 7 mm/hr Normal <=30 [facility] Comment on above: Performed By: #### C VDTBH #### [facility] [address] [place] [address] Dr. Stacey Melendez TSHon 01-07-2022 TSH 1.464 uIU/mL Normal 0.358-3.740 [facility] Comment on above: Performed By: #### C VDTBH #### [facility] [address] [address] [address] Stacey Melendez TSH RANGE SEE BELOW Normal [facility] Comment on above: Result Comment: <0.3 4 UIU/ml HYPERTHYROID 0.34-5.60 UIU/ml EUTHYROID >5.60 UIU/ml HYPOTHYROID Performed By: #### C VDTBH #### [facility] [address] [address] [address] Stacey Melendez XR CHEST 2 Von [...] by: ASHLIE GARCIA Date: 2022-01-07 14:24 Normal [facility] XR FEMUR RTon 12-20-2021 XR FEMUR RT [...] by: SYEDA ELKINS Date: 2021-12-20 19:11 Normal [facility] CREATININE BLOODon Creatinine [Mass/Vol] 0.76 mg/dL Normal 0.60-1.20 [facility] Comment on above: Order Comment: No: D o not add to previous draw Performed By: #### 2 5656 #### [facility] [address] [place] [address], [facility] GFR/1.73 sq M.predicted among blacks MDRD (S/P/Bld) [Vol rate/Area] mL/min/{1.73_m2} Normal >60 [facility] Comment on above: Order Comment: No: D o not add to previous draw Performed By: #### 2 5656 #### [facility] [address] [facility] [place] [place] [address], [facility] GFR/1.73 sq M.predicted among non-blacks MDRD (S/P/Bld) [Vol rate/Area] mL/min/{1.73_m2} Normal >60 [facility] Comment on above: Order Comment: No: D o not add to previous draw Performed By: #### 2 5656 #### [facility] [address] [facility]. [address] Cardiovascular Lab Reporton 06-19-2021 Cardiovascular Lab Report [facility] Patient Name: [facility] Diane Sosa MR #: [id number] Department of Physician: Flaco Leigh M.D. Division of Service Date: 06/18/2021 Cardiology Birthdate: 1965 Adult Cardiovascular Room #: [id number] [address] [address] Cardiovascular Laboratory Report CLINICAL PRESENTATION: The patient is a 55-year-old female with past medical history significant for hypertension, active smoking, family history of CAD, and COPD. She is admitted with chest pain. She initially presented to [facility] with chest pain and diaphoresis. Her high sensitivity troponin was positive at 55. She was transferred to [facility] for further evaluation. At [facility], she had a cardiac stress [...] the patient that her risk of future DC is high if she continues to smoke. [...] right radial artery. Using ultrasound guidance, a 6-Icelandic sheath was placed in the right radial artery. Radial antivasospasm cocktail of nitroglycerin 100 mcg and verapamil 1.25 mg was administered through the sheath. All catheter exchanges were made over the [employer] guidewire. A 5-Icelandic JL5 was used to engage the right coronary artery. A 5-Icelandic JL3.5 was used to engage left main [...] Montero M.D. Date Trans: 06/19/2021 06:33 A/amy [id number] cc: Nica Krishnamurthy N.P. Occupational Therapy [address] [id number] Normal [facility] UFH HEPARIN ASSAYon 06-19-20 UNFRACTIONATED HEPARIN <0.10 Critically low 0.30-0.70 [facility] Comment on above: Result Comment: RESU LTS CHECKED AND CALLED. ACCURATELY READ BACK BY EDER OLSON RN @ 4337 Rivaroxaban and Apixaban will interfere with the anti Xa assay used to monitor UFH and LMWH. Performed By: #### 3 5200, 66864, 98206, 41408, 35800 #### [facility] [address] [place] [address], [facility] BASIC METABOLIC PANELon 06-07 Calcium [Mass/Vol] 9.2 mg/dL Normal 8.6-10.3 [facility] Comment on above: Order Comment: No: D o not add to previous draw Performed By: #### 3 5200, 71320, 83558, 26997, 65752 #### [facility] [address] [place] [address], [place] Chloride [Moles/Vol] 103 mmol/L Normal 98-107 [facility] Comment on above: Order Comment: No: D o not add to previous draw Performed By: #### 3 5200, 87028, 36486, 50163, 37767 #### [facility] [address] [place] [address], [place] CO2 [Moles/Vol] 24 mmol/L Normal 21-31 [facility] Comment on above: Order Comment: No: D o not add to previous draw Performed By: #### 3 5200, 59709, 30004, 75470, 44778 #### [facility] [address] [place] [address], [place] Creatinine [Mass/Vol] 0.78 mg/dL Normal 0.60-1.20 [facility] Comment on above: Order Comment: No: D o not add to previous draw Performed By: #### 3 5200, 91874, 75722, 18160, 40629 #### [facility] [address] [place] [address], [place] GFR/1.73 sq M.predicted among blacks MDRD (S/P/Bld) [Vol rate/Area] mL/min/{1.73_m2} Normal >60 [facility] Comment on above: Order Comment: No: D o not add to previous draw Performed By: #### 3 5200, 67094, 76709, 93205, 18153 #### [facility] [address] [place] [address], [place] GFR/1.73 sq M.predicted among non-blacks MDRD (S/P/Bld) [Vol rate/Area] mL/min/{1.73_m2} Normal >60 [facility] Comment on above: Order Comment: No: D o not add to previous draw Performed By: #### 3 5200, 96126, 35864, 30995, 03035 #### [facility] [address] [place] [address], [place] Glucose [Mass/Vol] 105 mg/dL High 70-100 [facility] Comment on above: Order Comment: No: D o not add to previous draw Performed By: #### 3 5200, 22040, 81446, 14943, 98730 #### [facility] [address] [place] [address], [place] Potassium [Moles/Vol] 3.7 mmol/L Normal 3.5-5.1 [facility] Comment on above: Order Comment: No: D o not add to previous draw Performed By: #### 3 5200, 21196, 17698, 31611, 34039 #### [facility] [address] [place] [address], [place] Sodium [Moles/Vol] 136 mmol/L Normal 136-145 [facility] Comment on above: Order Comment: No: D o not add to previous draw Performed By: #### 3 5200, 41368, 44376, 33886, 90110 #### [facility] [address] [place] [address], [facility] Urea nitrogen [Mass/Vol] 23 mg/dL Normal 7-25 [facility] Comment on above: Order Comment: No: D o not add to previous draw Performed By: #### 3 5200, 30930, 74955, 86238, 67680 #### [facility] [address] [place] [address], [facility] CBC COMPLETE BLOOD COUNTon 08-18-2020 Erythrocyte distribution width (RBC) [Ratio] 12.9 % Normal 11.5-15.0 [facility] Comment on above: Order Comment: No: D o not add to previous draw Performed By: #### 3 5200, 25311, 77822, 28841, 36322 #### [facility] [address] [place], [place] [address] Hematocrit (Bld) [Volume fraction] 40.4 % Normal 36.0-45.0 [facility] Comment on above: Order Comment: No: D o not add to previous draw Performed By: #### 3 5200, 73271, 38125, 25541, 48365 #### [facility] [address] [place] [address], [facility] Hemoglobin (Bld) [Mass/Vol] 13.4 g/dL Normal 12.0-15.0 [facility] Comment on above: Order Comment: No: D o not add to previous draw Performed By: #### 3 5200, 17685, 05487, 75464, 75937 #### [facility] [address] [place] [address], [facility] MCH (RBC) [Entitic mass] 32.0 pg Normal 27.0-33.0 [facility] Comment on above: Order Comment: No: D o not add to previous draw Performed By: #### 3 5200, 84877, 41095, 04755, 70298 #### [facility] [address] [place] [address], [facility] MCHC (RBC) [Mass/Vol] 33.2 g/dL Normal 32.0-35.0 [facility] Comment on above: Order Comment: No: D o not add to previous draw Performed By: #### 3 5200, 95089, 05355, 10091, 37033 #### [facility] [address] [place] [id number], [facility] MCV (RBC) [Entitic vol] 96.4 fL Normal 82.0-98.0 [facility] Comment on above: Order Comment: No: D o not add to previous draw Performed By: #### 3 5200, 10979, 85908, 80376, 61570 #### [facility] [address] [place] [address], [facility] Nucleated RBC/100 WBC (Bld) [Ratio] 0 % Normal 0-0 [facility] Comment on above: Order Comment: No: D o not add to previous draw Performed By: #### 3 5200, 32821, 17819, 31733, 78884 #### [facility] [address] [facility] [place] [address], [facility] PLAT CNT 169 10*3/uL Normal 150-400 [facility] Comment on above: Order Comment: No: D o not add to previous draw Performed By: #### 3 5200, 18632, 19335, 49710, 48205 #### [facility] [address] [facility] [place] [address], [facility] RBC (Bld) [#/Vol] 4.19 10*6/uL Normal 3.80-5.00 [facility] Comment on above: Order Comment: No: D o not add to previous draw Performed By: #### 3 5200, 52666, 97497, 51107, 54113 #### [facility] [address] [place] [address], [place] WBC (Bld) [#/Vol] 5.67 10*3/uL Normal 4.00-10.60 [facility] Comment on above: Order Comment: No: D o not add to previous draw Performed By: #### 3 5200, 10174, 78687, 42856, 99192 #### [facility] [address] [place] [address], [facility] UFH HEPARIN ASSAYon 06-18-20 21 UNFRACTIONATED HEPARIN 0.48 IU/mL Normal 0.30-0.70 [facility] Comment on above: Result Comment: [place] roxaban and Apixaban will interfere with the anti Xa assay used to monitor UFH and LMWH. Performed By: #### 3 5200, 08444, 97094, 28883, 49824 #### [facility] [address] [place] [address], [facility] BASIC METABOLIC PANELon 06-07 Calcium [Mass/Vol] 9.2 mg/dL Normal 8.6-10.3 [facility] Comment on above: Order Comment: No: D o not add to previous draw Performed By: #### 0 0071 #### [facility] [address] [place] [address], [facility] Chloride [Moles/Vol] 106 mmol/L Normal 98-107 [facility] Comment on above: Order Comment: No: D o not add to previous draw Performed By: #### 0 0071 #### [facility] [address] [place] [address], [facility] CO2 [Moles/Vol] 24 mmol/L Normal 21-31 [facility] Comment on above: Order Comment: No: D o not add to previous draw Performed By: #### 0 0071 #### [facility] [address] [place] [address], [facility] Creatinine [Mass/Vol] 0.81 mg/dL Normal 0.60-1.20 The [facility] Comment on above: Order Comment: No: D o not add to previous draw Performed By: #### 0 0071 #### [facility] [address] [place] [address], [place] GFR/1.73 sq M.predicted among blacks MDRD (S/P/Bld) [Vol rate/Area] mL/min/{1.73_m2} Normal >60 [facility] Comment on above: Order Comment: No: D o not add to previous draw Performed By: #### 0 0071 #### [facility] [address] [place] [address], [place] GFR/1.73 sq M.predicted among non-blacks MDRD (S/P/Bld) [Vol rate/Area] mL/min/{1.73_m2} Normal >60 [facility] Comment on above: Order Comment: No: D o not add to previous draw Performed By: #### 0 0071 #### [facility] [address] [place] [address], [place] Glucose [Mass/Vol] 97 mg/dL Normal 70-100 [facility] Comment on above: Order Comment: No: D o not add to previous draw Performed By: #### 0 0071 #### [facility] [address] [place] [address], [place] Potassium [Moles/Vol] 3.7 mmol/L Normal 3.5-5.1 [facility] Comment on above: Order Comment: No: D o not add to previous draw Performed By: #### 0 0071 #### [facility] [address] [place] [address], [place] Sodium [Moles/Vol] 137 mmol/L Normal 136-145 [facility] Comment on above: Order Comment: No: D o not add to previous draw Performed By: #### 0 0071 #### [facility] [address] [place] [address], [place] Urea nitrogen [Mass/Vol] 14 mg/dL Normal 7-25 [facility] Comment on above: Order Comment: No: D o not add to previous draw Performed By: #### 0 0071 #### [facility] [address] [facility] [place] [address], [facility] CBC W/DIFFon 06-17-2021 ABS IMM GRANS 0.0 10*3/uL Normal 0.0-0.2 [facility] Comment on above: Order Comment: No: D o not add to previous draw Performed By: #### 3 5200, 17772, 40129, 88381, 93888 #### [facility] [address] [place] [address], [facility] ABS NEUTROPHILS 3.2 10*3/uL Normal 1.6-7.6 [facility] Comment on above: Order Comment: No: D o not add to previous draw Performed By: #### 3 5200, 54527, 69047, 71019, 34687 #### [facility] [address] [place] [address], [facility] Basophils (Bld) [#/Vol] 0.0 10*3/uL Normal 0.0-0.2 [facility] Comment on above: Order Comment: No: D o not add to previous draw Performed By: #### 3 5200, 26097, 10548, 75518, 97274 #### [facility] [address] [place] [address], [facility] Basophils/100 WBC (Bld) 0.4 % Normal 0.0-1.0 [facility] Comment on above: Order Comment: No: D o not add to previous draw Performed By: #### 3 5200, 50779, 99546, 15206, 29925 #### [facility] [address] [facility] [place] [address], [facility] Eosinophils (Bld) [#/Vol] 0.2 10*3/uL Normal 0.0-0.5 [facility] Comment on above: Order Comment: No: D o not add to previous draw Performed By: #### 3 5200, 07156, 72309, 53410, 20976 #### [facility] [address] [place] [address], [facility] Eosinophils/100 WBC (Bld) 3.5 % Normal 0.0-6.0 [facility] Comment on above: Order Comment: No: D o not add to previous draw Performed By: #### 3 5200, 35279, 94019, 11141, 96322 #### [facility] [address] [place] [address], [facility] Erythrocyte distribution width (RBC) [Ratio] 13.0 % Normal 11.5-15.0 [facility] Comment on above: Order Comment: No: D o not add to previous draw Performed By: #### 3 5200, 95570, 17707, 43210, 50953 #### [facility] [address] [place] [address], [facility] Hematocrit (Bld) [Volume fraction] 40.5 % Normal 36.0-45.0 [facility] Comment on above: Order Comment: No: D o not add to previous draw Performed By: #### 3 5200, 34937, 56184, 05769, 35345 #### [facility] [address] [place] [address], [facility] Hemoglobin (Bld) [Mass/Vol] 13.0 g/dL Normal 12.0-15.0 [facility] Comment on above: Order Comment: No: D o not add to previous draw Performed By: #### 3 5200, 09419, 27231, 33456, 50674 #### [facility] [address] [place] [address], [facility] IMMATURE GRANS 0.2 % Normal 0.0-1.0 [facility] Comment on above: Order Comment: No: D o not add to previous draw Performed By: #### 3 5200, 20454, 73339, 95490, 79983 #### [facility] [address] [place] [address], [facility] Lymphocytes (Bld) [#/Vol] 1.4 10*3/uL Normal 1.2-4.0 [facility] Comment on above: Order Comment: No: D o not add to previous draw Performed By: #### 3 5200, 64395, 30304, 80647, 96592 #### [facility] [address] [place] [address], [facility] Lymphocytes/100 WBC (Bld) 25.0 % Normal 20.0-45.0 [facility] Comment on above: Order Comment: No: D o not add to previous draw Performed By: #### 3 5200, 85296, 77531, 56811, 10179 #### [facility] [address] [facility] [place] [address], [facility] MCH (RBC) [Entitic mass] 31.5 pg Normal 27.0-33.0 [facility] Comment on above: Order Comment: No: D o not add to previous draw Performed By: #### 3 5200, 28237, 21616, 63229, 61400 #### [facility] [address] [facility] [place] [address], [facility] MCHC (RBC) [Mass/Vol] 32.1 g/dL Normal 32.0-35.0 [facility] Comment on above: Order Comment: No: D o not add to previous draw Performed By: #### 3 5200, 52567, 48526, 74334, 29694 #### [facility] [address] [place] [address], [facility] MCV (RBC) [Entitic vol] 98.1 fL High 82.0-98.0 [facility] Comment on above: Order Comment: No: D o not add to previous draw Performed By: #### 3 5200, 17034, 00594, 93585, 32365 #### [facility] [address] [place] [address], [facility] Monocytes (Bld) [#/Vol] 0.7 10*3/uL Normal 0.1-1.0 [facility] Comment on above: Order Comment: No: D o not add to previous draw Performed By: #### 3 5200, 27304, 93260, 48383, 01481 #### [facility] [address] [place] [address], [facility] MONOS 12.0 % Normal 5.0-12.0 [facility] Comment on above: Order Comment: No: D o not add to previous draw Performed By: #### 3 5200, 03687, 54812, 71053, 87246 #### [facility] [address] [place] [address], [facility] Neutrophils/100 WBC (Bld) 58.9 % Normal 40.0-72.0 [facility] Comment on above: Order Comment: No: D o not add to previous draw Performed By: #### 3 5200, 57248, 47094, 55793, 19088 #### [facility] [address] [place] [address], [facility] Nucleated RBC/100 WBC (Bld) [Ratio] 0 % Normal 0-0 [facility] Comment on above: Order Comment: No: D o not add to previous draw Performed By: #### 3 5200, 02734, 93361, 68869, 37722 #### [facility] [address] [place] [address], [facility] PLAT CNT 167 10*3/uL Normal 150-400 [facility] Comment on above: Order Comment: No: D o not add to previous draw Performed By: #### 3 5200, 95107, 81149, 98134, 20961 #### [facility] [address] [place] [address], [facility] RBC (Bld) [#/Vol] 4.13 10*6/uL Normal 3.80-5.00 [facility] Comment on above: Order Comment: No: D o not add to previous draw Performed By: #### 3 5200, 83274, 58314, 27979, 60185 #### [facility] [address] [place] [address], [facility] WBC (Bld) [#/Vol] 5.43 10*3/uL Normal 4.00-10.60 [facility] Comment on above: Order Comment: No: D o not add to previous draw Performed By: #### 3 5200, 00637, 42542, 84214, 43569 #### [facility] [address] [place] [address], [facility] TROPONIN-Ion 06-17-2021 Troponin I.cardiac [Mass/Vol] 0.00 ng/mL Normal 0.00-0.04 [facility] Comment on above: Order Comment: Unkno wn Result Comment: REFE RENCE RANGES: 0.00 - 0.04 ng/ml NORMAL 0.05 - 0.50 ng/ml INDETERMINATE > 0.50 ng/ml CONSISTENT WITH AN M.I. Performed By: #### 3 5200 #### [facility] [address] [place] [address], [facility] UFH HEPARIN ASSAYon 06-17-20 21 UNFRACTIONATED HEPARIN 0.45 IU/mL Normal 0.30-0.70 [facility] Comment on above: Result Comment: [place] roxaban and Apixaban will interfere with the anti Xa assay used to monitor UFH and LMWH. Performed By: #### 3 5200, 93284, 14931, 07401, 17801 #### [facility] [address] [place] [address], [facility] UNFRACTIONATED HEPARIN 0.33 IU/mL Normal 0.30-0.70 [facility] Comment on above: Result Comment: [place] roxaban and Apixaban will interfere with the anti Xa assay used to monitor UFH and LMWH. Performed By: #### 3 5200, 36345, 28200, 02603, 86141 #### [facility] [address] [place] [address], [facility] BASIC METABOLIC PANELon 11-1 0-2020 Calcium [Mass/Vol] 9.1 mg/dL Normal 8.6-10.3 [facility] Comment on above: Order Comment: No: D o not add to previous draw Performed By: #### 3 5200, 39226, 64504, 92979, 82247 #### [facility] [address] [place] [address], [place] Chloride [Moles/Vol] 106 mmol/L Normal 98-107 [facility] Comment on above: Order Comment: No: D o not add to previous draw Performed By: #### 3 5200, 19525, 85952, 09994, 27069 #### [facility] [address] [place] [address], [place] CO2 [Moles/Vol] 24 mmol/L Normal 21-31 [facility] Comment on above: Order Comment: No: D o not add to previous draw Performed By: #### 3 5200, 24794, 00728, 92710, 64645 #### [facility] [address] [place] [address], [place] Creatinine [Mass/Vol] 0.55 mg/dL Low 0.60-1.20 [facility] Comment on above: Order Comment: No: D o not add to previous draw Performed By: #### 3 5200, 49671, 25045, 32687, 31260 #### [facility] [address] [place] [address], [place] GFR/1.73 sq M.predicted among blacks MDRD (S/P/Bld) [Vol rate/Area] mL/min/{1.73_m2} Normal >60 [facility] Comment on above: Order Comment: No: D o not add to previous draw Performed By: #### 3 5200, 80610, 25303, 86818, 81964 #### [facility] [address] [place] [address], [place] GFR/1.73 sq M.predicted among non-blacks MDRD (S/P/Bld) [Vol rate/Area] mL/min/{1.73_m2} Normal >60 [facility] Comment on above: Order Comment: No: D o not add to previous draw Performed By: #### 3 5200, 40881, 70290, 40745, 09099 #### [facility] [address] [place] [address], [place] Glucose [Mass/Vol] 98 mg/dL Normal 70-100 [facility] Comment on above: Order Comment: No: D o not add to previous draw Performed By: #### 3 5200, 15544, 08837, 74736, 64348 #### [facility] [address] [place] [address], [place] Potassium [Moles/Vol] 3.9 mmol/L Normal 3.5-5.1 [facility] Comment on above: Order Comment: No: D o not add to previous draw Performed By: #### 3 5200, 31253, 12958, 76952, 96301 #### [facility] [address] [place] [address], [place] Sodium [Moles/Vol] 138 mmol/L Normal 136-145 [facility] Comment on above: Order Comment: No: D o not add to previous draw Performed By: #### 3 5200, 20674, 76693, 17929, 08942 #### [facility] [address] [place] [address], [place] Urea nitrogen [Mass/Vol] 17 mg/dL Normal 7-25 [facility] Comment on above: Order Comment: No: D o not add to previous draw Performed By: #### 3 5200, 66748, 57000, 13375, 85850 #### [facility] [address] [place] [address], [place] CBC COMPLETE BLOOD COUNTon 08-16-2020 Erythrocyte distribution width (RBC) [Ratio] 12.9 % Normal 11.5-15.0 [facility] Comment on above: Order Comment: No: D o not add to previous draw Performed By: #### 3 5200, 52721, 24411, 62771, 70306 #### [facility] [address] [place] [address], [facility] Hematocrit (Bld) [Volume fraction] 40.4 % Normal 36.0-45.0 [facility] Comment on above: Order Comment: No: D o not add to previous draw Performed By: #### 3 5200, 57891, 33397, 02554, 58209 #### [facility] [address] [place] [address], [facility] Hemoglobin (Bld) [Mass/Vol] 13.0 g/dL Normal 12.0-15.0 [facility] Comment on above: Order Comment: No: D o not add to previous draw Performed By: #### 3 5200, 41206, 79675, 54422, 95914 #### [facility] [address] [place] [address], [place] MCH (RBC) [Entitic mass] 31.6 pg Normal 27.0-33.0 [facility] Comment on above: Order Comment: No: D o not add to previous draw Performed By: #### 3 5200, 25130, 50217, 01226, 92167 #### [facility] [address] [place] [address], [place] MCHC (RBC) [Mass/Vol] 32.2 g/dL Normal 32.0-35.0 [facility] Comment on above: Order Comment: No: D o not add to previous draw Performed By: #### 3 5200, 80493, 55559, 58174, 93546 #### [facility] [address] [place] [address], [place] MCV (RBC) [Entitic vol] 98.1 fL High 82.0-98.0 [facility] Comment on above: Order Comment: No: D o not add to previous draw Performed By: #### 3 5200, 72020, 15887, 09020, 54431 #### [facility] [address] [place] [address], [facility] Nucleated RBC/100 WBC (Bld) [Ratio] 0 % Normal 0-0 [facility] Comment on above: Order Comment: No: D o not add to previous draw Performed By: #### 3 5200, 13210, 77665, 86244, 72764 #### [facility] [address] [place] [address], [facility] PLAT CNT 185 10*3/uL Normal 150-400 [facility] Comment on above: Order Comment: No: D o not add to previous draw Performed By: #### 3 5200, 35716, 80896, 69655, 44568 #### [facility] [address] [place] [address], [facility] RBC (Bld) [#/Vol] 4.12 10*6/uL Normal 3.80-5.00 [facility] Comment on above: Order Comment: No: D o not add to previous draw Performed By: #### 3 5200, 41670, 25680, 85008, 83736 #### [facility] [address] [place] [address], [facility] WBC (Bld) [#/Vol] 5.74 10*3/uL Normal 4.00-10.60 [facility] Comment on above: Order Comment: No: D o not add to previous draw Performed By: #### 3 5200, 80463, 59227, 37955, 23376 #### [facility] [address] [place] [address], [facility] LIPID PROFILEon 06-16-2021 Cholesterol [Mass/Vol] 139 mg/dL Normal 120-200 [facility] Comment on above: Order Comment: No: D o not add to previous draw Result Comment: CHOL ESTEROL REFERENCE RANGE: 20 YEARS AND OLDER CARDIOVASCULAR RISK Less than 200 mg/dl Low Risk 200 to 239 mg/dl Borderline Risk 240 mg/dl and greater High Risk Performed By: #### 3 5200, 38741, 16003, 69980, 83386 #### [facility] [address] [place] [address], [place] Cholesterol in HDL [Mass/Vol] 49 mg/dL Normal 23-92 [facility] Comment on above: Order Comment: No: D o not add to previous draw Result Comment: Slig ht variation in normal range could be due to gender and/or age. HDL CHOLESTEROL REFERENCE RANGE: 20 years and older Cardiovascular Risk > or =60 mg/dL Desirable 40 TO 59 mg/dL Low Risk <40 mg/dL High Risk Performed By: #### 3 5200, 32484, 37120, 89271, 45055 #### [facility] [address] [place] [address], [place] Cholesterol in LDL [Mass/Vol] 48 mg/dL Normal 0-130 [facility] Comment on above: Order Comment: No: D o not add to previous draw Result Comment: LDL IS A CALCULATION LDL IS ONLY VALID IF THE TRIG IS LESS THAN 400. Performed By: #### 3 5200, 46993, 91017, 06498, 95464 #### [facility] [address] [place] [address], [place] Cholesterol.total/Ch olesterol in HDL [Mass ratio] 2.8 {ratio} Normal .0-4.5 [facility] Comment on above: Order Comment: No: D o not add to previous draw Performed By: #### 3 5200, 99451, 53203, 81403, 95742 #### [facility] [address] [place] [address], [place] NON-HDL CHOLESTEROL 90 mg/dL Normal [facility] Comment on above: Order Comment: No: D o not add to previous draw Performed By: #### 3 5200, 07411, 67965, 53719, 38435 #### [facility] [address] [place], [place] [address] [place] [address] Triglyceride [Mass/Vol] 209 mg/dL High 40-149 [facility] Comment on above: Order Comment: No: D o not add to previous draw Result Comment: TRIG LYCERIDE REFERENCE RANGE: 20 YEARS AND OLDER CARDIOVASCULAR RISK LESS THAN 150 mg/dl LOW RISK 150 TO 199 mg/dl BORDERLINE RISK 200 mg/dl AND GREATER HIGH RISK Performed By: #### 3 5200, 45846, 89317, 43264, 70163 #### [facility] [address] [place], [place] [address] [place] [address] VLDL CHOL 42 mg/dL High 0-40 [facility] Comment on above: Order Comment: No: D o not add to previous draw Performed By: #### 3 5200, 17317, 80574, 69818, 83191 #### [facility] [address] [place], [place] [address] [place] [address] MAGNESIUM BLOODon 06-16-2021 Magnesium [Mass/Vol] 1.8 mg/dL Low 1.9-2.7 [facility] Comment on above: Order Comment: No: D o not add to previous draw Performed By: #### 3 5200, 99497, 99262, 27733, 10671 #### [facility] [address] [place] [address], [facility] PHOSPHORUS BLOODon Phosphate [Mass/Vol] 4.0 mg/dL Normal 2.5-5.0 [facility] Comment on above: Order Comment: No: D o not add to previous draw Performed By: #### 3 5200, 00641, 11580, 23112, 90296 #### [facility] [address] [place] [address], [facility] PORTABLE CHEST 1 VIEWon 06-07 PORTABLE CHEST 1 VIEW [facility] Department of Radiology [address] [place] [id number] Patient Name: DIANE NGUYEN : 1965 Sex: F Age: Race: White Pt. Location: [address] [place] [address] Patient Status: I Ordered Date: 06/15/2021 9:50:00 [...] report. Electronically signed: Alexis Kurtz. Transcribed by: [email or web address], User Resident: OMAIRA MANE Electronically Signed by: ALEXIS KURTZ @ 06/16/2021 12:44 AM I personally read this/these film(s) with this resident Normal [facility] Comment on above: Order Comment: No: D o not add to previous draw PROTHROMBIN TIMEon INR Coag (PPP) [Relative time] 0.91 {INR} Normal 0.91-1.16 [facility] Comment on above: Result Comment: ACCC [...] CHEST 1995;[id number]. Performed By: #### 3 5200, 35054, 68543, 43087, 85560 #### [facility] [address] [place] [address], [facility] PT Coag (PPP) [Time] 12.3 s Normal 12.3-14.8 [facility] Comment on above: Result Comment: ALL RESULTS MUST BE INTERPRETED WITH RESPECT TO BLOOD DRAWING ARTIFACT OR DILUTION ERROR OF ANTICOAGULANT AT THE TIME OF SAMPLING. Performed By: #### 3 5200, 92798, 78482, 16121, 35937 #### [facility] [address] [place] [address], [facility] TROPONIN-Ion 06-16-2021 Troponin I.cardiac [Mass/Vol] 0.00 ng/mL Normal 0.00-0.04 [facility] Comment on above: Order Comment: No: D o not add to previous draw Result Comment: REFE RENCE RANGES: 0.00 - 0.04 ng/ml NORMAL 0.05 - 0.50 ng/ml INDETERMINATE > 0.50 ng/ml CONSISTENT WITH AN M.I. Performed By: #### 3 5200, 32993, 09032, 56160, 41060 #### [facility] [address] [place] [address], [facility] Troponin I.cardiac [Mass/Vol] 0.00 ng/mL Normal 0.00-0.04 [facility] Comment on above: Order Comment: No: D o not add to previous draw Result Comment: REFE RENCE RANGES: 0.00 - 0.04 ng/ml NORMAL 0.05 - 0.50 ng/ml INDETERMINATE > 0.50 ng/ml CONSISTENT WITH AN M.I. Performed By: #### 3 5200, 92188, 14983, 26452, 89812 #### [facility] [address] [place] [address], [facility] Troponin I.cardiac [Mass/Vol] 0.00 ng/mL Normal 0.00-0.04 [facility] Comment on above: Result Comment: REFE RENCE RANGES: 0.00 - 0.04 ng/ml NORMAL 0.05 - 0.50 ng/ml INDETERMINATE > 0.50 ng/ml CONSISTENT WITH AN M.I. Performed By: #### 3 5200, 58449, 41664, 37383, 63307 #### [facility] [address] UFH HEPARIN ASSAYon 06-16-20 UNFRACTIONATED HEPARIN 0.15 IU/mL Critically low 0.30-0.70 [facility] Comment on above: Order Comment: Off t he floor for testing Patient still off the floor Result Comment: Resu lt checked and called. Accurately read back by Olga Robertson RN at 0429 Rivaroxaban and Apixaban will interfere with the anti Xa assay used to monitor UFH and LMWH. Performed By: #### 3 0477 #### [facility] [address] [facility] [place] [address], [facility] UNFRACTIONATED HEPARIN 0.11 IU/mL Critically low 0.30-0.70 [facility] Comment on above: Result Comment: Resu lt checked and called. Accurately read back by Juan Nunez RN at 0645 Rivaroxaban and Apixaban will interfere with the anti Xa assay used to monitor UFH and LMWH. Performed By: #### 3 5200, 70506, 08093, 27286, 09384 #### [facility] [address] [place] [address], [facility] APTTon 06-15-2021 aPTT Coag (Bld) [Time] 38.7 s High 25.0-35.0 [facility] Comment on above: Order Comment: No: [...] THIS PURPOSE. Performed By: #### 3 5200, 84456, 23706, 74940, 33701 #### [facility] [address] [place] [address], [facility] BASIC METABOLIC PANELon 11-0 Calcium [Mass/Vol] 9.0 mg/dL Normal 8.6-10.3 [facility] Comment on above: Order Comment: No: D o not add to previous draw Performed By: #### 3 5200, 40758, 91289, 18548, 32251 #### [facility] [address] [place] [address], [facility] Chloride [Moles/Vol] 107 mmol/L Normal 98-107 [facility] Comment on above: Order Comment: No: D o not add to previous draw Performed By: #### 3 5200, 92282, 29739, 78715, 82123 #### [facility] [address] [place] [address], [place] CO2 [Moles/Vol] 23 mmol/L Normal 21-31 [facility] Comment on above: Order Comment: No: D o not add to previous draw Performed By: #### 3 5200, 32801, 12965, 51793, 27591 #### [facility] [address] [place] [address], [place] Creatinine [Mass/Vol] 0.71 mg/dL Normal 0.60-1.20 [facility] Comment on above: Order Comment: No: D o not add to previous draw Performed By: #### 3 5200, 25813, 36503, 39147, 58194 #### [facility] [address] [place] [address], [place] GFR/1.73 sq M.predicted among blacks MDRD (S/P/Bld) [Vol rate/Area] mL/min/{1.73_m2} Normal >60 [facility] Comment on above: Order Comment: No: D o not add to previous draw Performed By: #### 3 5200, 10749, 62854, 14732, 20237 #### [facility] [address] [place] [address], [place] GFR/1.73 sq M.predicted among non-blacks MDRD (S/P/Bld) [Vol rate/Area] mL/min/{1.73_m2} Normal >60 [facility] Comment on above: Order Comment: No: D o not add to previous draw Performed By: #### 3 5200, 37237, 53966, 60899, 33377 #### [facility] [address] [place] [address], [place] Glucose [Mass/Vol] 108 mg/dL High 70-100 [facility] Comment on above: Order Comment: No: D o not add to previous draw Performed By: #### 3 5200, 14013, 03427, 79986, 55558 #### [facility] [address] [place] [address], [place] Potassium [Moles/Vol] 3.8 mmol/L Normal 3.5-5.1 [facility] Comment on above: Order Comment: No: D o not add to previous draw Performed By: #### 3 5200, 40473, 28897, 28278, 23926 #### [facility] [address] Sodium [Moles/Vol] 138 mmol/L Normal 136-145 [facility] Comment on above: Order Comment: No: D o not add to previous draw Performed By: #### 3 5200, 07589, 65754, 30553, 15873 #### [facility] [address] Urea nitrogen [Mass/Vol] 18 mg/dL Normal 7-25 [facility] Comment on above: Order Comment: No: D o not add to previous draw Performed By: #### 3 5200, 26349, 82512, 14662, 29585 #### [facility] [address] BNP (B-TYPE NATRIURETIC PEPT JAMISON)on 06-15-2021 Natriuretic peptide B (Bld) [Mass/Vol] 36 pg/mL Normal 0-100 [facility] Comment on above: Order Comment: No: D o not add to previous draw Result Comment: Give n the appropriate clinical setting a BNP result of >100 pg/mL indicates congestive heart failure. Performed By: #### 8 [id number] #### [facility] [address] [facility]. [address] CBC AUTO DIFFon 06-15-2021 BASO # 0.0 103/ul Normal 0.0-0.1 [facility] Comment on above: Performed By: #### C VDTBH #### [facility] [address] [address] [address] Stacey Melendez Basophils/100 WBC (Bld) 0.4 % Normal 0.2-2.0 [facility] Comment on above: Performed By: #### C VDTBH #### [facility] [address] [address] [address] Stacey Melendez EO # 0.3 103/ul Normal 0.0-0.7 [facility] Comment on above: Performed By: #### C VDTBH #### [facility] [address] [place] [address] Dr. Stacey Melendez Eosinophils/100 WBC (Bld) 4.5 % Normal 0.9-7.0 [facility] Comment on above: Performed By: #### C VDTBH #### [facility] [address] [place] [address] Dr. Stacey Melendez Erythrocyte distribution width (RBC) [Ratio] 12.8 % Normal 11.0-15.0 [facility] Comment on above: Performed By: #### C VDTBH #### [facility] [address] [place] [address] Dr. Stacey Melendez Hematocrit (Bld) [Volume fraction] 39.1 % Normal 36.0-48.0 [facility] Comment on above: Performed By: #### C VDTBH #### [facility] [address] [place] [address] Dr. Stacey Melendez Hemoglobin (Bld) [Mass/Vol] 12.4 g/dL Normal 12.0-16.0 [facility] Comment on above: Performed By: #### C VDTBH #### [facility] [address] [place] [address] Dr. Stacey Melendez IG # 0.02 10e3/ul Normal 0.00-0.03 [facility] Comment on above: Performed By: #### C VDTBH #### [facility] [address] [place] [address] Dr. Stacey Melendez IG % 0.3 % Normal 0.0-0.5 [facility] Comment on above: Performed By: #### C VDTBH #### [facility] [address] [place] [address] Dr. Stacey Melendez LYMPH # 2.0 103/ul Normal 1.2-3.8 [facility] Comment on above: Performed By: #### C VDTBH #### [facility] [address] [place] [address] Dr. Stacey Melendez Lymphocytes/100 WBC (Bld) 27.2 % Normal 20.5-60.0 [facility] Comment on above: Performed By: #### C VDTBH #### [facility] [address] [place] [address] Dr. Stacey Melendez MANUAL DIFF REQ NO Normal [facility] Comment on above: Performed By: #### C VDTBH #### [facility] [address] [place] [address] Dr. Stacey Melendez MCH (RBC) [Entitic mass] 31.1 pg Normal 26.7-34.0 [facility] Comment on above: Performed By: #### C VDTBH #### [facility] [address] [place] [address] Dr. Stacey Melendez MCHC (RBC) [Mass/Vol] 31.7 g/dL Normal 29.9-35.2 [facility] Comment on above: Performed By: #### C VDTBH #### [facility] [address] [place] [address] Dr. Stacey Melendez MCV (RBC) [Entitic vol] 98.0 fL Normal 81.0-99.0 [facility] Comment on above: Performed By: #### C VDTBH #### [facility] [address] [place] [address] Dr. Stacey Melendez MONO # 0.7 103/ul Normal 0.3-0.8 [facility] Comment on above: Performed By: #### C VDTBH #### [facility] [address] [place] [address] Dr. Stacey Melendez Monocytes/100 WBC (Bld) 9.0 % Normal 1.7-12.0 [facility] Comment on above: Performed By: #### C VDTBH #### [facility] [address] [place] [address] Dr. Stacey Melendez NEUT # 4.3 103/ul Normal 1.4-6.5 [facility] Comment on above: Performed By: #### C VDTBH #### [facility] [address] [address] [address] Stacey Melendez Neutrophils/100 WBC (Bld) 58.6 % Normal 43.0-75.0 [facility] Comment on above: Performed By: #### C VDTBH #### [facility] [address] [address] [address] Stacey Melendez Platelet mean volume (Bld) [Entitic vol] 12.2 fL Normal 9.5-13.5 [facility] Comment on above: Performed By: #### C VDTBH #### [facility] [address] [address] [address] Stacey Melendez PLT 171 103/ul Normal 150-450 [facility] Comment on above: Performed By: #### C VDTBH #### [facility] [address] [address] [address] Stacey Melendez RBC 3.99 106/ul Critically low 4.20-5.40 [facility] Comment on above: Performed By: #### C VDTBH #### [facility] [address] [address] [address] Stacey Melendez WBC 7.4 103/ul Normal 4.0-11.0 [facility] Comment on above: Performed By: #### C VDTBH #### [facility] [address] [address] [address] Stacey Melendez CBC W/DIFFon 06-15-2021 ABS IMM GRANS 0.0 10*3/uL Normal 0.0-0.2 [facility] Comment on above: Performed By: #### 3 5200, 53783, 50528, 59501, 81061 #### [facility] [address] [place] [address], [place] ABS NEUTROPHILS 3.5 10*3/uL Normal 1.6-7.6 [facility] Comment on above: Performed By: #### 3 5200, 40130, 45842, 85649, 99406 #### [facility] [address] [place] [address], [place] Basophils (Bld) [#/Vol] 0.0 10*3/uL Normal 0.0-0.2 [facility] Comment on above: Performed By: #### 3 5200, 80702, 27179, 38466, 05865 #### [facility] [address] [place] [address], [place] Basophils/100 WBC (Bld) 0.5 % Normal 0.0-1.0 [facility] Comment on above: Performed By: #### 3 5200, 19510, 43827, 14900, 03389 #### [facility] [address] [place] [address], [facility] Eosinophils (Bld) [#/Vol] 0.3 10*3/uL Normal 0.0-0.5 [facility] Comment on above: Performed By: #### 3 5200, 91257, 48535, 13631, 75885 #### [facility] [address] [place] [address], [place] Eosinophils/100 WBC (Bld) 4.5 % Normal 0.0-6.0 [facility] Comment on above: Performed By: #### 3 5200, 26913, 64494, 85922, 50986 #### [facility] [address] [place] [id number], [facility] Erythrocyte distribution width (RBC) [Ratio] 12.9 % Normal 11.5-15.0 [facility] Comment on above: Performed By: #### 3 5200, 48140, 64873, 77123, 99292 #### [facility] [address] [place] [address], [place] Hematocrit (Bld) [Volume fraction] 38.2 % Normal 36.0-45.0 [facility] Comment on above: Performed By: #### 3 5200, 64338, 20114, 46326, 03059 #### [facility] [address] Hemoglobin (Bld) [Mass/Vol] 12.7 g/dL Normal 12.0-15.0 [facility] Comment on above: Performed By: #### 3 5200, 64530, 25026, 50114, 42751 #### [facility] [address] [place] [id number], [facility] IMMATURE GRANS 0.2 % Normal 0.0-1.0 [facility] Comment on above: Performed By: #### 3 5200, 95074, 34579, 54284, 49586 #### [facility] [address] [facility] [place] [address], [facility] Lymphocytes (Bld) [#/Vol] 1.7 10*3/uL Normal 1.2-4.0 [facility] Comment on above: Performed By: #### 3 5200, 53959, 19720, 16788, 52003 #### [facility] [address] [place] [address], [facility] Lymphocytes/100 WBC (Bld) 27.8 % Normal 20.0-45.0 [facility] Comment on above: Performed By: #### 3 5200, 88602, 81393, 37736, 94174 #### [facility] [address] [place] [address], [facility] MCH (RBC) [Entitic mass] 31.7 pg Normal 27.0-33.0 [facility] Comment on above: Performed By: #### 3 5200, 95741, 23285, 35172, 20151 #### [facility] [address] [place] [id number], [facility] MCHC (RBC) [Mass/Vol] 33.2 g/dL Normal 32.0-35.0 [facility] Comment on above: Performed By: #### 3 5200, 48548, 56824, 28044, 86813 #### [facility] [address] [place] [address], [facility] MCV (RBC) [Entitic vol] 95.3 fL Normal 82.0-98.0 [facility] Comment on above: Performed By: #### 3 5200, 12742, 58303, 77155, 85855 #### [facility] [address] [facility] [place] [address], [facility] Monocytes (Bld) [#/Vol] 0.7 10*3/uL Normal 0.1-1.0 [facility] Comment on above: Performed By: #### 3 5200, 17516, 35440, 31554, 68656 #### [facility] [address] [place] [address], [facility] MONOS 10.9 % Normal 5.0-12.0 [facility] Comment on above: Performed By: #### 3 5200, 95037, 81016, 65882, 50328 #### [facility] [address] [facility] [address] Neutrophils/100 WBC (Bld) 56.1 % Normal 40.0-72.0 [facility] Comment on above: Performed By: #### 3 5200, 40140, 26856, 95078, 51986 #### [facility] [address] [place] [address], [facility] Nucleated RBC/100 WBC (Bld) [Ratio] 0 % Normal 0-0 [facility] Comment on above: Performed By: #### 3 5200, 78995, 63162, 53140, 97389 #### [facility] [address] [facility] [place] [address], [facility] PLAT CNT 172 10*3/uL Normal 150-400 [facility] Comment on above: Performed By: #### 3 5200, 90580, 44782, 83770, 98528 #### [facility] [address] [facility] [place] [address], [facility] RBC (Bld) [#/Vol] 4.01 10*6/uL Normal 3.80-5.00 [facility] Comment on above: Performed By: #### 3 5200, 60760, 83462, 54482, 43183 #### [facility] [address] [place] [address], [facility] WBC (Bld) [#/Vol] 6.25 10*3/uL Normal 4.00-10.60 [facility] Comment on above: Performed By: #### 3 5200, 56354, 02988, 79325, 76122 #### [facility] [address] [place] [address], [facility] MAGNESIUM BLOODon 06-15-2021 Magnesium [Mass/Vol] 1.7 mg/dL Low 1.9-2.7 [facility] Comment on above: Order Comment: No: D o not add to previous draw Performed By: #### 3 5200, 95527, 70190, 32846, 43821 #### [facility] [address] [place] [address], [facility] PHOSPHORUS BLOODon Phosphate [Mass/Vol] 4.0 mg/dL Normal 2.5-5.0 [facility] Comment on above: Order Comment: No: D o not add to previous draw Performed By: #### 3 5200, 50806, 87977, 37131, 34869 #### [facility] [address] [place] [address], [facility] PROF CHEM 8 (BAS METB)on Anion gap [Moles/Vol] 13.7 mmol/L Normal [facility] Comment on above: Performed By: #### C VDTBH #### [facility] [address] [place], [place] [address] Dr. Stcaey Melendez Calcium [Mass/Vol] 8.9 mg/dL Normal 8.4-10.2 [facility] Comment on above: Performed By: #### C VDTBH #### [facility] [address] [address] [address] Stacey Melendez Chloride [Moles/Vol] 107 mmol/L Normal 98-107 [facility] Comment on above: Performed By: #### C VDTBH #### [facility] [address] [place] [address] Dr. Stacey Melendez CO2 [Moles/Vol] 25.1 mmol/L Normal 22.0-30.0 [facility] Comment on above: Performed By: #### C VDTBH #### [facility] [address] [place] [address] Dr. Stacey Melendez Creatinine [Mass/Vol] 0.74 mg/dL Normal 0.52-1.04 [facility] Comment on above: Performed By: #### C VDTBH #### [facility] [address] [place] [address] Dr. Stacey Melendez EGFR-AF MONGOLIAN >60 Normal >=60 [facility] Comment on above: Performed By: #### C VDTBH #### [facility] [address] [place] [address] Dr. Stacey Melendez EGFR-NON AF MONGOLIAN >60 Normal >=60 [facility] Comment on above: Performed By: #### C VDTBH #### [facility] [address] [place] [address] Dr. Stacey Melendez Glucose [Mass/Vol] 113 mg/dL Critically high 74-106 [facility] Comment on above: Performed By: #### C VDTBH #### [facility] [address] [place] [address] Dr. Stacey Melendez Potassium [Moles/Vol] 3.8 mmol/L Normal 3.4-5.0 [facility] Comment on above: Performed By: #### C VDTBH #### [facility] [address] [place] [address] Dr. Stacey Melendez Sodium [Moles/Vol] 142 mmol/L Normal 137-145 [facility] Comment on above: Performed By: #### C VDTBH #### [facility] [address] [place] [address] Dr. Stacey Melendez Urea nitrogen [Mass/Vol] 15.0 mg/dL Normal 7.0-17.0 [facility] Comment on above: Performed By: #### C VDTBH #### [facility] [address] [place], [place] [address] Dr. Stacey Melendez Urea nitrogen/Creatinine [Mass ratio] 20.3 mg/mg Normal [facility] Comment on above: Performed By: #### C VDTBH #### [facility] [address] [place], [place] [address] Dr. Stacey Melendez PROTHROMBIN TIMEon 1 INR Coag (PPP) [Relative time] 0.91 {INR} Normal 0.91-1.16 [facility] Comment on above: Order Comment: No: [...] RANGE. CHEST 1995;[id number]. Performed By: #### 3 1270, 24725, 79133, 83477, 59333 #### [facility] [address] [facility]. [address] PT Coag (PPP) [Time] 12.3 s Normal 12.3-14.8 [facility] Comment on above: Order Comment: No: D o not add to previous draw Result Comment: ALL RESULTS MUST BE INTERPRETED WITH RESPECT TO BLOOD DRAWING ARTIFACT OR DILUTION ERROR OF ANTICOAGULANT AT THE TIME OF SAMPLING. Performed By: #### 3 5200, 78654, 47722, 43372, 79898 #### [facility] [address] [facility] [place] [address], [facility] PTT HEPARIN MONITORon 2020 aPTT Coag (Bld) [Time] 46.7 s Normal 39.5-54.2 [facility] Comment on above: Performed By: #### C BC #### [facility] [address] [address] [address] Stacey Melendez aPTT Coag (Bld) [Time] 45.3 s Normal 39.5-54.2 [facility] Comment on above: Performed By: #### C VDTBH #### [facility] [address] [address] [address] Stacey Melendez aPTT Coag (Bld) [Time] 47.5 s Normal 39.5-54.2 [facility] Comment on above: Performed By: #### C BC #### [facility] [address] [address] [address] Stacey Melendez TROPONIN-Ion 06-15-2021 Troponin I.cardiac [Mass/Vol] 0.01 ng/mL Normal 0.00-0.04 [facility] Comment on above: Order Comment: No: D o not add to previous draw Result Comment: REFE RENCE RANGES: 0.00 - 0.04 ng/ml NORMAL 0.05 - 0.50 ng/ml INDETERMINATE > 0.50 ng/ml CONSISTENT WITH AN M.I. Performed By: #### 3 5200, 52940, 41244, 42565, 04498 #### [facility] [address] [facility] [place] [address], [facility] UFH HEPARIN ASSAYon 06-15-20 21 UNFRACTIONATED HEPARIN 0.15 IU/mL Critically low 0.30-0.70 [facility] Comment on above: Result Comment: Resu lt checked and called. Accurately read back by Eli Crawford RN @[id number] 06/15/21 Rivaroxaban and Apixaban will interfere with the anti Xa assay used to monitor UFH and LMWH. Performed By: #### 3 5200, 43354, 10613, 09328, 97969 #### [facility] [address] [place] [address], [facility] CARDIAC DAYANARA 3-6on 1 CK [Catalytic activity/Vol] 102 U/L Normal 30-135 [facility] Comment on above: Performed By: #### P TT, PT #### [facility] [address] [address] [address] Stacey Melendez CK.MB [Mass/Vol] 1.46 ng/mL Normal <=2.37 [facility] Comment on above: Performed By: #### P TT, PT #### [facility] [address] [address] [address] Stacey Melendez HSTROP 50.7 pg/mL Critically high 4.0-35.5 [facility] Comment on above: Result Comment: CUT- OFF POINTS HAVE BEEN ESTABLISHED BASED ON THE FOURTH UNIVERSAL DEFINITIONS OF MYOCARDIAL INFARCTION. THE UPPER REFERENCE LIMIT (URL) OF TROPONIN, DEFINED THE 99TH PERCENTILE OF cTnI DISTRIBUTION IN A REFERENCE POPULATION, HAS BEEN CONFIRMED THE DECISION THRESHOLD FOR DC DIAGNOSIS. Performed By: #### P TT, PT #### [facility] [address] [address] [address] Stacey Melendez CK [Catalytic activity/Vol] 114 U/L Normal 30-135 [facility] Comment on above: Performed By: #### C MREP #### [facility] [address] [address] [address] Stacey Melendez CK.MB [Mass/Vol] 1.60 ng/mL Normal <=2.37 [facility] Comment on above: Performed By: #### C MREP #### [facility] [address] [address] [address] Stacey Melendez HSTROP 50.9 pg/mL Critically high 4.0-35.5 [facility] Comment on above: Result Comment: CUT- OFF POINTS HAVE BEEN ESTABLISHED BASED ON THE FOURTH UNIVERSAL DEFINITIONS OF MYOCARDIAL INFARCTION. THE UPPER REFERENCE LIMIT (URL) OF TROPONIN, DEFINED THE 99TH PERCENTILE OF cTnI DISTRIBUTION IN A REFERENCE POPULATION, HAS BEEN CONFIRMED THE DECISION THRESHOLD FOR DC DIAGNOSIS. Performed By: #### C MREP #### [facility] [address] [place] [address] Dr. Stacey Melendez CBC AUTO DIFFon 06-14-2021 BASO # 0.0 103/ul Normal 0.0-0.1 [facility] Comment on above: Performed By: #### C VDTBH #### [facility] [address] [place] [address] Dr. Stacey Melendez Basophils/100 WBC (Bld) 0.4 % Normal 0.2-2.0 [facility] Comment on above: Performed By: #### C VDTBH #### [facility] [address] [place] [address] Dr. Stacey Melendez EO # 0.4 103/ul Normal 0.0-0.7 [facility] Comment on above: Performed By: #### C VDTBH #### [facility] [address] [place] [address] Dr. Stacey Melendez Eosinophils/100 WBC (Bld) 5.7 % Normal 0.9-7.0 [facility] Comment on above: Performed By: #### C VDTBH #### [facility] [address] [place] [address] Dr. Stacey Melendez Erythrocyte distribution width (RBC) [Ratio] 12.9 % Normal 11.0-15.0 [facility] Comment on above: Performed By: #### C VDTBH #### [facility] [address] [place] [address] Dr. Stacey Melendez Hematocrit (Bld) [Volume fraction] 36.4 % Normal 36.0-48.0 [facility] Comment on above: Performed By: #### C VDTBH #### [facility] [address] [place] [address] Dr. Stacey Melendez Hemoglobin (Bld) [Mass/Vol] 11.8 g/dL Critically low 12.0-16.0 [facility] Comment on above: Performed By: #### C VDTBH #### [facility] [address] [place] [address] Dr. Stacey Melendez IG # 0.02 10e3/ul Normal 0.00-0.03 [facility] Comment on above: Performed By: #### C VDTBH #### [facility] [address] [place] [address] Dr. Stacey Melendez IG % 0.3 % Normal 0.0-0.5 [facility] Comment on above: Performed By: #### C VDTBH #### [facility] [address] [place] [address] Dr. Stacey Melendez LYMPH # 3.0 103/ul Normal 1.2-3.8 [facility] Comment on above: Performed By: #### C VDTBH #### [facility] [address] [place] [address] Dr. Stacey Melendez Lymphocytes/100 WBC (Bld) 38.5 % Normal 20.5-60.0 [facility] Comment on above: Performed By: #### C VDTBH #### [facility] [address] [place] [address] Dr. Stacey Melendez MANUAL DIFF REQ NO Normal [facility] Comment on above: Performed By: #### C VDTBH #### [facility] [address] [place] [address] Dr. Stacey Melendez MCH (RBC) [Entitic mass] 31.6 pg Normal 26.7-34.0 [facility] Comment on above: Performed By: #### C VDTBH #### [facility] [address] [place] [address] Dr. Stacey Melendez MCHC (RBC) [Mass/Vol] 32.4 g/dL Normal 29.9-35.2 [facility] Comment on above: Performed By: #### C VDTBH #### [facility] [address] [place] [address] Dr. Stacey Melendez MCV (RBC) [Entitic vol] 97.3 fL Normal 81.0-99.0 [facility] Comment on above: Performed By: #### C VDTBH #### [facility] [address] [place] [address] Dr. Stacey Melendez MONO # 0.6 103/ul Normal 0.3-0.8 [facility] Comment on above: Performed By: #### C VDTBH #### [facility] [address] [place] [address] Dr. Stacey Melendez Monocytes/100 WBC (Bld) 7.6 % Normal 1.7-12.0 [facility] Comment on above: Performed By: #### C VDTBH #### [facility] [address] [place] [address] Dr. Stacey Melendez NEUT # 3.7 103/ul Normal 1.4-6.5 [facility] Comment on above: Performed By: #### C VDTBH #### [facility] [address] [place] [address] Dr. Stacey Melendez Neutrophils/100 WBC (Bld) 47.5 % Normal 43.0-75.0 [facility] Comment on above: Performed By: #### C VDTBH #### [facility] [address] [place] [address] Dr. Stacey Melendez Platelet mean volume (Bld) [Entitic vol] 11.8 fL Normal 9.5-13.5 [facility] Comment on above: Performed By: #### C VDTBH #### [facility] [address] [place] [address] Dr. Stacey Melendez PLT 181 103/ul Normal 150-450 [facility] Comment on above: Performed By: #### C VDTBH #### [facility] [address] [place] [address] Dr. Stacey Melendez RBC 3.74 106/ul Critically low 4.20-5.40 [facility] Comment on above: Performed By: #### C VDTBH #### [facility] [address] [place] [address] Dr. Stacey Melendez WBC 7.7 103/ul Normal 4.0-11.0 [facility] Comment on above: Performed By: #### C VDTBH #### [facility] [address] [place] [address] Dr. Stacey Melendez Covid-19 PCR ([facility])on SARS-CoV-2 (COVID-19) RNA VISH+probe Ql (Unsp spec) Not detected Normal NOT DETECTED [facility] Comment on above: Result Comment: When diagnostic testing is negative, the possibility of a false negative should be considered in the context of a patient's recent exposures and the presence of clinical signs and symptoms consistent with SARS-CoV-2. Performed By: #### C VDTB #### [facility] [address] [place] [address] Dr. Stacey Melendez GLYCOHEMOGLOBIN A1Con 2020 ADA RECOMMENDATION ADA THERAPEUTIC TARGET 6.0 - 7.0 ACTION SUGGESTED > 7.0 Normal [facility] Comment on above: Performed By: #### C BC #### [facility] [address] [place] [address] Dr. Stacey Melendez Glucose [Mass/Vol] 120 mg/dL Normal [facility] Comment on above: Performed By: #### C BC #### [facility] [address] [place] [address] Dr. Stacey Melendez HbA1c (Bld) [Mass fraction] 5.8 % Normal <=6.0 [facility] Comment on above: Performed By: #### C BC #### [facility] [address] [place] [address] Dr. Stacey Melendez LIPID PROFILEon 06-14-2021 CHOL-HDL RATIO NORM SEE BELOW Normal [facility] Comment on above: Result Comment: 3.3 - 4.4 LOW RISK 4.4 - 7.1 AVERAGE RISK 7.1 - 11.0 MODERATE RISK >11.0 HIGH RISK Performed By: #### P TT, PT #### [facility] [address] [place] [address] Dr. Stacey Melendez Cholesterol [Mass/Vol] 113 mg/dL Normal <=200 [facility] Comment on above: Performed By: #### P TT, PT #### [facility] [address] [address] [address] Stacey Melendez Cholesterol in HDL [Mass/Vol] 50 mg/dL Normal [facility] Comment on above: Performed By: #### P TT, PT #### [facility] [address] [address] [address] Stacey Melendez Cholesterol in LDL [Mass/Vol] 43.0 mg/dL Normal [facility] Comment on above: Performed By: #### P TT, PT #### [facility] [address] [address] [address] Stacey Melendez Cholesterol.total/Ch olesterol in HDL [Mass ratio] 2.3 {ratio} Normal [facility] Comment on above: Performed By: #### P TT, PT #### [facility] [address] [place] [address] Dr. Stacey Melendez HDL NORMAL > or = 60 mg/dl - LO W CARDIOVASCULAR RISK <40 mg/dl - HIGH CARDIOVASCULAR RISK Normal [facility] Comment on above: Performed By: #### P TT, PT #### [facility] [address] [place] [address] Dr. Stacey Melendez LDL CALC NORMAL SEE BELOW Normal [facility] Comment on above: Result Comment: <100 mg/dl OPTIMAL 100 - 129 mg/dl NEAR OR ABOVE OPTIMAL 130 - 159 mg/dl BORDERLINE HIGH 160 - 189 mg/dl HIGH >190 mg/dl VERY HIGH Performed By: #### P TT, PT #### [facility] [address] [address] [address] Stacey Melendez Triglyceride [Mass/Vol] 100 mg/dL Normal <=150 [facility] Comment on above: Performed By: #### P TT, PT #### [facility] [address] [place] [address] Dr. Stacey Melendez VLDL CALC 20.0 mg/dL Normal [facility] Comment on above: Performed By: #### P TT, PT #### [facility] [address] [address] [address] Stacey Melendez PROF CHEM 8 (BAS METB)on Anion gap [Moles/Vol] 10.9 mmol/L Normal [facility] Comment on above: Performed By: #### P TT, PT #### [facility] [address] [place] [address] Dr. Stacey Melendez Calcium [Mass/Vol] 9.0 mg/dL Normal 8.4-10.2 [facility] Comment on above: Performed By: #### P TT, PT #### [facility] [address] [place] [address] Dr. Stacey Melendez Chloride [Moles/Vol] 109 mmol/L Critically high 98-107 [facility] Comment on above: Performed By: #### P TT, PT #### [facility] [address] [place] [address] Dr. Stacey Melendez CO2 [Moles/Vol] 25.8 mmol/L Normal 22.0-30.0 [facility] Comment on above: Performed By: #### P TT, PT #### [facility] [address] [place] [address] Dr. Stacey Melendez Creatinine [Mass/Vol] 0.79 mg/dL Normal 0.52-1.04 [facility] Comment on above: Performed By: #### P TT, PT #### [facility] [address] [place] [address] Dr. Stacey Melendez EGFR-AF MONGOLIAN >60 Normal >=60 [facility] Comment on above: Performed By: #### P TT, PT #### [facility] [address] [place] [address] Dr. Stacey Melendez EGFR-NON AF MONGOLIAN >60 Normal >=60 [facility] Comment on above: Performed By: #### P TT, PT #### [facility] [address] [place] [address] Dr. Stacey Melendez Glucose [Mass/Vol] 100 mg/dL Normal 74-106 [facility] Comment on above: Performed By: #### P TT, PT #### [facility] [address] [place] [address] Dr. Stacey Melendez Potassium [Moles/Vol] 3.7 mmol/L Normal 3.4-5.0 [facility] Comment on above: Performed By: #### P TT, PT #### [facility] [address] [place] [address] Dr. Stacey Melendez Sodium [Moles/Vol] 142 mmol/L Normal 137-145 [facility] Comment on above: Performed By: #### P TT, PT #### [facility] [address] [place] [address] Dr. Stacey Melendez Urea nitrogen [Mass/Vol] 14.0 mg/dL Normal 7.0-17.0 [facility] Comment on above: Performed By: #### P TT, PT #### [facility] [address] [place] [address] Dr. Stacey Melendez Urea nitrogen/Creatinine [Mass ratio] 17.7 mg/mg Normal [facility] Comment on above: Performed By: #### P TT, PT #### [facility] [address] [place] [address] Dr. Stacey Melendez PTT HEPARIN MONITORon 2020 aPTT Coag (Bld) [Time] 38.3 s Critically low 39.5-54.2 [facility] Comment on above: Result Comment: TEST REPEATED; CRITICAL VALUE VERIFIED Performed By: #### P TT, PT #### [facility] [address] [place] [address] Dr. Stacey Melendez aPTT Coag (Bld) [Time] 57.6 s Critically high 39.5-54.2 [facility] Comment on above: Result Comment: test repeated critical value verified Performed By: #### P TTHEP #### [facility] [address] [place] [address] Dr. Stacey Melendez aPTT Coag (Bld) [Time] 29.9 s Critically low 39.5-54.2 [facility] Comment on above: Result Comment: TEST REPEATED CRITICAL VALUE VERIFIED Performed By: #### P TTHEP #### [facility] [address] [place] [address] Dr. Stacey Melendez aPTT Coag (Bld) [Time] 37.3 s Critically low 39.5-54.2 [facility] Comment on above: Result Comment: TEST REPEATED; CRITICAL VALUE VERIFIED Performed By: #### P TTHEP #### [facility] [address] [place] [address] Dr. Stacey Melendez TROPONIN, HIGH SENSITIVITYon 06-14-2021 HSTROP 49.8 pg/mL Critically high 4.0-35.5 [facility] Comment on above: Result Comment: CUT- OFF POINTS HAVE BEEN ESTABLISHED BASED ON THE FOURTH UNIVERSAL DEFINITIONS OF MYOCARDIAL INFARCTION. THE UPPER REFERENCE LIMIT (URL) OF TROPONIN, DEFINED THE 99TH PERCENTILE OF cTnI DISTRIBUTION IN A REFERENCE POPULATION, HAS BEEN CONFIRMED THE DECISION THRESHOLD FOR DC DIAGNOSIS. Performed By: #### P TT, PT #### [facility] [address] [place] [address] Dr. Stacey Melendez CARDIAC DAYANARA ADMITon 021 CK [Catalytic activity/Vol] 143 U/L Critically high 30-135 [facility] Comment on above: Performed By: #### C BC #### [facility] [address] [place] [address] Dr. Stacey Melendez CK.MB [Mass/Vol] 2.09 ng/mL Normal <=2.37 [facility] Comment on above: Performed By: #### C BC #### [facility] [address] [place] [address] Dr. Stacey Melendez HSTROP 55.6 pg/mL Critically high 4.0-35.5 [facility] Comment on above: Result Comment: CUT- OFF POINTS HAVE BEEN ESTABLISHED BASED ON THE FOURTH UNIVERSAL DEFINITIONS OF MYOCARDIAL INFARCTION. THE UPPER REFERENCE LIMIT (URL) OF TROPONIN, DEFINED THE 99TH PERCENTILE OF cTnI DISTRIBUTION IN A REFERENCE POPULATION, HAS BEEN CONFIRMED THE DECISION THRESHOLD FOR DC DIAGNOSIS. TEST REPEATED; CRITICAL VALUE VERIFIED Performed By: #### C BC #### [facility] [address] [place] [address] Dr. Stacey Melendez PREET 43.0 ng/mL Normal <=61.5 [facility] Comment on above: Performed By: #### C BC #### [facility] [address] [place] [address] Dr. Stacey Melendez CBC AUTO DIFFon 06-13-2021 BASO # 0.0 103/ul Normal 0.0-0.1 [facility] Comment on above: Performed By: #### C BC #### [facility] [address] [place] [address] Dr. Stacey Melendez Basophils/100 WBC (Bld) 0.5 % Normal 0.2-2.0 [facility] Comment on above: Performed By: #### C BC #### [facility] [address] [place] [address] Dr. Stacey Melendez EO # 0.4 103/ul Normal 0.0-0.7 [facility] Comment on above: Performed By: #### C BC #### [facility] [address] [place] [address] Dr. Stacey Melendez Eosinophils/100 WBC (Bld) 5.1 % Normal 0.9-7.0 [facility] Comment on above: Performed By: #### C BC #### [facility] [address] [place] [address] Dr. Stacey Melendez Erythrocyte distribution width (RBC) [Ratio] 12.8 % Normal 11.0-15.0 [facility] Comment on above: Performed By: #### C BC #### [facility] [address] [place] [address] Dr. Stacey Melendez Hematocrit (Bld) [Volume fraction] 39.4 % Normal 36.0-48.0 [facility] Comment on above: Performed By: #### C BC #### [facility] [address] [place] [address] Dr. Stacey Melendez Hemoglobin (Bld) [Mass/Vol] 12.8 g/dL Normal 12.0-16.0 [facility] Comment on above: Performed By: #### C BC #### [facility] [address] [place] [address] Dr. Stacey Melendez IG # 0.02 10e3/ul Normal 0.00-0.03 [facility] Comment on above: Performed By: #### C BC #### [facility] [address] [place] [address] Dr. Stacey Melendez IG % 0.2 % Normal 0.0-0.5 [facility] Comment on above: Performed By: #### C BC #### [facility] [address] [place] [address] Dr. Stacey Melendez LYMPH # 2.9 103/ul Normal 1.2-3.8 [facility] Comment on above: Performed By: #### C BC #### [facility] [address] [place] [address] Dr. Stacey Melendez Lymphocytes/100 WBC (Bld) 34.9 % Normal 20.5-60.0 [facility] Comment on above: Performed By: #### C BC #### [facility] [address] [place] [address] Dr. Stacey Melendez MANUAL DIFF REQ NO Normal [facility] Comment on above: Performed By: #### C BC #### [facility] [address] [place] [address] Dr. Stacey Melendez MCH (RBC) [Entitic mass] 31.6 pg Normal 26.7-34.0 [facility] Comment on above: Performed By: #### C BC #### [facility] [address] [place] [address] Dr. Stacey Melendez MCHC (RBC) [Mass/Vol] 32.5 g/dL Normal 29.9-35.2 [facility] Comment on above: Performed By: #### C BC #### [facility] [address] [place] [address] Dr. Stacey Melendez MCV (RBC) [Entitic vol] 97.3 fL Normal 81.0-99.0 [facility] Comment on above: Performed By: #### C BC #### [facility] [address] [place] [address] Dr. Stacey Melendez MONO # 0.6 103/ul Normal 0.3-0.8 [facility] Comment on above: Performed By: #### C BC #### [facility] [address] [place] [address] Dr. Stacey Melendez Monocytes/100 WBC (Bld) 7.8 % Normal 1.7-12.0 [facility] Comment on above: Performed By: #### C BC #### [facility] [address] [place] [address] Dr. Stacey Melendez NEUT # 4.2 103/ul Normal 1.4-6.5 [facility] Comment on above: Performed By: #### C BC #### [facility] [address] [place] [address] Dr. Stacey Melendez Neutrophils/100 WBC (Bld) 51.5 % Normal 43.0-75.0 [facility] Comment on above: Performed By: #### C BC #### [facility] [address] [place] [address] Dr. Stacey Melendez Platelet mean volume (Bld) [Entitic vol] 12.1 fL Normal 9.5-13.5 [facility] Comment on above: Performed By: #### C BC #### [facility] [address] [place] [address] Dr. Stacey Melendez PLT 214 103/ul Normal 150-450 [facility] Comment on above: Performed By: #### C BC #### [facility] [address] [place] [address] Dr. Stacey Melendez RBC 4.05 106/ul Critically low 4.20-5.40 [facility] Comment on above: Performed By: #### C BC #### [facility] [address] [place] [address] Dr. Stacey Melendez WBC 8.2 103/ul Normal 4.0-11.0 [facility] Comment on above: Performed By: #### C BC #### [facility] [address] [place] [address] Dr. Stacey Melendez D-DIMERon 06-13-2021 D-DIMER 0.36 mg/L FEU Normal 0.19-0.50 [facility] Comment on above: Performed By: #### C VDTBH #### [facility] [address] [place] [address] Dr. Stacey Melendez D-DIMER COMMENTS SEE BELOW Normal [facility] Comment on above: Result Comment: Incr [...] and generalized hospitalization. Performed By: #### C VDTB #### [facility] [address] [place] [address] Dr. Stacey Melendez PROF CHEM 8 (BAS METB)on Anion gap [Moles/Vol] 15.9 mmol/L Normal [facility] Comment on above: Performed By: #### C BC #### [facility] [address] [place] [address] Dr. Stacey Melendez Calcium [Mass/Vol] 9.0 mg/dL Normal 8.4-10.2 [facility] Comment on above: Performed By: #### C BC #### [facility] [address] [place] [address] Dr. Stacey Melendez Chloride [Moles/Vol] 107 mmol/L Normal 98-107 [facility] Comment on above: Performed By: #### C BC #### [facility] [address] [place] [address] Dr. Stacey Melendez CO2 [Moles/Vol] 25.0 mmol/L Normal 22.0-30.0 [facility] Comment on above: Performed By: #### C BC #### [facility] [address] [place] [address] Dr. Stacey Melendez Creatinine [Mass/Vol] 1.05 mg/dL Critically high 0.52-1.04 [facility] Comment on above: Performed By: #### C BC #### [facility] [address] [place] [address] Dr. Stacey Melendez EGFR-AF MONGOLIAN >60 Normal >=60 [facility] Comment on above: Performed By: #### C BC #### [facility] [address] [address] [address] Stacey Melendez EGFR-NON AF MONGOLIAN 54 mL/min/1.73m2 Critically low >=60 [facility] Comment on above: Performed By: #### C BC #### [facility] [address] [address] [address] Stacey Melendez Glucose [Mass/Vol] 108 mg/dL Critically high 74-106 T [facility] Comment on above: Performed By: #### C BC #### [facility] [address] [address] [address] Stacey Melendez Potassium [Moles/Vol] 3.9 mmol/L Normal 3.4-5.0 [facility] Comment on above: Performed By: #### C BC #### [facility] [address] [address] [address] Stacey Melendez Sodium [Moles/Vol] 144 mmol/L Normal 137-145 [facility] Comment on above: Performed By: #### C BC #### [facility] [address] [address] [address] Stacey Melendez Urea nitrogen [Mass/Vol] 18.0 mg/dL Critically high 7.0-17.0 [facility] Comment on above: Performed By: #### C BC #### [facility] [address] [address] [address] Stacey Melendez Urea nitrogen/Creatinine [Mass ratio] 17.1 mg/mg Normal [facility] Comment on above: Performed By: #### C BC #### [facility] [address] [address] [address] Stacey Melendez PROTIMEon 06-13-2021 INR Coag (PPP) [Relative time] 0.95 {INR} Normal [facility] Comment on above: Performed By: #### P TT, PT #### [facility] [address] [address] [address] Stacey Melendez INR GUIDELINES SEE BELOW Normal [facility] Comment on above: Result Comment: KIMBERLY RED INR: 2.0 - 3.0 CONDITIONS NOT LISTED BELOW 2.5 - 3.5 FOR PROSTHETIC HEART VALVE REPLACEMENT 2.5 - 3.5 RECURRENT THROMBOSIS Performed By: #### P TT, PT #### [facility] [address] [address] [address] Stacey Melendez PT Coag (PPP) [Time] 10.3 s Normal 9.0-11.6 [facility] Comment on above: Performed By: #### P TT, PT #### [facility] [address] [address] [address] Stacey Melendez PTTon 06-13-2021 aPTT Coag (Bld) [Time] 25.4 s Normal 22.3-36.2 [facility] Comment on above: Performed By: #### P TT, PT #### [facility] [address] [address] [address] Stacey Melendez XR CHEST 1 Von 06-13-2021 XR CHEST 1 V EXAM: XR CHEST 1 V HISTORY: CHEST PAIN, UNSPECIFIED COMPARISON: Chest, 11/30/2017. TECHNIQUE: AP upright portable chest. FINDINGS: The heart, mediastinum and pulmonary vascularity are within normal limits. The lungs and pleural spaces are clear. IMPRESSION: No acute cardiopulmonary disease. Electronically authenticated by: ARSENIO HOWARD Date: 2021-06-13 21:59 Normal [facility] MG MAMM SCREEN 3D PARISA CADon 05-28-2021 MG MAMM SCREEN 3D PARISA CAD Patient: DIANE NGUYEN Exam Date: 05/28/2021 : 1965 Gender:F [facility] #: [id number] Family : Order #: [id number] CLICK HERE TO VIEW EXAM RADIOLOGY REPORT [...] stomach cancer at age 78. LOCATION: [facility] BREAST COMPOSITION: Scattered areas fibroglandular density. FINDINGS: [...] M.D. on 05/28/2021 at 09:23 Normal [facility] CBC AUTO DIFFon 05-12-2021 BASO # 0.0 103/ul Normal 0.0-0.1 [facility] Comment on above: Performed By: #### P TT, PT #### [facility] [address] [address] [address] Stacey Melendez Basophils/100 WBC (Bld) 0.3 % Normal 0.2-2.0 [facility] Comment on above: Performed By: #### P TT, PT #### [facility] [address] [address] [address] Stacey Melendez EO # 0.3 103/ul Normal 0.0-0.7 [facility] Comment on above: Performed By: #### P TT, PT #### [facility] [address] [address] [address] Stacey Melendez Eosinophils/100 WBC (Bld) 3.8 % Normal 0.9-7.0 [facility] Comment on above: Performed By: #### P TT, PT #### [facility] [address] [address] [address] Stacey Melendez Erythrocyte distribution width (RBC) [Ratio] 12.4 % Normal 11.0-15.0 [facility] Comment on above: Performed By: #### P TT, PT #### [facility] [address] [address] [address] Stacey Melendez Hematocrit (Bld) [Volume fraction] 39.7 % Normal 36.0-48.0 [facility] Comment on above: Performed By: #### P TT, PT #### [facility] [address] [place] [address] Dr. Stacey Melendez Hemoglobin (Bld) [Mass/Vol] 12.8 g/dL Normal 12.0-16.0 [facility] Comment on above: Performed By: #### P TT, PT #### [facility] [address] [place] [address] Dr. Stacey Melendez IG # 0.03 10e3/ul Normal 0.00-0.03 [facility] Comment on above: Performed By: #### P TT, PT #### [facility] [address] [place] [address] Dr. Stacey Melendez IG % 0.3 % Normal 0.0-0.5 [facility] Comment on above: Performed By: #### P TT, PT #### [facility] [address] [place] [address] Dr. Stacey Melendez LYMPH # 1.9 103/ul Normal 1.2-3.8 [facility] Comment on above: Performed By: #### P TT, PT #### [facility] [address] [place] [address] Dr. Stacey Melendez Lymphocytes/100 WBC (Bld) 21.2 % Normal 20.5-60.0 [facility] Comment on above: Performed By: #### P TT, PT #### [facility] [address] [place] [address] Dr. Stacey Melendez MANUAL DIFF REQ NO Normal [facility] Comment on above: Performed By: #### P TT, PT #### [facility] [address] [place] [address] Dr. Stacey Melendez MCH (RBC) [Entitic mass] 31.4 pg Normal 26.7-34.0 [facility] Comment on above: Performed By: #### P TT, PT #### [facility] [address] [place] [address] Dr. Stacey Melendez MCHC (RBC) [Mass/Vol] 32.2 g/dL Normal 29.9-35.2 [facility] Comment on above: Performed By: #### P TT, PT #### [facility] [address] [place] [address] Dr. Stacey Melendez MCV (RBC) [Entitic vol] 97.5 fL Normal 81.0-99.0 [facility] Comment on above: Performed By: #### P TT, PT #### [facility] [address] [place] [address] Dr. Stacey Melendez MONO # 0.6 103/ul Normal 0.3-0.8 [facility] Comment on above: Performed By: #### P TT, PT #### [facility] [address] [place] [address] Dr. Stacey Melendez Monocytes/100 WBC (Bld) 6.3 % Normal 1.7-12.0 [facility] Comment on above: Performed By: #### P TT, PT #### [facility] [address] [place] [address] Dr. Stacey Melendez NEUT # 6.1 103/ul Normal 1.4-6.5 [facility] Comment on above: Performed By: #### P TT, PT #### [facility] [address] [place] [address] Dr. Stacey Melendez Neutrophils/100 WBC (Bld) 68.1 % Normal 43.0-75.0 [facility] Comment on above: Performed By: #### P TT, PT #### [facility] [address] [place] [address] Dr. Stacey Melendez Platelet mean volume (Bld) [Entitic vol] 12.5 fL Normal 9.5-13.5 [facility] Comment on above: Performed By: #### P TT, PT #### [facility] [address] [place] [address] Dr. Stacey Melendez PLT 181 103/ul Normal 150-450 [facility] Comment on above: Performed By: #### P TT, PT #### [facility] [address] [place] [address] Dr. Stacey Melendez RBC 4.07 106/ul Critically low 4.20-5.40 [facility] Comment on above: Performed By: #### P TT, PT #### [facility] [address] [place] [address] Dr. Stacey Melendez WBC 9.0 103/ul Normal 4.0-11.0 [facility] Comment on above: Performed By: #### P TT, PT #### [facility] [address] [place] [address] Dr. Stacey Melendez FREE T3on 05-12-2021 FREE T3 2.24 pg/mlL Critically low 2.77-5.27 [facility] Comment on above: Performed By: #### P TT, PT #### [facility] [address] [place] [address] Dr. Stacey Melendez FREE T4on 05-12-2021 Free T4 [Mass/Vol] 0.99 ng/dL Normal 0.78-2.19 [facility] Comment on above: Performed By: #### P TT, PT #### [facility] [address] [place] [address] Dr. Stacey Melendez MAGNESIUMon 05-12-2021 Magnesium [Mass/Vol] 1.7 mg/dL Normal 1.6-2.3 [facility] Comment on above: Performed By: #### P TT, PT #### [facility] [address] [place] [address] Dr. Stacey Melendez PROF 14(COMP METB)on 021 Albumin [Mass/Vol] 3.6 g/dL Normal 3.5-5.0 [facility] Comment on above: Performed By: #### P TT, PT #### [facility] [address] [place] [address] Dr. Stacey Melendez Albumin/Globulin [Mass ratio] 1.0 {ratio} Normal [facility] Comment on above: Performed By: #### P TT, PT #### [facility] [address] [place] [address] Dr. Stacey Melendez ALP [Catalytic activity/Vol] 77 U/L Normal 38-126 [facility] Comment on above: Performed By: #### P TT, PT #### [facility] [address] [address] [address] Stacey Melendez ALT [Catalytic activity/Vol] 29 U/L Normal 9-52 [facility] Comment on above: Performed By: #### P TT, PT #### [facility] [address] [address] [address] Stacey Melendez Anion gap [Moles/Vol] 13.1 mmol/L Normal [facility] Comment on above: Performed By: #### P TT, PT #### [facility] [address] [address] [address] Stacey Melendez AST [Catalytic activity/Vol] 19 U/L Normal 14-36 [facility] Comment on above: Performed By: #### P TT, PT #### [facility] [address] [place] [address] Dr. Stacey Melendez Bilirubin [Mass/Vol] 0.3 mg/dL Normal 0.2-1.3 [facility] Comment on above: Performed By: #### P TT, PT #### [facility] [address] [place] [address] Dr. Stacey Melendez Calcium [Mass/Vol] 8.9 mg/dL Normal 8.4-10.2 [facility] Comment on above: Performed By: #### P TT, PT #### [facility] [address] [place] [address] Dr. Stacey Melendez Chloride [Moles/Vol] 108 mmol/L Critically high 98-107 [facility] Comment on above: Performed By: #### P TT, PT #### [facility] [address] [place] [address] Dr. Stacey Melendez CO2 [Moles/Vol] 24.0 mmol/L Normal 22.0-30.0 [facility] Comment on above: Performed By: #### P TT, PT #### [facility] [address] [place] [address] Dr. Stacey Melendez Creatinine [Mass/Vol] 0.91 mg/dL Normal 0.52-1.04 [facility] Comment on above: Performed By: #### P TT, PT #### [facility] [address] [place] [address] Dr. Stacey Melendez EGFR-AF MONGOLIAN >60 Normal >=60 [facility] Comment on above: Performed By: #### P TT, PT #### [facility] [address] [place] [address] Dr. Stacey Melendez EGFR-NON AF MONGOLIAN >60 Normal >=60 [facility] Comment on above: Performed By: #### P TT, PT #### [facility] [address] [address] [address] Stacey Melendez Globulin (S) [Mass/Vol] 3.6 g/dL Normal [facility] Comment on above: Performed By: #### P TT, PT #### [facility] [address] [place] [address] Dr. Stacey Melendez Glucose [Mass/Vol] 101 mg/dL Normal 74-106 [facility] Comment on above: Performed By: #### P TT, PT #### [facility] [address] [place] [address] Dr. Stacey Melendez Potassium [Moles/Vol] 4.1 mmol/L Normal 3.4-5.0 [facility] Comment on above: Performed By: #### P TT, PT #### [facility] [address] [place] [address] Dr. Stacey Melendez Protein [Mass/Vol] 7.2 g/dL Normal 6.1-8.2 [facility] Comment on above: Performed By: #### P TT, PT #### [facility] [address] [place] [address] Dr. Stacey Melendez Sodium [Moles/Vol] 141 mmol/L Normal 137-145 [facility] Comment on above: Performed By: #### P TT, PT #### [facility] [address] [place] [address] Dr. Stacey Melendez Urea nitrogen [Mass/Vol] 16.0 mg/dL Normal 7.0-17.0 [facility] Comment on above: Performed By: #### P TT, PT #### [facility] [address] [place] [address] Dr. Stacey Melendez Urea nitrogen/Creatinine [Mass ratio] 17.6 mg/mg Normal [facility] Comment on above: Performed By: #### P TT, PT #### [facility] [address] [place] [address] Dr. Stacey Melendez TSHon 05-12-2021 TSH 1.872 uIU/mL Normal 0.470-4.680 [facility] Comment on above: Performed By: #### P TT, PT #### [facility] [address] [place] [address] Dr. Stacey Melendez TSH RANGE SEE BELOW Normal [facility] Comment on above: Result Comment: <0.3 4 UIU/ml HYPERTHYROID 0.34-5.60 UIU/ml EUTHYROID >5.60 UIU/ml HYPOTHYROID Performed By: #### P TT, PT #### [facility] [address] [place] [address] Dr. Stacey Melendez VITAMIN B12on 05-12-2021 Cobalamin (Vitamin B12) [Mass/Vol] 425.0 pg/mL Normal 239.0-931.0 [facility] Comment on above: Performed By: #### P TT, PT #### [facility] [address] [place] [address] Dr. Stacey Melendez Echocardiogramon 03-02-[address], [address] [place] [address] TRANSTHORACIC ECHOCARDIOGRAM REPORT Patient Name: DIANE Salguero Physician: [id number] Arsenio Flores MD Study Date: 03/02/2021 Referring Physician: Haile FLORES MRN/PID: [id number] PCP: Ja Pabon Accession/Order#: [id number] Department Location: [facility] Date of : 1965 Fellow: Gender: F Nurse: Admit Date: Shingler: Tash Murray RDCS, RVT Height: 170.18 cm CC Report to: Weight: 98.88 kg Study Type: Echocardiogram BSA: 2.10 m2 Blood Pressure: 110 /70 mmHg Diagnosis/ICD: [id number] Indication: HTN, Hyperlipidemia, COPD, Tobacco Abuse, Obesity Procedure/CPT: Echo Complete w Full [id number] Study Detail: The following Echo studies were [...] 0.7 m/s (0.6-0.9m/s) PV Max P.0 mmHg [id number] Arsenio Flores MD Electronically signed on 03/07/2021 at 2:58:15 PM Final Normal [facility] Vital Signs Date Time Vital Sign Value Performing Clinician Faci lity 02-03-2025 19:02-0400 Diastolic blood pressure 82 mm[Hg] Nica Krishnamurthy NP Work Phone: [facility] 02-03-2025 19:02-0400 Systolic blood pressure 136 mm[Hg] Nica Francoz DOPER Work Phone: [facility] 02-03-2025 18:26-0400 Body mass index (BMI) [Ratio] 34.17 kg/m2 Nica Natholz DOPER Work Phone: [facility] 02-03-2025 18:26-0400 Body temperature 98.1 [degF] Nica Natholz DOPER Work Phone: [facility] 02-03-2025 18:26-0400 Body weight 98.97 kg Nica Natholz DOPER Work Phone: [facility] 02-03-2025 18:26-0400 Heart rate 78 /min Nica Natholz DOPER Work Phone: [facility] 02-03-2025 18:26-0400 Respiratory rate 20 /min Nica Natholz DOPER Work Phone: [facility] 02-03-2025 18:26-0400 SaO2% (BldA) [Mass fraction] 96 % Nica Natholz DOPER Work Phone: [facility] 12-25-2024 18:00-0400 Diastolic blood pressure 94 mm[Hg] Nica Natholz DOPER Work Phone: [facility] 12-25-2024 18:00-0400 Systolic blood pressure 152 mm[Hg] Nica Natholz DOPER Work Phone: [facility] 12-25-2024 17:39-0400 Body mass index (BMI) [Ratio] 35.43 kg/m2 Nica Natholz DOPER Work Phone: [facility] 12-25-2024 17:39-0400 Body temperature 98.49 [degF] Nica Natholz DOPER Work Phone: [facility] 12-25-2024 17:39-0400 Body weight 102.6 kg Nica Natholz DOPER Work Phone: [facility] 12-25-2024 17:39-0400 Heart rate 64 /min Nica Aichholz DOPER Work Phone: [facility] 12-25-2024 17:39-0400 Respiratory rate 22 /min Nica Aichholz DOPER Work Phone: [facility] 12-25-2024 17:39-0400 SaO2% (BldA) [Mass fraction] 98 % Nica Aichholz DOPER Work Phone: [facility] 09-25-2024 18:15-0500 Body mass index (BMI) [Ratio] 35.77 kg/m2 Nica Aichholz DOPER Work Phone: [facility] 09-25-2024 18:15-0500 Body temperature 98.8 [degF] Nica Aichholz DOPER Work Phone: [facility] 09-25-2024 18:15-0500 Body weight 103.6 kg Nica Aichholz DOPER Work Phone: [facility] 09-25-2024 18:15-0500 Diastolic blood pressure 110 mm[Hg] Nica Aichholz DOPER Work Phone: [facility] 09-25-2024 18:15-0500 Heart rate 63 /min Nica Aichholz DOPER Work Phone: [facility] 09-25-2024 18:15-0500 Respiratory rate 20 /min Nica Aichholz DOPER Work Phone: [facility] 09-25-2024 18:15-0500 SaO2% (BldA) [Mass fraction] 95 % Nica Aichholz DOPER Work Phone: [facility] 09-25-2024 18:15-0500 Systolic blood pressure 160 mm[Hg] Nica Aichholz DOPER Work Phone: [facility] 07-08-2024 08:44-0500 Diastolic blood pressure 92 mm[Hg] Nica Aichholz DOPER Work Phone: [facility] 07-08-2024 08:44-0500 Systolic blood pressure 152 mm[Hg] Nica Krishnamurthy DOPER Work Phone: [facility] 07-08-2024 08:36-0500 Body height 170.2 cm Nica Krishnamurthy DOPER Work Phone: [facility] 07-08-2024 08:36-0500 Body mass index (BMI) [Ratio] 35.21 kg/m2 Nica Krishnamurthy DOPER Work Phone: [facility] 07-08-2024 08:36-0500 Body temperature 98.49 [degF] Nica Krishnamurthy DOPER Work Phone: [facility] 07-08-2024 08:36-0500 Body weight 101.97 kg Nica Krishnamurthy DOPER Work Phone: [facility] 07-08-2024 08:36-0500 Heart rate 62 /min Nica Krishnamurthy DOPER Work Phone: [facility] 07-08-2024 08:36-0500 Respiratory rate 21 /min Nica Krishnamurthy DOPER Work Phone: [facility] 07-08-2024 08:36-0500 SaO2% (BldA) [Mass fraction] 96 % Nica Krishnamurthy DOPER Work Phone: [facility] 05-27-2024 08:53-0400 Body height 170.2 cm Nica Krishnamurthy DOPER Work Phone: [facility] 05-27-2024 08:53-0400 Body mass index (BMI) [Ratio] 35.99 kg/m2 Nica Krishnamurthy DOPER Work Phone: [facility] 05-27-2024 08:53-0400 Body temperature 98.8 [degF] Nica Krishnamurthy DOPER Work Phone: [facility] 05-27-2024 08:53-0400 Body weight 104.24 kg Nica Krishnamurthy DOPER Work Phone: [facility] 05-27-2024 08:53-0400 Diastolic blood pressure 80 mm[Hg] Nica Francoz DOPER Work Phone: [facility] 05-27-2024 08:53-0400 Heart rate 48 /min Nicasahil Francoz DOPER Work Phone: [facility] 05-27-2024 08:53-0400 Respiratory rate 20 /min Nica Krishnamurthy DOPER Work Phone: [facility] 05-27-2024 08:53-0400 SaO2% (BldA) [Mass fraction] 96 % Nica Krishnamurthy DOPER Work Phone: [facility] 05-27-2024 08:53-0400 Systolic blood pressure 140 mm[Hg] Nica Krishnamurthy DOPER Work Phone: [facility] Healthcare Encounters Encounter Date Encounter Type Care Provider Facility Start: 02-03-2025 End: 02-03-2025 Office outpatient visit 25 minutes Nica Krishnamurthy DOPER Work Phone: [facility] Comment on above: Essential (primary) hypertension (Primary Dx); Gastroesophageal reflux disease without esophagitis; Morbid (severe) obesity due to excess calories ([facility]-HCC); Anxiety and depression ; Tobacco dependence; Mixed hyperlipidemia ; Lung cancer screening declined by patient; Acute non-recurrent maxillary sinusitis Start: 02-03-2025 End: 02-03-2025 ambulatory NICA AICHHOLZ Not Available Start: 02-03-2025 End: 02-03-2025 Bamboo flowsheet Nica Arvindhholz DOPER Work Phone: [facility] Start: 02-03-2025 End: 02-03-2025 Bamboo flowsheet Nica Arvindhholz DOPER Work Phone: [facility] Start: 12-25-2024 End: 12-25-2024 ambulatory NICA AICHHOLZ Not Available Start: 12-25-2024 End: 12-25-2024 Office outpatient visit 15 minutes Nica Krishnamurthy DOPER Work Phone: [facility] Comment on above: Essential (primary) hypertension (CMS/HCC) (Primary Dx); Morbid (severe) obesity due to excess calories (CMS/HCC); Migraine without aura and without status migrainosus, not intractable (CMS/HCC); Tobacco dependence; Mixed hyperlipidemia (CMS/HCC); Primary hypertension (CMS/HCC) Start: 12-25-2024 End: 12-25-2024 Bamboo flowsheet Nica Krishnamurthy DOPER Work Phone: [facility] Start: 12-25-2024 End: 12-25-2024 Bamboo flowsheet Nica Krishnamurthy DOPER Work Phone: [facility] Start: 12-24-2024 End: 12-24-2024 Refill Nica Krishnamurthy DOPER Work Phone: [facility] FM Comment on above: Primary hypertension (CMS/HCC); Anxiety and depression (CMS/HCC); Anxiety Start: 09-25-2024 End: 09-25-2024 Office outpatient visit 25 minutes Nica Krishnamurthy DOPER Work Phone: [facility] FM Comment on above: Primary [...] Start: 09-25-2024 End: 09-25-2024 Bamboo flowsheet Nica Krishnamurthy DOPER Work Phone: [facility] Start: 09-25-2024 End: 09-25-2024 Bamboo flowsheet Nica Johnsnav DOPER Work Phone: [facility] Start: 09-18-2024 End: 09-18-2024 Clinisync Result Encounter Nica Johnsnav DOPER Work Phone: [facility] External Department Unsolicited Start: 09-18-2024 End: 09-18-2024 Clinisync Result Encounter Nica Johnsnav DOPER Work Phone: [facility] External Department Unsolicited Start: 08-25-2024 End: 08-25-2024 Refill Nica Johnsnav DOPER Work Phone: [facility] Comment on above: Environmental and se asonal allergies Start: 07-08-2024 End: 07-08-2024 Bamboo flowsheet Nica Johnsnav DOPER Work Phone: [facility] Start: 07-08-2024 End: 07-08-2024 Bamboo flowsheet Nica Johnsnav DOPER Work Phone: [facility] Start: 07-08-2024 End: 07-08-2024 Office outpatient visit 25 minutes Nica Yessy DOPER Work Phone: [facility] Comment on above: Primary hypertension (CMS/HCC) (Primary Dx); Obstructive sleep apnea, adult; Bradycardia; Morbid (severe) obesity due to excess calories (CMS/HCC); Body mass index (BMI) 35.0-35.9, adult; Tobacco user Start: 07-08-2024 End: 07-08-2024 ambulatory NICA YESSY Not Available Start: 05-27-2024 End: 05-27-2024 Bamboo flowsheet Nica Yessy DOPER Work Phone: [facility] Start: 05-27-2024 End: 05-27-2024 Bamboo flowsheet Nica Yessy DOPER Work Phone: [facility] Start: 05-27-2024 End: 05-27-2024 Office outpatient visit 25 minutes Nica Krishnamurthy DOPER Work Phone: [facility] Comment on [...] Bradycardia Start: 05-27-2024 End: 05-27-2024 ambulatory NICA ANGELAZ Not Available Start: 04-29-2022 End: 04-29-2022 ambulatory ASSOCIATE PROFESSOR OF MANAGEMENT NICA AICHHOLZ Facility:[facility] Start: 03-26-2022 End: 03-26-2022 ambulatory ASSOCIATE PROFESSOR OF MANAGEMENT NICA ARVINDHHOLZ Facility:[facility] Start: 01-18-2022 End: 01-27-2022 ambulatory ASSOCIATE PROFESSOR OF MANAGEMENT NICA AICHHOLZ Facility:[facility] Start: 01-07-2022 End: 01-08-2022 ambulatory ASSOCIATE PROFESSOR OF MANAGEMENT NICA AICHHOLZ Facility:[facility] Start: 12-20-2021 End: 12-20-2021 ambulatory ASSOCIATE PROFESSOR OF MANAGEMENT NICA AICHHOLZ Facility:[facility] Start: 12-10-2021 End: 12-10-2021 ambulatory VANESSA BARGER Facility:[facility] Start: 06-15-2021 End: 06-19-2021 Evaluation and management of inpatient SHAIKH ROBIN Facility:[facility] Start: 06-14-2021 End: 06-15-2021 Evaluation and management of inpatient ASSOCIATE PROFESSOR OF MANAGEMENT NICA AICHHOLZ Facility:[facility] Start: 05-28-2021 End: 05-29-2021 ambulatory ASSOCIATE PROFESSOR OF MANAGEMENT NICA ARVINDHHOLZ Facility:[facility] Start: 05-12-2021 End: 05-13-2021 ambulatory ASSOCIATE PROFESSOR OF MANAGEMENT NICA AICHHOLZ Facility:[facility] Procedures Date Procedure Procedure Detail Performing Clinician Start: 09-18-2024 ALL CBC WITH AUTO DIFF Nica Krishnamurthy DOPER Work Phone: Start: 05-17-2023 Mammography Nica rooney DOPER Work Phone: Start: 06-18-2021 FLUOROSCOPY OF MULTI PLE CORONARY ARTERIES USING OTH CONTRAST MICK MONTERO Start: 12-20-2017 Colonoscopy Nica rooney NP Work Phone: Plan of Treatment Date Care Activity Detail Author Start: 12-21-2027 Screening for malign ant neoplasm of colon [facility] Start: 05-07-2025 End: 05-07-2025 Patient encounter procedure 05/07/2025 3:00 PM EDT Office Visit [facility] [address] [place] [phone] Nica Krishnamurthy, DEV [address] [place] [phone] [facility] Start: 02-03-2025 End: 02-03-2025 Patient encounter procedure 02/03/2025 6:30 PM EDT Office Visit [facility] [address] [place] [address] Nica Krishnamurthy, DEV [address] [place] [phone] Essential (primary) hypertension (Primary Dx); Gastroesophageal reflux disease without esophagitis; Morbid (severe) obesity due to excess calories ([facility]-HCC); Anxiety and depression ; Tobacco dependence [facility] Comment on above: Essential (primary) hypertension (Primary Dx); Gastroesophageal reflux disease without esophagitis; Morbid (severe) obesity due to excess calories (CMS-HCC); Anxiety and depression ; Tobacco dependence Start: 12-25-2024 End: 12-25-2024 Patient encounter procedure 12/25/2024 5:20 PM EDT Office Visit [facility] [address] [place] [address] Nica Krishnamurthy, DEV [address] [place] [phone] [facility] Start: 10-07-2024 End: 10-07-2024 Patient encounter procedure 10/07/2024 6:00 PM EST Office Visit [facility] [address] [place] [address] Nica Krishnamurthy, DOPER [address] [place] [phone] [facility] Start: 09-25-2024 End: 09-25-2024 Patient encounter procedure 09/25/2024 6:00 PM EST Office Visit [facility] [address] [place] [address] Nica Krishnamurthy, DOPER [address] [place] [phone] Morbid (severe) obesity due to excess calories (CMS/HCC); Essential (primary) hypertension (CMS/HCC); Body mass index (BMI) 35.0-35.9, adult [facility] Comment on above: Morbid (severe) obes ity due to excess calories (CMS/HCC); Essential (primary) hypertension (CMS/HCC); Body mass index (BMI) 35.0-35.9, adult Start: 07-22-2024 Influenza vaccination Influenza Vacc ine (#1) [facility] Comment on above: Postponed from 04/07 (Patient Refused) Start: 07-08-2024 End: 07-08-2024 Patient encounter procedure [facility] Comment on above: Obstructive sleep ap mary, adult (Primary Dx); Primary hypertension (CMS/HCC); Bradycardia; Morbid (severe) obesity due to excess calories (CMS/HCC); Body mass index (BMI) 35.0-35.9, adult; Tobacco user Start: 05-27-2024 End: 05-27-2025 CBC W Auto Differential panel - Blood CBC and differential Lab Routine Chronic obstructive pulmonary disease, unspecified (CMS/HCC) Tobacco user Expected: 05/27/2024 (Approximate), Expires: 05/27/2025 [facility] Work Phone: Comment on above: Expected: 05/27/2024 (Approximate), Expires: 05/27/2025 Start: 05-27-2024 End: 05-27-2025 Comprehensive metabolic 2000 panel - Serum or Plasma Comprehensive metabolic panel Lab Routine Mixed hyperlipidemia (CMS/HCC) Primary hypertension (CMS/HCC) Expected: 05/27/2024 (Approximate), Expires: 05/27/2025 [facility] Comment on above: Expected: 05/27/2024 (Approximate), Expires: 05/27/2025 Start: 05-27-2024 End: 05-27-2025 Lipid 1996 panel - Serum or Plasma Lipid panel Lab Routine Mixed hyperlipidemia (CMS/HCC) Expected: 05/27/2024 (Approximate), Expires: 05/27/2025 [facility] Comment on above: Expected: 05/27/2024 (Approximate), Expires: 05/27/2025 Start: 05-27-2024 End: 07-27-2025 MG Breast - bilateral Screening Bilateral screening mammogram Imaging Routine Encounter for screening mammogram for malignant neoplasm of breast Expected: 05/27/2024 (Approximate), Expires: 07/27/2025 [facility] Comment on above: Expected: 05/27/2024 (Approximate), Expires: 07/27/2025 Start: 05-27-2024 End: 05-27-2025 Thyrotropin [Units/volume] in Serum or Plasma TSH Lab Routine Anxiety and depression (CMS/HCC) Expected: 05/27/2024 (Approximate), Expires: 05/27/2025 [facility] Comment on above: Expected: 05/27/2024 (Approximate), Expires: 05/27/2025 Start: 05-27-2024 End: 05-27-2025 Thyroxine (T4) free [Mass/volume] in Serum or Plasma T4, free Lab Routine Anxiety and depression (CMS/HCC) Expected: 05/27/2024 (Approximate), Expires: 05/27/2025 [facility] Comment on above: Expected: 05/27/2024 (Approximate), Expires: 05/27/2025 Start: 05-27-2024 End: 05-27-2025 Urinalysis complete panel - Urine Urinalysis with reflex microscopic (clean catch) Lab Routine Chronic obstructive pulmonary disease, unspecified (CMS/HCC) Tobacco user Expected: 05/27/2024 (Approximate), Expires: 05/27/2025 [facility] Comment on above: Expected: 05/27/2024 (Approximate), Expires: 05/27/2025 Start: 05-27-2024 End: 05-27-2024 Patient encounter procedure 05/27/2024 9:00 AM EDT Office Visit [facility] [address] [place] [address] Nica Krishnamurthy NP [address] [place] [address] Primary hypertension (CMS/HCC) (Primary Dx); Morbid (severe) obesity due to excess calories (CMS/HCC); Mixed hyperlipidemia (CMS/HCC); Body mass index (BMI) 35.0-35.9, adult; Chronic obstructive pulmonary disease, unspecified (CMS/HCC); Gastroesophageal reflux disease without esophagitis; Tobacco user; Anxiety and depression (CMS/HCC); Encounter for screening mammogram for malignant neoplasm of breast [facility] Comment on above: Primary hypertension (CMS/HCC) (Primary Dx); Morbid (severe) obesity due to excess calories (CMS/HCC); Mixed hyperlipidemia (CMS/HCC); Body mass index (BMI) 35.0-35.9, adult; Chronic obstructive pulmonary disease, unspecified (CMS/HCC); Gastroesophageal reflux disease without esophagitis; Tobacco user; Anxiety and depression (CMS/HCC); Encounter for screening mammogram for malignant neoplasm of breast Start: 05-17-2024 Screening for malign ant neoplasm of breast Mammogram [facility] Start: 04-07-2024 Influenza vaccination Influenza Vacc ine (#1) [facility] Start: 1995 Screening for malign ant neoplasm of cervix HPV/Cotest [facility] Start: 1986 Screening for malign ant neoplasm of cervix Pap Smear [facility] Start: 1965 Medicare Annual Well ness (AWV) Medicare Annual Wellness (AWV) [facility] Start: 1965 Screening for malign ant neoplasm of colon [facility] Start: 1965 Screening for malign ant neoplasm of lung Lung Cancer Screening Shared Decision Making [facility] Immunizations Immunization Date Immunization Notes Care Provider Jose A atkins 06-07-2024 influenza virus vacc ine, unspecified formulation Nica Aichholz [employer]OPER Work Phone: [facility] 03-31-2020 influenza, injectabl e, quadrivalent, preservative free Nica Aichholz [employer] Work Phone: [facility] 03-31-2020 influenza virus vacc ine, unspecified formulation Nica Aichholz [employer] Work Phone: [facility] 03-07-2020 influenza, seasonal, injectable Nica Aichholz [employer] Work Phone: [facility] 01-25-2020 zoster vaccine recombinant Nica Aichholz [employer] Work Phone: [facility] 11-25-2019 zoster vaccine recombinant Nica Aichholz [employer] Work Phone: [facility] 04-18-2019 influenza, injectabl e, quadrivalent, preservative free Nica Aichholz [employer] Work Phone: [facility] 11-27-2018 hepatitis A vaccine, adult dosage Nica Aichholz [employer] Work Phone: [facility] 03-29-2018 hepatitis A vaccine, adult dosage Nica Aichholz [employer] Work Phone: [facility] 03-29-2018 influenza, injectabl e, quadrivalent, preservative free Nica Aichholz [employer] Work Phone: [facility] 11-15-2017 pneumococcal conjuga te vaccine, 13 valent Nica Aichholz [employer] Work Phone: [facility] 05-18-2017 influenza, injectabl e, quadrivalent, preservative free Nica Aichholz [employer] Work Phone: [facility] 05-02-2016 influenza, injectabl e, quadrivalent, preservative free Nica Aichholz [employer] Work Phone: [facility] 05-06-2015 influenza, seasonal, injectable, preservative free Nica Yessy DOPER Work Phone: [facility] 04-30-2009 influenza virus vacc ine, whole virus Nica Yessy DOPER Work Phone: [facility] Payers Date Payer Category Payer Medicare (Managed Care) [facility] MEDICARE [id number] 2022 Private Health Insurance [facility] MEDICAID [id number] 2022 Medicaid [id number] 1965 Unknown 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 ([facility]) Mixed hyperlipidemia ([facility]) Mixed hyperlipidemia Body mass index (BMI) 35.0-35.9, adult Chronic obstructive pulmonary disease, unspecified ([facility]) Gastroesophageal reflux disease without esophagitis Esophageal reflux Tobacco user Tobacco use disorder Anxiety and depression ([facility]) Encounter for screening mammogram for malignant neoplasm [...] seasonal allergies documented in this encounter [facility]* Diagnosis Primary hypertension (CMS/HCC)- Primary Unspecified essential hypertension Mixed hyperlipidemia (CMS/HCC) Mixed hyperlipidemia Environmental and seasonal allergies Muscle spasms of neck Other migraine without status migrainosus, not intractable (CMS/HCC) Anxiety Anxiety state, unspecified Anxiety and depression ([facility]) Tobacco user Tobacco use disorder Primary hypertension (CMS/HCC)- Primary Unspecified essential hypertension Morbid (severe) obesity due to excess calories (CMS/HCC) Mixed hyperlipidemia (CMS/HCC) Mixed hyperlipidemia Body mass index (BMI) 35.0-35.9, adult Chronic obstructive pulmonary disease, unspecified (CMS/HCC) Gastroesophageal reflux disease without esophagitis Esophageal reflux Tobacco user Tobacco use disorder Anxiety and depression ([facility]) Encounter for screening mammogram for malignant neoplasm [...] subsequent encounter documented in this encounter [facility]* Diagnosis Primary hypertension (CMS/HCC)- Primary Unspecified essential hypertension Mixed hyperlipidemia (CMS/HCC) Mixed hyperlipidemia Environmental and seasonal allergies Muscle spasms of neck Other migraine without status migrainosus, not intractable Anxiety Anxiety state, unspecified Anxiety and depression (CMS/HCC) Tobacco user Tobacco use disorder Primary hypertension (CMS/HCC)- Primary Unspecified essential hypertension Morbid (severe) obesity due to excess calories (CMS/HCC) Mixed hyperlipidemia (CMS/HCC) Mixed hyperlipidemia Body mass index (BMI) 35.0-35.9, adult Chronic obstructive pulmonary disease, unspecified Gastroesophageal reflux disease without esophagitis Esophageal reflux Tobacco user Tobacco use disorder Anxiety and depression ([facility]) Encounter for screening mammogram for malignant neoplasm of breast Obstructive sleep apnea, adult Primary insomnia Persistent disorder of initiating or maintaining sleep Acute otitis externa of right ear, unspecified type Bradycardia Other specified cardiac dysrhythmias Environmental and seasonal allergies Muscle spasms of neck Other migraine without status migrainosus, not intractable Anxiety Anxiety state, unspecified Primary hypertension (CMS/HCC)- [...] Other migraine without status migrainosus, not intractable Anxiety and depression (CMS/HCC) Anxiety Anxiety state, unspecified Tobacco user Tobacco use disorder Sprain of right wrist, subsequent encounter Primary hypertension (CMS/HCC) Unspecified essential hypertension Anxiety and depression (CMS/HCC) Anxiety Anxiety state, unspecified documented in this encounter [facility]* Diagnosis Primary hypertension (CMS/HCC)- Primary Unspecified essential hypertension Mixed hyperlipidemia (CMS/HCC) Mixed hyperlipidemia Environmental and seasonal allergies Muscle spasms of neck Other migraine without status migrainosus, not intractable Anxiety Anxiety state, unspecified Anxiety and depression (CMS/HCC) Tobacco user Tobacco use disorder Primary hypertension (CMS/HCC)- Primary Unspecified essential hypertension Morbid (severe) obesity due to excess calories (CMS/HCC) Mixed hyperlipidemia (CMS/HCC) Mixed hyperlipidemia Body mass index (BMI) 35.0-35.9, adult Chronic obstructive pulmonary disease, unspecified Gastroesophageal reflux disease without esophagitis Esophageal reflux [...] Other migraine without status migrainosus, not intractable Anxiety Anxiety state, unspecified Primary hypertension (CMS/HCC)- [...] Other migraine without status migrainosus, not intractable Anxiety and depression (CMS/HCC) Anxiety Anxiety state, unspecified Tobacco user Tobacco use disorder Sprain of right wrist, subsequent encounter Essential (primary) hypertension (CMS/HCC)- Primary Unspecified essential hypertension Morbid (severe) obesity due to excess calories (CMS/HCC) Migraine without aura and without status migrainosus, not intractable (CMS/HCC) Tobacco dependence Tobacco use disorder Mixed hyperlipidemia (CMS/HCC) Mixed hyperlipidemia Primary hypertension (CMS/HCC) Unspecified essential hypertension documented in this encounter [facility]* Diagnosis Primary hypertension- Primary Unspecified essential hypertension Mixed hyperlipidemia Mixed hyperlipidemia Environmental and seasonal allergies Muscle spasms of neck Other migraine without status migrainosus, not intractable Anxiety Anxiety state, unspecified Anxiety and depression Tobacco user Tobacco use disorder Primary hypertension- Primary Unspecified essential hypertension Morbid (severe) obesity due to excess calories (CMS-HCC) Mixed hyperlipidemia Mixed hyperlipidemia Body mass index (BMI) 35.0-35.9, adult Chronic obstructive pulmonary disease, unspecified (HCC) Gastroesophageal reflux disease without esophagitis Esophageal reflux Tobacco user Tobacco use disorder Anxiety and depression Encounter for screening mammogram for malignant neoplasm of breast Obstructive sleep apnea, adult Primary insomnia Persistent disorder of initiating or maintaining sleep Acute otitis externa of right ear, unspecified type Bradycardia Other specified cardiac dysrhythmias Environmental and seasonal allergies Muscle spasms of neck Other migraine without status migrainosus, not intractable Anxiety Anxiety state, unspecified Primary hypertension- Primary Unspecified essential hypertension Obstructive sleep apnea, adult Bradycardia Other specified cardiac dysrhythmias Morbid (severe) obesity due to excess calories (CMS-HCC) Body mass index (BMI) 35.0-35.9, adult Tobacco user Tobacco use disorder Primary hypertension- Primary Unspecified essential hypertension Morbid (severe) obesity due to excess calories (CMS-HCC) Essential (primary) hypertension Unspecified essential hypertension Body mass index (BMI) 35.0-35.9, adult Mixed hyperlipidemia Mixed hyperlipidemia Environmental and seasonal allergies Muscle spasms of neck Other migraine without status migrainosus, not intractable Anxiety and depression Anxiety Anxiety state, unspecified Tobacco user Tobacco use disorder Sprain of right wrist, subsequent encounter Essential (primary) hypertension- Primary Unspecified essential hypertension Morbid (severe) obesity due to excess calories (CMS-HCC) Migraine without aura and without status migrainosus, not intractable Tobacco dependence Tobacco use disorder Mixed hyperlipidemia Mixed hyperlipidemia Primary hypertension Unspecified essential hypertension Environmental and seasonal allergies Muscle spasms of neck Other migraine without status migrainosus, not intractable Anxiety and depression Anxiety Anxiety state, unspecified Essential (primary) hypertension- Primary Unspecified essential hypertension Gastroesophageal reflux disease without esophagitis Esophageal reflux Morbid (severe) obesity due to excess calories (CMS-HCC) Anxiety and depression Tobacco dependence Tobacco use disorder Mixed hyperlipidemia Mixed hyperlipidemia Lung cancer screening declined by patient Acute non-recurrent maxillary sinusitis documented in this encounter [facility] Summary [...] section and content) DATE CREATED AUTHOR 03/07/2021 [facility] DATE CREATED AUTHOR AUTHOR'S ORGANIZ ATION 06/28/2021 [facility] DATE CREATED AUTHOR AUTHOR'S ORGANIZ ATION 02/13/2022 [facility] DATE CREATED AUTHOR AUTHOR'S ORGANIZ ATION 05/09/2022 [facility] DATE CREATED AUTHOR AUTHOR'S ORGANIZ ATION 02/05/2025 [facility] Care Teams (unrecognized sec tion and content) 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 Relationship Specialty Start Date End Date Ja Pabon MD [address] [place] [phone] PCP - General Family Medicine 09/29/23 Nica Krishnamurthy NP [address] [place] [address] Nurse Practitioner Family Medicine 08/07/22 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 Relationship Specialty Start Date End Date Unallocated, [employer] Valentina, [address] [place] [address] PCP - General Family Medicine 05/27/24 Nica Krishnamurthy NP [address] [place] [address] Nurse Practitioner Family Medicine 08/07/22 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 Relationship Specialty Start Date End Date Ja Pabon MD [address] [place] [address] PCP - General Family Medicine 06/06/24 Nica Krishnamurthy NP [address] [place] [address] PCP [facility] 05/07/24 Nica Krishnamurthy NP [address] [place] [address] Nurse Practitioner Family Medicine 08/07/22 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 Relationship Specialty Start Date End Date Ja Pabon MD [address] [place] [address] PCP - General [facility] 06/06/24 Nica Krishnamurthy NP [address] [place] [address] PCP [facility] 05/07/24 Nica Krishnamurthy NP [address] [place] [address] Nurse Practitioner Family [facility] 08/07/22 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 Relationship Specialty Start Date End Date Ja Pabon MD [address] [place] [address] PCP - General [facility] 06/06/24 Nica Krishnamurthy NP [address] [place] [address] PCP [facility] 05/07/24 Nica Krishnamurthy NP [address] [place] [address] Nurse Practitioner Family Medicine 08/07/22 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 Relationship Specialty Start Date End Date Ja Pabon MD [address] [place] [address] PCP - General Family [facility] 06/06/24 Nica Krishnamurthy NP [address] [place] [address] PCP [facility] 05/07/24 Nica Krishnamurthy NP [address] [place] [address] Nurse Practitioner Family Medicine 08/07/22 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 Relationship Specialty Start Date End Date Ja Pabon MD [address] [place] [phone] PCP - [facility] 06/06/24 Nica Krishnamurthy NP [address] [place] [address] [facility] 05/07/24 Nica Krishnamurthy NP [address] [place] [address] Nurse Practitioner Family Medicine 08/07/22 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 Relationship Specialty Start Date End Date Ja Pabon MD [address] [place] [address] PCP - General [facility] 06/06/24 Nica Krishnamurthy NP [address] [place] [address] PCP [facility] 05/07/24 Nica Krishnamurthy NP [address] [place] [address] Nurse Practitioner Family Medicine 08/07/22 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 Relationship Specialty Start Date End Date Ja Pabon MD [address] [place] [address] PCP - General [facility] 06/06/24 Nica Krishnamurthy NP [address] [place] [address] PCP [facility] 05/07/24 Nica Krishnamurthy NP [address] [place] [address] Nurse Practitioner Family [facility] 08/07/22 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 Relationship Specialty Start Date End Date Ja Pabon MD [address] [place] [address] PCP - General Family [facility] 06/06/24 Nica Krishnamurthy NP [address] [place] [address] PCP [facility] 05/07/24 Nica Krishnamurthy NP [address] [place] [address] Nurse Practitioner Family Medicine 08/07/22 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 Relationship Specialty Start Date End Date Ja Pabon MD [address] [place] [address] PCP - General Family Medicine 06/06/24 Nica Krishnamurthy NP [address] [place] [address] PCP [facility] 05/07/24 Nica Krishnamurthy NP [address] [place] [address] Nurse Practitioner Family Medicine 08/07/22 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 Relationship Specialty Start Date End Date Ja Pabon MD [address] [place] [address] PCP - General [facility] 06/06/24 Nica Krishnamurthy NP [address] [place] [address] PCP [facility] 05/07/24 Nica Krishnamurthy NP [address] [place] [address] Nurse Practitioner Family Medicine 08/07/22 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 Relationship Specialty Start Date End Date Ja Pabon MD [address] [place] [address] PCP - General Family [facility] 06/06/24 Nica Krishnamurthy NP [address] [place] [address] PCP [facility] 05/07/24 Nica Krishnamurthy NP [address] [place] [address] Nurse Practitioner Family Medicine 08/07/22 Reason for [...] BE BASED ON THE PRIMARY CLINICAL RECORDS. [facility]. provides no warranty or guarantee of the accuracy or completeness of information in this document.
[2025-02-26 20:42] VITALS: BP 184/102; PULSE 63; TEMP 36.6; O2SAT 96; BMI 28.7
--- NOTE | 2025-02-26 20:45 | PC.NURSE ---
patient just took her BP meds
--- NOTE | 2025-02-26 20:50 | XR_ITS ---
The [address] [address] Patient Name: DIANE NGUYEN MRN: [id number] date: 1965 Sex: F Assigned Patient Location: ED.MAIN Current Patient Location: Accession/Order Number: [id number] Exam Date: 02/26/2025 21:32 Report Date: 02/26/2025 21:33 At the request of: MIHAELA WHITAKER MD Procedure: XR ankle RT min 3V 3 views right ankle plain film COMPARISON: None HISTORY: Right ankle injury ACUTE FINDINGS: None DEGENERATIVE CHANGE: Posterior and inferior calcaneal spurring SOFT TISSUE FINDINGS: Unremarkable JOINT EFFUSION: None POSTOP CHANGES: None BONE MINERALIZATION: Adequate XR/XR ankle RT min 3V IMPRESSION: No acute displaced fracture Impression dictated by: Javier Pierre M.D. 02/26/2025 9:33 PM Dictation Location: [place] [address] Electronically authenticated by: [id number] Date: 02/26/2025 21:33
--- NOTE | 2025-02-26 22:01 | ED.LOWEXI1 ---
HPI HPI - Extremity Injury (Lower) General Chief Complaint: Extremity Injury, Lower Stated Complaint: Lower Pain Time Seen by Provider: 02/26/25 20:31 Source: patient Mode of arrival: walk-in Limitations: no limitations History of Present Illness HPI Narrative: This 59-year-old female presents for evaluation of pain and swelling to the right foot after striking it on a wooden board/bed support on Monday. She states she walked right into it. She struck the right lateral foot on it. She has had pain in the right lateral foot with some mild swelling and states she cannot get her foot into her shoe. She denies any additional injury. She has no calf pain or swelling. She has not had any fever. She did not fall at the time of the injury. Related Data Home Medications ?Medication ?Instructions ?Recorded ?Confirmed atorvastatin 40 mg tablet 40 mg PO DAILY 07/29/24 09/18/24 lisinopril 20 mg tablet 20 mg PO DAILY 07/29/24 09/18/24 montelukast 10 mg tablet 10 mg PO PRN 07/29/24 09/18/24 Allergies Allergy/AdvReac Type Severity Reaction Status Date / Time No Known Drug Allergies Allergy Verified 02/26/25 20:49 Opioid HPI Opioid Management Most Recent Pain and Opioid Data: Last Pain Scale 8 Today, 20:42 Review of Systems ROS Status of ROS 10 or more systems reviewed and unremarkable except as noted in history and below PFSH PFSH Social History Little interest or pleasure in doing things: not at all Feeling down, depressed, or hopeless: not at all Exam Narrative Exam Narrative: Vital signs and Nursing Notes reviewed: Patient is afebrile with a normal pulse, blood pressure is elevated at 184/102, she is not hypoxic with pulse ox of 96% on room air General: Awake, alert, oriented, no acute distress, lying comfortably on the stretcher HEENT: Normocephalic atraumatic, mucous membranes are moist and pink, eyes are clear Chest: Lungs are clear to auscultation with good air entry, there is no wheezing rhonchi or rales appreciated no accessory muscle use, patient is speaking in complete sentences-no chest wall tenderness to palpation CVS: Regular rate and rhythm S1-S2, no murmurs rubs or gallops, pulses are brisk and equal bilaterally Extremities: Moving all extremities, mild tenderness without notable ecchymosis swelling or bony deformity to the right lateral foot. Achilles is intact. There is no medial or lateral malleolus swelling. Posterior tibialis and dorsalis pedis pulses are brisk and equal. There is no calf swelling or tenderness. Negative Homans' sign. Skin: Normal in appearance without rash,pallor, petechiae or purpura Neuro: No focal deficits Constitutional Vital Signs, click to edit/add: Last Vital Signs Temp 97.9 F 02/26/25 20:42 Pulse 63 02/26/25 20:42 Resp 18 02/26/25 20:42 BP 184/102 H 02/26/25 20:42 Pulse Ox 96 02/26/25 20:42 Course Vital Signs Vital signs: Vital Signs Temperature 97.9 F 02/26/25 20:42 Pulse Rate 63 02/26/25 20:42 Respiratory Rate 18 02/26/25 20:42 Blood Pressure 184/102 H 02/26/25 20:42 Pulse Oximetry 96 02/26/25 20:42 Temperature 97.9 F 02/26/25 20:42 Pulse Rate 63 02/26/25 20:42 Respiratory Rate 18 02/26/25 20:42 Blood Pressure 184/102 H 02/26/25 20:42 Pulse Oximetry 96 02/26/25 20:42 MDM - Extremity Injury (Lower) MDM Narrative Medical decision making narrative: This 59-year-old female presents for evaluation of right foot pain after striking it on a piece of wood on Monday. She struck it on the lateral aspect of the right foot. Since then she has had some pain and swelling and states she cannot fit her foot into her shoe. No additional injuries were noted. Her blood pressure was elevated at triage. She is otherwise stable. There was no notable bony deformity swelling bruising or other abnormality noted on the foot. 3 view ankle x-ray was ordered from triage. I reviewed the x-ray. There is no fracture, dislocation foreign body or other notable abnormality. She was placed in an Carroll wrap for comfort. She declined the need for any Tylenol or Motrin for pain. I suggested that she obtain a compression sock from [facility] or [facility] to help with the mild swelling that is bothering her. Clinically I do not see any significant swelling. Rest, ice, compression and elevation was reinforced to her. She verbalizes understanding. Discharge Plan Discharge Chief Complaint: Extremity Injury, Lower Clinical Impression: Contusion of foot Patient Disposition: Home, Self-Care Time of Disposition Decision: 22:12 Condition: Good Prescriptions / Home Meds: No Action atorvastatin 40 mg tablet 40 mg PO DAILY lisinopril 20 mg tablet 20 mg PO DAILY montelukast 10 mg tablet 10 mg PO PRN Print Language: Korean Instructions: Foot Contusion (ED) Additional Instructions: Use ice, rest, Carroll wrap or compression sock as well as Tylenol and Motrin as needed for pain. Referrals: Nica Krishnamurthy NP [Primary Care Provider, Family Practice] - 1 week
== END 2025-02-26 22:28 | disposition home or self-care (01) ==
PROVIDERS: Emergency Provider Emergency Medicine; PCP Nurse Practitioner
DX: S90.31XA Contusion of right foot, initial encounter (principal); W22.03XA Walked into furniture, initial encounter
CPT/HCPCS: 73610; 99283

== ENCOUNTER 2025-06-11 08:19 | Outpatient (OUT) | payer OTHER, SELFPAY ==
--- OUTSIDE RECORDS SUMMARY | 2010-11-23 10:07 | XMS_ITS | Continuity of Care Document ---
Author Organization [facility] Address [address] [place] [address] Phone Care Team Providers Care Clothes Drier Assembler Name Role Phone Dereck Pelletier DO Unavailable Unavai lable Procedures Procedure Date OFFICE VISIT/EST LEVEL III Advance Directives Directive Yes / No Effective Date File Name No Information Encounters Encounter Description Practice Location Reason(s) For Visit Diagnoses Date Provider Providers Copied on Encounter [facility], [address], [place], [place], [id number], [place] tel:[phone] [address] [facility] No Information 1 Ignacia Connell. [address] [place], [place], [id number], [place]. tel:[phone] OFFICE VISIT/EST LEVEL III [facility], [address] [facility] [address], [place], [place], [id number], [place] tel:[phone] No Information 8200 9 No Information Family History Family Member Type Diagnosis Age At Onset No Information Payers Payer name Insurance type Covered constitution party ID Authorcarlotaa zen(s) Tone [facility] [id number] Social History Type Description Quantity Date Captured Comments Sex Female Smoking Status No Information Chief Complaint And Reason For Visit No Information Reason For Referral Reason For Referral No Information History Of Present Illness Encounter Date Complaint History Of Prese nt Illness No Information Functional Status Date Functional Assessmen t No Information Instructions Date Instruction Additional Infor mation No Information Assessments Type Assessment Date No Information Patient Care Teams Name Effective Dates (start - stop) Status Members No Information
--- OUTSIDE RECORDS SUMMARY | 2017-05-11 05:10 | XMS_ITS | Continuity of Care Document ---
Author Organization [facility] Address [facility] [address] [place] [address] Phone Care Team Providers Care Furniture Assembler Name Role Phone [employer] [place], Matti Lopez le Procedures Procedure Date OFFICE/OUTPATIENT VISIT, EST OFFICE/OUTPATIENT VISIT, EST OFFICE/OUTPATIENT VISIT, EST OFFICE/OUTPATIENT VISIT, EST OFFICE/OUTPATIENT VISIT, EST Advance Directives Directive Yes / No Effective Date File Name No Information Encounters Encounter Description Practice Location Reason(s) For Visit Diagnoses Date Provider Providers Copied on Encounter Bianca Miner [facility] , [facility], [facility], tel:[phone] [facility] No Information 5201 7 [employer] [place]. 903 [facility], [id number] [address] [place] [address], [facility], [place]. tel:[phone] OFFICE/OUTPAT IENT VISIT, EST Bianca Miner [facility] , [facility] [address], [address], [place] tel:[phone] [facility] No Information 9200 9 Tariq [place]. [address] [facility], [id number] [address] [place] [address], [facility], [place]. tel:[phone] OFFICE/OUTPAT IENT VISIT, [facility] Bianca Miner [facility] , [facility] [address], [facility], [place] tel:[phone] [facility] No Information 9200 9 [place] [place]. [address] [facility], [id number] 0, [place], [place], [facility], [place]. tel:[phone] OFFICE/OUTPAT IENT VISIT, EDUARDA Miner [facility] Care [facility] , [facility] [address], [place], [place], [facility], [place] tel:[phone] [place] [address] No Information 8 Tariq [place]. [address] [facility], [id number] 0, [place], [place], [facility], [place]. tel:[phone] OFFICE/OUTPAT IENT VISIT, EDUARDA [facility] , [facility] [address], [place], [place], [facility], tel:[phone] [place] [address] No Information 8 Tariq [place]. [address] [place] [address], [id number] 0, [place], [place], [facility], . tel:[phone] OFFICE/OUTPAT IENT VISIT, EDUARDA Miner [facility] , [facility] [address], [facility], tel:[phone] [place] [address] No Information 8 Tariq [place]. [address] [place] [address], [id number], [place], [facility], . tel:[phone] Family History Family Member Type Diagnosis Age At Onset No Information Payers Payer name Insurance type Covered democrat ID Authoriza tion(s) No Information Social History Type Description Quantity Date Captured [...]
--- NOTE | 2025-06-11 08:22 | CT_ITS ---
The [address] [address] Patient Name: DIANE NGUYEN MRN: [id number] date: 1965 Sex: F Assigned Patient Location: [facility] Current Patient Location: [facility] Accession/Order Number: [id number] Exam Date: 06/11/2025 08:50 Report Date: 06/11/2025 09:47 At the request of: BECKA MYLES NP Procedure: CT lung screening low-dose LOW-DOSE SCREENING CHEST CT WITHOUT CONTRAST CLINICAL DATA: Current smoker with prostate 22 pack year history of tobacco use. COMPARISON: None Spiral axial unenhanced low-dose images were obtained through the chest. Images were reviewed using both narrow and wide window settings. This CT exam was performed using one or more following dose reduction techniques: Automated exposure control, adjustment of the mA and/or kV according to patient size, or use of iterative reconstruction technique. The heart is top normal in size. No pericardial effusion is noted. There is minimal coronary artery plaque. The ascending aorta is ectatic. No pathologic lymph nodes are visualized. Slight dextroscoliotic curvature and endplate spurring are seen at the spine. There is minor linear atelectasis or scarring. No additional consolidation, pleural effusion or pneumothorax is seen. Tiny scattered nodules are visualized on the left measuring up to 3 - 4 mm. No nodularity is seen on the right. Limited imaging through the upper abdomen shows slight adrenal limb thickening. CT/CT lung screening low-dose IMPRESSION: MINIMAL SCARRING OR ATELECTASIS. TINY LEFT PULMONARY NODULES. Lung RADS category 2 - benign Twelve-month low-dose CT follow-up suggested Impression dictated by: Jyotsna Edmonds M.D. 06/11/2025 9:47 AM Dictation Location: [place] [address] Electronically authenticated by: [id number] Y Date: 06/11/2025 09:47
--- NOTE | 2025-06-11 08:22 | MM_ITS ---
Patient Name: DIANE NGUYEN MR#: [id number] : 1965 Exam Date: 06/11/2025 Ordering Doctor: EDUIN MYLES CNP RADIOLOGY REPORT PROCEDURE: MM TOMOSYNTHESIS SCREENING BI COMPARISON: MM TOMOSYNTHESIS SCREENING BI, 05/16/2023. MG MAMM SCREEN 3D PARISA CAD, 05/28/2021. MG MAMM RT DIAG FU, 03/24/2020. MG MAMM PARISA SCRN W CAD DIG, 07/11/2013. INDICATIONS: Screening Calculator Name NCI Breast Cancer Risk Assessment Tool 5 Year Breast Cancer Risk 1.00% Lifetime Breast Cancer Risk 5.50% Personal Breast Cancer No Personal Ovarian Cancer No Treatments None Family Cancers Grandmother-maternal with stomach cancer at age ~78. LOCATION: The [facility] BREAST COMPOSITION: The breasts are almost entirely fatty. FINDINGS: DIAGNOSTIC CATEGORY 1--NEGATIVE. RIGHT BREAST: No significant suspicious finding. LEFT BREAST: No significant suspicious finding. RECOMMENDATIONS: ROUTINE MAMMOGRAM AND CLINICAL EVALUATION IN 12 MONTHS. Dictated by: Kieran Ordaz MD on 06/11/2025 at 11:53 Approved by: Kieran Ordaz MD on 06/11/2025 at 11:57
--- OUTSIDE RECORDS SUMMARY | 2025-06-11 08:22 | XMS_ITS | CCD ---
Author Organization [facility] [place] [facility] Care Team Providers Care Marketing Communications Leader Name Role Phone SHAIKH KELLY Referring Unavailable MICK MONTERO Surgeon Unavailable PAULINA, ALAN Admitting Unavailable AICHHOLZ, NICA Primary Care Unavailable UT Procedure Practitioner Unavailab ASHLEY Yancey Attending Unavailable AICHHOLZ, ELEVATOR CONSTRUCTOR NICA Primary Care Unavailable AICHHOLZ, ELEVATOR CONSTRUCTOR NICA Consulting Unavailable AICHHOLZ, ELEVATOR CONSTRUCTOR NICA Attending Unavailable AICHHOLZ, ELEVATOR CONSTRUCTOR NICA Admitting Unavailable AICHHOLZ, ELEVATOR CONSTRUCTOR NICA Primary Care Unavailable AICHHOLZ, ELEVATOR CONSTRUCTOR NICA Consulting Unavailable AICHHOLZ, ELEVATOR CONSTRUCTOR NICA Attending Unavailable AICHHOLZ, ELEVATOR CONSTRUCTOR NICA Admitting Unavailable DR AGUSTÍN MUELLER Consulting Unavailable AICHHOLZ, ELEVATOR CONSTRUCTOR NICA Primary Care Unavailable AICHHOLZ, ELEVATOR CONSTRUCTOR NICA Attending Unavailable AICHHOLZ, ELEVATOR CONSTRUCTOR NICA Admitting Unavailable AICHHOLZ, ELEVATOR CONSTRUCTOR NICA Consulting Unavailable ASHLIE GARCIA Consulting Unavailable AICHHOLZ, ELEVATOR CONSTRUCTOR NICA Primary Care Unavailable AICHHOLZ, ELEVATOR CONSTRUCTOR NICA Attending Unavailable AICHHOLZ, ELEVATOR CONSTRUCTOR NICA Admitting Unavailable AICHHOLZ, ELEVATOR CONSTRUCTOR NICA Primary Care Unavailable VANESSA BARGER Attending Unavailable CHARBEL, VANESSA Admitting Unavailable CHARBEL, VANESSA Consulting Unavailable AICHHOLZ, ELEVATOR CONSTRUCTOR NICA Primary Care Unavailable BOY WINCHESTER Attending Unavailable RANULFO, BOY Admitting Unavailable BOY [place] Consulting Unavailable ANNE MARIE BARGERYL Attending Unavailable CHARBEL, VANESSA Admitting Unavailable CHARBEL, VANESSA Consulting Unavailable AICHHOLZ, ELEVATOR CONSTRUCTOR NICA Primary Care Unavailable AICHHOLZ, ELEVATOR CONSTRUCTOR NICA Primary Care Unavailable PAY, DR BARNES Admitting Unavailable PAY, DR BARNES Attending Unavailable KRISTIE SKY Consulting Unavailable SYEDA ELKINS Consulting Unavailable AICHHOLZ, ELEVATOR CONSTRUCTOR NICA Primary Care Unavailable SHAIKH Juaquin KELLY Attending Unavailable SHAIKH Juaquin KELLY Admitting Unavailable DR BOB PRICE Consulting Unavailable VANESSA BARGER Consulting Unavailable ARSENIO HOWARD Consulting Unavailable SHAIKH Juaquin KELLY Consulting Unavailable Yessy MÉNDEZ, Nica Unavailable Ja Pabon MD Primary Care Provider Unallocated , Reginaldos Provider Primary Care Provi bertha Ja Pabon MD Primary Care Provider Nica Krishnamurthy NP Unavailable NICA KRISHNAMURTHY Attending Unavailable NICA KRISHNAMURTHY Attending Unavailable YESSY, NICA Attending Unavailable NICA KRISHNAMURTHY Attending Unavailable YESSY, NICA Attending Unavailable Yessy HERNANDEZCNica Primary Care Provider [phone] Yessy MÉNDEZ-Nica Mittal Attending Provider Medications Current Medications MedicationDrug Class(es)DatesSig (Normalized)Sig (Original)amoxicillin 875 mg oral tablet (1 source)Penicillin-class AntibacterialStart: 93-97-9404bxmn 1 tablet by mouth every twelve hoursAmoxicillin 875 mg tablet Active 875 MG PO Every 12 hours May 21, 2025 12:00am Complies with drug therapyamoxicillin 875 mg / clavulanate 125 mg oral tablet (2 sources)Penicillin-class AntibacterialStart: 02-03-2025 End: 89-40-9665hvxx 1 tablet by mouth in the morningamoxicillin-clavulanate (Augmentin) 875-125 MG tablet Indications: Acute non-recurrent maxillary sin usitis Take 1 tablet (875 mg) by mouth in the morning and 1 tablet (875 mg) before bedtime. Do all this for 10 days. Take with food. 20 tablet 02/03/2025 02/13/2025 Activeatorvastatin 40 mg oral tablet (20 sources)HMG-CoA Reductase InhibitorStart: 02-22-2024 End: 04-21-1876souu 1 tablet by mouth once daily at bedtimeAtorvastatin 40 mg tablet Active 40 MG PO Daily at bedtime May 04, 2025 12:00am Complies with drug therapylisinopril 40 mg oral tablet (20 sources)Angiotensin Converting Enzyme InhibitorStart: 12-25-2024 End: 08-82-4707gwct 1 tablet by mouth once dailyLisinopril 40 mg tablet Active 40 MG PO Daily May 04, 2025 12:00am Complies with drug therapyStart: 02-22-2024 End: 74-52-3103jhwggnouba 20 MG tablet Indications: Primary hypertension (CMS/HCC) Take 1 tablet (20 mg) by mouth at noon and 1 tablet (20 mg) in the evening. 180 tablet 12/24/2024 12/25/2024 Discontinued (Ineffective)montelukast 10 mg oral tablet (20 sources)Leukotriene Receptor AntagonistStart: 27-78-2751fmky 1 tablet by mouth once daily at bedtimeMontelukast 10 mg tablet Active 10 MG PO Daily at bedtime May 04, 2025 12:00am Complies with drug therapyStart: 02-22-2024 End: 92-76-5725jiza 1 tablet by mouth at bedtimemontelukast (Singulair) 10 MG tablet Indications: Environmental and seasonal allergies Take 1 tablet (10 mg) by mouth at bedtime 90 tablet 1 12/25/2024 Activeofloxacin 3 mg/ml otic solution (2 sources)Quinolone AntimicrobialStart: 05-27-2024 End: 66-91-5181wvariqhmf (Floxin) 0.3 % otic solution Indications: Acute otitis externa of right ear, unspecified type Administer 10 drops into affected ear(s) Daily for [address] 10 drops daily in right ear 5 mL 05/27/2024 06/03/2024 ActivetiZANidine 4 mg oral tablet (20 sources)Central alpha-2 Adrenergic AgonistStart: 05-04-2025 End: 83-62-6405teoy 1 tablet by mouth once daily at bedtime as neededStart: 02-22-2024 End: 78-72-4205mdYYIdfymx (Zanaflex) 4 MG tablet Indications: Muscle spasms of neck Take 1 tablet (4 mg) by mouth as needed at bedtime for muscle spasms 90 tablet 12/25/2024 Activetopiramate 25 mg oral tablet (20 sources)Start: 02-22-2024 End: 43-15-6920xjfc 2 tablets by mouth once daily at bedtimeTopiramate 25 mg tablet Active 50 MG PO Daily at bedtime May 04, 2025 12:00am Complies withdrug therapytraZODone hydrochloride 50 mg oral tablet (20 sources)Serotonin Reuptake InhibitorStart: 02-22-2024 End: 45-55-9091pjxu 2 tablets by mouth once daily at bedtimeTrazodone 50 mg tablet Active 100 MG PO Daily at bedtime May 04, 2025 12:00am Complies withdrug sfeysxb80 hr venlafaxine 150 mg extended release oral capsule (20 sources)Serotonin and Norepinephrine Reuptake InhibitorStart: 09-25-2024 End: 89-68-7055rhnx 1 capsule by mouth once dailyVenlafaxine 150 mg capsule,extended release 24hr Active 150 MG PO daily May 04, 2025 12:00am Complies with drug therapyStart: 02-22-2024 End: 14-76-1849paqu 1 capsule by mouth once dailyvenlafaxine XR (Effexor XR) 75 MG 24 hr capsule Indications: Anxiety Take 1 capsule (75 mg) by mouth Daily 90 capsule 05/27/2024 Active Problems Active Problems Problem ClassificationProblemDateDocumented DateEpisodic/ChronicAcute myocardial infarction (3 sources)Non-ST elevation (NSTEMI) myocardial infarction; Translations: [NON- ST ELEVATION MYOCARDIAL INFARCT]Onset: 66-45-5240HjvhungYusjmuf disorders (20 sources)Anxiety disorder, unspecified; Translations: [Mixed anxiety and depressive disorder]Onset: 03-29-2022 Resolved: 455509-47-1294DiylbitCihsuxr dysrhythmias (20 sources)Bradycardia; Translations: [Bradycardia, unspecified]Onset: 909786-10-0519UgrpedotSehbbjx obstructive pulmonary disease and bronchiectasis (20 sources)Chronic obstructive lung disease; Translations: [Chronic obstructive pulmonary disease, unspecified]Onset: 259540-83-5142YamzowdLnakuvli atherosclerosis and other heart disease (20 sources)History of myocardial infarction; Translations: [Old myocardial infarction]Onset: 075613-54-7539YfplgniXvvamdwjq of lipid metabolism (20 sources)Hyperlipidemia, unspecified; Translations: [Hyperlipidemia]Onset: 028530-86-4840VhwehmhGqvrmlcxyf disorders (20 sources)Gastroesophageal reflux disease; Translations: [Gastro-esophageal reflux disease without esophagitis]Onset: 372104-08-0752OnqiuraYbttvzvpy hypertension (20 sources)Essential (primary) hypertension; Translations: [Hypertensive disorder]Onset: 140919-48-8899BipcadiVinmv and electrolyte disorders (1 source)Hypokalemia; Translations: [HYPOKALEMIA]Onset: 60-90-1424Fupsmkpj Genitourinary symptoms and ill-defined conditions (20 sources)Female stress incontinence; Translations: [Stress incontinence (female) (male)]Onset: 095075-66-4272UntazfuNzbqkogb; including migraine (20 sources)Migraine; Translations: [Migraine, unspecified, not intractable, without status migrainosus]Onset: 794773-23-3312XylpmqsQfeyqafpcoilz mental health disorders (2 sources)Primary insomnia; Translations: [Primary insomnia]42-38-4286Pfglmvw Mood disorders (1 source)Major depressive disorder, single episode, unspecified; Translations: [EVELIO DEPRESS D/O SINGLE EPIS UNS]Onset: 69-07-8192HktiewbUponkpkdcgwid gastroenteritis (1 source)Noninfective gastroenteritis and colitis, unspecified; Translations: [NONINFECTIVE GE AND COLITIS UNS]Onset: 50-93-3179EdxjtskzDeqtk aftercare (1 source)Other group home (current) drug therapy; Translations: [OTH LONG-TERM CURRENT DRUG THERAPY]Onset: 46-32-2873WbdkdrocEyvly connective tissue disease (4 sources)Myalgia, unspecified site; Translations: [MYALGIA UNSPECIFIED SITE] Onset: 18-17-7299XdcnatvgYkael connective tissue disease (1 source)Spasm; Translations: [Other muscle spasm]37-35-6344DvaztwpgQsibv ear and sense organ disorders (20 sources)Mixed conductive and sensorineural hearing loss of right ear; Translations: [Mixed conductive and sensorineural hearing loss, unilateral, right ear, with unrestricted hearing on the contralateral side]Onset: 10-04-2023 45-01-5946UnwloziVsypi ear and sense organ disorders (20 sources)Cholesteatoma of attic; Translations: [Cholesteatoma of attic, right ear]Onset: 475796-33-2813QsnispviCobhx gastrointestinal disorders (3 sources)Diarrhea, unspecified; Translations: [DIARRHEA UNSPECIFIED]Onset: 34-18-9697YbywlqbbKrrdh lower respiratory disease (20 sources)Chronic cough; Translations: [Chronic cough]Onset: 10-04-2023 81-15-1103RxiswidxZfggj nutritional; endocrine; and metabolic disorders (20 sources)Obesity caused by energy imbalance; Translations: [Morbid (severe) obesity due to excess calories]Onset: 297704-90-6836DgmdioiFegtx nutritional; endocrine; and metabolic disorders (20 sources)Body mass index 30+ - obesity; Translations: [Body mass index (BMI) 35.0-35.9, adult]Onset: 866533-45-1395VonybezJcegf nutritional; endocrine; and metabolic disorders (2 sources)Morbid obesity; Translations: [Morbid (severe) obesity due to excess calories]48-59-7298TtjuymrYjydw screening for suspected conditions (not mental disorders or infectious disease) (20 sources)Encounter for screening mammogram for malignant neoplasm of breast; Translations: [Mammography abnormal]Onset: 05-28-2021 Resolved: 00-49-9238VnkmjhpqJshfg skin disorders (2 sources)Subungual ggnyrawv82-92-7094UjgvfaowYjrrs upper respiratory disease (3 sources)Allergic disposition; Translations: [Other allergic rhinitis] 79-73-0257TvrgwsvAaerr upper respiratory infections (7 sources)Acute upper respiratory infection, unspecified; Translations: [Acute maxillary sinusitis]Onset: 352525-29-3672KkdbwddwNmlahvkn of female genital organs (20 sources)Incomplete uterovaginal prolapse; Translations: [Incomplete uterovaginal prolapse]Onset: 854414-33-6947CaksjaiSlzjwwvp codes; unclassified (20 sources)Obstructive sleep apnea of adult; Translations: [Obstructive sleep apnea (adult) (pediatric)]Onset: 277188-02-5886KypbrwbJtygywvm codes; unclassified (1 source)Obstructive sleep apnea syndrome; Translations: [Obstructive sleep apnea (adult) (pediatric)]60-58-8767QoxhyriCgkadpdq codes; unclassified (1 source)Acquired absence of both cervix and uterus; Translations: [ACQUIRED ABSENCE BOTH CERVIX AND UTERUS]Onset: 44-82-0103LmsoznsrPlmprpxl codes; unclassified (1 source)Acquired absence of other specified parts of digestive tract; Translations: [ACQ ABSENCE OTH PART DIGESTV TRACT]Onset: 30-85-1234Dnsjqyrw Residual codes; unclassified (20 sources)Insomnia; Translations: [Insomnia, unspecified]Onset: 10-04-2023 72-42-9270QyarmriiCmjojcif codes; unclassified (7 sources)Lung cancer screening declined; Translations: [Procedure and treatment not carried out because of patient's decision for unspecified reasons] Onset: 278529-79-8164BfqsezjcTsrwsoqljgq; intervertebral disc disorders; other back problems (20 sources)Degeneration of lumbar intervertebral disc; Translations: [DDD (degenerative disc disease), lumbar]Onset: 586729-69-0567PdpkzxvKcnmcehrb- related disorders (16 sources)Nicotine dependence, cigarettes, uncomplicated; Translations: [Tobacco dependence syndrome]Onset: 482298-75-9526XspsjntXtgsnncidvsc (1 source)CONTACT W/AND (SUSP) EXPOS COVID-19; Translations: [CONTACT W/AND (SUSP) EXPOS COVID-19]Onset: 16-92-7128Mrplj infection (1 source)COVID-19; Translations: [COVID-19]Onset: 03-29-2022 Past or Other Problems Problem ClassificationProblemDateDocumented DateEpisodic/ChronicE Codes: Natural/environment (1 source)Other and unspecified overexertion or strenuous movements or postures, initial encounter; Translations: [OTH AND UNS OVREXRT/STRN MVMT/POS INT]Onset: 90-55-3372RwipoknnZqvzwfuxozk chest pain (1 source)Chest pain, unspecified; Translations: [CHEST PAIN UNSPECIFIED]Onset: 28-51-8194NiiptgjmBonzl connective tissue disease (3 sources)Pain in right leg; Translations: [PAIN IN RIGHT LEG]Onset: 12-10-2021 EpisodicOther connective tissue disease (20 sources)Muscle spasm of cervical muscle of neck; Translations: [Other muscle spasm]Onset: 751480-26-3612DfqvxpsmSxcxt connective tissue disease (20 sources)Muscle pain; Translations: [Myalgia, unspecified site]Onset: 023455-82-8138HbrifckmLjwyp ear and sense organ disorders (20 sources)Acute otitis externa of right ear; Translations: [Unspecified acute noninfective otitis externa, right ear]Onset: 775276-37-5316YcttksamDryvb lower respiratory disease (20 sources)Snoring; Translations: [Snoring]Onset: 809704-22-7285Egdlwohr Other nervous system disorders (20 sources)Paresthesia; Translations: [Paresthesia of skin]Onset: 10-04-2023 Resolved: 392637-02-4264LsptbjcfYdioz non-traumatic joint disorders (3 sources)Pain in right hip; Translations: [PAIN IN RIGHT HIP]Onset: 12-20-2021 EpisodicOther nutritional; endocrine; and metabolic disorders (4 sources)Abnormal weight loss; Translations: [ABNORMAL WEIGHT LOSS]Onset: 25-45-9675YjdovehjTnmco nutritional; endocrine; and metabolic disorders (11 sources)Weight loss; Translations: [Abnormal weight loss]Onset: 10-04-2023 Resolved: 444598-31-4918XlitbxchGxkah nutritional; endocrine; and metabolic disorders (9 sources)Weight decreased; Translations: [Abnormal weight loss]Onset: 10-04-2023 Resolved: 631831-50-4484TryzqgonSnyvet media and related conditions (20 sources)Dysfunction of right eustachian tube; Translations: [Unspecified Eustachian tube disorder, right ear]Onset: 10-04-2023 Resolved: 369821-77-8566UaxgwfpgWlsdupyzs (except that caused by tuberculosis or sexually transmitted disease) (20 sources)Pneumonia; Translations: [Pneumonia, unspecified organism]Onset: 10-04-2023 Resolved: 449756-49-7452GlxbjkaaGcvfcrgw codes; unclassified (20 sources)Parasomnia; Translations: [Parasomnia, unspecified]Onset: 10-04-2023 Resolved: 258654-36-6612LighgzaVvuckkea codes; unclassified (1 source)Family history of malignant neoplasm of digestive organs; Translations: [FAM HX MALIG NEOPLASM DIGESTIV ORGN]Onset: 71-66-9617Rkrjyxof Residual codes; unclassified (20 sources)Tobacco user; Translations: [Tobacco use]Onset: 10-04-2023 Resolved: 244543-32-4070GoauttknRboknwzkovq; intervertebral disc disorders; other back problems (5 sources)Radiculopathy, lumbar region; Translations: [Sciatica, right side] Onset: 91-87-6880VuibivqzYlmxvpd and strains (15 sources)Strain of other specified muscles, fascia and tendons at thigh level, right thigh, initial encounter; Translations: [Sprain of right wrist] Onset: 683974-96-6430RimalngmOzssqkt (20 sources)Syncope and collapse; Translations: [Near syncope]Onset: 05-12-2021 Resolved: 09-74-2074NasrxzozIgriv infection (20 sources)Disease caused by 2019-nCoV; Translations: [COVID-19]Onset: 10-04-2023 Resolved: 959710-08-8064Bwtjovgz Results Test NameValueInterpretationReference RangeFacilityALL CBC WITH AUTO DIFFon 06-56-4933DWQWZMICJ ABSOLUTE AUTO0.1NOMS HealthcareBasophils/100 WBC (Bld)0.6 % 0.2 - 2.0 %[facility] HealthcareEosinophils/100 WBC (Bld)4.4 %0.9 - 7.0 %[facility] HealthcareErythrocyte distribution width (RBC) [Ratio]12 %11.0 - 15.0 %[facility] HealthcareHematocrit (Bld) [Volume fraction]43.2 %36.0 - 48.0 %[facility] Hemoglobin (Bld) [Mass/Vol]14.2 g/dL12.0 - 16.0 g/dLNOMS HealthcareIMMATURE GRANULOCYTES ABS AUTO0.02N[facility] HealthcareImmature granulocytes/100 WBC (Bld)0.2 % 0.0 - 0.5 %[facility] NetworkLYMPHOCYTES ABSOLUTE AUTO1.9[facility] Lymphocytes/100 WBC (Bld)22 %20.5 - 60.0 %[facility] HospitalH (RBC) [Entitic mass]31.3 pg26.7 - 34.0 pgNOKansas City VA Medical CenterHC (RBC) [Mass/Vol]32.9 g/dL29.9 - 35.2 g/dLKindred HospitalV (RBC) [Entitic vol]95.4 fL81.0 - 99.0 fLBRIGHAM CITY COMMUNITY HOSPITAL HealthcareMONOCYTES ABSOLUTE AUTO0.8NOMS HealthcareMonocytes/100 WBC (Bld)9.7 % 1.7 - 12.0 %[facility] NetworkNEUTROPHILS ABSOLUTE AUTO5.5[facility] Neutrophils/100 WBC (Bld)63.1 %43.0 - 75.0 %[facility] NetworkPlatelet mean volume (Bld) [Entitic vol]11.6 fL9.5 - 13.5 fLNOMS HealthcareTBH EO #0.4[facility] TBH [id number] TrihealthTB RBC4.53N[facility] TrihealthTB WBC8.7[facility]YNCBR[facility] HealthcareCovid-19 PCR ([facility])on 67-44-9820OGIU-CoV-2 (COVID-19) RNA VISH+probe Ql (Unsp spec)Not detectedNormalNOT DETECTEDOhiohealth Grady Memorial Hospital Comment on above:Result Comment: When diagnostic testing is negative, the [...] for this test is supported by the [place] of Health and Human Service's declaration that circumstances exist to justify the emergency use of in vitro diagnostics for the detection and/or diagnosis of the virus that causes COVID-19. This EUA will remain in effect for the duration of the COVID-19 declaration justifying emergency of IVDs, unless it is terminated or revoked by the FDA (after which the test may no longer be used).Performed By: #### CVDTBH #### [facility] [address] [place] [address] Dr. Stacey Edwards AUTO DIFFon 83-97-3159AHGP #0.0 103/ulNormal0.0-0.1The [facility] HospitalComment on above:Performed By: #### CBC #### [facility] [address] [place] [address] Dr. Stacey MelendezBasophils/100 WBC (Bld)0.3 %Normal0.2-2.0[facility] Comment on above:Performed By: #### CBC #### [facility] [address] [place] [address] Dr. Stacey Arrieta #0.0 103/ulNormal0.0-0.7The [facility] HospitalComment on above: Performed By: #### CBC #### [facility] [address] [place] [address] Dr. Stacey Fiscehrosinophils/100 WBC (Bld)0.0 %Critically low0.9-7.0The [facility] HospitalComment on above:Performed By: #### CBC #### [facility] [address] [place] [address] Dr. Stacey Fischerrythrocyte distribution width (RBC) [Ratio]12.4 %Nmxpjq04.0-15.0 [facility] HospitalComment on above:Performed By: #### CBC #### [facility] [address] [place] [address] Dr. Stacey MelendezHematocrit (Bld) [Volume fraction]43.4 %Nfbsst33.0-48.0The [facility] HospitalComment on above:Performed By: #### CBC #### [facility] [address] [place] [address] Dr. Stacey MelendezHemoglobin (Bld) [Mass/Vol]14.3 g/jMPqrpnb19.0-16.0The [facility] HospitalComment on above:Performed By: #### CBC #### [facility] [address] [address] [address] Stacey Tinsley #0.04 10e3/ulCritically high0.00-0.03The [facility] Comment on above:Performed By: #### CBC #### [facility] [address] [address] [address] Stacey Tinsley %0.4 %Normal0.0-0.5The [facility] HospitalComment on above: Performed By: #### CBC #### [facility] [address] [address] [address] Stacey Chase #1.2 103/ulNormal1.2-3.8The [facility] HospitalComment on above:Performed By: #### CBC #### [facility] [address] [place] [address] Dr. Stacey Colberthocytes/100 WBC (Bld)12.6 %Critically low20.5-60.0The [facility] HospitalComment on above:Performed By: #### CBC #### [facility] [address] [address] [address] Stacey AroraUAL DIFF REQNONormalThe [facility] HospitalComment on above: Performed By: #### CBC #### [facility] [address] [address] [address] Stacey Alegria (RBC) [Entitic mass]31.3 kzZjbtkz96.7-34.0The [facility] HospitalComment on above:Performed By: #### CBC #### [facility] [address] [place] [address] Dr. Stacey Alegria (RBC) [Mass/Vol]32.9 g/iYUvoieg21.9-35.2The [facility] HospitalComment on above:Performed By: #### CBC #### [facility] [address] [place] [address] Dr. Stacey Alegria (RBC) [Entitic vol]95.0 fUBsozqj53.0-99.0The [facility] HospitalComment on above:Performed By: #### CBC #### [facility] [address] [address] [address] Stacey Romero #1.0 103/ulCritically high0.3-0.8ThWVUMedicine [facility] Comment on above:Performed By: #### CBC #### [facility] [address] [address] [address] Stacey Blandocytes/100 WBC (Bld)10.8 %Normal1.7-12.0[facility] Comment on above:Performed By: #### CBC #### [facility] [address] [address] [address] Stacey Rizzo #7.3 103/ulCritically high1.4-6.5ThWVUMedicine [facility] Community Hospital Comment on above:Performed By: #### CBC #### [facility] [address] [address] [address] Stacey Pelaezutrophils/100 WBC (Bld)75.9 %Critically high43.0-75.0[facility] HospitalComment on above:Performed By: #### CBC #### [facility] [address] [address] [address] Stacey Brennanlet mean volume (Bld) [Entitic vol]12.2 fLNormal9.5-13.5ThWVUMedicine Harrison Community HospitalComment on above:Performed By: #### CBC #### [facility] [address] [address] [address] Stacey MelendezPLT153 103/dfGhbfoe690-624Ryp [facility] HospitalComment on above: Performed By: #### CBC #### [facility] [address] [place] [address] Dr. Stacey MelendezRBC4.57 106/ulNormal4.20-5.40The [facility] HospitalComment on above:Performed By: #### CBC #### [facility] [address] [place] [address] Dr. Stacey MelendezWBC9.6 103/ulNormal4.0-11.0The [facility] HospitalComment on above: Performed By: #### CBC #### [facility] [address] [address] [address] Stacey MelendezCovid-19 PCR ([facility])on 70-61-7203PZRM-CoV-2 (COVID-19) RNA VISH+probe Ql (Unsp spec)DetectedCritically abnormalNOT DETECTEDThe [facility] Medical Centerment on above:Result Comment: This test is not yet approved or cleared by the [place] FDA. When there are no FDA-approved or cleared tests available, and other criteria are met, FDA can make tests available under an emergency access mechanism called an Emergency Use Authorization (EUA). The EUA for this test is supported by the [place] of Health and Human Service's declaration that circumstances exist to justify the emergency use of in vitro diagnostics for the detection and/or diagnosis of the virusthat causes COVID-19. This EUA will remain in effect for the duration of the COVID-19 declaration ju stifying emergency of IVDs, unless it is terminated or revoked by the FDA (after which the test mayno longer be used).Performed By: #### PTT, PT #### [facility] [address] [place] [address] Dr. Stacey Penaloza A AND B AGon 22-70-6145YJFVWSDUF A AGNegativeNormal NEGATIVE SEE COMMENTThe [facility] Behavioral HospitalComment on above:Performed By: #### CVDTBH #### [facility] [address] [address] [address] Stacey Penaloza B AGNegativeNormalNEGATIVE SEE COMMENTThe [facility] HospitalComment on above:Performed By: #### CVDTBH #### [facility] [address] [place] [address] Dr. Stacey MelendezINTERNAL CONTROLSWithin Normal LimitsNormalWithin Normal Limits The [facility] Centerment on above:Performed By: #### CVDTBH #### [facility] [address] [place] [address] Dr. Stacey MelendezLACTATE/LACTIC ACIDon 46-28-9262Mkjdkqb [Moles/Vol]1.0 mmol/L Normal0.4-1.9The [facility] HospitalComment on above:Performed By: #### PTT, PT #### [facility] [address] [place] [address] Dr. Stacey MelendezPROF CHEM 8 (BAS METB)on 50-43-4528Glmeh gap [Moles/Vol]14.6 mmol/LNormalThe [facility] HospitalComment on above:Performed By: #### CBC #### [facility] [address] [address] [address] Stacey MelendezCalcium [Mass/Vol]8.7 mg/dLNormal8.5-10.1The [facility] Comment on above:Performed By: #### CBC #### [facility] [address] [place] [address] Dr. Stacey MelendezChloride [Moles/Vol]104 mmol/SNiprcg64-406Gds [facility] Comment on above:Performed By: #### CBC #### [facility] [address] [place] [address] Dr. Stacey MelendezCO2 [Moles/Vol]21.0 mmol/QWiwhss52.0-32.0The [facility] Comment on above:Performed By: #### CBC #### [facility] [address] [place] [address] Dr. Stacey MelendezCreatinine [Mass/Vol]1.39 mg/dLCritically high0.55-1.02The [facility] HospitalComment on above:Performed By: #### CBC #### [facility] [address] [place] [address] Dr. Stacey FischerGFR-AF HXWTFJNM01 mL/min/1.35k6Dlimrygscu low>=60The [facility] HospitalComment on above:Performed By: #### CBC #### [facility] [address] [place] [address] Dr. Stacey FischerGFR-NON AF MICLYGEA87 mL/min/1.07c6Nckhyzkqwh low>=60The [facility] HospitalComment on above:Performed By: #### CBC #### [facility] [address] [place] [address] Dr. Stacey MelendezGlucose [Mass/Vol]126 mg/dLCritically pfee34-444Zeu [facility] HospitalComment on above:Performed By: #### CBC #### [facility] [address] [address] [address] Stacey MelendezPotassium [Moles/Vol]2.6 mmol/LCritically low3.5-5.1The [facility] HospitalComment on above:Performed By: #### CBC #### [facility] [address] [address] [address] Stacey MelendezSodium [Moles/Vol]137 mmol/CIravqb265-358Kcx [facility] Comment on above:Performed By: #### CBC #### [facility] [address] [address] [address] Stacey MelendezUrea nitrogen [Mass/Vol]18.0 mg/dLNormal7.0-18.0The [facility] HospitalComment on above:Performed By: #### CBC #### [facility] [address] [address] [address] Stacey Almazan nitrogen/Creatinine [Mass ratio]12.9 mg/mgNormalThe [facility] HospitalComment on above:Performed By: #### CBC #### [facility] [address] [address] [address] Stacey MelendezAmbulatory Visit Summaryon 40-60-6523Xxqdagiotx Visit Summary DIANE NGUYEN Sheila :1965 Visit Date:02/01/2022 Ambulatory Visit Instructions Your [...] lumbar GERD (gastroesophageal reflux disease) History of GA (myocardial infarction) HTN (hypertension) Hypercholesteremia Hyperlipidemia Insomnia Obesity MISAEL (obstructive sleep apnea) Parasomnia Stress incontinence Tobacco user Weight loss NormalAccess [facility] DaytonPhysician Referralon 01-10-2022 Physician [id number]#[id number]:127Normal [facility] DaytonCBC AUTO DIFFon 05-78-2587SGMQ #0.0 103/ulNormal 0.0-0.1The [facility] HospitalComment on above:Performed By: #### CVDTBH #### [facility] [address] [place] [address] Dr. Stacey Riveraphils/100 WBC (Bld)0.1 %Critically low0.2-2.0The [facility] HospitalComment on above:Performed By: #### CVDTBH #### [facility] [address] [place] [address] Dr. Stacey Arrieta #0.1 103/ulNormal0.0-0.7The [facility] HospitalComment on above: Performed By: #### CVDTBH #### [facility] [address] [place] [address] Dr. Stacey Fischerosinophils/100 WBC (Bld)1.0 %Normal0.9-7.0The [facility] Comment on above:Performed By: #### CVDTBH #### [facility] [address] [place] [address] Dr. Stacey Fischerrythrocyte distribution width (RBC) [Ratio]12.6 %Maefqz77.0-15.0 The [facility] HospitalComment on above:Performed By: #### CVDTBH #### [facility] [address] [place] [address] Dr. Stacey MelendezHematocrit (Bld) [Volume fraction]41.6 %Lxrddx77.0-48.0The [facility] HospitalComment on above:Performed By: #### CVDTBH #### [facility] [address] [place] [address] Dr. Stacey MelendezHemoglobin (Bld) [Mass/Vol]13.6 g/tJQjfpdg03.0-16.0The [facility] HospitalComment on above:Performed By: #### CVDTBH #### [facility] [address] [place] [address] Dr. Stacey Tinsley #0.02 10e3/ulNormal0.00-0.03The [facility] HospitalComment on above:Performed By: #### CVDTBH #### [facility] [address] [place] [address] Dr. Stacey Tinsley %0.3 %Normal0.0-0.5The [facility] HospitalComment on above: Performed By: #### CVDTBH #### [facility] [address] [place] [address] Dr. Stacey Chase #1.9 103/ulNormal1.2-3.8The [facility] HospitalComment on above:Performed By: #### CVDTBH #### [facility] [address] [place] [address] Dr. Stacey Brumfieldmphocytes/100 WBC (Bld)24.4 %Oxxzqi71.5-60.0The [facility]al HospitalComment on above:Performed By: #### CVDTBH #### [facility] [address] [place] [address] Dr. Stacey Al DIFF REQNONormalThe [facility]al HospitalComment on above: Performed By: #### CVDTBH #### [facility] [address] [place] [address] Dr. Stacey Alegria (RBC) [Entitic mass]31.3 ntWjgzca83.7-34.0The [facility] HospitalComment on above:Performed By: #### CVDTBH #### [facility] [address] [place] [address] Dr. Stacey Alegria (RBC) [Mass/Vol]32.7 g/hBXrbhek62.9-35.2The [facility] HospitalComcorewell health butterworth hospital on above:Performed By: #### CVDTBH #### [facility] [address] [place] [address] Dr. Stacey Alegria (RBC) [Entitic vol]95.9 kBAvzxnu34.0-99.0The [facility] HospitalComment on above:Performed By: #### CVDTBH #### [facility] [address] [place] [address] Dr. Stacey Romero #0.5 103/ulNormal0.3-0.8The [facility] HospitalComment on above:Performed By: #### CVDTBH #### [facility] [address] [place] [address] Dr. Stacey Blandocytes/100 WBC (Bld)6.6 %Normal1.7-12.0The [facility] Comment on above:Performed By: #### CVDTBH #### [facility] [address] [place] [address] Dr. Stacey Rizzo #5.2 103/ulNormal1.4-6.5The [facility] HospitalComment on above:Performed By: #### CVDTBH #### [facility] [address] [place] [address] Dr. Stacey Pelaezutrophils/100 WBC (Bld)67.6 %Evvmdo19.0-75.0The [facility] HospitalComment on above:Performed By: #### CVDTBH #### [facility] [address] [place] [address] Dr. Stacey Butler mean volume (Bld) [Entitic vol]11.7 fLNormal9.5-13.5The [facility] HospitalComment on above:Performed By: #### CVDTBH #### [facility] [address] [place] [address] Dr. Stacey CrabtreeT178 103/cuPxvsxt481-830Bnu [facility] HospitalComment on above: Performed By: #### CVDTBH #### [facility] [address] [place] [address] Dr. Stacey TalbertC4.34 106/ulNormal4.20-5.40The [facility] HospitalComment on above:Performed By: #### CVDTBH #### [facility] [address] [place] [address] Dr. Stacey MelendezWBC7.6 103/ulNormal4.0-11.0The [facility] HospitalComment on above: Performed By: #### CVDTBH #### [facility] [address] [place] [address] Dr. Stacey Quesada 00-77-2917XRJ [Mass/Vol]mg/LNormal<=1.0The [facility] HospitalComment on above:Performed By: #### PTT, PT #### [facility] [address] [place] [address] Dr. Stacey Plummer T3on 88-62-2276TBUR T32.39 pg/mlLNormal2.18-3.98The [facility] HospitalComment on above:Performed By: #### PTT, PT #### [facility] [address] [place] [address] Dr. Stacey Plummer T4on 25-97-7677Fqbm T4 [Mass/Vol]1.04 ng/dLNormal0.76-1.46 The [facility] HospitalComment on above:Performed By: #### PTT, PT #### [facility] [address] [place] [address] Dr. Stacey MelendezPROF 14(COMP METB)on 68-66-6458Nxgjemw [Mass/Vol]3.7 g/dLNormal 3.4-5.0The [facility] HospitalComment on above:Performed By: #### CVDTBH #### [facility] [address] [place] [address] Dr. Stacey MelendezAlbumin/Globulin [Mass ratio]1.0 {ratio}NormalThe [facility]al HospitalComment on above:Performed By: #### CVDTBH #### [facility] [address] [place] [address] Dr. Stacey Mcbride [Catalytic activity/Vol]57 U/AFiyhoj03-292Fph [facility] Centerment on above:Performed By: #### CVDTBH #### [facility] [address] [place] [address] Dr. Stacey Reyna [Catalytic activity/Vol]25 U/QVnqwkx43-74Wcb [facility] HospitalComment on above:Performed By: #### CVDTBH #### [facility] [address] [place] [address] Dr. Stacey Song gap [Moles/Vol]14.4 mmol/LNormalThe [facility] on above:Performed By: #### CVDTBH #### [facility] [address] [place] [address] Dr. Stacey Riojas [Catalytic activity/Vol]11 U/LCritically wpf29-89Uzs Cook HospitalComment on above:Performed By: #### CVDTBH #### [facility] [address] [address] [address] Stacey MelendezBilirubin [Mass/Vol]0.3 mg/dLNormal0.2-1.0[facility] Comment on above:Performed By: #### CVDTBH #### [facility] [address] [address] [address] Stacey MelendezCalcium [Mass/Vol]9.1 mg/dLNormal8.5-10.1The [facility] Comment on above:Performed By: #### CVDTBH #### [facility] [address] [address] [address] Stacey MelendezChloride [Moles/Vol]108 mmol/LCritically ctyi84-490GehOhiohealth Grady Memorial HospitalComment on above:Performed By: #### CVDTBH #### [facility] [address] [place] [address] Dr. Stacey MelendezCO2 [Moles/Vol]23.2 mmol/UGnqpen57.0-32.0The [facility] Comment on above:Performed By: #### CVDTBH #### [facility] [address] [place] [address] Dr. Stacey MelendezCreatinine [Mass/Vol]0.83 mg/dLNormal0.55-1.02The [facility] HospitalComment on above:Performed By: #### CVDTBH #### [facility] [address] [place] [address] Dr. Stacey FischerGFR-AF [place]>60Normal>=60The [facility] HospitalComment on above:Performed By: #### CVDTBH #### [facility] [address] [address] [address] Stacey FischerGFR-NON AF [place]>60Normal>=60The [facility] HospitalComment on above:Performed By: #### CVDTBH #### [facility] [address] [place] [address] Dr. Stacey MelendezGlobulin (S) [Mass/Vol]3.6 g/dLNormalThe [facility] HospitalComment on above:Performed By: #### CVDTBH #### [facility] [address] [address] [address] Stacey MelendezGlucose [Mass/Vol]112 mg/dLCritically pbwg82-208Qpz [facility] HospitalComment on above:Performed By: #### CVDTBH #### [facility] [address] [place] [address] Dr. Stacey MelendezPotassium [Moles/Vol]3.6 mmol/LNormal3.5-5.1The [facility] Comment on above:Performed By: #### CVDTBH #### [facility] [address] [place] [address] Dr. Stacey MelendezProtein [Mass/Vol]7.3 g/dLNormal6.4-8.2The [facility] Comment on above:Performed By: #### CVDTBH #### [facility] [address] [place] [address] Dr. Stacey Lambertdium [Moles/Vol]142 mmol/TVqyiep055-804Iqb [facility] Comment on above:Performed By: #### CVDTBH #### [facility] [address] [place] [address] Dr. Stacey MelendezUrea nitrogen [Mass/Vol]22.0 mg/dLCritically high7.0-18.0The [facility] HospitalComment on above:Performed By: #### CVDTBH #### [facility] [address] [place] [address] Dr. Stacey Almazan nitrogen/Creatinine [Mass ratio]26.5 mg/mgNoOhioHealth Hardin Memorial HospitalComment on above:Performed By: #### CVDTBH #### [facility] [address] [place] [address] Dr. Stacey Malagon RATE WESTERGRENon 24-61-4337YXX RATE7 mm/hrNormal<=30The [facility] HospitalComment on above:Performed By: #### CVDTBH #### [facility] [address] [place] [address] Dr. Stacey London 55-59-0712BCC7.464 uIU/mLNormal0.358-3.740[facility] HospitalComment on above:Performed By: #### CVDTBH #### [facility] [id number] Stacey Ceja [facility]aug[facility] Medical CenterComment on above: Result Comment: <0.34 UIU/ml HYPERTHYROID 0.34-5.60 UIU/ml EUTHYROID >5.60 UIU/ml HYPOTHYROIDPerformed By: #### CVDTBH #### [facility] [address] [address] [address] Stacey MelendezXR CHEST 2 Von 58-12-9047HY CHEST 2 VEXAM: XR CHEST 2 V HISTORY: Abnormal weight [...] Electronically authenticated by: ASHLIE GARCIA Date: 2022-01-07 14:24[facility] SystemXR FEMUR RTon 62-75-7566WH FEMUR RTEXAM: XR FEMUR RT HISTORY: Pain in right leg COMPARISON: None. TECHNIQUE: 4 views FINDINGS: No fracture, dislocation, subluxation or osseous lesions. The right hip joint is normal. Age-related changes of the right sacroiliac joint. Small enthesophytes off the tendinous insertions. No gross irregularity of the knee. IMPRESSION: Normal x-rays Electronically authenticated by: SYEDA ELKINS Date: 2021-12-20 19:11[facility] SystemCREATININE BLOODon 85-52-4929Hebiuvrvwd [Mass/Vol]0.76 mg/dL Normal0.60-1.20The [facility] HospitalComment on above:Order Comment: No: Do not add to previous drawPerformed By: #### [id number] #### [facility] [address] [place] [address], USAGFR/1.73 sq M.predicted among blacks MDRD (S/P/Bld) [Vol rate/Area]mL/min/{1.73_m2}Normal>60The [facility] Comment on above:Order Comment: No: Do not add to previous drawPerformed By: #### [id number] #### [facility] [address] [place] [address], USAGFR/1.73 sq M.predicted among non-blacks MDRD (S/P/Bld) [Vol rate/Area]mL/min/{1.73_m2}Normal>60The [facility] Comment on above:Order Comment: No: Do not add to previous drawPerformed By: #### [id number] #### [facility] [address] [place] [address], USACardiovascular Lab Reporton 36-20-5458Dhjmydnekbcicw Lab ReportUnFairfield Medical Center Patient Name: [facility] Diane Sosa MR #: [id number] Department of Physician: Flaco Leigh MAdelina Division of Service Date: 06/18/2021 Cardiology Birthdate: 1965 Adult Cardiovascular Room #: [id number] [address] [address] Cardiovascular Laboratory Report CLINICAL PRESENTATION: The patient is a 55-year-old female with past medical history significant for hypertension, active smoking, family history of CAD, and COPD. She is admitted with chest pain. She initially presented to [facility] with chest pain and diaphoresis. Her high sensitivity troponin was positive at 55. She was transferred to [facility] for further evaluation. At [facility], she had a cardiac stress [...] the patient that her risk of future GA is high if she continues to smoke. [...] right radial artery. Using ultrasound guidance, a 6-Barbadian sheath was placed in the right radial artery. Radial antivasospasm cocktail of nitroglycerin 100 mcg and verapamil 1.25 mg was administered through the sheath. All catheter exchanges were made over the [employer] guidewire. A 5-Barbadian JL5 was used to engage the right coronary artery. A 5-Barbadian JL3.5 was used to engage left main [...] P/Mick Montero M.D. Date Trans: 06/19/2021 06:33 Hira/amy DN_JN:[id number] cc: Nica Krishnamurthy N.P. [facility], [address] [place] [address]QaoibiNoqMetroHealth Main Campus Medical CenterUF HEPARIN ASSAY on 73-21-8268GHFOQISPUTHGSA HEPARIN<0.10Critically low0.30-0.70The [facility] HospitalComment on above:Result Comment: RESULTS CHECKED AND CALLED. ACCURATELY READ BACK BY EDER OLSON RN @ 0536 Rivaroxaban and Apixaban will interfere with the anti Xa assay used to monitor UFH and LMWH.Performed By: #### 05354, 74907, 75612, 35713, 72949 #### [facility] [address] [place] [address], USABASIC METABOLIC PANELon 45-60-3567Tkvtwlo [Mass/Vol]9.2 mg/dLNormal8.6-10.3The [facility] HospitalComment on above:Order Comment: No: Do not add to previous drawPerformed By: #### 04202, 65471, 50360, 04376, 79857 #### [facility] [address] [place] [address], USAChloride [Moles/Vol]103 mmol/UXhyqjk46-484Tvg [facility] HospitalComment on above:Order Comment: No: Do not add to previous drawPerformed By: #### 64388, 67132, 70558, 85679, 93590 #### [facility] [address] [place] [address], USACO2 [Moles/Vol]24 mmol/FWwptlb28-52Yjd [facility] HospitalComment on above:Order Comment: No: Do not add to previous draw Performed By: #### 42926, 77819, 35682, 46839, 31854 #### [facility] [address] [place] [address], USACreatinine [Mass/Vol]0.78 mg/dLNormal0.60-1.20The [facility] HospitalComment on above:Order Comment: No: Do not add to previous drawPerformed By: #### 76920, 57679, 88935, 08891, 15417 #### [facility] [address] [place] [address], USAGFR/1.73 sq M.predicted among blacks MDRD (S/P/Bld) [Vol rate/Area]mL/min/{1.73_m2}Normal>60The [facility] Comment on above:Order Comment: No: Do not add to previous drawPerformed By: #### 31539, 83465, 41594, 36554, 83646 #### [facility] [address] [place] [address], USAGFR/1.73 sq M.predicted among non-blacks MDRD (S/P/Bld) [Vol rate/Area]mL/min/{1.73_m2}Normal>60The [facility] Comment on above:Order Comment: No: Do not add to previous drawPerformed By: #### 55064, 84372, 61558, 03964, 29545 #### [facility] [address] [place] [address], USAGlucose [Mass/Vol]105 mg/cLUayw73-818Bhl [facility] HospitalComment on above:Order Comment: No: Do not add to previous drawPerformed By: #### 06992, 18677, 49195, 61078, 19357 #### [facility] [address] [place] [address], USAPotassium [Moles/Vol]3.7 mmol/LNormal3.5-5.1The [facility] HospitalComment on above:Order Comment: No: Do not add to previous drawPerformed By: #### 49588, 67665, 12539, 51684, 85571 #### [facility] [address] [place] [address], USASodium [Moles/Vol]136 mmol/TFyxmow330-687Oha [facility] HospitalComment on above:Order Comment: No: Do not add to previous drawPerformed By: #### 88596, 62463, 89490, 59185, 33589 #### [facility] [address] [place] [address], USAUrea nitrogen [Mass/Vol]23 mg/dLNormal7-25The [facility] HospitalComment on above:Order Comment: No: Do not add to previous drawPerformed By: #### 56777, 88126, 58207, 13215, 05822 #### [facility] [address] [place] [address], USACBC COMPLETE BLOOD COUNTon 66-48-8629Tyzdnsdekrt distribution width (RBC) [Ratio]12.9 %Emnpsb57.5-15.0The [facility] HospitalComment on above:Order Comment: No: Do not add to previous draw Performed By: #### 46662, 39554, 86765, 89972, 07842 #### [facility] [address] [place] [address], USAHematocrit (Bld) [Volume fraction]40.4 %Deodqo74.0-45.0The [facility] HospitalComment on above:Order Comment: No: Do not add to previous drawPerformed By: #### 36710, 91173, 75423, 75693, 57644 #### [facility] [address] [place] [address], USAHemoglobin (Bld) [Mass/Vol]13.4 g/cRVklksu11.0-15.0The [facility] HospitalComment on above:Order Comment: No: Do not add to previous drawPerformed By: #### 79435, 96846, 47553, 03552, 59951 #### [facility] [address] [place] [address], [facility] [place] (RBC) [Entitic mass]32.0 ynXnjrau28.0-33.0The [facility] HospitalComment on above:Order Comment: No: Do not add to previous drawPerformed By: #### 53005, 07204, 38982, 46092, 96687 #### [facility] [address] [place] [address], [facility] (RBC) [Mass/Vol]33.2 g/yCRqwgjr23.0-35.0The [facility] HospitalComment on above:Order Comment: No: Do not add to previous drawPerformed By: #### 03313, 14771, 11521, 12592, 28752 #### [facility] [address] [facility] [place] [address], [facility] [place] (RBC) [Entitic vol]96.4 bOOcoakz52.0-98.0The [facility] HospitalComment on above:Order Comment: No: Do not add to previous drawPerformed By: #### 80612, 96671, 11465, 93936, 43259 #### [facility] [address] [facility] [place] [address], USANucleated RBC/100 WBC (Bld) [Ratio]0 %Normal0-0The [facility] HospitalComment on above:Order Comment: No: Do not add to previous drawPerformed By: #### 25443, 81227, 95223, 85617, 75899 #### [facility] [address] [facility] [address], USAPLAT [id number] 10*3/rUSksadz516-407Dxt [facility] HospitalComment on above:Order Comment: No: Do not add to previous draw Performed By: #### 29829, 63236, 97315, 32112, 38639 #### [facility] [address] [place] [address], [facility] HOSPITALRBC (Bld) [#/Vol]4.19 10*6/uLNormal3.80-5.00The [facility] HospitalComment on above:Order Comment: No: Do not add to previous drawPerformed By: #### 15983, 55111, 69369, 21492, 39307 #### [facility] [address] [place] [address], USAWBC (Bld) [#/Vol]5.67 10*3/uLNormal4.00-10.60The [facility] HospitalComment on above:Order Comment: No: Do not add to previous drawPerformed By: #### 77271, 90552, 01531, 45123, 99215 #### [facility] [address] [place] [address], USAUFH HEPARIN ASSAYon 76-87-7041DIGTMEGIYZANWW HEPARIN0.48 IU/mLNormal0.30-0.70The [facility] County HospitalComment on above: Result Comment: Rivaroxaban and Apixaban will interfere with the anti Xa assay used to monitor UFH and LMWH.Performed By: #### 08458, 62407, 32503, 65714, 54716 #### [facility] [address] [place] [address], USABASIC METABOLIC PANELon [id number] [Mass/Vol]9.2 mg/dLNormal8.6-10.3The [facility] HospitalComment on above:Order Comment: No: Do not add to previous drawPerformed By: #### 69444 #### [facility] [address] [place] [address], USAChloride [Moles/Vol]106 mmol/GLluomd02-794Oii [facility] HospitalComment on above:Order Comment: No: Do not add to previous drawPerformed By: #### 31322 #### [facility] [address] [place] [address], USACO2 [Moles/Vol]24 mmol/OWtzkto11-44Zdh [facility] HospitalComment on above:Order Comment: No: Do not add to previous draw Performed By: #### 48250 #### [facility] [address] [place] [address], USACreatinine [Mass/Vol]0.81 mg/dLNormal0.60-1.20The [facility] HospitalComment on above:Order Comment: No: Do not add to previous drawPerformed By: #### 12622 #### [facility] [address] [place] [address], USAGFR/1.73 sq M.predicted among blacks MDRD (S/P/Bld) [Vol rate/Area]mL/min/{1.73_m2}Normal>60The [facility] Comment on above:Order Comment: No: Do not add to previous drawPerformed By: #### 74613 #### [facility] [address] [place] [address], USAGFR/1.73 sq M.predicted among non-blacks MDRD (S/P/Bld) [Vol rate/Area]mL/min/{1.73_m2}Normal>60The [facility] Comment on above:Order Comment: No: Do not add to previous drawPerformed By: #### 76950 #### [facility] [address] [place] [address], USAGlucose [Mass/Vol]97 mg/yBEnmdac59-382Fbs [facility] HospitalComment on above:Order Comment: No: Do not add to previous drawPerformed By: #### 68059 #### [facility] [address] [facility] [place] [address], USAPotassium [Moles/Vol]3.7 mmol/LNormal3.5-5.1The [facility] HospitalComment on above:Order Comment: No: Do not add to previous drawPerformed By: #### 58993 #### [facility] [address] [facility] [place] [address], USASodium [Moles/Vol]137 mmol/ZVlwgub714-214Ixl [facility] HospitalComment on above:Order Comment: No: Do not add to previous drawPerformed By: #### 12668 #### [facility] [address] [place] [address], USAUrea nitrogen [Mass/Vol]14 mg/dLNormal7-25The [facility] HospitalComment on above:Order Comment: No: Do not add to previous drawPerformed By: #### 88804 #### [facility] [address] [facility] [place] [address], USACBC W/DIFFon [id number] IMM GRANS0.0 10*3/uLNormal 0.0-0.2The [facility] HospitalComment on above:Order Comment: No: Do not add to previous drawPerformed By: #### 33647, 16605, 44020, 05645, 65279 #### [facility] [address] [facility] [place] [address], USAABS NEUTROPHILS3.2 10*3/uLNormal1.6-7.6The [facility] HospitalComment on above:Order Comment: No: Do not add to previous drawPerformed By: #### 47235, 42002, 40809, 89747, 95249 #### [facility] [address] [facility] [place] [address], USABasophils (Bld) [#/Vol]0.0 10*3/uLNormal0.0-0.2The [facility] HospitalComment on above:Order Comment: No: Do not add to previous drawPerformed By: #### 99678, 18506, 76255, 16775, 72894 #### [facility] [address] [facility] [place] [address], USABasophils/100 WBC (Bld)0.4 %Normal0.0-1.0The [facility] HospitalComment on above:Order Comment: No: Do not add to previous drawPerformed By: #### 61539, 42378, 88307, 69411, 74523 #### [facility] [address] [place] [address], USAEosinophils (Bld) [#/Vol]0.2 10*3/uLNormal0.0-0.5The [facility] HospitalComment on above:Order Comment: No: Do not add to previous drawPerformed By: #### 31073, 07597, 99661, 18604, 32982 #### [facility] [address] [facility] [place] [address], USAEosinophils/100 WBC (Bld)3.5 %Normal0.0-6.0The [facility] HospitalComment on above:Order Comment: No: Do not add to previous drawPerformed By: #### 02690, 84383, 24713, 56631, 81319 #### [facility] [address] [facility] [place] [address], USAErythrocyte distribution width (RBC) [Ratio]13.0 %Normal 11.5-15.0The [facility] HospitalComment on above:Order Comment: No: Do not add to previous drawPerformed By: #### 46196, 05163, 39923, 49791, 87196 #### [facility] [address] [facility] [place] [address], USAHematocrit (Bld) [Volume fraction]40.5 %Wgcohs61.0-45.0The [facility] HospitalComment on above:Order Comment: No: Do not add to previous drawPerformed By: #### 24524, 34249, 94985, 94541, 80946 #### [facility] [address] [facility] [place] [address], USAHemoglobin (Bld) [Mass/Vol]13.0 g/pTFugbxo95.0-15.0The [facility] HospitalComment on above:Order Comment: No: Do not add to previous drawPerformed By: #### 70843, 71233, 63968, 45132, 78629 #### [facility] [address] [place] [address], USAIMMATURE GRANS0.2 %Normal0.0-1.0The [facility] HospitalComment on above:Order Comment: No: Do not add to previous draw Performed By: #### 14840, 52446, 26370, 95191, 41467 #### [facility] [address] [place] [address], USALymphocytes (Bld) [#/Vol]1.4 10*3/uLNormal1.2-4.0The [facility] HospitalComment on above:Order Comment: No: Do not add to previous drawPerformed By: #### 74152, 96427, 78391, 78696, 96371 #### [facility] [address] [place] [address], USALymphocytes/100 WBC (Bld)25.0 %Gkjufj29.0-45.0The [facility] HospitalComment on above:Order Comment: No: Do not add to previous drawPerformed By: #### 81156, 28002, 17917, 95396, 43569 #### [facility] [address] [place] [address], [facility] [place] ([facility]BC) [Entitic mass]31.5 uoTdmmzi43.0-33.0The [facility] HospitalComment on above:Order Comment: No: Do not add to previous drawPerformed By: #### 63107, 58004, 54859, 69373, 30422 #### [facility] [address] [place] [address], [facility] (RBC) [Mass/Vol]32.1 g/xMCpyvwr81.0-35.0The [facility] HospitalComment on above:Order Comment: No: Do not add to previous drawPerformed By: #### 53377, 23474, 78510, 45349, 76863 #### [facility] [address] [place] [address], USAMCV (RBC) [Entitic vol]98.1 wURjav07.0-98.0The [facility] HospitalComment on above:Order Comment: No: Do not add to previous drawPerformed By: #### 82851, 87033, 27571, 27470, 36621 #### [facility] [address] [place] [address], USAMonocytes (Bld) [#/Vol]0.7 10*3/uLNormal0.1-1.0The [facility] HospitalComment on above:Order Comment: No: Do not add to previous drawPerformed By: #### 71684, 45625, 46457, 29614, 93663 #### [facility] [address] [place] [address], HTYZTSPU13.0 %Normal5.0-12.0The [facility] HospitalComment on above:Order Comment: No: Do not add to previous drawPerformed By: #### 40825, 25174, 90786, 94238, 57629 #### [facility] [address] [place] [address], USANeutrophils/100 WBC (Bld)58.9 %Bbwsda80.0-72.0The [facility] HospitalComment on above:Order Comment: No: Do not add to previous drawPerformed By: #### 50889, 88403, 89801, 63043, 18453 #### [facility] [address] [place] [address], USANucleated RBC/100 WBC (Bld) [Ratio]0 %Normal0-0The [facility] HospitalComment on above:Order Comment: No: Do not add to previous drawPerformed By: #### 12138, 28779, 34974, 74113, 41258 #### [facility] [address] [place] [address], USAPLAT NAR649 10*3/aVEbnpzn551-054Axq [facility] HospitalComment on above:Order Comment: No: Do not add to previous draw Performed By: #### 93583, 61939, 98637, 44634, 71002 #### [facility] [address] [place] [address], USARBC (Bld) [#/Vol]4.13 10*6/uLNormal3.80-5.00The [facility] HospitalComment on above:Order Comment: No: Do not add to previous drawPerformed By: #### 73287, 67426, 45159, 35807, 80741 #### [facility] [address] [facility] [place] [address], [facility] HOSPITALWBC (Bld) [#/Vol]5.43 10*3/uLNormal4.00-10.60The [facility] HospitalComment on above:Order Comment: No: Do not add to previous drawPerformed By: #### 77218, 17180, 26927, 29607, 38310 #### [facility] [address] [place] [address], USATROPONIN-Ion 20-25-9753Gjtajtcu I.cardiac [Mass/Vol]0.00 ng/mLNormal0.00-0.04The [facility] HospitalComment on above: Order Comment: UnknownResult Comment: REFERENCE RANGES: 0.00 - 0.04 ng/ml NORMAL 0.05 - 0.50 ng/ml INDETERMINATE > 0.50 ng/ml CONSISTENT WITH AN M.I.Performed By: #### 09076 #### [facility] [address] [place] [address], USAUFH HEPARIN ASSAYon 49-11-7653KQPDQQDRJZUMZY HEPARIN0.45 IU/mLNormal0.30-0.70The [facility] HospitalComment on above: Result Comment: Rivaroxaban and Apixaban will interfere with the anti Xa assay used to monitor UFH and LMWH.Performed By: #### 27662, 44672, 61183, 07687, 85085 #### [facility] [address] [place] [address], USAUNFRACTIONATED HEPARIN0.33 IU/mLNormal0.30-0.70The [facility] HospitalComment on above:Result Comment: Rivaroxaban and Apixaban will interfere with the anti Xa assay used to monitor UFH and LMWH.Performed By: #### 07944, 61248, 39229, 09761, 43868 #### [facility] [address] [place] [address], USABASIC METABOLIC PANELon 29-49-7884Woctzoo [Mass/Vol]9.1 mg/dLNormal8.6-10.3The [facility] HospitalComment on above:Order Comment: No: Do not add to previous drawPerformed By: #### 82324, 16523, 43194, 51017, 84463 #### [facility] [address] [place] [address], USAChloride [Moles/Vol]106 mmol/SKvypgh55-403Rtm [facility] HospitalComment on above:Order Comment: No: Do not add to previous drawPerformed By: #### 79129, 29479, 58148, 85645, 06394 #### [facility] [address] [place] [address], USACO2 [Moles/Vol]24 mmol/HIzlnok40-55Ncj [facility] HospitalComment on above:Order Comment: No: Do not add to previous draw Performed By: #### 46401, 76356, 75902, 95614, 85668 #### [facility] [address] [place] [address], USACreatinine [Mass/Vol]0.55 mg/dLLow0.60-1.20The [facility] HospitalComment on above:Order Comment: No: Do not add to previous drawPerformed By: #### 93109, 94724, 21634, 78706, 83477 #### [facility] [address] [place] [address], USAGFR/1.73 sq M.predicted among blacks MDRD (S/P/Bld) [Vol rate/Area]mL/min/{1.73_m2}Normal>60The [facility] Comment on above:Order Comment: No: Do not add to previous drawPerformed By: #### 80808, 53162, 16135, 10447, 09429 #### [facility] [address] [place] [address], USAGFR/1.73 sq M.predicted among non-blacks MDRD (S/P/Bld) [Vol rate/Area]mL/min/{1.73_m2}Normal>60The [facility] Comment on above:Order Comment: No: Do not add to previous drawPerformed By: #### 97822, 94468, 01352, 30040, 12906 #### [facility] [address] [place] [address], USAGlucose [Mass/Vol]98 mg/hGYuehni29-564Iri [facility] HospitalComment on above:Order Comment: No: Do not add to previous drawPerformed By: #### 87419, 64743, 00517, 95126, 88747 #### [facility] [address] [place] [address], USAPotassium [Moles/Vol]3.9 mmol/LNormal3.5-5.1The [facility] HospitalComment on above:Order Comment: No: Do not add to previous drawPerformed By: #### 46983, 27630, 92305, 03789, 31224 #### [facility] [address] [place] [address], USASodium [Moles/Vol]138 mmol/VFvjbbn344-155Boe [facility] HospitalComment on above:Order Comment: No: Do not add to previous drawPerformed By: #### 67240, 50846, 54236, 99569, 83130 #### [facility] [address] [place] [address], USAUrea nitrogen [Mass/Vol]17 mg/dLNormal7-25The [facility] HospitalComment on above:Order Comment: No: Do not add to previous drawPerformed By: #### 96419, 89688, 71488, 69335, 47395 #### [facility] [address] [place] [address], USACBC COMPLETE BLOOD COUNTon 16-81-5867Hbdimjnjsqs distribution width (RBC) [Ratio]12.9 %Jysapt98.5-15.0The [facility] HospitalComment on above:Order Comment: No: Do not add to previous draw Performed By: #### 86682, 92230, 99098, 73533, 60356 #### [facility] [address] [place] [address], USAHematocrit (Bld) [Volume fraction]40.4 %Sndesc83.0-45.0The [facility] HospitalComment on above:Order Comment: No: Do not add to previous drawPerformed By: #### 54659, 87391, 54068, 51926, 59936 #### [facility] [address] [place] [address], USAHemoglobin (Bld) [Mass/Vol]13.0 g/tPWmqdkx10.0-15.0The [facility] HospitalComment on above:Order Comment: No: Do not add to previous drawPerformed By: #### 11435, 58997, 61521, 77334, 13676 #### [facility] [address] [place] [address], USAMCH (RBC) [Entitic mass]31.6 ccMfwqko74.0-33.0The [facility] HospitalComment on above:Order Comment: No: Do not add to previous drawPerformed By: #### 46752, 83971, 30564, 63231, 90200 #### [facility] [address] [place] [address], [facility] (RBC) [Mass/Vol]32.2 g/lHYbwixz06.0-35.0The [facility] HospitalComment on above:Order Comment: No: Do not add to previous drawPerformed By: #### 09398, 21156, 24100, 68948, 40073 #### [facility] [address] [facility] [place] [address], [facility] (RBC) [Entitic vol]98.1 lGSrma68.0-98.0The [facility] HospitalComment on above:Order Comment: No: Do not add to previous drawPerformed By: #### 56908, 47563, 05547, 65428, 22123 #### [facility] [address] [place] [address], USANucleated RBC/100 WBC (Bld) [Ratio]0 %Normal0-0The [facility] HospitalComment on above:Order Comment: No: Do not add to previous drawPerformed By: #### 02312, 73347, 21675, 73903, 30249 #### [facility] [address] [facility] [place] [address], USAPLAT QRW581 10*3/mOZhoquy001-065Apw [facility] HospitalComment on above:Order Comment: No: Do not add to previous draw Performed By: #### 27518, 32171, 18087, 31132, 91676 #### [facility] [address] [place] [address], [facility] HOSPITALRBC (Bld) [#/Vol]4.12 10*6/uLNormal3.80-5.00The [facility] HospitalComment on above:Order Comment: No: Do not add to previous drawPerformed By: #### 56021, 61472, 79066, 94545, 77798 #### [facility] [address] [place] [address], USAWBC (Bld) [#/Vol]5.74 10*3/uLNormal4.00-10.60The [facility] HospitalComment on above:Order Comment: No: Do not add to previous drawPerformed By: #### 81216, 27458, 26313, 97777, 27189 #### [facility] [address] [place] [address], USALIPID PROFILEon 50-37-3551Qjdmbibnnrf [Mass/Vol]139 mg/dL Mtxzov389-364Nkn [facility] HospitalComment on above:Order Comment: No: Do not add to previous drawResult Comment: CHOLESTEROL REFERENCE RANGE: 20 YEARS AND OLDER CARDIOVASCULAR RISK Less than 200 mg/dl Low Risk 200 to 239 mg/dl Borderline Risk 240 mg/dl and greater High RiskPerformed By: #### 59424, 75789, 64853, 51545, 53560 #### [facility] [address] [place] [address], USACholesterol in HDL [Mass/Vol]49 mg/zEAfvzhz60-32Fyf [facility] HospitalComment on above:Order Comment: No: Do not add to previous drawResult Comment: Slight variation in normal range could be due to gender and/or age. HDL CHOLESTEROL REFERENCE RANGE: 20 years and older Cardiovascular Risk > or =60 mg/dL Desirable 40 TO 59 mg/dL Low Risk <40 mg/dL High RiskPerformed By: #### 12187, 38665, 92055, 32326, 96103 #### [facility] [address] [place] [address], USACholesterol in LDL [Mass/Vol]48 mg/dLNormal0-130The [facility] HospitalComment on above:Order Comment: No: Do not add to previous drawResult Comment: LDL IS A CALCULATION LDL IS ONLY VALID IF THE TRIG IS LESS THAN 400.Performed By: #### 49327, 88437, 74312, 74182, 90052 #### [facility] [address] [place] [address], USACholesterol.total/Cholesterol in HDL [Mass ratio]2.8 {ratio}Normal.0-4.5The [facility] HospitalComment on above:Order Comment: No: Do not add to previous drawPerformed By: #### 92853, 10920, 93575, 17369, 50462 #### [facility] [address] [facility] [place] [address], USANON-HDL HUXGHJNQMGX64 mg/dLNormalThe [facility] HospitalComment on above:Order Comment: No: Do not add to previous draw Performed By: #### 74712, 31191, 80928, 87715, 08219 #### [facility] [address] [facility] [place] [address], USATriglyceride [Mass/Vol]209 mg/hZBkbz10-067Mol [facility] HospitalComment on above:Order Comment: No: Do not add to previous drawResult Comment: TRIGLYCERIDE REFERENCE RANGE: 20 YEARS AND OLDER CARDIOVASCULAR RISK LESS THAN 150 mg/dl LOW RISK 150 TO 199 mg/dl BORDERLINE RISK 200 mg/dl AND GREATER HIGH RISKPerformed By: #### 15279, 57434, 54729, 06421, 07188 #### [facility] [address] [place] [address], USAVLDL CHOL42 mg/dLHigh0-40The [facility] HospitalComment on above:Order Comment: No: Do not add to previous drawPerformed By: #### 48863, 67843, 16820, 89267, 72780 #### [facility] [address] [facility] [place] [address], USAMAGNESIUM BLOODon 56-31-7195Wjispvalp [Mass/Vol]1.8 mg/dL Low1.9-2.7The [facility] HospitalComment on above:Order Comment: No: Do not add to previous drawPerformed By: #### 27927, 73296, 94057, 59032, 95632 #### [facility] [address] [place] [address], USAPHOSPHORUS BLOODon 00-20-8448Pbtcmoafk [Mass/Vol]4.0 mg/dL Normal2.5-5.0The [facility] HospitalComment on above:Order Comment: No: Do not add to previous drawPerformed By: #### 90041, 55289, 14042, 62477, 78018 #### [facility] [address] [facility] [place] [address], USAPORTABLE CHEST 1 VIEWon [id number] CHEST 1 VIEW [facility] Department of Radiology [address] [place] [id number] Patient Name: DIANE NGUYEN : 1965 Sex: F Age: Race: White Pt. Location: [address] [place] [address] Patient Status: I Ordered Date: 06/15/2021 9:50:00 [...] Approved by:Omaira Montana06/16/2021 12:02 AM. I, Alexis Daly,have reviewed the image(s) and agree with the findings in this report. Electronically signed: Alexis Daly. Transcribed by: [email or web address], User Resident: OMAIRA MANE Electronically Signed by: ALEXIS DALY @ 06/16/2021 12:44 AM I personally read this/these film(s) with this [facility] CampusComment on above:Order Comment: No: Do not add to previous drawPROTHROMBIN TIMEon [id number] Coag (PPP) [Relative time]0.91 {INR}Normal 0.91-1.16The [facility] HospitalComment on above:Result Comment: ACCCP RECOMMENDED INR FOR WARFARIN THERAPY ------- CONDITION INR PROPHYLAXIS OF VENOUS THROMBOSIS 2-3 (HIGH-RISK SURGERY) TREATMENT OF VENOUS THROMBOSIS 2-3 TREATMENT OF PULMONARY EMBOLISM 2-3 PREVENTION OF SYSTEMIC EMBOLISM: 2-3 ACUTE MYOCARDIAL INFARCTION TISSUE HEART VALVES VALVULAR HEART DISEASE ATRIAL FIBRILLATION RECURRENT SYSTEMIC EMBOLISM MECHANICAL HEART VALVE 2.5-3.5 FROM: ORAL ANTICOAGULANTS. MECHANISM OF ACTION, CLINICAL EFFECTIVENESS, AND OPTIMAL THERAPEUTIC RANGE. CHEST 1995;108:231S-246S.Performed By: #### 34194, 63103, 49790, 05603, 76070 #### [facility] [address] [place] [address], USAPT Coag (PPP) [Time]12.3 uIbfybd78.3-14.8The [facility] HospitalComment on above:Result Comment: ALL RESULTS MUST BE INTERPRETED WITH RESPECT TO BLOOD DRAWING ARTIFACT OR DILUTION ERROR OF ANTICOAGULANT AT THE TIME OF SAMPLING.Performed By: #### 24852, 75060, 61719, 66680, 17975 #### [facility] [address] [place] [address], USATROPONIN-Ion 31-77-9670Gcupoxus I.cardiac [Mass/Vol]0.00 ng/mLNormal0.00-0.04The [facility] HospitalComment on above: Order Comment: No: Do not add to previous drawResult Comment: REFERENCE RANGES: 0.00 - 0.04 ng/ml NORMAL 0.05 - 0.50 ng/ml INDETERMINATE > 0.50 ng/ml CONSISTENT WITH AN M.I.Performed By: #### 55152, 72041, 37654, 48546, 98177 #### [facility] [address] [place] [address], USATroponin I.cardiac [Mass/Vol]0.00 ng/mLNormal0.00-0.04The [facility] HospitalComment on above:Order Comment: No: Do not add to previous drawResult Comment: REFERENCE RANGES: 0.00 - 0.04 ng/ml NORMAL 0.05 - 0.50 ng/ml INDETERMINATE > 0.50 ng/ml CONSISTENT WITH AN M.I.Performed By: #### 49521, 65520, 26838, 21141, 60001 #### [facility] [address] [place] [address], USATroponin I.cardiac [Mass/Vol]0.00 ng/mLNormal0.00-0.04The [facility] HospitalComment on above:Result Comment: REFERENCE RANGES: 0.00 - 0.04 ng/ml NORMAL 0.05 - 0.50 ng/ml INDETERMINATE > 0.50 ng/ml CONSISTENT WITH AN M.I.Performed By: #### 14853, 92465, 29782, 18166, 32365 #### [facility] [address] [facility] [place] [address], USAUFH HEPARIN ASSAYon [id number] HEPARIN0.15 IU/mLCritically low0.30-0.70The [facility] HospitalComment on above:Order Comment: Off the floor for testing Patient still off the floorResult Comment: Result checked and called. Accurately read back by Olga Robertson RN at 0429 Rivaroxaban and Apixaban will interfere with the anti Xa assay used to monitor UFH and LMWH.Performed By: #### 28256 #### [facility] [address] [facility] [place] [address], USAUNFRACTIONATED HEPARIN0.11 IU/mLCritically low0.30-0.70The [facility] HospitalComment on above:Result Comment: Result checked and called. Accurately read back by Juan Nunez RN at 0645 Rivaroxaban and Apixaban will interfere with the anti Xa assay used to monitor UFH and LMWH.Performed By: #### 38831, 43238, 58981, 16140, 61735 #### [facility] [address] [facility] [place] [address], USAAPTTon [id number] Coag (Bld) [Time]38.7 sHigh25.0-35.0 The [facility] HospitalComment on above:Order Comment: No: Do not add to previous drawResult Comment: ALL RESULTS MUST BE INTERPRETED WITH RESPECT TO BLOOD DRAWING ARTIFACT OR DILUTION ERROR OF ANTICOAGULANT AT THE TIME OF SAMPLING. THE APTT SHOULD NOT BE USED TO MONITOR UNFRACTIONATED HEPARIN THERAPY, THIS LABORATORY NO LONGER HAS AN ESTABLISHED THERAPEUTIC RANGE BASED ON THE APTT. IT IS RECOMMENDED THAT THE [facility] - HEPARIN ASSAY (ANTI-XA ACTIVITY) BE USED FOR THIS PURPOSE.Performed By: #### [id number], [id number], 67280, 09922, 68439 #### [facility] [address] [place] [address], USABASIC METABOLIC PANELon [id number] [Mass/Vol]9.0 mg/dLNormal8.6-10.3The [facility] HospitalComment on above:Order Comment: No: Do not add to previous drawPerformed By: #### 23038, 14034, 95079, 44411, 99548 #### [facility] [address] [place] [address], USAChloride [Moles/Vol]107 mmol/XEqueyv25-537Hvu [facility] HospitalComment on above:Order Comment: No: Do not add to previous drawPerformed By: #### 75059, 70508, 50416, 46897, 40569 #### [facility] [address] [place] [address], USACO2 [Moles/Vol]23 mmol/CTeasbl90-72Ije [facility] HospitalComment on above:Order Comment: No: Do not add to previous draw Performed By: #### 85403, 63150, 55069, 18758, 46375 #### [facility] [address] [place] [address], USACreatinine [Mass/Vol]0.71 mg/dLNormal0.60-1.20The [facility] HospitalComment on above:Order Comment: No: Do not add to previous drawPerformed By: #### 66490, 99480, 47935, 83036, 71125 #### [facility] [address] [place] [address], USAGFR/1.73 sq M.predicted among blacks MDRD (S/P/Bld) [Vol rate/Area]mL/min/{1.73_m2}Normal>60The Henry [facility]:Order Comment: No: Do not add to previous drawPerformed By: #### 58073, 98515, 10846, 51663, 21740 #### [facility] [address] [place] [address], USAGFR/1.73 sq M.predicted among non-blacks MDRD (S/P/Bld) [Vol rate/Area]mL/min/{1.73_m2}Normal>60[facility] Comment on above:Order Comment: No: Do not add to previous drawPerformed By: #### 72134, 06354, 09398, 70468, 38809 #### [facility] [address] [place] [address], USAGlucose [Mass/Vol]108 mg/zNYppf03-063Zil [facility] HospitalComment on above:Order Comment: No: Do not add to previous drawPerformed By: #### 57367, 94979, 51594, 21128, 93041 #### [facility] [address] [place] [address], USAPotassium [Moles/Vol]3.8 mmol/LNormal3.5-5.1The [facility] HospitalComment on above:Order Comment: No: Do not add to previous drawPerformed By: #### 82591, 33636, 81346, 97568, 08729 #### [facility] [address] [place] [address], USASodium [Moles/Vol]138 mmol/UYqgsll112-810Epj [facility] HospitalComment on above:Order Comment: No: Do not add to previous drawPerformed By: #### 15862, 55615, 48141, 21184, 69516 #### [facility] [address] [place] [address], USAUrea nitrogen [Mass/Vol]18 mg/dLNormal7-25The [facility] HospitalComment on above:Order Comment: No: Do not add to previous drawPerformed By: #### 33943, 94559, 54822, 83988, 36302 #### [facility] [address] [place] [address], USABNP (B-TYPE NATRIURETIC PEPTIDE)on 25-37-9841Ueitlqioanv peptide B (Bld) [Mass/Vol]36 pg/mLNormal0-100The [facility] HospitalComment on above:Order Comment: No: Do not add to previous drawResult Comment: Given the appropriate clinical setting a BNP result of >100 pg/mL indicates congestive heart failure.Performed By: #### 49474 #### [facility] [address] [place] [address], [facility]ITALCBC AUTO DIFFon [id number] #0.0 103/ulNormal0.0-0.1The [facility] HospitalComment on above:Performed By: #### CVDTBH #### [facility] [address] [address] [address] Stacey MelendezBasophils/100 WBC (Bld)0.4 %Normal0.2-2.0[facility] Comment on above:Performed By: #### CVDTBH #### [facility] [address] [address] [address] Stacey Arrieta #0.3 103/ulNormal0.0-0.7The [facility] HospitalComment on above: Performed By: #### CVDTBH #### [facility] [address] [address] [address] Stacey Fischerosinophils/100 WBC (Bld)4.5 %Normal0.9-7.0[facility] Comment on above:Performed By: #### CVDTBH #### [facility] [address] [address] [address] Stacey Fischerrythrocyte distribution width (RBC) [Ratio]12.8 %Pslcim52.0-15.0 [facility] HospitalComment on above:Performed By: #### CVDTBH #### [facility] [address] [place] [address] Dr. Stacey MelendezHematocrit (Bld) [Volume fraction]39.1 %Tfkmtz07.0-48.0The [facility] HospitalComment on above:Performed By: #### CVDTBH #### [facility] [address] [place] [address] Dr. Stacey MelendezHemoglobin (Bld) [Mass/Vol]12.4 g/qDAscgfl05.0-16.0The [facility] HospitalComment on above:Performed By: #### CVDTBH #### [facility] [address] [place] [address] Dr. Stacey Tinsley #0.02 10e3/ulNormal0.00-0.03The [facility] HospitalComment on above:Performed By: #### CVDTBH #### [facility] [address] [place] [address] Dr. Stacey Tinsley %0.3 %Normal0.0-0.5The [facility] HospitalComment on above: Performed By: #### CVDTBH #### [facility] [address] [place] [address] Dr. Stacey Colbert #2.0 103/ulNormal1.2-3.8The [facility] HospitalComment on above:Performed By: #### CVDTBH #### [facility] [address] [place] [address] Dr. Stacey Colberthocytes/100 WBC (Bld)27.2 %Zgknfh29.5-60.0The [facility] HospitalComment on above:Performed By: #### CVDTBH #### [facility] [address] [place] [address] Dr. Stacey AroraUAL DIFF REQNONormalThe [facility] HospitalComment on above: Performed By: #### CVDTBH #### [facility] [address] [place] [address] Dr. Stacey Alegria (RBC) [Entitic mass]31.1 kqMpvuwu03.7-34.0The [facility] HospitalComment on above:Performed By: #### CVDTBH #### [facility] [address] [place] [address] Dr. Stacey Alegria (RBC) [Mass/Vol]31.7 g/zOLquobm04.9-35.2The [facility] HospitalComment on above:Performed By: #### CVDTBH #### [facility] [address] [place] [address] Dr. Stacey Coughlin (RBC) [Entitic vol]98.0 oNUlnmjw34.0-99.0The [facility] HospitalComment on above:Performed By: #### CVDTBH #### [facility] [address] [place] [address] Dr. Stacey Romero #0.7 103/ulNormal0.3-0.8The [facility] HospitalComment on above:Performed By: #### CVDTBH #### [facility] [address] [place] [address] Dr. Stacey Blandocytes/100 WBC (Bld)9.0 %Normal1.7-12.0The [facility] Comment on above:Performed By: #### CVDTBH #### [facility] [address] [place] [address] Dr. Stacey Rizzo #4.3 103/ulNormal1.4-6.5The [facility] HospitalComment on above:Performed By: #### CVDTBH #### [facility] [address] [place] [address] Dr. Stacey Pelaezutrophils/100 WBC (Bld)58.6 %Wvelrg33.0-75.0The [facility] HospitalComment on above:Performed By: #### CVDTBH #### [facility] [address] [place] [address] Dr. Stacey Butler mean volume (Bld) [Entitic vol]12.2 fLNormal9.5-13.5The [facility] HospitalComment on above:Performed By: #### CVDTBH #### [facility] [address] [place] [address] Dr. Stacey CrabtreeT171 103/nyEnhunh680-265Gil [facility] HospitalComment on above: Performed By: #### CVDTBH #### [facility] [address] [address] [address] Stacey MelendezRBC3.99 106/ulCritically low4.20-5.40The [facility] HospitalComment on above:Performed By: #### CVDTBH #### [facility] [address] [address] [address] Stacey MelendezWBC7.4 103/ulNormal4.0-11.0[facility] HospitalComment on above: Performed By: #### CVDTBH #### [facility] [address] [address] [address] Stacey MelendezCBC W/DIFFon [id number] IMM GRANS0.0 10*3/uLNormal0.0-0.2The [facility] HospitalComment on above:Performed By: #### 21526, 60455, 24796, 20704, 26251 #### [facility] [address] [facility] [place] [address], USAABS NEUTROPHILS3.5 10*3/uLNormal1.6-7.6The [facility] HospitalComment on above:Performed By: #### 99502, 25272, 55959, 65876, 78451 #### [facility] [address] [facility] [place] [address], USABasophils (Bld) [#/Vol]0.0 10*3/uLNormal0.0-0.2The [facility] HospitalComment on above:Performed By: #### 76335, 42940, 37680, 26954, 60702 #### [facility] [address] [facility] [place] [address], USABasophils/100 WBC (Bld)0.5 %Normal0.0-1.0The [facility] HospitalComment on above:Performed By: #### 50678, 56014, 82745, 12395, 51594 #### [facility] [address] [facility] [place] [address], USAEosinophils (Bld) [#/Vol]0.3 10*3/uLNormal0.0-0.5The [facility] HospitalComment on above:Performed By: #### 53216, 88958, 18650, 95139, 83348 #### [facility] [address] [facility] [place] [address], USAEosinophils/100 WBC (Bld)4.5 %Normal0.0-6.0The [facility] HospitalComment on above:Performed By: #### 68493, 57301, 85843, 50318, 22863 #### [facility] [address] [facility] [place] [address], USAErythrocyte distribution width (RBC) [Ratio]12.9 %Normal 11.5-15.0The [facility] HospitalComment on above:Performed By: #### 00101, 42171, 71607, 05749, 81272 #### [facility] [address] [facility] [place] [address], USAHematocrit (Bld) [Volume fraction]38.2 %Uwydve26.0-45.0The [facility] HospitalComment on above:Performed By: #### 68571, 49600, 95495, 90727, 65231 #### [facility] [address] [facility] [place] [address], USAHemoglobin (Bld) [Mass/Vol]12.7 g/xZEcnxnk68.0-15.0The [facility] HospitalComment on above:Performed By: #### 02942, 40772, 63530, 87595, 92218 #### [facility] [address] [facility] [place] [address], USAIMMATURE GRANS0.2 %Normal0.0-1.0The [facility] HospitalComment on above:Performed By: #### 36269, 78071, 29907, 70337, 79088 #### [facility] [address] [facility] [place] [address], [facility] HOSPITALLymphocytes (Bld) [#/Vol]1.7 10*3/uLNormal1.2-4.0The [facility] HospitalComment on above:Performed By: #### 64246, 35937, 34004, 45176, 59646 #### [facility] [address] [facility] [place] [address], [facility] HOSPITALLymphocytes/100 WBC (Bld)27.8 %Dszsbd17.0-45.0The [facility] HospitalComment on above:Performed By: #### 78389, 47571, 21173, 17744, 46694 #### [facility] [address] [facility] [place] [address], [facility] [place] (RBC) [Entitic mass]31.7 tiZvvmeq56.0-33.0The [facility] HospitalComment on above:Performed By: #### 49465, 26206, 95650, 97917, 66953 #### [facility] [address] [facility] [place] [address], [facility] HOSPITALMCHC (RBC) [Mass/Vol]33.2 g/dBBjfbcy01.0-35.0The [facility] HospitalComment on above:Performed By: #### 62312, 92033, 39232, 61093, 40367 #### [facility] [address] [facility] [place] [address], [facility] [place] (RBC) [Entitic vol]95.3 cMQubhiv88.0-98.0The [facility] HospitalComment on above:Performed By: #### 99971, 31734, 83406, 14465, 84848 #### [facility] [address] [facility] [place] [address], [facility] HOSPITALMonocytes (Bld) [#/Vol]0.7 10*3/uLNormal0.1-1.0The [facility] HospitalComment on above:Performed By: #### 37652, 63026, 44711, 28949, 44214 #### [facility] [address] [place] [address], TOQKUJPF51.9 %Normal5.0-12.0The [facility] HospitalComment on above:Performed By: #### 70636, 14597, 80913, 51924, 20187 #### [facility] [address] [place] [address], USANeutrophils/100 WBC (Bld)56.1 %Ftmqnm58.0-72.0The [facility] HospitalComment on above:Performed By: #### 46420, 76944, 08286, 86450, 61178 #### [facility] [address] [place] [address], USANucleated RBC/100 WBC (Bld) [Ratio]0 %Normal0-0The [facility] HospitalComment on above:Performed By: #### 55720, 93815, 44637, 28883, 66626 #### [facility] [address] [place] [address], USAPLAT DAC543 10*3/gAMcfvqi086-806Maq [facility] HospitalComment on above:Performed By: #### 81516, 90878, 88365, 10911, 71253 #### [facility] [address] [facility] [place] [address], USARBC (Bld) [#/Vol]4.01 10*6/uLNormal3.80-5.00The [facility] HospitalComment on above:Performed By: #### 88419, 00942, 35322, 21058, 49429 #### [facility] [address] [facility] [place] [address], USAWBC (Bld) [#/Vol]6.25 10*3/uLNormal4.00-10.60The [facility] HospitalComment on above:Performed By: #### 53956, 89758, 57841, 87461, 94151 #### [facility] [address] [place] [address], USAMAGNESIUM BLOODon 50-94-0287Bozcnjput [Mass/Vol]1.7 mg/dL Low1.9-2.7The [facility] HospitalComment on above:Order Comment: No: Do not add to previous drawPerformed By: #### 05268, 52752, 84331, 14650, 87193 #### [facility] [address] [place] [address], USAPHOSPHORUS BLOODon 14-29-8085Wlinxusks [Mass/Vol]4.0 mg/dL Normal2.5-5.0The [facility] HospitalComment on above:Order Comment: No: Do not add to previous drawPerformed By: #### 96523, 55579, 07150, 03538, 32980 #### [facility] [address] [place] [address], USAPROF CHEM 8 (BAS METB)on 36-38-0759Ytfqr gap [Moles/Vol] 13.7 mmol/LNormalOhiohealth Grady Memorial HospitalComment on above:Performed By: #### CVDTBH #### [facility] [address] [place] [address] Dr. Stacey MelendezCalcium [Mass/Vol]8.9 mg/dLNormal8.4-10.2The [facility] Comment on above:Performed By: #### CVDTBH #### [facility] [address] [address] [address] Stacey MelendezChloride [Moles/Vol]107 mmol/IFvmcdm65-569Ufk [facility] Comment on above:Performed By: #### CVDTBH #### [facility] [address] [address] [address] Stacey MelendezCO2 [Moles/Vol]25.1 mmol/WQdczjr66.0-30.0The [facility] Comment on above:Performed By: #### CVDTB #### [facility] [address] [address] [address] Stacey MelendezCreatinine [Mass/Vol]0.74 mg/dLNormal0.52-1.04The [facility] HospitalComment on above:Performed By: #### CVDTBH #### [facility] [address] [address] [address] Stacey FischerGFR-AF PAPUA NEW GUINEAN>60Normal>=60The [facility] HospitalComment on above:Performed By: #### CVDTBH #### [facility] [address] [address] [address] Stacey FischerGFR-NON AF PAPUA [place]>60Normal>=60The [facility] HospitalComment on above:Performed By: #### CVDTBH #### [facility] [address] [address] [address] Stacey MelendezGlucose [Mass/Vol]113 mg/dLCritically bnfc12-292Mpm [facility] HospitalComment on above:Performed By: #### CVDTBH #### [facility] [address] [address] [address] Stacey MelendezPotassium [Moles/Vol]3.8 mmol/LNormal3.4-5.0The [facility] Comment on above:Performed By: #### CVDTBH #### [facility] [address] [address] [address] Stacey MelendezSodium [Moles/Vol]142 mmol/OAfprzc426-437Esb [facility] Comment on above:Performed By: #### CVDTBH #### [facility] [address] [address] [address] Stacey MelendezUrea nitrogen [Mass/Vol]15.0 mg/dLNormal7.0-17.0The [facility] HospitalComment on above:Performed By: #### CVDTBH #### [facility] [address] [address] [address] Stacey MelendezUrea nitrogen/Creatinine [Mass ratio]20.3 mg/mgNormalThe [facility] HospitalComment on above:Performed By: #### CVDTBH #### [facility] [address] [address] [address] Stacey MelendezPROTHROMBIN TIMEon [id number] Coag (PPP) [Relative time]0.91 {INR}Normal0.91-1.16The [facility] HospitalComment on above: Order Comment: No: Do not add to previous drawResult Comment: ACCCP RECOMMENDED INR FOR WARFARIN THERAPY ------- CONDITION INR PROPHYLAXIS OF VENOUS THROMBOSIS 2-3 (HIGH-RISK SURGERY) TREATMENT OF VENOUS THROMBOSIS 2-3 TREATMENT OF PULMONARY EMBOLISM 2-3 PREVENTION OF SYSTEMIC EMBOLISM: 2-3 ACUTE MYOCARDIAL INFARCTION TISSUE HEART VALVES VALVULAR HEART DISEASE ATRIAL FIBRILLATION RECURRENT SYSTEMIC EMBOLISM MECHANICAL HEART VALVE 2.5-3.5 FROM: ORAL ANTICOAGULANTS. MECHANISM OF ACTION, CLINICAL EFFECTIVENESS, AND OPTIMAL THERAPEUTIC RANGE. CHEST 1995;108:231S-246S.Performed By: #### 63132, 98604, 05578, 25811, 44283 #### [facility] [address] [facility] [place] [address], USAPT Coag (PPP) [Time]12.3 zYtodru28.3-14.8The [facility] HospitalComment on above:Order Comment: No: Do not add to previous drawResult Comment: ALL RESULTS MUST BE INTERPRETED WITH RESPECT TO BLOOD DRAWING ARTIFACT OR DILUTION ERROR OF ANTICOAGULANT AT THE TIME OF SAMPLING.Performed By: #### 45849, 43168, 36642, 08795, 35691 #### [facility] [address] [place] [address], USAPTT HEPARIN MONITORon 65-15-2547nSMC Coag (Bld) [Time]46.7 aEkuomo21.5-54.2The [facility] HospitalComment on above:Performed By: #### CBC #### [facility] [address] [address] [address] Stacey Quinonez Coag (Bld) [Time]45.3 aKvbozx00.5-54.2[facility] Comment on above:Performed By: #### CVDTBH #### [facility] [address] [address] [address] Stacey Quinonez Coag (Bld) [Time]47.5 nUlsvyz57.5-54.2The [facility] Comment on above:Performed By: #### CBC #### [facility] [address] [place] [address] Dr. Stacey MelendezTRCAROLENIN-Ion 90-26-4292Kibyyvae I.cardiac [Mass/Vol]0.01 ng/mL Normal0.00-0.04The [facility] HospitalComment on above:Order Comment: No: Do not add to previous drawResult Comment: REFERENCE RANGES: 0.00 - 0.04 ng/ml NORMAL 0.05 - 0.50 ng/ml INDETERMINATE > 0.50 ng/ml CONSISTENT WITH AN M.I.Performed By: #### 67750, 77443, 94036, 79255, 00188 #### [facility] [address] [place] [address], USAUFH HEPARIN ASSAYon 13-05-5191WGNHTUAZABBEUP HEPARIN0.15 IU/mLCritically low0.30-0.70The [facility] HospitalComment on above:Result Comment: Result checked and called. Accurately read back by Eli Crawford RN @3506 06/15/21 Rivaroxaban and Apixaban will interfere with the anti Xa assay used to monitor UFH and LMWH.Performed By: #### 62310, 21705, 61653, 35573, 55637 #### [facility] [address] [place] [address], USACARDIAC DAYANARA 3-6on 01-83-3519FK [Catalytic activity/Vol]102 U/MRvsadh03-023NsrOhiohealth Grady Memorial HospitalComment on above:Performed By: #### PTT, PT #### [facility] [address] [place] [address] Dr. Stacey Starkey.MB [Mass/Vol]1.46 ng/mLNormal<=2.37[facility] Comment on above:Performed By: #### PTT, PT #### [facility] [address] [place] [address] Dr. Stacey De Jesus50.7 pg/mLCritically high4.0-35.[address] [place] [address] Comment on above:Result Comment: CUT-OFF POINTS HAVE BEEN ESTABLISHED BASED ON THE FOURTH UNIVERSAL DEFINITIONS OF MYOCARDIAL INFARCTION. THE UPPER REFERENCE LIMIT (URL) OF TROPONIN, DEFINED THE 99TH PERCENTILE OF cTnI DISTRIBUTION IN A REFERENCE POPULATION, HAS BEEN CONFIRMED THE DECISION THRESHOLD FOR GA DIAGNOSIS.Performed By: #### PTT, PT #### [facility] [address] [place] [address] Dr. Stacey Starkey [Catalytic activity/Vol]114 U/WCwiuke78-016ImsOhiohealth Grady Memorial HospitalComment on above:Performed By: #### CMREP #### [facility] [address] [place] [address] Dr. Stacey Starkey.MB [Mass/Vol]1.60 ng/mLNormal<=2.37[facility] Comment on above:Performed By: #### CMREP #### [facility] [address] [place] [address] Dr. Stacey De Jesus50.9 pg/mLCritically high4.0-35.[address] [place] [address] Comment on above:Result Comment: CUT-OFF POINTS HAVE BEEN ESTABLISHED BASED ON THE FOURTH UNIVERSAL DEFINITIONS OF MYOCARDIAL INFARCTION. THE UPPER REFERENCE LIMIT (URL) OF TROPONIN, DEFINED THE 99TH PERCENTILE OF cTnI DISTRIBUTION IN A REFERENCE POPULATION, HAS BEEN CONFIRMED THE DECISION THRESHOLD FOR GA DIAGNOSIS.Performed By: #### CMREP #### [facility] [address] [place] [address] Dr. Stacey Edwards AUTO DIFFon [id number] #0.0 103/ulNormal0.0-0.1The [facility] HospitalComment on above:Performed By: #### CVDTBH #### [facility] [address] [place] [address] Dr. Stacye MelendezBasophils/100 WBC (Bld)0.4 %Normal0.2-2.0The [facility] Comment on above:Performed By: #### CVDTBH #### [facility] [address] [place] [address] Dr. Stacey Arrieta #0.4 103/ulNormal0.0-0.7The [facility] HospitalComment on above: Performed By: #### CVDTBH #### [facility] [address] [place] [address] Dr. Stacey Fischerosinophils/100 WBC (Bld)5.7 %Normal0.9-7.0The [facility] Comment on above:Performed By: #### CVDTBH #### [facility] [address] [place] [address] Dr. Stacey Fischerrythrocyte distribution width (RBC) [Ratio]12.9 %Gryhur51.0-15.0 The [facility] HospitalComment on above:Performed By: #### CVDTBH #### [facility] [address] [place] [address] Dr. Stacey MelendezHematocrit (Bld) [Volume fraction]36.4 %Rivbbv55.0-48.0The [facility] HospitalComment on above:Performed By: #### CVDTBH #### [facility] [address] [place] [address] Dr. Stacey MelendezHemoglobin (Bld) [Mass/Vol]11.8 g/dLCritically low12.0-16.0The [facility] HospitalComment on above:Performed By: #### CVDTBH #### [facility] [address] [place] [address] Dr. Stacey Tinsley #0.02 10e3/ulNormal0.00-0.03The [facility] HospitalComment on above:Performed By: #### CVDTBH #### [facility] [address] [address] [address] Stacey Tinsley %0.3 %Normal0.0-0.5The [facility] HospitalComment on above: Performed By: #### CVDTBH #### [facility] [address] [place] [address] Dr. Stacey Chase #3.0 103/ulNormal1.2-3.8The [facility] HospitalComment on above:Performed By: #### CVDTBH #### [facility] [address] [place] [address] Dr. Stacey Colberthocytes/100 WBC (Bld)38.5 %Rzwfju64.5-60.0The [facility] HospitalComment on above:Performed By: #### CVDTBH #### [facility] [address] [place] [address] Dr. Stacey AroraUAL DIFF REQNONormalThe [facility] HospitalComment on above: Performed By: #### CVDTBH #### [facility] [address] [place] [address] Dr. Stacey Alegria (RBC) [Entitic mass]31.6 pcOcraoj37.7-34.0The [facility] HospitalComment on above:Performed By: #### CVDTBH #### [facility] [address] [place] [address] Dr. Stacey Alegria (RBC) [Mass/Vol]32.4 g/pSOpntmv49.9-35.2The [facility] HospitalComment on above:Performed By: #### CVDTBH #### [facility] [address] [place] [address] Dr. Stacey Alegria (RBC) [Entitic vol]97.3 uZOdqvps72.0-99.0The [facility] HospitalComment on above:Performed By: #### CVDTBH #### [facility] [address] [place] [address] Dr. Stacey Romero #0.6 103/ulNormal0.3-0.8The [facility] HospitalComment on above:Performed By: #### CVDTBH #### [facility] [address] [place] [address] Dr. Stacey Blandocytes/100 WBC (Bld)7.6 %Normal1.7-12.0The [facility] Comment on above:Performed By: #### CVDTBH #### [facility] [address] [place] [address] Dr. Stacey Rizzo #3.7 103/ulNormal1.4-6.5The [facility] HospitalComment on above:Performed By: #### CVDTBH #### [facility] [address] [place] [address] Dr. Stacey Pelaezutrophils/100 WBC (Bld)47.5 %Ehtggu42.0-75.0The [facility] Behavioral HospitalComment on above:Performed By: #### CVDTBH #### [facility] [address] [place] [address] Dr. Stacey Brennanlet mean volume (Bld) [Entitic vol]11.8 fLNormal9.5-13.5The [facility] HospitalComment on above:Performed By: #### CVDTBH #### [facility] [address] [place] [address] Dr. Stacey MelendezPLT181 103/xmKdexmr697-554Vvr [facility] HospitalComment on above: Performed By: #### CVDTBH #### [facility] [address] [place] [address] Dr. Stacey MelendezRBC3.74 106/ulCritically low4.20-5.40The [facility] HospitalComment on above:Performed By: #### CVDTBH #### [facility] [address] [place] [address] Dr. Stacey MelendezWBC7.7 103/ulNormal4.0-11.0The [facility] HospitalComment on above: Performed By: #### CVDTBH #### [facility] [address] [place] [address] Dr. Yilan ChangCovid-19 PCR (CVDTBH)on 53-45-1427RLBP-CoV-2 (COVID-19) RNA VISH+probe Ql (Unsp spec)Not detectedNormalNOT DETECTEDThe [facility] Comment on above:Result Comment: When diagnostic testing is negative, the possibility of a false negative should be considered in the context of a patient's recent exposures and the presence of clinical signs and symptoms consistent with SARS-CoV-2.Performed By: #### CVDTBH #### [facility] [address] [place] [address] Dr. Stacey MelendezGLYCOHEMOGLOBIN A1Con 75-89-7821EMJ RECOMMENDATIONADA THERAPEUTIC TARGET 6.0 - 7.0 ACTION SUGGESTED > 7.0Trinity Health SystemComment on above:Performed By: #### CBC #### [facility] [address] [place] [address] Dr. Stacey MelendezGlucose [Mass/Vol]120 mg/dLNoOhioHealth Hardin Memorial HospitalComment on above:Performed By: #### CBC #### [facility] [address] [place] [address] Dr. Stacey MelendezHbA1c (Bld) [Mass fraction]5.8 %Normal<=6.0[facility] Comment on above:Performed By: #### CBC #### [facility] [address] [place] [address] Dr. Stacey MelendezLIPID PROFILEon 86-64-0185BMIO-HDL RATIO NORMSEE BELOWTrinity Health SystemComment on above:Result Comment: 3.3 - 4.4 LOW RISK 4.4 - 7.1 AVERAGE RISK 7.1 - 11.0 MODERATE RISK >11.0 HIGH RISKPerformed By: #### PTT, PT #### [facility] [address] [place] [address] Dr. Stacey MelendezCholesterol [Mass/Vol]113 mg/dLNormal<=200[facility] Comment on above:Performed By: #### PTT, PT #### [facility] [address] [place] [address] Dr. Stacey MelendezCholesterol in HDL [Mass/Vol]50 mg/dLTrinity Health System Comment on above:Performed By: #### PTT, PT #### [facility] [address] [address] [address] Stacey MelendezCholesterol in LDL [Mass/Vol]43.0 mg/dLTrinity Health SystemComment on above:Performed By: #### PTT, PT #### [facility] [address] [address] [address] Stacey Rogers.total/Cholesterol in HDL [Mass ratio]2.3 {ratio} NormalOhiohealth Grady Memorial HospitalComment on above:Performed By: #### PTT, PT #### [facility] [address] [place] [address] Dr. Stacey Brewer NORMAL> or = 60 mg/dl - LOW CARDIOVASCULAR RISK <40 mg/dl - HIGH CARDIOVASCULAR RISKTrinity Health SystemComment on above:Performed By: #### PTT, PT #### [facility] [address] [address] [address] Stacey MelendezLDL CALC NORMALSEE BELOWTrinity Health SystemComment on above:Result Comment: <100 mg/dl OPTIMAL 100 - 129 mg/dl NEAR OR ABOVE OPTIMAL 130 - 159 mg/dl BORDERLINE HIGH 160 - 189 mg/dl HIGH >190 mg/dl VERY HIGH Performed By: #### PTT, PT #### [facility] [address] [place] [address] Dr. Stacey MelendezTriglyceride [Mass/Vol]100 mg/dLNormal<=150[facility] Comment on above:Performed By: #### PTT, PT #### [facility] [address] [place] [address] Dr. Stacey WeissLDL CALC20.0 mg/dLTrinity Health SystemComment on above: Performed By: #### PTT, PT #### [facility] [address] [place] [address] Dr. Stacey MelendezPROF CHEM 8 (BAS METB)on 79-83-3903Xszgo gap [Moles/Vol]10.9 mmol/LNormalOhiohealth Grady Memorial HospitalComment on above:Performed By: #### PTT, PT #### [facility] [address] [address] [address] Stacey MelendezCalcium [Mass/Vol]9.0 mg/dLNormal8.4-10.2The [facility] Comment on above:Performed By: #### PTT, PT #### [facility] [address] [address] [address] Stacey MelendezChloride [Moles/Vol]109 mmol/LCritically jwin92-856Ixd [facility] HospitalComment on above:Performed By: #### PTT, PT #### [facility] [address] [place] [address] Dr. Stacey MelendezCO2 [Moles/Vol]25.8 mmol/XSbmiti03.0-30.0The [facility] Comment on above:Performed By: #### PTT, PT #### [facility] [address] [place] [address] Dr. Stacey MelendezCreatinine [Mass/Vol]0.79 mg/dLNormal0.52-1.04The [facility] HospitalComment on above:Performed By: #### PTT, PT #### [facility] [address] [place] [address] Dr. Stacey FischerGFR-AF PAPUA [place] GU[place]>60Normal>=60The [facility]al HospitalComment on above:Performed By: #### PTT, PT #### [facility] [address] [place] [address] Dr. Stacey FischerGFR-NON AF [place]>60Normal>=60The [facility]al HospitalComment on above:Performed By: #### PTT, PT #### [facility] [address] [place] [address] Dr. Stacey MelendezGlucose [Mass/Vol]100 mg/hIFbntdg04-980GbiOhiohealth Grady Memorial Hospital Comment on above:Performed By: #### PTT, PT #### [facility] [address] [place] [address] Dr. Stacey MelendezPotassium [Moles/Vol]3.7 mmol/LNormal3.4-5.0The [facility] Comment on above:Performed By: #### PTT, PT #### [facility] [address] [place] [address] Dr. Stacey MelendezSodium [Moles/Vol]142 mmol/VLlobpf625-580Tdg [facility] Comment on above:Performed By: #### PTT, PT #### [facility] [address] [place] [address] Dr. Stacey Almazan nitrogen [Mass/Vol]14.0 mg/dLNormal7.0-17.0The [facility] HospitalComment on above:Performed By: #### PTT, PT #### [facility] [address] [place] [address] Dr. Stacey Almazan nitrogen/Creatinine [Mass ratio]17.7 mg/mgNormalThe [facility]al HospitalComment on above:Performed By: #### PTT, PT #### [facility] [address] [place] [address] Dr. Stacey Huff HEPARIN MONITORon 87-21-5270rYCU Coag (Bld) [Time]38.3 s Critically low39.5-54.2The [facility]al HospitalComment on above:Result Comment: TEST REPEATED; CRITICAL VALUE VERIFIEDPerformed By: #### PTT, PT #### [facility] [address] [place] [address] Dr. Stacey Quinonez Coag (Bld) [Time]57.6 sCritically high39.5-54.2The [facility] HospitalComcorewell health butterworth hospital on above:Result Comment: test repeated critical value verified Performed By: #### PTTHEP #### [facility] [address] [place] [address] Dr. Stacey Quinonez Coag (Bld) [Time]29.9 sCritically low39.5-54.2The [facility] HospitalComcorewell health butterworth hospital on above:Result Comment: TEST REPEATED CRITICAL VALUE VERIFIED Performed By: #### PTTHEP #### [facility] [address] [place] [address] Dr. Stacey Quinonez Coag (Bld) [Time]37.3 sCritically low39.5-54.2The [facility]al HospitalComment on above:Result Comment: TEST REPEATED; CRITICAL VALUE VERIFIED Performed By: #### PTTHEP #### [facility] [address] [place] [address] Dr. Stacey Reddy, HIGH SENSITIVITYon 82-63-6387UGPDAH75.8 pg/mLCritically high4.0-35.5ThWVUMedicine Harrison Community HospitalComment on above:Result Comment: CUT-OFF POINTS HAVE BEEN ESTABLISHED BASED ON THE FOURTH UNIVERSAL DEFINITIONS OF MY OCARDIAL INFARCTION. THE UPPER REFERENCE LIMIT (URL) OF TROPONIN, DEFINED THE 99TH PERCENTILE OF cTnI DISTRIBUTION IN A REFERENCE POPULATION, HAS BEEN CONFIRMED THE DECISION THRESHOLD FOR GA DIAGNOSIS.Performed By: #### PTT, PT #### [facility] [address] [place] [address] Dr. Stacey Olea DAYANARA ADMITon 43-53-1860RX [Catalytic activity/Vol]143 U/L Critically voob32-782Trh [facility] HospitalComment on above:Performed By: #### CBC #### [facility] [address] [place] [address] Dr. Stacey Starkey.MB [Mass/Vol]2.09 ng/mLNormal<=2.37The [facility] Comment on above:Performed By: #### CBC #### [facility] [address] [place] [address] Dr. Stacey MelendezHSTROP55.6 pg/mLCritically high4.0-35.5ThWVUMedicine Harrison Community Hospital Comment on above:Result Comment: CUT-OFF POINTS HAVE BEEN ESTABLISHED BASED ON THE FOURTH UNIVERSAL DEFINITIONS OF MYOCARDIAL INFARCTION. THE UPPER REFERENCE LIMIT (URL) OF TROPONIN, DEFINED THE 99TH PERCENTILE OF cTnI DISTRIBUTION IN A REFERENCE POPULATION, HAS BEEN CONFIRMED THE DECISION THRESHOLD FOR GA DIAGNOSIS. TEST REPEATED; CRITICAL VALUE VERIFIEDPerformed By: #### CBC #### [facility] [address] [place] [address] Dr. Stacey MedellinO43.0 ng/mLNormal<=61.5ThWVUMedicine Harrison Community HospitalComment on above: Performed By: #### CBC #### [facility] [address] [address] [address] Stacey Edwards AUTO DIFFon [id number] #0.0 103/ulNormal0.0-0.1The [facility]al HospitalComment on above:Performed By: #### CBC #### [facility] [address] [place] [address] Dr. Stacey MelendezBasophils/100 WBC (Bld)0.5 %Normal0.2-2.0The [facility] Comment on above:Performed By: #### CBC #### [facility] [address] [place] [address] Dr. Stacey Arrieta #0.4 103/ulNormal0.0-0.7The [facility] HospitalComment on above: Performed By: #### CBC #### [facility] [address] [place] [address] Dr. Stacey Fischerosinophils/100 WBC (Bld)5.1 %Normal0.9-7.0[facility] Comment on above:Performed By: #### CBC #### [facility] [address] [place] [address] Dr. Stacey Fischerrythrocyte distribution width (RBC) [Ratio]12.8 %Zxblmn69.0-15.0 The [facility]al HospitalComment on above:Performed By: #### CBC #### [facility] [address] [place] [address] Dr. Stacey MelendezHematocrit (Bld) [Volume fraction]39.4 %Qkwfvl81.0-48.0The [facility] HospitalComment on above:Performed By: #### CBC #### [facility] [address] [place] [address] Dr. Stacey MelendezHemoglobin (Bld) [Mass/Vol]12.8 g/vNFtkfyy24.0-16.0The [facility] HospitalComment on above:Performed By: #### CBC #### [facility] [address] [place] [address] Dr. Stacey Tinsley #0.02 10e3/ulNormal0.00-0.03The [facility] Centerment on above:Performed By: #### CBC #### [facility] [address] [address] [address] Stacey Tinsley %0.2 %Normal0.0-0.5The [facility] on above: Performed By: #### CBC #### [facility] [address] [place] [address] Dr. Stacey Chase #2.9 103/ulNormal1.2-3.8The [facility] on above:Performed By: #### CBC #### [facility] [address] [place] [address] Dr. Stacey Colberthocytes/100 WBC (Bld)34.9 %Haeuqg36.5-60.0The [facility] on above:Performed By: #### CBC #### [facility] [address] [place] [address] Dr. Stacey Al DIFF REQNONormalThe [facility]al HospitalComment on above: Performed By: #### CBC #### [facility] [address] [place] [address] Dr. Stacey Alegria (RBC) [Entitic mass]31.6 nmZljpow45.7-34.0The [facility] on above:Performed By: #### CBC #### [facility] [address] [place] [address] Dr. Stacey Alegria (RBC) [Mass/Vol]32.5 g/gOReqeqi66.9-35.2The [facility] on above:Performed By: #### CBC #### [facility] [address] [place] [address] Dr. Stacey Alegria (RBC) [Entitic vol]97.3 nVMfasnj77.0-99.0The [facility] on above:Performed By: #### CBC #### [facility] [address] [place] [address] Dr. Stacey Romero #0.6 103/ulNormal0.3-0.8The Mike HospitalComment on above:Performed By: #### CBC #### [facility] [address] [place] [address] Dr. Stacey Blandocytes/100 WBC (Bld)7.8 %Normal1.7-12.0The [facility] on above:Performed By: #### CBC #### [facility] [address] [place] [address] Dr. Stacey PelaezUT #4.2 103/ulNormal1.4-6.5The [facility] HospitalComment on above:Performed By: #### CBC #### [facility] [address] [place] [address] Dr. Stacey Pelaezutrophils/100 WBC (Bld)51.5 %Ziyedp60.0-75.0The [facility] HospitalComment on above:Performed By: #### CBC #### [facility] [address] [place] [address] Dr. Stacey MelendezPlatelet mean volume (Bld) [Entitic vol]12.1 fLNormal9.5-13.5The [facility] HospitalComment on above:Performed By: #### CBC #### [facility] [address] [place] [address] Dr. Stacey MelendezPLT214 103/lwNvrikj581-115Jxt [facility] HospitalComment on above: Performed By: #### CBC #### [facility] [address] [place] [address] Dr. Stacey MelendezRBC4.05 106/ulCritically low4.20-5.40The [facility] HospitalComment on above:Performed By: #### CBC #### [facility] [address] [place] [address] Dr. Stacey MelendezWBC8.2 103/ulNormal4.0-11.0The [facility] HospitalComment on above: Performed By: #### CBC #### [facility] [address] [place] [address] Dr. Stacey Hopper-DIMERon 97-36-9132H-DIMER0.36 mg/L FEUNormal0.19-0.50[facility] HospitalComment on above:Performed By: #### CVDTBH #### [facility] [address] [place] [address] Dr. Stacey MelendezD-DIMER COMMENTSSEE BELOWNoOhioHealth Hardin Memorial HospitalComment on above:Result Comment: Increases in D-Dimer concentration observed with thromboembolic events [...] stress, and generalized hospitalization. Performed By: #### CVDTBH #### [facility] [address] [place] [address] Dr. Stacey MelendezPROF CHEM 8 (BAS METB)on 65-41-3272Sigbk gap [Moles/Vol]15.9 mmol/LNormalOhiohealth Grady Memorial HospitalComment on above:Performed By: #### CBC #### [facility] [address] [place] [address] Dr. Stacey MelendezCalcium [Mass/Vol]9.0 mg/dLNormal8.4-10.2[facility] Comment on above:Performed By: #### CBC #### [facility] [address] [place] [address] Dr. Stacey MelendezChloride [Moles/Vol]107 mmol/TQyormd02-755AifOhiohealth Grady Memorial Hospital Comment on above:Performed By: #### CBC #### [facility] [address] [place] [address] Dr. Stacey MelendezCO2 [Moles/Vol]25.0 mmol/RArzmkv70.0-30.0[facility] Comment on above:Performed By: #### CBC #### [facility] [address] [place] [address] Dr. Stacey MelendezCreatinine [Mass/Vol]1.05 mg/dLCritically high0.52-1.04The Cook HospitalComment on above:Performed By: #### CBC #### [facility] [address] [address] [address] Stacey FischerGFR-AF PAPUA [place] GUINEAN>60Normal>=60The [facility] Centerment on above:Performed By: #### CBC #### [facility] [address] [address] [address] Stacey FischerGFR-NON AF WHELTEQB21 mL/min/1.15u6Zlpjexbboe low>=60The [facility] Centerment on above:Performed By: #### CBC #### [facility] [address] [address] [address] Stacey MelendezGlucose [Mass/Vol]108 mg/dLCritically fbea53-168Zls [facility] on above:Performed By: #### CBC #### [facility] [address] [address] [address] Stacey MelendezPotassium [Moles/Vol]3.9 mmol/LNormal3.4-5.0[facility] Comment on above:Performed By: #### CBC #### [facility] [address] [address] [address] Stacey MelendezSodium [Moles/Vol]144 mmol/VGyxqxa504-990Ggc [facility] Comment on above:Performed By: #### CBC #### [facility] [address] [address] [address] Stacey MelendezUrea nitrogen [Mass/Vol]18.0 mg/dLCritically high7.0-17.0The [facility] on above:Performed By: #### CBC #### [facility] [address] [address] [address] Stacey MelendezUrea nitrogen/Creatinine [Mass ratio]17.1 mg/mgNormalThe [facility] on above:Performed By: #### CBC #### [facility] [address] [address] [address] Stacey MelendezPROTIMEon 32-10-7210YTM Coag (PPP) [Relative time]0.95 {INR} NormalThe [facility] Medical Centerment on above:Performed By: #### PTT, PT #### [facility] [address] [place] [address] Dr. Stacey GonzalezR GUIDELINESSEE [facility] Perrysburg HospitalComment on above:Result Comment: DESIRED INR: 2.0 - 3.0 CONDITIONS NOT LISTED BELOW 2.5 - 3.5 FOR PROSTHETIC HEART VALVE REPLACEMENT 2.5 - 3.5 RECURRENT THROMBOSIS Performed By: #### PTT, PT #### [facility] [address] [place] [address] Dr. Stacey MelendezPT Coag (PPP) [Time]10.3 sNormal9.0-11.6ThWVUMedicine Harrison Community Hospital Comment on above:Performed By: #### PTT, PT #### [facility] [address] [place] [address] Dr. Stacey MolinaTon 67-38-6252zHSE Coag (Bld) [Time]25.4 wVvgxai76.3-36.2[facility] Memorial HospitalComment on above:Performed By: #### PTT, PT #### [facility] [address] [place] [address] Dr. Stacey MelendezXR CHEST 1 Von [id number] CHEST 1 VEXAM: XR CHEST 1 V HISTORY: CHEST PAIN, UNSPECIFIED COMPARISON: Chest, 11/30/2017. TECHNIQUE: AP upright portable chest. FINDINGS: The heart, mediastinum and pulmonary vascularity are within normal limits. The lungs and pleural spaces are clear. IMPRESSION: No acute cardiopulmonary disease. Electronically authenticated by: ARSENIO HOWARD Date: 2021-06-13 21:59[facility] SystemMG MAMM SCREEN 3D PARISA CADon [id number] MAMM SCREEN 3D PARISA CADPatient: DIANE NGUYEN Exam Date: 05/28/2021 : 1965 Gender:F Ordering : EDUIN KRISHNAMURTHY CNP Admission #: [id number] Family : Order #: [id number] CLICK HERE TO VIEW EXAM RADIOLOGY REPORT [...] stomach cancer at age 78. LOCATION: [facility] BREAST COMPOSITION: Scattered areas fibroglandular density. [...] LUMP SHOULD BE BIOPSIED. Dictated by: Agustín Mueller M.D. on 05/28/2021 at 09:19 Approved by: Agustín Mueller M.D. on 05/28/2021 at 09:23NormCleveland Clinic Union HospitalCB AUTO DIFFon [id number] #0.0 103/ulNormal0.0-0.1The [facility] HospitalComment on above:Performed By: #### PTT, PT #### [facility] [address] [address] [address] Stacey MelendezBasophils/100 WBC (Bld)0.3 %Normal0.2-2.0[facility] Comment on above:Performed By: #### PTT, PT #### [facility] [address] [address] [address] Stacey Arrieta #0.3 103/ulNormal0.0-0.7The [facility] HospitalComment on above: Performed By: #### PTT, PT #### [facility] [address] [address] [address] Stacey Fischerosinophils/100 WBC (Bld)3.8 %Normal0.9-7.0[facility] Comment on above:Performed By: #### PTT, PT #### [facility] [address] [address] [address] Stacey Fischerrythrocyte distribution width (RBC) [Ratio]12.4 %Qcwwqy90.0-15.0 The [facility] HospitalComment on above:Performed By: #### PTT, PT #### [facility] [address] [place] [address] Dr. Stacey Hoffatocrit (Bld) [Volume fraction]39.7 %Festpp49.0-48.0The [facility] HospitalComment on above:Performed By: #### PTT, PT #### [facility] [address] [place] [address] Dr. Stacey MelendezHemoglobin (Bld) [Mass/Vol]12.8 g/mUSjbtnm22.0-16.0The [facility] HospitalComment on above:Performed By: #### PTT, PT #### [facility] [address] [place] [address] Dr. Stacey Tinsley #0.03 10e3/ulNormal0.00-0.03The [facility] HospitalComcorewell health butterworth hospital on above:Performed By: #### PTT, PT #### [facility] [address] [place] [address] Dr. Stacey Tinsley %0.3 %Normal0.0-0.5The [facility] HospitalComment on above: Performed By: #### PTT, PT #### [facility] [address] [place] [address] Dr. Stacey Chase #1.9 103/ulNormal1.2-3.8The [facility] HospitalComcorewell health butterworth hospital on above:Performed By: #### PTT, PT #### [facility] [address] [place] [address] Dr. Stacey Colberthocytes/100 WBC (Bld)21.2 %Baepbm54.5-60.0The [facility] HospitalComment on above:Performed By: #### PTT, PT #### [facility] [address] [place] [address] Dr. Stacey AroraUAL DIFF REQNONormalThe [facility] HospitalComment on above: Performed By: #### PTT, PT #### [facility] [address] [place] [address] Dr. Stacey Anaya (RBC) [Entitic mass]31.4 ngRglnkp24.7-34.0The [facility] HospitalComment on above:Performed By: #### PTT, PT #### [facility] [address] [place] [address] Dr. Stacey Alegria (RBC) [Mass/Vol]32.2 g/uJWtjmly95.9-35.2The [facility] HospitalComment on above:Performed By: #### PTT, PT #### [facility] [address] [place] [address] Dr. Stacey Coughlin (RBC) [Entitic vol]97.5 nYHjdvwm27.0-99.0The [facility] HospitalComment on above:Performed By: #### PTT, PT #### [facility] [address] [place] [address] Dr. Stacey Romero #0.6 103/ulNormal0.3-0.8The [facility] HospitalComment on above:Performed By: #### PTT, PT #### [facility] [address] [place] [address] Dr. Stacey Blandocytes/100 WBC (Bld)6.3 %Normal1.7-12.0[facility] Comment on above:Performed By: #### PTT, PT #### [facility] [facility] [address] [place] [address] Dr. Stacey Rizzo #6.1 103/ulNormal1.4-6.5The [facility] HospitalComment on above:Performed By: #### PTT, PT #### [facility] [address] [place] [address] Dr. Stacey Pelaezutrophils/100 WBC (Bld)68.1 %Ztammv65.0-75.0The [facility] HospitalComment on above:Performed By: #### PTT, PT #### [facility] [address] [place] [address] Dr. Stacey Brennanlet mean volume (Bld) [Entitic vol]12.5 fLNormal9.5-13.5The [facility] HospitalComment on above:Performed By: #### PTT, PT #### [facility] [address] [place] [address] Dr. Stacey MelendezPLT181 103/ixBjnflu650-695Jhi [facility] HospitalComment on above: Performed By: #### PTT, PT #### [facility] [address] [place] [address] Dr. Stacey MelendezRBC4.07 106/ulCritically low4.20-5.40The [facility] HospitalComment on above:Performed By: #### PTT, PT #### [facility] [address] [place] [address] Dr. Stacey MelendezWBC9.0 103/ulNormal4.0-11.0The [facility] HospitalComment on above: Performed By: #### PTT, PT #### [facility] [address] [place] [address] Dr. Stacey Plummer T3on 89-53-2289MIGQ T32.24 pg/mlLCritically low2.77-5.27The [facility] HospitalComment on above:Performed By: #### PTT, PT #### [facility] [address] [place] [address] Dr. Stacey Plummer T4on 91-02-8332Awqh T4 [Mass/Vol]0.99 ng/dLNormal0.78-2.19 [facility] HospitalComcorewell [facility] on above:Performed By: #### PTT, PT #### [facility] [address] [place] [address] Dr. Stacey MelendezMAGNESIUMon 21-57-1088Cuhvlopgf [Mass/Vol]1.7 mg/dLNormal1.6-2.3 The [facility] HospitalComment on above:Performed By: #### PTT, PT #### [facility] [address] [place] [address] Dr. Stacey West 14(COMP METB)on 00-61-5789Nmafxhl [Mass/Vol]3.6 g/dLNormal 3.5-5.0The [facility] HospitalComment on above:Performed By: #### PTT, PT #### [facility] [address] [address] [address] Stacey MelendezAlbumin/Globulin [Mass ratio]1.0 {ratio}NormalThe [facility] Behavioral HospitalComment on above:Performed By: #### PTT, PT #### [facility] [address] [address] [address] Stacey ShawP [Catalytic activity/Vol]77 U/PUojlqq89-910Rrf [facility] HospitalComment on above:Performed By: #### PTT, PT #### [facility] [address] [address] [address] Stacey ShawT [Catalytic activity/Vol]29 U/LNormal9-52[facility] Comment on above:Performed By: #### PTT, PT #### [facility] [address] [place] [address] Dr. Stacey MelendezAnion gap [Moles/Vol]13.1 mmol/LNormalThe [facility] Comment on above:Performed By: #### PTT, PT #### [facility] [address] [place] [address] Dr. Stacey MelendezAST [Catalytic activity/Vol]19 U/YJiyucg28-30Yoq [facility] HospitalComment on above:Performed By: #### PTT, PT #### [facility] [address] [place] [address] Dr. Stacey MelendezBilirubin [Mass/Vol]0.3 mg/dLNormal0.2-1.3[facility] Comment on above:Performed By: #### PTT, PT #### [facility] [address] [place] [address] Dr. Stacey MelendezCalcium [Mass/Vol]8.9 mg/dLNormal8.4-10.2[facility] Comment on above:Performed By: #### PTT, PT #### [facility] [address] [place] [address] Dr. Stacey MelendezChloride [Moles/Vol]108 mmol/LCritically jjsf46-003Rom [facility] HospitalComment on above:Performed By: #### PTT, PT #### [facility] [address] [address] [address] Stacey MelendezCO2 [Moles/Vol]24.0 mmol/TUaldzx43.0-30.0[facility] Comment on above:Performed By: #### PTT, PT #### [facility] [address] [address] [address] Stacey MelendezCreatinine [Mass/Vol]0.91 mg/dLNormal0.52-1.04The [facility] HospitalComment on above:Performed By: #### PTT, PT #### [facility] [address] [address] [address] Ibarra ChangEGFR-AF PAPUA [place] GUINE[place]>60Normal>=60The [facility]al HospitalComment on above:Performed By: #### PTT, PT #### [facility] [address] [place] [address] Dr. Stacey FischerGFR-NON AF PAP[place]>60Normal>=60The [facility] HospitalComment on above:Performed By: #### PTT, PT #### [facility] [address] [address] [address] Stacey MelendezGlobulin (S) [Mass/Vol]3.6 g/dLNormalThe [facility] HospitalComment on above:Performed By: #### PTT, PT #### [facility] [address] [address] [address] Stacey MelendezGlucose [Mass/Vol]101 mg/pIUlquma82-942Bcl [facility] Comment on above:Performed By: #### PTT, PT #### [facility] [address] [address] [address] Stacey MelendezPotassium [Moles/Vol]4.1 mmol/LNormal3.4-5.0[facility] Comment on above:Performed By: #### PTT, PT #### [facility] [address] [address] [address] Stacey MelendezProtein [Mass/Vol]7.2 g/dLNormal6.1-8.2[facility] Comment on above:Performed By: #### PTT, PT #### [facility] [address] [address] [address] Stacey MelendezSodium [Moles/Vol]141 mmol/PYdfmrj275-750Jdw [facility] Comment on above:Performed By: #### PTT, PT #### [facility] [address] [place] [address] Dr. Stacey MelendezUrea nitrogen [Mass/Vol]16.0 mg/dLNormal7.0-17.0The [facility] HospitalComment on above:Performed By: #### PTT, PT #### [facility] [address] [place] [address] Dr. Stacey MelendezUrea nitrogen/Creatinine [Mass ratio]17.6 mg/mgNoOhioHealth Hardin Memorial HospitalComment on above:Performed By: #### PTT, PT #### [facility] [address] [place] [address] Dr. Stacey BraunHojose 20-02-8809DYQ1.872 uIU/mLNormal0.470-4.680The [facility] HospitalComment on above:Performed By: #### PTT, PT #### [facility] [address] [place] [address] Dr. Stacey Ceja [facility] CenterComment on above: Result Comment: <0.34 UIU/ml HYPERTHYROID 0.34-5.60 UIU/ml EUTHYROID >5.60 UIU/ml HYPOTHYROIDPerformed By: #### PTT, PT #### [facility] [address] [place] [address] Dr. Stacey MelendezVITAMIN B12on 85-17-2465Paafujnts (Vitamin B12) [Mass/Vol]425.0 pg/aPDvxxtd091.0-931.0The [facility] HospitalComment on above:Performed By: #### PTT, PT #### [facility] [address] [place] [address] Dr. Ibarra ChangEchocardiogramon 66-71-9942PkvskpakrgcgjtsuJfszy[address], Suite [facility], [place] [address] TRANSTHORACIC ECHOCARDIOGRAM REPORT Patient Name: DIANE NGUYEN Reading Physician: [id number] Arsenio Flores MD Study Date: 03/02/2021 Referring Physician: [id number] FLORES MRN/PID: [id number] PCP: Ja Pabon Accession/Order#: [id number] Department Location: [facility] Rashmi Blackburn Date of : 1965 Fellow: Gender: F Nurse: Admit Date: Letter Of Credit Document Examiner: Tash Murray RDCS, RVT Height: 170.18 cm CC Report to: Weight: 98.88 kg Study Type: Echocardiogram BSA: 2.10 m2 Blood Pressure: 110 /70 mmHg Diagnosis/ICD: U56-Fztmuto Indication: HTN, Hyperlipidemia, COPD, Tobacco Abuse, Obesity Procedure/CPT: Echo Complete w Full Doppler-77100 Study Detail: The following Echo studies were [...] visualized. There is no indication of pulmonic valveregurgitation. Pericardium: There is no pericardial effusion noted. [...] 0.7 m/s (0.6-0.9m/s) PV Max P.0 mmHg 68000 Arsenio Flores MD Electronically signed on 03/07/2021 at 2:58:15 PM Final NormalV[facility] Vital Signs Date TimeVital SignValuePerforming IbqnrnhnbDexlqmea36-66-1271 14:31-0400Body qizyty705.1 Cherylisa Aichholz AIRPLANE CAPTAIN-C Work Phone: [phone] [place], [place] 97[address]10-15-2025 14:31-0400 Body mass index (BMI) [Ratio]37.1 kg/m2Lisa Aichholz AIRPLANE CAPTAIN-C Work Phone: [phone]10-15-2025 14:31-0400 Body twpruugkjsv18.8 [degF]Nica Aichholz AIRPLANE CAPTAIN-C Work Phone: [phone]10-15-2025 14:31-0400 Body uuzmry209.26 kgLisa Aichholz AIRPLANE CAPTAIN-C Work Phone: [phone] [place], [place] 97[address]10-15-2025 14:31-0400 Diastolic blood pxfeonzi76 mm[Hg]Nica Aichholz AIRPLANE CAPTAIN-C Work Phone: [facility]10-15-2025 14:31-0400 Heart rate68 /minLisa Aichholz AIRPLANE CAPTAIN-C Work Phone: [phone] [place], [place] [address]10-15-2025 14:31-0400 Respiratory rate20 /minLisa Aichholz AIRPLANE CAPTAIN-C Work Phone: [phone] [place], [place] 97[address]10-15-2025 14:31-0400 SaO2% (BldA) [Mass fraction]98 %Nica Aichholz AIRPLANE CAPTAIN-C Work Phone: [phone] [place], [place] [address]10-15-2025 14:31-0400 Systolic blood bcnaypgt315 mm[Hg]Nica Johnsarnold AIRPLANE CAPTAIN-C Work Phone: [facility]06-30-2025 19:02-0400 Diastolic blood gguyjpkm96 mm[Hg]Nica Johnsarnold AIRPLANE CAPTAIN Work Phone: [facility] NetworkXrnslywyjx29-55-5122 19:02-0400Systolic blood pydbjknv206 mm[Hg]Nica Johnscarlos albertoz AIRPLANE CAPTAIN Work Phone: [facility] NetworkQdkerwcchz04-37-6729 18:26-0400Body mass index (BMI) [Ratio]34.17 kg/m2Lisa Arvindhholz AIRPLANE CAPTAIN Work Phone: [facility] NetworkJlzqnuykli65-42-4927 18:26-0400Body temperature 98.1 [degF]Nica Johnsarnold AIRPLANE CAPTAIN Work Phone: [facility] NetworkXvipqgmtvg32-64-2524 18:26-0400Body trtfit85.97 kgNica Arvindjuaquinholz AIRPLANE CAPTAIN Work Phone: [facility] NetworkPsfgognrsv32-28-4415 18:26-0400Heart rate78 /min Nica Arvindjuaquincarlos albertoz AIRPLANE CAPTAIN Work Phone: [facility] NetworkUrfogbinxq53-08-9002 18:26-0400Respiratory rate20 /minLisa Johnsholz AIRPLANE CAPTAIN Work Phone: [facility] NetworkYkaoxdafpm66-86-0704 18:26-8811PoP4% (BldA) [Mass fraction]96 %Nica Joanz AIRPLANE CAPTAIN Work Phone: [facility] NetworkSfxrjfcbil75-81-9985 18:00-0400Diastolic blood ejyjscyp15 mm[Hg]Nica Joanz AIRPLANE CAPTAIN Work Phone: [facility] NetworkDziackiauu23-47-7003 18:00-0400Systolic blood zqfvstei985 mm[Hg]Nica Joanz AIRPLANE CAPTAIN Work Phone: [facility] NetworkGkajzdnxds32-06-7772 17:39-0400Body mass index (BMI) [Ratio]35.43 kg/m2Lisa Arvindhholz AIRPLANE CAPTAIN Work Phone: [facility] NetworkMzsyumeqwl43-52-2756 17:39-0400Body temperature 98.49 [degF]Nica Johnsholz AIRPLANE CAPTAIN Work Phone: [facility] NetworkKlquispdyp86-38-9043 17:39-0400Body cecdce290.6 kgLisa Arvindhholz AIRPLANE CAPTAIN Work Phone: [facility] NetworkOqcfqdpaeh99-56-2447 17:39-0400Heart rate64 /min Nica Natholz AIRPLANE CAPTAIN Work Phone: [facility] NetworkSopaiefexc95-03-5097 17:39-0400Respiratory rate22 /minLisa Aichholz AIRPLANE CAPTAIN Work Phone: [facility] NetworkDrixofbunq69-80-7952 17:39-0059SoA6% (BldA) [Mass fraction]98 %Nica Natholz AIRPLANE CAPTAIN Work Phone: [facility] NetworkDlqoorcqdl93-42-9604 18:15-0500Body mass index (BMI) [Ratio]35.77 kg/m2Lisa Natholz AIRPLANE CAPTAIN Work Phone: [facility] NetworkFwtclakxae21-85-2613 18:15-0500Body temperature 98.8 [degF]Nica Natholz AIRPLANE CAPTAIN Work Phone: [facility] NetworkGvdhuddmkc78-49-0481 18:15-0500Body vpoooc734.6 kgNica Johnsholz AIRPLANE CAPTAIN Work Phone: [facility] NetworkYtwuxslxcf69-63-9690 18:15-0500Diastolic blood ohmtcgvs050 mm[Hg]Nica Natholz AIRPLANE CAPTAIN Work Phone: [facility] NetworkVbywoywbrq60-95-6641 18:15-0500Heart rate63 /min Nica Arvindhholz AIRPLANE CAPTAIN Work Phone: [facility] NetworkJpmzhekefs65-30-0535 18:15-0500Respiratory rate20 /minLisa Aichholz AIRPLANE CAPTAIN Work Phone: [facility] NetworkUvgninjzpw42-93-4654 18:15-0199WcN2% (BldA) [Mass fraction]95 %Nica Joanz AIRPLANE CAPTAIN Work Phone: [facility] NetworkVyiwfuvfwm09-15-1597 18:15-0500Systolic blood ypiohllr873 mm[Hg]Nica Natholz AIRPLANE CAPTAIN Work Phone: [facility] NetworkJqwpfkuxek76-44-9182 08:44-0500Diastolic blood gyqlkyam95 mm[Hg]Nica Joanz AIRPLANE CAPTAIN Work Phone: [facility] NetworkTjoltobajd29-62-8752 08:44-0500Systolic blood geprsnln125 mm[Hg]Nica Natholz AIRPLANE CAPTAIN Work Phone: [facility] NetworkUihahrinfw14-39-1005 08:36-0500Body mkycld179.2 Cherylisa Natholz AIRPLANE CAPTAIN Work Phone: [facility] NetworkRotzkyusdp70-40-4920 08:36-0500Body mass index (BMI) [Ratio]35.21 kg/m2Lisa Joanz AIRPLANE CAPTAIN Work Phone: [facility] NetworkZoqzgfpnvm67-19-6312 08:36-0500Body temperature 98.49 [degF]Nica Joanz AIRPLANE CAPTAIN Work Phone: [facility] NetworkXxtgjckuwb95-97-3217 08:36-0500Body znimlr097.97 kgLisa Joanz AIRPLANE CAPTAIN Work Phone: [facility] NetworkRetkwiklbv80-42-9331 08:36-0500Heart rate62 /min Nica Natholz AIRPLANE CAPTAIN Work Phone: [facility] NetworkFbzvugytgl72-10-4588 08:36-0500Respiratory rate21 /minLisa Natholz AIRPLANE CAPTAIN Work Phone: [facility] NetworkDykhvsiyuv74-73-4197 08:36-0882RqI2% (BldA) [Mass fraction]96 %Nica Natholz AIRPLANE CAPTAIN Work Phone: [facility] NetworkZrdddzpwjh24-75-0752 08:53-0400Body dovpcq901.2 Cherylisa Natholz AIRPLANE CAPTAIN Work Phone: [facility] NetworkSragkvqooq91-45-1917 08:53-0400Body mass index (BMI) [Ratio]35.99 kg/m2Nica Yessy AIRPLANE CAPTAIN Work Phone: [facility] NetworkSfznipgspy35-23-5563 08:53-0400Body temperature 98.8 [degF]Nica Samuelsrigoberto AIRPLANE CAPTAIN Work Phone: [facility] NetworkSkeuqfxdgk10-69-2901 08:53-0400Body .24 kgNica Arvindjuaquinarnold AIRPLANE CAPTAIN Work Phone: [facility] NetworkQhobvkamlh35-52-5403 08:53-0400Diastolic blood ppxarsxx86 mm[Hg]Nica Joanz AIRPLANE CAPTAIN Work Phone: noB[facility] HospitalLfmtzjncxg31-63-3492 08:53-0400Heart rate48 /min Nica Yessy AIRPLANE CAPTAIN Work Phone: [facility] NetworkIunnokipzn29-64-7479 08:53-0400Respiratory rate20 /minLi Arvindjuaquinarnold AIRPLANE CAPTAIN Work Phone: [facility] NetworkElpdjbjnul63-51-9194 08:53-8402WsO2% (BldA) [Mass fraction]96 %Nica Jhonscarlos albertoz AIRPLANE CAPTAIN Work Phone: noB[facility] HospitalAnapywziuo03-43-6894 08:53-0400Systolic blood bpuvsrsy838 mm[Hg]Nica Arvindjuaquincarlos albertoz AIRPLANE CAPTAIN Work Phone: [facility] Encounters Encounter DateEncounter TypeCare ProviderFacilityStart: 05-21-2025 End: 55-65-6343nswhyxojkzYdte J Aichholz AIRPLANE CAPTAIN-C Work Phone: [facility] Work Phone: Start: 05-21-2025 End: 92-99-6717Aoolnxo encounter procedureLisa Bisi Krishnamurthy AIRPLANE CAPTAIN-C-[facility] Work Phone: Start: 03-25-2025 End: 04-27-7448SkzkpgNyck Aichholz AIRPLANE CAPTAIN Work Phone: [facility] FMComment on above:Primary hypertensionStart: 03-12-2025 End: 10-41-5206GtgiyuTqag Aicharnold AIRPLANE CAPTAIN Work Phone: [facility]WM FMComment on above:Anxiety and depression ; Anxiety; Other migraine without status migrainosus, not intractableStart: 02-03-2025 End: 89-56-3839Zwbhoo outpatient visit 25 minutesNica Johnsarnold AIRPLANE CAPTAIN Work Phone: [facility] CWM FMComment on above:Essential (primary) hypertension (Primary Dx); Gastroesophageal reflux disease without esophagitis; Morbid (severe) obesity due to excess calories (CMS-HCC); Anxiety and depression ; Tobacco dependence; Mixed hyperlipidemia ; Lung cancer screening declined by patient; Acute non-recurrent maxillary sinusitisStart: 02-03-2025 End: 62-99-5636crhwclujgeEETZ AICHHOLZNot AvailableStart: 02-03-2025 End: 64-76-5911Bpmknt flowsbrennanAyeshasa Johnsarnold AIRPLANE CAPTAIN Work Phone: [facility] FMStart: 02-03-2025 End: 55-59-0847Oclsrh jcarlosNica Natarnold AIRPLANE CAPTAIN Work Phone: [facility] FMStart: 12-25-2024 End: 35-63-9495xqkgwswmiiLFJY AICHHOLZNot AvailableStart: 12-25-2024 End: 56-48-0835Xdxwgo outpatient visit 15 minutesAyesha Yessy AIRPLANE CAPTAIN Work Phone: [facility] FMComment on above:Essential (primary) hypertension (CMS/HCC) (Primary Dx); Morbid (severe) obesity due to excess calories (CMS/HCC); Migraine without aura and without status migrainosus, not intractable (CMS/HCC); Tobacco dependence; Mixed hyperlipidemia (CMS/HCC); Primary hypertension (CMS/HCC)Start: 12-25-2024 End: 83-49-6522Ihdwte flowsheetNica Krishnamurthy AIRPLANE CAPTAIN Work Phone: [facility] FMStart: 12-25-2024 End: 45-76-6747Oktoaz flowsheetNica Francoz AIRPLANE CAPTAIN Work Phone: NOPU CWM FMStart: 12-24-2024 End: 23-00-3790AsozxhSplj Aichholz AIRPLANE CAPTAIN Work Phone: [facility] FMComment on above:Primary hypertension (CMS/HCC); Anxiety and depression (CMS/HCC); AnxietyStart: 09-25-2024 End: 87-67-0915Eyjfiv outpatient visit 25 minutesLisa Krishnamurthy AIRPLANE CAPTAIN Work Phone: [facility] FMComment on above:Primary hypertension (CMS/HCC) (Primary Dx); Morbid (severe) obesity due to excess calories (CMS/HCC); Essential (primary) hypertension (CMS/HCC); Body mass index (BMI) 35.0-35.9, adult; Mixed hyperlipidemia (CMS/HCC); Environmental and seasonal allergies; Muscle spasms of neck; Other migraine without status migrainosus, not intractable (CMS/HCC); Anxiety and depression (CMS/HCC); Anxiety; Tobacco user; Sprain of right wrist, subsequent encounterStart: 09-25-2024 End: 11-68-4814vklfdrvpqcKPUM NATHOLZNot AvailableStart: 09-25-2024 End: 47-90-9127Wlmcag flowsheetNica Johnsholz AIRPLANE CAPTAIN Work Phone: [facility] CWM FMStart: 09-25-2024 End: 86-52-8965Gehfhu flowsheetNica Johnsholz AIRPLANE CAPTAIN Work Phone: NONF CWM FMStart: 09-18-2024 End: 13-34-2779Eynjytbzm Result EncounterLisa Joanz AIRPLANE CAPTAIN Work Phone: [facility] External Department UnsolicitedStart: 09-18-2024 End: 71-55-3399Fpirvbnnk Result EncounterLisa Francoz AIRPLANE CAPTAIN Work Phone: [facility] External Department UnsolicitedStart: 08-25-2024 End: 99-57-4753CsrwenRsdx Aichholz AIRPLANE CAPTAIN Work Phone: NOOK CWM FMComment on above:Environmental and seasonal allergiesStart: 07-08-2024 End: 30-06-6141Xioljs flowsVeronika Krishnamurthy AIRPLANE CAPTAIN Work Phone: NOQG CWM FMStart: 07-08-2024 End: 43-10-3792Xadnxh flowsVeronika Krishnamurthy AIRPLANE CAPTAIN Work Phone: NOQF CWM FMStart: 07-08-2024 End: 78-62-7801Vrmmey outpatient visit 25 minutesLisa Krishnamurthy AIRPLANE CAPTAIN Work Phone: NOQD CWM FMComment on above:Primary hypertension (CMS/HCC) (Primary Dx); Obstructive sleep apnea, adult; Bradycardia; Morbid (severe) obesity due to excess calories (CMS/HCC); Body mass index (BMI) 35.0-35.9, adult; Tobacco userStart: 07-08-2024 End: 80-30-5473wpyfweutssQPKA AICHHOLARABELLAot AvailableStart: 05-27-2024 End: 04-38-3620Lvbart flowsVeronika Krishnamurthy AIRPLANE CAPTAIN Work Phone: NONN CWM FMStart: 05-27-2024 End: 94-85-8687Jsvrwo Feliberto Krishnamurthy AIRPLANE CAPTAIN Work Phone: NOHD CWM FMStart: 05-27-2024 End: 84-63-0735Jrjnvj outpatient visit 25 minutesNica Krishnamurthy AIRPLANE CAPTAIN Work Phone: [facility] CWM FMComment on above:Primary hypertension (CMS/HCC) (Primary Dx); Morbid (severe) obesity due to excess calories (CMS/HCC); Mixed hyperlipidemia (CMS/HCC); Body mass index (BMI) 35.0-35.9, adult; Chronic obstructive pulmonary disease, unspecified (CMS/HCC); Gastroesophageal reflux disease without esophagitis; Tobacco user; Anxiety and depression (CMS/HCC); Encounter for screening mammogram for malignant neoplasm of breast; Obstructive sleep apnea, adult; Primary insomnia; Acute otitis externa of right ear, unspecified type; BradycardiaStart: 05-27-2024 End: 39-27-5813mnsglnznzuKMXN AICHHOLZNot AvailableStart: 04-29-2022 End: 71-21-4953nczjdckotyCNP NICA AICHARNOLDFacility:H2Hlkzo: 03-26-2022 End: 30-10-8793bzraktaailEIB NICA AICRIGOBERTOFacility:E8Sdkny: 01-18-2022 End: 30-09-0274atecnzzgbqDLY NICA AICHARNOLDFacility:G8Vbpoz: 01-07-2022 End: 92-19-9336kwmidwilqaPRJ NICA YESSYFacility:N2Pbtkz: 12-20-2021 End: 42-03-1080kcrqpgapprLRW NICA AICHARNOLDFacility:C4Mslsv: 12-10-2021 End: 27-94-8510wpnevafuigKBOBB PARKERFacility:G0Ctcjx: 06-15-2021 End: 24-98-4891Dlyghtyhxn and management of inpatientSJENN CALLAHANDFacility:[facility] Start: 06-14-2021 End: 59-95-6300Vsixghdihk and management of inpatientCNP NICA YESSY Facility:N8Egivu: 05-28-2021 End: 79-31-2666pinghctbjiRPE NICA YESSYFacility:R3Tojec: 05-12-2021 End: 22-60-6064pwiiooyyyrGXM NICA YESSYFacility:H1 Procedures DateProcedureProcedure DetailPerforming ClinicianStart: 23-31-9189JAF CBC WITH AUTO DIFFLisa Krishnamurthy AIRPLANE CAPTAIN Work Phone: Start: 63-86-9543KngzbbstseqQikh Yessy AIRPLANE CAPTAIN Work Phone: Start: 38-23-8310YGOACKONVXQ OF MULTIPLE CORONARY ARTERIES USING OTH CONTRASTMICK GUPTAStart: 92-39-3164DnwkctymuovDusr Aichholz AIRPLANE CAPTAIN Work Phone: H/O: hysterectomyHx of hysterectomy with oophorectomy Nica Krishnamurthy AIRPLANE CAPTAIN-C Work Phone: History of cholecystectomyHx of cholecystectomyNica Krishnamurthy AIRPLANE CAPTAIN-C Work Phone: Plan of Treatment DateCare ActivityDetailAuthorStart: 52-10-6904Bqbbblbyx for malignant neoplasm of colonNOUT HealthcareStart: 05-07-2025 End: 53-50-3954Dzspxpg encounter tngcjwhvi60/01/2025 3:00 PM EDT Office Visit [facility] [address] [place] [address] Nica Krishnamurthy NP [address] [place] [address] [facility] FMStart: 26-91-3952Asrapaesl vaccinationInfluenza Vaccine (#1)[facility] HealthcareStart: 02-03-2025 End: 34-97-6404Ntggjvd encounter dpfsqadvp75/30/2025 6:30 PM EDT Office Visit [facility] [address] [place] [address] Nica Krishnamurthy, DEV [address] [place] [address] Essential (primary) hypertension (Primary Dx); Gastroesophageal reflux disease without esophagitis; Morbid (severe) obesity due to excess calories ([facility]-HCC); Anxiety and depression ; Tobacco dependenceHAYWARD HOSPITAL FMComment on above:Essential (primary) hypertension (Primary Dx); Gastroesophageal reflux disease without esophagitis; Morbid (severe) obesity due to excess calories (CMS-HCC); Anxiety and depression ; Tobacco dependenceStart: 12-25-2024 End: 54-94-2339Swjxqov encounter vgwpelvkw01/21/2025 5:20 PM EDT Office Visit [facility] [address] [place] [address] Nica Krishnamurthy NP [address] [place] [address] [facility] FMStart: 10-07-2024 End: 48-57-8572Ciejiad encounter xhlgugptn37/03/2025 6:00 PM EST Office Visit [facility] [address] [place] [address] Nica Krishnamurthy, AIRPLANE CAPTAIN [address] [place] [address] [facility] FMStart: 09-25-2024 End: 34-61-0644Fjplptr encounter paeydjinu85/19/2025 6:00 PM EST Office Visit [facility] [address] [place] [address] Nica Krishnamurthy, AIRPLANE CAPTAIN [address] [place] [id number] Morbid (severe) obesity due to excess calories (CMS/HCC); Essential (primary) hypertension (CMS/HCC); Body mass index (BMI) 35.0-35.9, adultNOMERCY [facility]OS[facility] FMComment on above:Morbid (severe) obesity due to excess calories (CMS/HCC); Essential (primary) hypertension (CMS/HCC); Body mass index (BMI) 35.0-35.9, adultStart: 71-90-0180Pyjhbiash vaccination Influenza Vaccine (#1)[facility] HealthcareComment on above:Postponed from 04/07/2024 (Patient Refused)Start: 07-08-2024 End: 94-41-2494Wklifjw encounter procedureNOMERCY HOS[facility] [place] FMComment on above: Obstructive sleep apnea, adult (Primary Dx); Primary hypertension (CMS/HCC); Bradycardia; Morbid (severe) obesity due to excess calories (CMS/HCC); Body mass index (BMI) 35.0-35.9, adult; Tobacco userStart: 05-27-2024 End: 90-78-7804UHM W Auto Differential panel - BloodCBC and differential Lab Routine Chronic obstructive pulmonary disease, unspecified (CMS/HCC) Tobacco user Expected: 05/27/2024 (Approximate), Expires: 05/27/2025[facility] Work Phone: Comment on above:Expected: 05/27/2024 (Approximate), Expires: 05/27/2025Start: 05-27-2024 End: 05-80-6930Gxkkhzxhhcczh metabolic 2000 panel - Serum or PlasmaComprehensive metabolic panel Lab Routine Mixed hyperlipidemia (CMS/HCC) Primary hypertension (CMS/HCC) Expected: 05/27/2024 (Approximate), Expires: 05/27/2025[facility] HealthcareComment on above:Expected: 05/27/2024 (Approximate), Expires: 05/27/2025Start: 05-27-2024 End: 34-51-8999Auylr 1996 panel - Serum or PlasmaLipid panel Lab Routine Mixed hyperlipidemia (CMS/HCC) Expected: 05/27/2024 (Approximate), Expires:05/27/2025 [facility] HealthcareComment on above:Expected: 05/27/2024 (Approximate), Expires: 05/27/2025Start: 05-27-2024 End: 84-36-4296IB Breast - bilateral ScreeningBilateral screening mammogram Imaging Routine Encounter for screening mammogram for malignant neoplasm of breast Expected: 05/27/2024 (Approximate), Expires: 07/27/2025[facility] Comment on above:Expected: 05/27/2024 (Approximate), Expires: 07/27/2025Start: 05-27-2024 End: 53-58-1068Iisqdgspbff [Units/volume] in Serum or PlasmaTSH Lab Routine Anxiety and depression (CMS/HCC) Expected: 05/27/2024 (Approximate), Expires: 05/27/2025[facility] HealthcareComment on above:Expected: 05/27/2024 (Approximate), Expires: 05/27/2025Start: 05-27-2024 End: 18-36-1993Qjkxcbxie (T4) free [Mass/volume] in Serum or PlasmaT4, free Lab Routine Anxiety and depression (CMS/HCC) Expected: 05/27/2024 (Approximate), Expires: 05/27/2025[facility] HealthcareComment on above:Expected: 05/27/2024 (Approximate), Expires: 05/27/2025Start: 05-27-2024 End: 00-40-3520Kkjdhpivnp complete panel - UrineUrinalysis with reflex microscopic (clean catch) Lab Routine Chronic obstructive pulmonary disease, unspecified (CMS/HCC) Tobacco user Expected: 05/27/2024 (Approximate), Expires: 05/27/2025[facility] HealthcareComment on above:Expected: 05/27/2024 (Approximate), Expires: 05/27/2025Start: 05-27-2024 End: 34-79-4132Hzjvvqc encounter hrlsudake75/21/2024 9:00 AM EDT Office Visit [facility] [address] [place] [address] Nica Krishnamurthy NP [address] [place] [address] Primary hypertension (CMS/HCC) (Primary Dx); Morbid (severe) obesity due to excess calories (CMS/HCC); Mixed hyperlipidemia (CMS/HCC); Body mass index (BMI) 35.0-35.9, adult; Chronic obstructive pulmonary disease, unspecified (CMS/HCC); Gastroesophageal reflux disease without esophagitis; Tobacco user; Anxiety and depression (CMS/HCC); Encounter for screening mammogram for malignant neoplasm of breastNOMER[facility] [place] FMComment on above:Primary hypertension (CMS/HCC) (Primary Dx); Morbid (severe) obesity due to excess calories (CMS/HCC); Mixed hyperlipidemia (CMS/HCC); Body mass index (BMI) 35.0-35.9, adult; Chronic obstructive pulmonary disease, unspecified (CMS/HCC); Gastroesophageal reflux disease without esophagitis; Tobacco user; Anxiety and depression (CMS/HCC); Encounter for screening mammogram for malignant neoplasm of breastStart: 82-53-2153Jykwjbngf for malignant neoplasm of breastMammogramBRIGHAM CITY COMM[facility] Healthcare Start: 36-00-9678Nvspkpdop vaccinationInfluenza Vaccine (#1)[facility] Start: 01-13-1638Whvheonaw for malignant neoplasm of cervixHPV/CotestNOUT HealthcareStart: 55-32-3805Fhsqbwmrq for malignant neoplasm of cervixPap Smear [facility] HealthcareStart: 1965Medicare Annual Wellness (AWV)Medicare Annual Wellness (AWV)[facility] HealthcareStart: 98-06-9435Kdxfopcie for malignant neoplasm of colonNOMS HealthcareStart: 33-45-3242Yzojjeyui for malignant neoplasm of lung Lung Cancer Screening Shared Decision MakingNortheast Missouri [facility] Network Immunizations Immunization DateImmunizationNotesCare CmqlkbunFidgeqqy09-24-5014ftyyitssz virus vaccine, unspecified formulationLisa Aichholz AIRPLANE CAPTAIN Work Phone: [phone] [place], [place] [address]Gdudapuxja51-22-2676xoqgysfcz, injectable, quadrivalent, preservative freeLisa Aichholz AIRPLANE CAPTAIN Work Phone: [phone] [place], [place] [address]Yvlaoesldd63-78-5963ekcxkobvb virus vaccine, unspecified formulationLisa Aichholz AIRPLANE CAPTAIN Work Phone: [phone] [place], [place] [address]Luocafmucw70-45-6840chljetfza, seasonal, injectableLisa Aichholz AIRPLANE CAPTAIN Work Phone: [phone] [place], [place] [address]Fbppqsulxp84-17-6338hwxfyj vaccine recombinant Nica Aichholz AIRPLANE CAPTAIN Work Phone: [phone] [place], [place] [address]Uflymfblmq82-15-0941ulohrv vaccine recombinant Nica Aichholz AIRPLANE CAPTAIN Work Phone: [phone] [place], [place] [address]Kvjwenpumw54-69-3103qddeicmwn, injectable, quadrivalent, preservative freeLisa Aichholz AIRPLANE CAPTAIN Work Phone: [phone] [place], [place] [address]Wvhdybddoj91-72-7754asacvbppk A vaccine, adult dosageLisa Aichholz AIRPLANE CAPTAIN Work Phone: [phone] [place], [place] [address]Wenxtpcuig66-57-1026igaqbylkz A vaccine, adult dosageLisa Aichholz AIRPLANE CAPTAIN Work Phone: [phone] [place], [place] [address]Hzrcmrthba35-97-8192vvyitstgl, injectable, quadrivalent, preservative freeLisa Aichholz AIRPLANE CAPTAIN Work Phone: [phone] [place], [place] [address]Kfftfbhbvs71-53-6007zinzgztxzuxn conjugate vaccine, 13 valentLisa Aichholz AIRPLANE CAPTAIN Work Phone: [facility] NetworkDtjskystxn63-19-0656nehzkxgvo, injectable, quadrivalent, preservative freeLisa Aichholz AIRPLANE CAPTAIN Work Phone: noBates County Memorial HospitalWcoocbarlo64-48-4371jjfdfyhhe, injectable, quadrivalent, preservative freeLisa Aichholz AIRPLANE CAPTAIN Work Phone: [facility] NetworkEhpvavrnhf77-12-7200uzwmgrqts, seasonal, injectable, preservative freeLisa Aichholz AIRPLANE CAPTAIN Work Phone: noBates County Memorial HospitalWnmtonhsgl63-84-0889spuytalvo virus vaccine, whole virusLisa Aichholz AIRPLANE CAPTAIN Work Phone: no[facility] Payers DatePayer CategoryPayerPolicy [id number] (Managed Care)[employer] MEDICARE [id number] Health InsuranceCARESOURCE MEDICAID Member Subscriber Plan / Payer (Effective 2022-Present) Name: Roro Diane Relation to Subscriber: Self Name: Roro Diane Payer ID: Not on file Group ID: [id number] Type: Not on file Address: [address] [place] [id number] 2023Medicaid [id number] [id number] [id number] 2..840.1.669576.3.57[id number] 2..840.1.333617.3.57[id number] 2.840.1.706533.3.57[id number] 2.840.1.231305.3.57[id number] 2.840.1.048804.3.57[id number] 2.840.1.897921.3.57[id number] 2.840.1.007736.3.57[id number] 2.840.1.603183.3.57[id number] 2.840.1.299453.3.57[id number] 2.840.1.628711.3.57[id number] 2.840.1.421736.3.57[id number] 2.840.1.450273.3.57[id number] 2.840.1.339294.3.57[id number] 2.840.1.149722.3.57[id number] Social History DateTypeDetailFacilityStart: 12-12-5405Tbqlayb smoking status NHISSmokes tobacco dailyNOUT HealthcareHistory of tobacco useCigarette SmokerNOUT HealthcareStart: 09-29-2023 End: 16-36-9499Cmrqlkrfnf smoked current (pack per day) - Ocodvwrm9HNIU HealthcareStart: 11-29-2023 End: 32-73-0875Oqibtrzlb beverage intakeEx-drinker (finding)[facility] Start: 11-29-2023 End: 70-52-9164Tcrzfif use panelBRIGHAM CITY COMM[facility]ITY [facility]OSP[facility] HealthcareStart: 70-61-2182Hjx [facility] NHISUnknown if ever smoked [facility] Work Phone: SexFemale (finding)[facility] Start: 19-83-9140Cxo Assigned At [facility] Clinical Notes 06-20-2021 to 02-03-2025 Note Date & NzvxRhwwSvzaarla11-67-8253 History of Present illness Narrative* Nica Krishnamurthy NP - 02/03/2025 7:15 PM EDTAssociated Problem(s): Sinusitis, acute Atb Fu if not better * Nica Krishnamurthy NP - 02/03/2025 6:30 PM EDT Images from the original note were not [...] compliance problems. There is no history of CAD/GA, heart failure or PVD. Sinusitis This is a new problem. The current episode started 1 to 4 weeks ago. The problem has been graduallyworsening since onset. There has been no fever. Associated symptoms include congestion and sinus pressure. Pertinent negatives include no chills, coughing, ear pain, headaches, shortness of breath orsore throat. Past treatments include nothing. The treatment [...] titration study 02/24/2020: 12cm water, ramp time 20minutes, heated humidification, CPAP Parasomnia 10/04/2023 Paresthesia of upper and lower extremities of both sides 10/04/2023 Pneumonia 10/04/2023 Prolapsed, uterovaginal, incomplete 10/04/2023 Rupture of tympanic membrane, right 10/04/2023 Tobacco user 10/04/2023 Weight loss 10/04/2023 Past Surgical History: Procedure Laterality Date CHOLECYSTECTOMY 10/31/2013 COLONOSCOPY 12/20/[address] Melton [facility] CYSTOSCOPY W/ URETERAL STENT REMOVAL 12/11/2013 [...] Morbid (severe) obesity due to excess calories ([facility]) Discussed with patient their BMI (actual, verses recommended). We have also discussed lifestyle modifications: attempts to perform physical activity as chronic conditions allow, also to monitor dietary intake: increasing protein/fruits/veggies and lowering carb intake (unless contraindicated). Limit sodas, juices, and sugary drinks. Tobacco dependence The patient has been advised of the risks of continued smoking: stroke, GA, all forms of cancer, lung disease, and . Options for quitting smoking include: cold turkey, hypnosis, acupuncture, nicotine replacement meds(gum, lozenges, and patches), Buproprion, and Varenicline. At this time pt is encouraged to evaluate their goals for wanting to quit smoking, and reach out toprovider when ready to start this process Lung cancer screening declined by patient Sinusitis, acute Atb Fu if not better Relevant Medications amoxicillin-clavulanate (Augmentin) 875-125 MG tablet * Nica Krishnamurthy NP - 02/03/2025 7:57 AM EDTAssociated Problem(s): Tobacco dependence The patient has been advised of the risks of continued smoking: stroke, GA, all forms of cancer, lung disease, and . Options for quitting smoking include: cold turkey, hypnosis, acupuncture, nicotine replacement meds(gum, lozenges, and patches), Buproprion, and Varenicline. At this time pt is encouraged to evaluate their goals for wanting to quit smoking, and reach out toprovider when ready to start this process * Nica Krishnamurthy NP - 02/03/2025 7:56 AM EDTAssociated Problem(s): Anxiety and depression Current med: effexor * Nica Krishnamurthy NP - 02/03/2025 7:56 AM EDTAssociated Problem(s): Morbid (severe) obesity due to excess calories ([facility]) Discussed with patient their BMI (actual, verses recommended). We have also discussed lifestyle modifications: attempts to perform physical activity as chronic conditions allow, also to monitor dietary intake: increasing protein/fruits/veggies and lowering carb intake (unless contraindicated). Limit sodas, juices, and sugary drinks. * Nica Krishnamurthy NP - 02/03/2025 7:56 AM EDTAssociated Problem(s): GERD (gastroesophageal reflux disease) Recommendations: freq small meals, nothing to eat or drink at least 2 hours prior to bed, limit caffeine, alcohol, as well as spicy foods Meds to limit or avoid if possible: NSAIDS * Nica Krishnamurthy NP - 02/03/2025 7:55 AM EDTAssociated Problem(s): Essential (primary) hypertension Has not taken his blood pressure meds yet today Please check blood pressure daily and record DASH diet Limit caffeine Take medication as directed Contact office if chest pain, pressure, dizziness, shortness of breath, swelling legs Recommend slow position changes Current meds: lisinopril documented in this [facility]06-30-2025 Instructions* Patient Instructions* Nica Krishnamurthy NP - 02/03/2025 6:30 PM EDT No med dose changes documented in this [facility]05-21-2025 History of Present illness Narrative* Nica rKishnamurthy NP - 12/25/2024 6:02 PM EDTAssociated Problem(s): HLD (hyperlipidemia) (CMS/[facility]) On statin therapy Check labs yearly and prn dose change * Nica Krishnamurthy NP - 12/25/2024 5:20 PM EDT Images from the original note were not [...] on screening mammogram 10/04/2023 Anxiety and depression ([facility]) 10/04/2023 Cholesteatoma of attic of right ear 10/04/2023 Chronic cough 10/04/2023 COPD (chronic obstructive pulmonary disease) ([facility]) 10/04/2023 COVID-19 virus infection 10/04/2023 DDD (degenerative disc disease), cervical 10/04/2023 DDD (degenerative disc disease), lumbar 10/04/2023 ETD (Eustachian tube dysfunction), right 10/04/2023 Female stress incontinence 10/04/2023 GERD (gastroesophageal reflux disease) 10/04/2023 History of myocardial infarction in adulthood ([facility]) HLD (hyperlipidemia) ([facility] 10/04/2023 HTN (hypertension) ([facility]) 10/04/2023 Insomnia 10/04/2023 Loud snoring 10/04/2023 Mixed conductive and sensorineural hearing loss of right ear, unspecified hearing status on contralateral side 10/04/2023 Myalgia 10/04/2023 Near syncope 10/04/2023 Obstructive sleep apnea, adult 10/04/2023 AHI score 36, Mean SpO2 91, low 86% settings at titration study 02/24/2020: 12cm water, ramp time 20minutes, heated humidification, CPAP Parasomnia 10/04/2023 Paresthesia of upper and lower extremities of both sides 10/04/2023 Pneumonia 10/04/2023 Prolapsed, uterovaginal, incomplete 10/04/2023 Rupture of tympanic membrane, right 10/04/2023 Tobacco user 10/04/2023 Weight loss 10/04/2023 Past Surgical History: Procedure Laterality Date CHOLECYSTECTOMY 10/31/2013 COLONOSCOPY 12/20/[address] Melton [facility] CYSTOSCOPY W/ URETERAL STENT REMOVAL 12/11/2013 [...] of the risks of continued smoking: stroke, GA, all forms of cancer, lung disease, and . Options for quitting smoking include: cold turkey, hypnosis, acupuncture, nicotine replacement meds(gum, lozenges, and patches), Buproprion, and Varenicline. At this time pt is encouraged to evaluate their goals for wanting to quit smoking, and reach out toprovider when ready to start this process Other Visit Diagnoses Primary hypertension (CMS/HCC) Relevant Medications lisinopril 40 MG tablet * iNca Krishnamurthy NP - 12/25/2024 7:44 AM EDTAssociated Problem(s): Tobacco dependence The patient has been advised of the risks of continued smoking: stroke, GA, all forms of cancer, lung disease, and . Options for quitting smoking include: cold turkey, hypnosis, acupuncture, nicotine replacement meds(gum, lozenges, and patches), Buproprion, and Varenicline. At this time pt is encouraged to evaluate their goals for wanting to quit smoking, and reach out toprovider when ready to start this process * Nica Krishnamurthy NP - 12/25/2024 7:43 AM EDTAssociated Problem(s): Migraine without status migrainosus, not intractable (CMS/HCC) Current meds topamax daily * Nica Krishnamurthy NP - 12/25/2024 7:43 AM EDTAssociated Problem(s): Morbid (severe) obesity due to excess calories (CMS/HCC) Discussed with patient their BMI (actual, verses recommended). We have also discussed lifestyle modifications: attempts to perform physical activity as chronic conditions allow, also to monitor dietary intake: increasing protein/fruits/veggies and lowering carb intake (unless contraindicated). Limit sodas, juices, and sugary drinks. * Nica Krishnamurthy NP - 12/25/2024 7:42 AM EDTAssociated Problem(s): Essential (primary) hypertension (CMS/HCC) Has not taken his blood pressure meds yet today Please check blood pressure daily and record DASH diet Limit caffeine Take medication as directed Contact office if chest pain, pressure, dizziness, shortness of breath, swelling legs Recommend slow position changes Current meds: lisinopril, increase dose to 40mg daily documented in this encounterNortheast [facility] Health NetworkSylwhgsgrm08-01-6125 History of Present illness Narrative* Nica Krishnamurthy NP - 09/25/2024 7:18 PM ESTAssociated Problem(s): Sprain of right wrist Is feeling better, does not like to wear brace Xray in ER negative Discussed 4-6 week for sprain/strain to resolve, fu if not better * Nica rKishnamurthy NP - 09/25/2024 7:17 PM ESTAssociated Problem(s): Tobacco user The patient has been advised of the risks of continued smoking: stroke, GA, all forms of cancer, lung disease, and . Options for quitting smoking include: cold turkey, hypnosis, acupuncture, nicotine replacement meds(gum, lozenges, and patches), Buproprion, and Varenicline. At this time pt is encouraged to evaluate their goals for wanting to quit smoking, and reach out toprovider when ready to start this process * Nica Krishnamurthy NP - 09/25/2024 7:17 PM ESTAssociated Problem(s): Migraine without status migrainosus, not intractable (CMS/HCC) Needs refill topirimate * Nica Krishnamurthy NP - 09/25/2024 7:16 PM ESTAssociated Problem(s): Anxiety and depression (CMS/HCC) Would like her effexor increased, we increased to 150mg daily Fu in 4 weeks * CARLOS THOMAS - 09/25/2024 6:00 PM EST Pt needs a refill on her tizanidine. Pt believes she may need every thing filled * Nica Krishnamurthy NP - 09/25/2024 6:00 PM EST Images from the original note were not [...] problem is uncontrolled. Associated symptoms include anxiety andheadaches. Pertinent negatives include no chest pain, malaise/fatigue, [...] on screening mammogram 10/04/2023 Anxiety and depression ([facility]) 10/04/2023 Cholesteatoma of attic of right ear 10/04/2023 Chronic cough 10/04/2023 COPD (chronic obstructive pulmonary disease) ([facility]) 10/04/2023 COVID-19 virus infection 10/04/2023 DDD (degenerative disc disease), cervical 10/04/2023 DDD (degenerative disc disease), lumbar 10/04/2023 ETD (Eustachian tube dysfunction), right 10/04/2023 Female stress incontinence 10/04/2023 GERD (gastroesophageal reflux disease) 10/04/2023 History of myocardial infarction in adulthood ([facility]) HLD (hyperlipidemia) ([facility]) 10/04/2023 HTN (hypertension) ([facility]) 10/04/2023 Insomnia 10/04/2023 Loud snoring 10/04/2023 Mixed conductive and sensorineural hearing loss of right ear, unspecified hearing status on contralateral side 10/04/2023 Myalgia 10/04/2023 Near syncope 10/04/2023 Obstructive sleep apnea, adult 10/04/2023 AHI score 36, Mean SpO2 91, low 86% settings at titration study 02/24/2020: 12cm water, ramp time 20minutes, heated humidification, CPAP Parasomnia 10/04/2023 Paresthesia of upper and lower extremities of both sides 10/04/2023 Pneumonia 10/04/2023 Prolapsed, uterovaginal, incomplete 10/04/2023 Rupture of tympanic membrane, right 10/04/2023 Tobacco user 10/04/2023 Weight loss 10/04/2023 Past Surgical History: Procedure Laterality Date CHOLECYSTECTOMY 10/31/2013 COLONOSCOPY 12/20/[address] Melton [facility] CYSTOSCOPY W/ URETERAL STENT REMOVAL 12/11/2013 [...] deformity, is able to abd/add duct the rightthumb as well as flexion/extension with mild discomfort [...] of the risks of continued smoking: stroke, GA, all forms of cancer, lung disease, and . Options for quitting smoking include: cold turkey, hypnosis, acupuncture, nicotine replacement meds(gum, lozenges, and patches), Buproprion, and Varenicline. At this time pt is encouraged to evaluate their goals for wanting to quit smoking, and reach out toprovider when ready to start this process HLD [...] (Effexor XR) 150 MG 24 hr capsule * Nica Krishnamurthy NP - 09/25/2024 7:41 AM ESTAssociated Problem(s): Morbid (severe) obesity due to excess calories (CMS/HCC) Discussed with patient their BMI (actual, verses recommended). We have also discussed lifestyle modifications: attempts to perform physical activity as chronic conditions allow, also to monitor dietary intake: increasing protein/fruits/veggies and lowering carb intake (unless contraindicated). Limit sodas, juices, and sugary drinks. * Nica Krishnamurthy NP - 09/25/2024 7:41 AM ESTAssociated Problem(s): Essential (primary) hypertension (CMS/HCC) Has not [...] Fu in 2 weeks documented in this [facility]02-19-2025 Instructions* Patient Instructions* Nica Krishnamurthy NP - 09/25/2024 6:00 PM EST Increase the lisinopril to 20mg twice a day documented in this [facility]12-02-2024 History of Present illness Narrative* Nica Krishnamurthy NP - 07/08/2024 8:53 AM ESTAssociated Problem(s): Bradycardia No bradycardia noted today * Nica Krishnamurthy NP - 07/08/2024 8:40 AM EST Images from the original note were not [...] breath. There are no associated agents to hypertension.Risk factors for coronary artery disease include obesity [...] on screening mammogram 10/04/2023 Anxiety and depression ([facility]) 10/04/2023 Cholesteatoma of attic of right ear 10/04/2023 Chronic cough 10/04/2023 COPD (chronic obstructive pulmonary disease) ([facility]) 10/04/2023 COVID-19 virus infection 10/04/2023 DDD (degenerative disc disease), cervical 10/04/2023 DDD (degenerative disc disease), lumbar 10/04/2023 ETD (Eustachian tube dysfunction), right 10/04/2023 Female stress incontinence 10/04/2023 GERD (gastroesophageal reflux disease) 10/04/2023 History of myocardial infarction in adulthood ([facility]) HLD (hyperlipidemia) ([facility]) 10/04/2023 HTN (hypertension) ([facility] [facility]) 10/04/2023 Insomnia 10/04/2023 Loud snoring 10/04/2023 Mixed conductive and sensorineural hearing loss of right ear, unspecified hearing status on contralateral side 10/04/2023 Myalgia 10/04/2023 Near syncope 10/04/2023 Obstructive sleep apnea, adult 10/04/2023 AHI score 36, Mean SpO2 91, low 86% settings at titration study 02/24/2020: 12cm water, ramp time 20minutes, heated humidification, CPAP Parasomnia 10/04/2023 Paresthesia of upper and lower extremities of both sides 10/04/2023 Pneumonia 10/04/2023 Prolapsed, uterovaginal, incomplete 10/04/2023 Rupture of tympanic membrane, right 10/04/2023 Tobacco user 10/04/2023 Weight loss 10/04/2023 Past Surgical History: Procedure Laterality Date CHOLECYSTECTOMY 10/31/2013 COLONOSCOPY 12/20/[address] Melton [facility] CYSTOSCOPY W/ URETERAL STENT REMOVAL 12/11/2013 [...] adult Non compliant with use HTN (hypertension) (CMS/[facility]) - Primary Has not taken his blood pressure meds yet today Please check blood pressure daily and record DASH diet Limit caffeine Take medication as directed Contact office if chest pain, pressure, dizziness, shortness of breath, swelling legs Recommend slow position changes Tobacco user The patient has been advised of the risks of continued smoking: stroke, GA, all forms of cancer, lung disease, and . Options for quitting smoking include: cold turkey, hypnosis, acupuncture, nicotine replacement meds(gum, lozenges, and patches), Buproprion, and Varenicline. At this time pt is encouraged to evaluate their goals for wanting to quit smoking, and reach out toprovider when ready to start this process Morbid [...] 35.0-35.9, adult Bradycardia No bradycardia noted today * Nica Krishnamurthy NP - 07/08/2024 6:35 AM ESTAssociated Problem(s): Tobacco user The patient has been advised of the risks of continued smoking: stroke, GA, all forms of cancer, lung disease, and . Options for quitting smoking include: cold turkey, hypnosis, acupuncture, nicotine replacement meds(gum, lozenges, and patches), Buproprion, and Varenicline. At this time pt is encouraged to evaluate their goals for wanting to quit smoking, and reach out toprovider when ready to start this process * Nica Krishnamurthy NP - 07/08/2024 6:35 AM ESTAssociated Problem(s): Morbid (severe) obesity due to excess calories (CMS/HCC) Discussed with patient their BMI (actual, verses recommended). We have also discussed lifestyle modifications: attempts to perform physical activity as chronic conditions allow, also to monitor dietary intake: increasing protein/fruits/veggies and lowering carb intake (unless contraindicated). Limit sodas, juices, and sugary drinks. * Nica Krishnamurthy NP - 07/08/2024 6:35 AM ESTAssociated Problem(s): HTN (hypertension) (CMS/HCC) Has not taken his blood pressure meds yet today Please check blood pressure daily and record DASH diet Limit caffeine Take medication as directed Contact office if chest pain, pressure, dizziness, shortness of breath, swelling legs Recommend slow position changes * Nica Krishnamurthy NP - 07/08/2024 6:34 AM ESTAssociated Problem(s): Obstructive sleep apnea, adult Non compliant with use documented in this [facility]12-02-2024 Instructions* Patient Instructions* Nica Krishnamurthy NP - 07/08/2024 8:40 AM EST Please get labs completed Contact [facility], Centralized [phone], ext [phone] and schedule mammogram documented in this [facility]10-21-2024 History of Present illness Narrative* Nica Krishnamurthy NP - 05/27/2024 9:39 AM EDTAssociated Problem(s): Bradycardia No acute symptoms at this time Fu in 6 weeks if continued consider holter * Nica Krishnamurthy NP - 05/27/2024 9:36 AM EDTAssociated Problem(s): GERD (gastroesophageal reflux disease) Stable * Nica Krishnamurthy NP - 05/27/2024 9:35 AM EDTAssociated Problem(s): Obstructive sleep apnea, adult Non compliant with use * Nica Krishnamurthy NP - 05/27/2024 9:07 AM EDTAssociated Problem(s): Anxiety and depression (CMS/HCC) No changes in meds/doses * Nica Krishnamurthy NP - 05/27/2024 9:07 AM EDTAssociated Problem(s): Tobacco user The patient has been advised of the risks of continued smoking: stroke, GA, all forms of cancer, lung disease, and . Options for quitting smoking include: cold turkey, hypnosis, acupuncture, nicotine replacement meds(gum, lozenges, and patches), Buproprion, and Varenicline. At this time pt is encouraged to evaluate their goals for wanting to quit smoking, and reach out toprovider when ready to start this process * Nica Krishnamurthy NP - 05/27/2024 9:07 AM EDTAssociated Problem(s): HTN (hypertension) (CMS/HCC) Not at goal, did not take her meds this morning * Nica Krishnamurthy NP - 05/27/2024 9:06 AM EDTAssociated Problem(s): Chronic obstructive pulmonary disease, unspecified (CMS/HCC) Recommend quitting smoking * Nica Krishnamurthy NP - 05/27/2024 9:06 AM EDTAssociated Problem(s): Insomnia Cont trazodone * Nica Krishnamurthy NP - 05/27/2024 9:00 AM EDT Images from the original note were not [...] of breath or suicidal ideas. Symptoms occur occasio mulugeta. The severity of symptoms is mild. Compliance [...] weight gain. Negative for appetite change, chills andfever. HENT: Negative for congestion, ear pain and [...] on screening mammogram 10/04/2023 Anxiety and depression ([facility]) 10/04/2023 Cholesteatoma of attic of right ear 10/04/2023 Chronic cough 10/04/2023 COPD (chronic obstructive pulmonary disease) ([facility]) 10/04/2023 COVID-19 virus infection 10/04/2023 DDD (degenerative disc disease), cervical 10/04/2023 DDD (degenerative disc disease), lumbar 10/04/2023 ETD (Eustachian tube dysfunction), right 10/04/2023 Female stress incontinence 10/04/2023 GERD (gastroesophageal reflux disease) 10/04/2023 History of myocardial infarction in adulthood ([facility]) HLD (hyperlipidemia) ([facility]) 10/04/2023 HTN (hypertension) ([facility]) 10/04/2023 Insomnia 10/04/2023 Loud snoring 10/04/2023 Mixed conductive and sensorineural hearing loss of right ear, unspecified hearing status on contralateral side 10/04/2023 Myalgia 10/04/2023 Near syncope 10/04/2023 Obstructive sleep apnea, adult 10/04/2023 AHI score 36, Mean SpO2 91, low 86% settings at titration study 02/24/2020: 12cm water, ramp time 20minutes, heated humidification, CPAP Parasomnia 10/04/2023 Paresthesia of upper and lower extremities of both sides 10/04/2023 Pneumonia 10/04/2023 Prolapsed, uterovaginal, incomplete 10/04/2023 Rupture of tympanic membrane, right 10/04/2023 Tobacco user 10/04/2023 Weight loss 10/04/2023 Past Surgical History: Procedure Laterality Date CHOLECYSTECTOMY 10/31/2013 COLONOSCOPY 12/20/[address] Melton [facility] CYSTOSCOPY W/ URETERAL STENT REMOVAL 12/11/2013 [...] Cont trazodone Chronic obstructive pulmonary disease, unspecified ([facility]) Recommend quitting smoking Relevant Orders CBC and differential Urinalysis with reflex microscopic (clean catch) HTN (hypertension) ([facility]) - Primary Not at goal, did not take her meds this morning Relevant Orders Comprehensive metabolic panel GERD (gastroesophageal reflux disease) Stable Tobacco user The patient has been advised of the risks of continued smoking: stroke, GA, all forms of cancer, lung disease, and . Options for quitting smoking include: cold turkey, hypnosis, acupuncture, nicotine replacement meds(gum, lozenges, and patches), Buproprion, and Varenicline. At this time pt is encouraged to evaluate their goals for wanting to quit smoking, and reach out toprovider when ready to start this process Relevant Orders CBC and differential Urinalysis with reflex microscopic (clean catch) HLD (hyperlipidemia) ([facility]) Relevant Orders Comprehensive metabolic panel Lipid panel Anxiety and depression ([facility]) No changes in meds/doses Relevant Orders TSH T4, free Morbid (severe) obesity due to excess calories ([facility]) Body mass index (BMI) 35.0-35.9, adult Encounter for screening mammogram for malignant neoplasm of breast Relevant Orders Bilateral screening mammogram Acute otitis externa of right ear Relevant Medications ofloxacin (Floxin) 0.3 % otic solution Bradycardia No acute symptoms at this time Fu in 6 weeks if continued consider holter documented in this encounterNort[facility] [id number] NoteChief Complaint consultation for weight loss HPI Staff 56 year old female presents on consultation from Nica Krishnamurthy NP for weight loss. PCP reports #40 weight loss over the past one year, patient states it is greater than this. She contributes weight loss to decrease in calories and working more. Denies abdominal or rectal pain. No rectal bleeding orchange in bowel habits. Denies nausea or vomiting. [...] swallowing difficulties, no hearing loss, no ear infection(s),no nose bleeds. Cardiovascular: normal blood pressure, no [...] work; no GI complaints; recent colonoscopy; no indicationfor endoscopy at this time; call with problems/questions. Follow-up No qualifying data available Problem List/Past Medical History Ongoing Anxiety and depression BMI 28.0-28.9,adult Chronic obstructive pulmonary disease DDD (degenerative disc disease), cervical DDD (degenerative disc disease), lumbar GERD (gastroesophageal reflux disease) History of GA (myocardial infarction) HTN (hypertension) Hypercholesteremia Hyperlipidemia Insomnia [...] Tobacco Use:. Never Smokel (more content not included)...[facility]Comment on above:Result Comment: Electronically Signed By: MARCO GREENWOOD, Matti Martínez\Date and Time Signed: 02/13/22 20:16 [id number] NoteMR#: [id number] I [facility] Pt. Name: Diane Nguyen Admitted: 06/15/2021 Discharged: 06/19/2021 Date of : 1965 Physician: Ashley Jimenez MD DISCHARGE SUMMARY FINAL DIAGNOSES: 1. Odd-RF-helugsiig myocardial infarction. 2. Hypertension. 3. Dyslipidemia. 4. Tobacco use. 5. Depression. 6. Gastroesophageal reflux disease. 7. Electrolyte imbalances. HISTORY OF PRESENT ILLNESS AND HOSPITALIZATION COURSE: The patient is a 55-year-old female with past medical history significant for hypertension, COPD, depression, and GERD, who presented to the emergency department due to sudden-onset chest pain that started on the day prior to her visit to [facility]. In [place], she was found to have elevated troponins [...] agrees to that. 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 She was instructed that she will need to return to the emergency department if she does have any recurrence of her symptoms. During the admission, the blood pressure was found to be borderline hypotensive. Apparently, the patient is on lisinopril/captopril/hydrochlorothiazide. The patient was only continued on lisinopril [...] Jimenez MD Date Trans: 06/20/2021 04:25 A/mmo [id number] [facility]* Diagnosis Primary hypertension (CMS/HCC)- Primary Unspecified [...] 35.0-35.9, adult Chronic obstructive pulmonary disease, unspecified ([facility]) Gastroesophageal reflux disease without esophagitis Esophageal reflux Tobacco user Tobacco use disorder Anxiety and depression ([facility]) Encounter for screening mammogram for malignant neoplasm of breast Obstructive sleep apnea, adult Primary insomnia Persistent disorder of initiating or maintaining sleep Acute otitis externa of right ear, unspecified type Bradycardia Other specified cardiac dysrhythmias documented in this encounter [facility]* Diagnosis Primary hypertension ([facility])- Primary Unspecified essential hypertension Mixed hyperlipidemia ([facility]) Mixed hyperlipidemia Environmental and seasonal allergies Muscle spasms of neck Other migraine without status migrainosus, not intractable ([facility]) Anxiety Anxiety state, unspecified Anxiety and depression ([facility]) Tobacco user Tobacco use disorder Primary hypertension ([facility])- Primary Unspecified essential hypertension Morbid (severe) obesity due to excess calories ([facility]) Mixed hyperlipidemia ([facility]) Mixed hyperlipidemia Body mass index (BMI) 35.0-35.9, adult Chronic obstructive pulmonary disease, unspecified ([facility]) Gastroesophageal reflux disease without esophagitis Esophageal reflux Tobacco user Tobacco use disorder Anxiety and depression ([facility]) Encounter for screening mammogram for malignant neoplasm of breast Obstructive sleep apnea, adult Primary insomnia Persistent disorder of initiating or maintaining sleep Acute otitis externa of right ear, unspecified type Bradycardia Other specified cardiac dysrhythmias Environmental and seasonal allergies Muscle spasms of neck Other migraine without status migrainosus, not intractable ([facility]) Anxiety Anxiety state, unspecified Primary hypertension ([facility])- Primary Unspecified essential hypertension Obstructive sleep apnea, adult Bradycardia Other specified cardiac dysrhythmias Morbid (severe) obesity due to excess calories ([facility]) Body mass index (BMI) 35.0-35.9, adult Tobacco user Tobacco use disorder documented in this encounter [facility] HealthcareEvaluation note* Diagnosis Primary hypertension ([facility])- Primary Unspecified essential hypertension Mixed hyperlipidemia ([facility]) Mixed hyperlipidemia Environmental and seasonal allergies Muscle spasms of neck Other migraine without status migrainosus, not intractable ([facility]) Anxiety Anxiety state, unspecified Anxiety and depression ([facility] Tobacco user Tobacco use disorder Primary hypertension ([facility])- Primary Unspecified essential hypertension Morbid (severe) obesity due to excess calories ([facility]) Mixed hyperlipidemia ([facility]) Mixed hyperlipidemia Body mass index (BMI) 35.0-35.9, adult Chronic obstructive pulmonary disease, unspecified ([facility]/HCC) Gastroesophageal reflux disease without esophagitis Esophageal reflux Tobacco user Tobacco use disorder Anxiety and depression ([facility]) Encounter for screening mammogram for malignant neoplasm of breast Obstructive sleep apnea, adult Primary insomnia Persistent disorder of initiating or maintaining sleep Acute otitis externa of right ear, unspecified type Bradycardia Other specified cardiac dysrhythmias Environmental and seasonal allergies Muscle spasms of neck Other migraine without status migrainosus, not intractable (CMS/[facility]) Anxiety Anxiety state, unspecified Primary hypertension (CMS/HCC)- Primary Unspecified essential hypertension Obstructive sleep apnea, adult Bradycardia Other specified cardiac dysrhythmias Morbid (severe) obesity due to excess calories (CMS/[facility]) Body mass index (BMI) 35.0-35.9, adult Tobacco user Tobacco use disorder Environmental and seasonal allergies documented in this encounter [facility]* Diagnosis Primary hypertension (CMS/HCC)- Primary Unspecified essential hypertension Mixed hyperlipidemia (CMS/HCC) Mixed hyperlipidemia Environmental and seasonal allergies Muscle spasms of neck Other migraine without status migrainosus, not intractable (CMS/HCC) Anxiety Anxiety state, unspecified Anxiety and depression ([facility]) Tobacco user Tobacco use disorder Primary hypertension (CMS/HCC)- Primary Unspecified essential hypertension Morbid (severe) obesity due to excess calories (CMS/HCC) Mixed hyperlipidemia (CMS/HCC) Mixed hyperlipidemia Body mass index (BMI) 35.0-35.9, adult Chronic obstructive pulmonary disease, unspecified ([facility]) Gastroesophageal reflux disease without esophagitis Esophageal reflux Tobacco user Tobacco use disorder Anxiety and depression ([facility]) Encounter for screening mammogram for malignant [...] Morbid (severe) obesity due to excess calories (CMS/[facility]) Body mass index (BMI) 35.0-35.9, adult [...] wrist, subsequent encounter documented in this encounter [facility]Evaluation note* Diagnosis Primary hypertension (CMS/HCC)- Primary [...] user Tobacco use disorder Anxiety and depression (CMS/[facility]) Encounter for screening mammogram for malignant [...] user Tobacco use disorder Anxiety and depression ([facility]) Encounter for screening mammogram for malignant [...] maxillary sinusitis documented in this encounter [facility]* [...] declined by patient Acute non-recurrent maxillary sinusitis Anxiety and depression Anxiety Anxiety state, unspecified Other migraine without status migrainosus, not intractable documented in this encounter [facility]* [...] declined by patient Acute non-recurrent maxillary sinusitis Primary hypertension Unspecified essential hypertension documented in this encounter [facility]* Diagnosis Onset Date Resolution Status Admit Date Anxiety and depression acuteOctober 2024 2:24pmEssential hypertensionacuteOctober 2024 2:24pmMixed hyperlipidemiaacuteOctober 2024 2:24pmMorbid obesity due to excess caloriesacuteOctober 2024 2:24pmNicotine dependence with current useacuteOctober 2024 2:24pmSubungual hematomaacuteOctober 2024 2:24pm [facility] Work Phone: Reason for referral (narrative)No reason for referral information availableMagruder Memorial Hospital Work Phone: Summary Purpose Family History Relationship Condition Age at Onset Recorded Date/T oliva father Unknown motherDeceasedUnknown Advance Directives Advance Directive Response Recorded Date/ Time Advance Directives No April 7:32am Chief Complaint and Reason for Visit Chief Complaint Admit Date 3M May 21, 2025 2 :24pm Reason for Visit Admit Date Anxiety and depression May 21 2:24pm Essential hypertension May 21 2:24pm Mixed hyperlipidemia May 21, 2025 2:24pm Morbid obesity due to excess calories Oc tober 2024 2:24pm Nicotine dependence with current use Oct divya 2024 2:24pm Subungual hematoma May 21, 2025 2 :24pm Additional Source Comments INFORMATION SOURCE (unrecogn ized section and content) DATE CREATED AUTHOR 03/07/2021 [facility] DATE CREATED AUTHOR AUTHOR'S ORGANIZ ATION 06/28/2021 [facility] DATE CREATED AUTHOR AUTHOR'S ORGANIZ ATION 02/13/2022 [facility] DATE CREATED AUTHOR AUTHOR'S ORGANIZ ATION 05/09/2022 [facility] DATE CREATED AUTHOR AUTHOR'S ORGANIZ ATION 02/05/2025 [facility] EPIC Care Teams (unrecognized sec tion and content) Team MemberRelationshipSpecialtyStart DateEnd Date Ja Pabon MD [address] [place] [address] PCP - GeneralFamily Medicine09/29/23 Nica Krishnamurthy NP [address] [place] [address] [facility]08/07/22Team MemberRelationshipSpecialtyStart DateEnd Date Unallocated, Noms MD Valentina [address] [place] [address] PCP - [facility]05/27/24 Nica Krishnamurthy, DEV [address] [place] [address] [facility]08/07/22Te MemberRelationshipSpecialtyStart DateEnd Date Ja Pabon MD [address] [place] [address] PCP - [facility]06/06/24 Nica Krishnamurthy, DEV [address] [place] [address] [facility]05/07/24 Nica Krishnamurthy, DEV [address] [place] [address] [facility]08/07/22Team MemberRelationshipSpecialtyStart DateEnd Date Ja Pabon MD [address] [place] [address] PCP - [facility]06/06/24 Nica Krishnamurthy NP [address] [place] [address] PCP [facility]05/07/24 Nica Krishnamurthy NP [address] [place] [address] [facility]08/07/22Team MemberRelationshipSpecialtyStart DateEnd Date Ja Pabon MD [address] [place] [address] PCP - [facility]06/06/24 Nica Krishnamurthy NP [address] [place] [address] PCP - [facility]05/07/24 Nica Krishnamurthy NP [address] [place] [address] [facility]08/07/22Team MemberRelationshipSpecialtyStart DateEnd Date Ja Pabon MD [address] [place] [address] PCP - [facility]06/06/24 Nica Krishnamurthy NP [address] [place] [address] PCP - [facility]05/07/24 Nica Krishnamurthy NP [address] [place] [address] [facility]08/07/22Team MemberRelationshipSpecialtyStart DateEnd Date Ja Pabon MD [address] [place] [address] PCP - [facility]06/06/24 Nica Krishnamurthy NP [address] [place] [address] PCP [facility]05/07/24 Nica Krishnamurthy NP [address] [place] [address] [facility]08/07/22Team MemberRelationshipSpecialtyStart DateEnd Date Ja Pabon MD [address] [place] [address] PCP - [facility]06/06/24 Nica Krishnamurthy NP [address] [place] [address] [facility]05/07/24 Nica Krishnamurthy NP [address] [place] [address] [facility]08/07/22Team MemberRelationshipSpecialtyStart DateEnd Date Ja Pabon MD [address] [place] [address] PCP - [facility]06/06/24 Nica Krishnamurthy NP [address] [place] [address] PCP [facility]05/07/24 Nica Krishnamurthy NP [address] [place] [address] [facility]08/07/22Team MemberRelationshipSpecialtyStart DateEnd Date Ja Pabon MD [address] [place] [address] PCP - [facility]06/06/24 Nica Krishnamurthy NP [address] [place] [address] [facility]05/07/24 Nica Krishnamurthy NP [address] [place] [address] [facility]08/07/22Team MemberRelationshipSpecialtyStart DateEnd Date Ja Pabon MD [address] [place] [address] PCP - [facility]06/06/24 Nica Krishnamurthy NP [address] [place] [address] PCP [facility]05/07/24 Nica Krishnamurthy NP [address] [place] [address] [facility]08/07/22Te MemberRelationshipSpecialtyStart DateEnd Date Ja Pabon MD [address] [place] [address] PCP - [facility]06/06/24 Nica Krishnamurthy, DEV [address] [place] [address] [facility]05/07/24 Nica Krishnamurthy NP [address] [place] [address] [facility]08/07/22Te MemberRelationshipSpecialtyStart DateEnd Date Ja Pabon MD [address] [place] [address] [facility]06/06/24 Nica Krishnamurthy NP [address] [place] [address] [facility]05/07/24 Nica Krishnamurthy NP [address] [place] [address] Nurse [facility]08/07/22Te MemberRelationshipSpecialtyStart DateEnd Date Ja Pabon MD [address] [place] [address] PCP - [facility]06/06/24 Nica Krishnamurthy NP [address] [place] [address] PCP [facility]05/07/24 Nica Krishnamurthy NP [address] [place] [address] [facility]08/07/22Team MemberRelationshipSpecialtyStart DateEnd Date Ja Pabon MD [address] [place] [address] PCP - [facility]06/06/24 Nica Krishnamurthy NP [address] [place] [address] [facility]05/07/24 Nica Krishnamurthy NP [address] [place] [address] [facility]08/07/22 Team Status: Active Member Role Status Dates Nica Krishnamurthy NP-Daxa Primary Care Provider Active Team Status: Inactive Member Role Status Dates Nica Krishnamurthy NP-C Primary Care Provider Active Start: May 21, 2025 End: May 21, 2025Anival Garciatenaníbal ProviderActiveStart: May 21, 2025 End: May 21, 2025 Reason for Visit (unrecogniz ed section and content) ReasonCommentsHypertensionReasonCommentsMed Refill Goals (unrecognized section and content) Goals may be documented in a n alternate section FOR RECORDS PERTAINING TO PATIENTS WHO ARE [...] BE BASED ON THE PRIMARY CLINICAL RECORDS. [facility]see [facility]. provides no warranty or guarantee of the accuracy or completeness of information in this document.
--- OUTSIDE RECORDS SUMMARY | 2025-06-11 08:23 | XMS_ITS | Clinical Summary ---
Author Organization [facility] Address [address] [place] [address] Care Team Providers Care Reference Data Expert Name Role Phone Nica Krishnamurthy NP Unavailable [phone] Ja Pabon MD Primary Care Provider [phone] Nica Krishnamurthy GAS DISPATCHER Unavailable [phone] Allergies No known active allergies Medications MedicationSigDispense QuantityRefillsLast FilledStart DateEnd DateStatus montelukast (Singulair) 10 MG tablet Indications:Environmental and seasonal allergiesTake 1 tablet (10 mg) by mouth at bedtime 90 tablet 5Active tiZANidine (Zanaflex) 4 MG tablet Indications:Muscle spasms of neckTake 1 tablet (4 mg) by mouth as needed at bedtime for muscle spasms 90 tablet 5Active atorvastatin (Lipitor) 40 MG tablet Indications:Mixed hyperlipidemiaTake 1 tablet (40 mg) by mouth in the evening 90 tablet 5Active venlafaxine XR (Effexor XR) 150 MG 24 hr capsule Indications:Anxiety and depression,AnxietyTake 1 capsule (150 mg) by mouth Daily Take with food. 90 capsule 5Active traZODone (Desyrel) 50 MG tablet Indications:Anxiety and depressionTake 2 tablets (100 mg) by mouth at bedtime 180 tablet 5Active topiramate (Topamax) 25 MG tablet Indications:Other migraine without status migrainosus, not intractableTake 2 tablets (50 mg) by mouth at bedtime 180 tablet 5Active lisinopril 40 MG tablet Indications:Primary hypertensionTake 1 tablet (40 mg) by mouth Daily 90 tablet 515Active Active Problems ProblemNoted DateDiagnosed DateLung cancer screening declined by patient 02/03/2025Sinusitis, acute02/03/2025 Assessment & Plan (02/03/2025 7:15 PM EDT): Atb Fu if not better Tobacco ljwfvkrzud52/03/2025 Assessment & Plan (02/03/2025 7:57 AM EDT): The patient has been advised of the risks of continued smoking: stroke, VT, all forms of cancer, lung disease, and . Options for quitting smoking include: cold turkey, hypnosis, acupuncture, nicotine replacement meds(gum, lozenges, and patches), Buproprion, and Varenicline. At this time pt is encouraged to evaluate their goals for wanting to quit smoking, and reach out toprovider when ready to start this process Assessment & Plan (12/25/2024 7:44 AM EDT): The patient has been advised of the risks of continued smoking: stroke, VT, all forms of cancer, lung disease, and . Options for quitting smoking include: cold turkey, hypnosis, acupuncture, nicotine replacement meds(gum, lozenges, and patches), Buproprion, and Varenicline. At this time pt is encouraged to evaluate their goals for wanting to quit smoking, and reach out toprovider when ready to start this process Sprain of right wrist09/25/2024 Assessment & Plan (09/25/2024 7:18 PM EST): Is feeling better, does not like to wear brace Xray in ER negative Discussed 4-6 week for sprain/strain to resolve, fu if not better Morbid (severe) obesity due to excess csaszgvc60/21/2024 Assessment & Plan (02/03/2025 7:56 AM EDT): Discussed with patient their BMI (actual, verses recommended). We have also discussed lifestyle modifications: attempts to perform physical activity as chronic conditions allow, also to monitor dietary intake: increasing protein/fruits/veggies and lowering carb intake (unless contraindicated). Limit sodas, juices, and sugary drinks. Assessment & Plan (12/25/2024 7:43 AM EDT): Discussed with patient their BMI (actual, verses recommended). We have also discussed lifestyle modifications: attempts to perform physical activity as chronic conditions allow, also to monitor dietary intake: increasing protein/fruits/veggies and lowering carb intake (unless contraindicated). Limit sodas, juices, and sugary drinks. Assessment & Plan (09/25/2024 7:41 AM EST): Discussed with patient their BMI (actual, verses recommended). We have also discussed lifestyle modifications: attempts to perform physical activity as chronic conditions allow, also to monitor dietary intake: increasing protein/fruits/veggies and lowering carb intake (unless contraindicated). Limit sodas, juices, and sugary drinks. Assessment & Plan (07/08/2024 6:35 AM EST): Discussed with patient their BMI (actual, verses recommended). We have also discussed lifestyle modifications: attempts to perform physical activity as chronic conditions allow, also to monitor dietary intake: increasing protein/fruits/veggies and lowering carb intake (unless contraindicated). Limit sodas, juices, and sugary drinks. Body mass index (BMI) 35.0-35.9, adult05/27/2024Encounter for screening mammogram for malignant neoplasm of qsnpqo4605/27/2024cute otitis externa of right ear05/27/20242444Abzsypklhpi36/21/2024 Assessment & Plan (07/08/2024 9:03 AM EST): No bradycardia noted today Assessment & Plan (05/27/2024 9:39 AM EDT): No acute symptoms at this time Fu in 6 weeks if continued consider holter History of myocardial otgtfynwzx16/24/2024Obstructive sleep apnea, adult 10/04/2023 Overview (10/04/2023): AHI score 36, Mean SpO2 91, low 86% settings at titration study 02/24/2020: 12cm water, ramp time 20minutes, heated humidification, CPAP Assessment & Plan (07/08/2024 6:34 AM EST): Non compliant with use Assessment & Plan (05/27/2024 9:35 AM EDT): Non compliant with use Nzueyasw09/28/2024 Assessment & Plan (05/27/2024 9:06 AM EDT): Cont trazodone Loud fgfsnts1810/04/2023hronic obstructive pulmonary disease, unspecified 10/04/2023 Assessment & Plan (05/27/2024 9:06 AM EDT): Recommend quitting smoking Chronic cough10/04/2023Essential (primary) syvtpnynmixq01/28/2024 Assessment & Plan (02/03/2025 7:14 PM EDT): Has not taken his blood pressure meds yet today Please check blood pressure daily and record DASH diet Limit caffeine Take medication as directed Contact office if chest pain, pressure, dizziness, shortness of breath, swelling legs Recommend slow position changes Current meds: lisinopril Assessment & Plan (12/25/2024 6:02 PM EDT): Has not taken his blood pressure meds yet today Please check blood pressure daily and record DASH diet Limit caffeine Take medication as directed Contact office if chest pain, pressure, dizziness, shortness of breath, swelling legs Recommend slow position changes Current meds: lisinopril, increase dose to 40mg daily Assessment & Plan (09/25/2024 7:16 PM EST): Has not taken his blood pressure meds yet today Please check blood pressure daily and record DASH diet Limit caffeine Take medication as directed Contact office if chest pain, pressure, dizziness, shortness of breath, swelling legs Recommend slow position changes Current meds: lisinopril Rechecks BP: left 180/100 right 164/100 Will increase lisinopril to 20mg BID Fu in 2 weeks Assessment & Plan (07/08/2024 9:03 AM EST): Has not taken his blood pressure meds yet today Please check blood pressure daily and record DASH diet Limit caffeine Take medication as directed Contact office if chest pain, pressure, dizziness, shortness of breath, swelling legs Recommend slow position changes Assessment & Plan (05/27/2024 9:07 AM EDT): Not at goal, did not take her meds this morning Assessment & Plan (11/29/2023 3:22 PM EDT): At goal, no changes in meds Fu in 6 months GERD (gastroesophageal reflux disease)10/04/2023 Assessment & Plan (02/03/2025 7:56 AM EDT): Recommendations: freq small meals, nothing to eat or drink at least 2 hours prior to bed, limit caffeine, alcohol, as well as spicy foods Meds to limit or avoid if possible: NSAIDS Assessment & Plan (05/27/2024 9:36 AM EDT): Stable Prolapsed, uterovaginal, /28/2024Female stress incontinence 10/04/20239393Wxtpseg37/28/2024DD (degenerative disc disease), jbkuir0610/04/2023DD (degenerative disc disease), zdiraqmu33/28/2024Mixed conductive and sensorineural hearing loss of right ear, unspecified hearing status on contrala teral side10/04/2023HLD (hyperlipidemia)10/04/2023 Assessment & Plan (12/25/2024 6:02 PM EDT): On statin therapy Check labs yearly and prn dose change ETD (Eustachian tube dysfunction), right10/04/2023holesteatoma of attic of right ear10/04/2023nxiety and rruydcdxqx29/28/2024 Assessment & Plan (02/03/2025 7:56 AM EDT): Current med: effexor Assessment & Plan (09/25/2024 7:16 PM EST): Would like her effexor increased, we increased to 150mg daily Fu in 4 weeks Assessment & Plan (05/27/2024 9:07 AM EDT): No changes in meds/doses Assessment & Plan (11/29/2023 3:23 PM EDT): No changes in meds/doses Abnormality of right breast on screening xfcijsjxp59/28/2024Migraine without status migrainosus, not /20/2024 Assessment & Plan (12/25/2024 7:43 AM EDT): Current meds topamax daily Assessment & Plan (09/25/2024 7:17 PM EST): Needs refill topirimate Assessment & Plan (11/29/2023 3:23 PM EDT): Stable, no changes in meds Muscle spasms of neck09/26/2023 Resolved Problems ProblemNoted DateDiagnosed DateResolved DateParesthesia of upper and lower extremities of both sides10/04/9548Jwowrkkttg98 Jkpfsvyll80/28/Near smoukdq75bnormal Holter examWeight lossOVID-19 virus infection Tobacco user Assessment & Plan (09/25/2024 7:17 PM EST): The patient has been advised of the risks of continued smoking: stroke, VT, all forms of cancer, lung disease, and . Options for quitting smoking include: cold turkey, hypnosis, acupuncture, nicotine replacement meds(gum, lozenges, and patches), Buproprion, and Varenicline. At this time pt is encouraged to evaluate their goals for wanting to quit smoking, and reach out toprovider when ready to start this process Assessment & Plan (07/08/2024 6:35 AM EST): The patient has been advised of the risks of continued smoking: stroke, VT, all forms of cancer, lung disease, and . Options for quitting smoking include: cold turkey, hypnosis, acupuncture, nicotine replacement meds(gum, lozenges, and patches), Buproprion, and Varenicline. At this time pt is encouraged to evaluate their goals for wanting to quit smoking, and reach out toprovider when ready to start this process Assessment & Plan (05/27/2024 9:07 AM EDT): The patient has been advised of the risks of continued smoking: stroke, VT, all forms of cancer, lung disease, and . Options for quitting smoking include: cold turkey, hypnosis, acupuncture, nicotine replacement meds(gum, lozenges, and patches), Buproprion, and Varenicline. At this time pt is encouraged to evaluate their goals for wanting to quit smoking, and reach out toprovider when ready to start this process Assessment & Plan (11/29/2023 3:23 PM EDT): The patient has been advised of the risks of continued smoking: stroke, VT, all forms of cancer, lung disease, and . Options for quitting smoking include: cold turkey, hypnosis, acupuncture, nicotine replacement meds(gum, lozenges, and patches), Buproprion, and Varenicline. At this time pt is encouraged to evaluate their goals for wanting to quit smoking, and reach out toprovider when ready to start this process Rupture of tympanic membrane, right402/5890Fztymrp21/20/2024 10/04/2023 Encounters DateTypeDepartmentCare OevxLrwgybqpakm12/19/2025Refill [facility] [address] [place] [address] Nica Krishnamurthy, DEV Primary ljwofcedyjwj64/06/2025Refill [facility] [address] [place] [address] Nica Krishnamurthy NP Anxiety and depression ; Anxiety; Other migraine without status migrainosus, not iidjzvbvnve44/06/2025Refill [facility] [address] [place] [address] Nica Krishnamurthy, DEV from Last 3 Months Immunizations ImmunizationAdministration DatesNext DueHep A, Adult11/27/2018,03/29/2018 Influenza Whole04/30/2009Influenza, Vnwwdtfdyib54/01/2024Influenza, injectable, quadrivalent, preservative free03/31/2020,04/18/2019,03/29/2018,05/18/2017, 05/02/2016Influenza, seasonal, uqdbbnjgxu67/01/2020Influenza, seasonal, injectable, preservative free05/06/2015Pneumococcal Conjugate PCV 1304 Zoster, Moajmnrycel03/20/2020,11/25/2019 Family History Medical HistoryRelationNameCommentsDementiaFatherHepatitisFatherHyperlipidemia FatherDiabetesMotherRelationNameStatusCommentsFatherMother Social History Tobacco UseTypesPacks/DayYears UsedDateSmoking Tobacco: Every WbuXzshikhtin528 Tobacco Cessation:Ready to Q uit: Not Asked; Counseling Given: Not Answered Alcohol UseStandard Drinks/WeekCommentsNot Currently0 (1 standard drink = 0.6 oz pure alcohol)CommentsUnknownSex and Gender InformationValueDate Recorded Sex Assigned at BirthNot on fileLegal TxtAxdvox45/15/2023 8:21 PM EDTGender IdentityNot on fileSexual OrientationNot on file Last Filed Vital Signs Vital SignReadingTime TakenCommentsBlood Umhybsaz427/8206/ 7:02 PM EDT Ernfh959102/03/2025 6:26 PM ULZXnytvstcvfy12.7 ??C (98.1 ??F)02/03/2025 6:26 PM EDTRespiratory Hfzw5578 6:26 PM EDTOxygen Zdalqkqxoj68%02/03/2025 6:26 PM EDTInhaled Oxygen Concentration--Gfykgd40 kg (218 lb 3.2 oz)02/03/2025 6:26 PM GIIHnfmwe599.2 cm (5' 7 )07/08/2024 8:36 AM ESTBody Mass Index34. 8:36 AM EST Plan of Treatment Health MaintenanceDue DateLast DoneCommentsCT Atgenngrhkts1965FIT-DNA 1965FIT1965FOBT1965 7734Wqxgleamoqpxa1965Pap Smear1986 HPV/Nfbmkn6606/22/1995Pneumococcal Vaccine: Pediatrics (0 to 5 Years) and At-Risk Patients (6 to 64 Years) (2 of 2 - PPSV23, PCV20, or PCV21) Kniefvsws01, 01/31/2018, 01/30/2018COVID-19 Vaccine ( season)2025Influenza Vaccine (#1), 03/31/2020, 03/07/2020, Additional history dtcijjYidkdhimdym81, 12/20/2017 Colorectal Cancer Wckzjdstx12/16/2028Cervical Cancer ScreeningDiscontinuedLung Cancer Screening Shared Decision MakingDiscontinued Procedures Procedure NamePriorityDate/TimeAssociated DiagnosisCommentsBI MAMMOGRAM SCREENING TOMOSYNTHESIS ZGDVXEUDZAmwvhbg13/27/2018 12:00 PM EDT UMRVYHPYTPVOsldvek58/16/2018 12:00 PM EDT from Last 3 Months or Most Recently Relevant to Health Maintenance Results * Bilateral screening mammogram with tomosynthesis (01/31/2018 12:00 PM EDT) Anatomical RegionLateralityModalityBreastBilateralMammographySpecimen (Source) Anatomical Location / LateralityCollection Method / VolumeCollection Time Received Time Narrative 01/31/2018 12:00 PM EDT PERFORMED AT [facility] LOCATION:[id number] Negative Procedure Note Ulysses Paul MD - 02/10/2023 PERFORMED AT [facility] LOCATION:[id number] Negative Authorizing ProviderResult TypeResult StatusUlysses Paul MDIMG BI PROCEDURES Final Result * Colonoscopy (12/20/2017 12:00 PM EDT)Anatomical RegionLateralityModality EndoscopySpecimen (Source)Anatomical Location / LateralityCollection Method / VolumeCollection TimeReceived Time12/20/2017 12:00 PM EDT Narrative 12/20/2017 12:00 PM EDT PERFORMED AT [facility] LOCATION:[id number] IBS Procedure Note CONVERSION, GENERIC - 12/21/2022 PERFORMED AT [facility] LOCATION:[id number] IBS Authorizing ProviderResult TypeResult StatusUlysses Paul MDENDOSCOPY PROCEDURE ORDERABLESFinal Result from Last 3 Months or Most Recently Relevant to Health Maintenance Insurance Care Teams Team MemberRelationshipSpecialtyStart DateEnd Date Ja Pabon MD PCP - GeneralFamily Iwimqlak57/31/24 Nica Krishnamurthy NP [address] [place] [address] [facility]05/07/24 Nica Krishnamurthy NP Nurse PractitionerFaChatuge Regional Hospital08/07/22
--- OUTSIDE RECORDS SUMMARY | 2025-06-11 08:24 | XMS_ITS | Clinical Summary ---
Author Organization [facility] Address [address] [place] [place] [address] Phone Care Team Providers Care Baseboard Heating Installer Name Role Phone Ja Pabon MD Primary Care Provider + Social History Tobacco UseTypesPacks/DayYears UsedDateSmoking Tobacco: Never Assessed CommentsUnknownSex and Gender InformationValueDate RecordedSex Assigned at Not on fileLegal FnyXahxin89/26/2022 9:49 AM ESTGender IdentityNot on fileSexual OrientationNot on file Plan of Treatment Not on file Care Teams Team MemberRelationshipSpecialtyStart DateEnd Date Ja Pabon MD PCP - General03/02/21
== END 2025-06-11 08:20 | disposition home or self-care (01) ==
LOC: MAMMO 08:19
PROVIDERS: PCP Nurse Practitioner; Visit Provider Nurse Practitioner
DX: Z12.31 Encounter for screening mammogram for malignant neoplasm of breast (principal); F17.200 Nicotine dependence, unspecified, uncomplicated; Z12.2 Encounter for screening for malignant neoplasm of respiratory organs; Z80.0 Family history of malignant neoplasm of digestive organs; R91.8 Other nonspecific abnormal finding of lung field
CPT/HCPCS: 71271; 77063; 77067